=== PATIENT | female | born 1945 | race Caucasian/White ===

== ENCOUNTER 2017-02-20 17:56 | Emergency (ER) | payer OTHER, MEDICARE ==
[2017-02-20 18:27] VITALS: BMI 19.9
[2017-02-20] MEDS ORDERED: NS IRRIGATION 1000 ML 1,000 ML ONE (18:30)
--- NOTE | 2017-02-20 19:18 | DR.GIBLEED ---
HPI - Time Seen Time seen: 17:35 - Primary Care Physician Primary Care Physician: JEFFREY\ - HPI Comment HPI Comment: Brownish vomitus - Complaints Chief Complaint Doctors Comments: She had vomitted after having a chocolate Ensure. Chief Complaint:: [facility] STAFF STATES PT STARTED VOMITTING DARK VOMITUS X1. PT'S NURSE STATES PT HAD NOT ATE ANYTHING PRIOR TO VOMITTING OTHER THAN A CHOCOLATE ENSURE. - Reviewed Nurses Notes Reviewed: Yes - Source History Provided: Patient, Detention - Mode of Arrival Mode of Arrival: EMS - Timing Onset of Chief Complaint: 02/20/17 - Quality Vomitus: Brown Stools: None History Of: None Prehospital Care:: None - Severity Number of: 1 - Context Onset: Spontaneous Recent Use Of: None - Associated Signs and Symptoms Associated Signs and Symptoms: denies: Chest Pain, Abdominal Pain, Diarrhea, Epistaxis, Menorrhagia (female), Faintness, Other PMH - PMH Past Medical History: Yes Past Medical History: Anemia, Coronary Artery Disease, Dementia, Depression, Dyslipidemia, GERD, Hypertension, Hypothyroidism Past Surgical History: No (UNKNOWN) Surgical History: Unknown - Family History History of Family Medical Conditions: No - Social History Does any household member use tobacco: No Alcohol Use: None Do you use any recreational Drugs:: No Lives With: Family Lives Where: Home - infectious screening In the last 2 months have you had wt loss of >10#?: NO Have you had fever, night sweats or hemotysis?: No Have you traveled outside the country in the last 6 months?: No Isolation: Standard ROS - Review of Systems Eyes: No Symptoms Reported ENTM: No Symptoms Reported Respiratoy: No Symptoms Reported Cardiovascular: No Symptoms Reported Gastrointestinal/Abdominal: Vomiting Genitourinary: No Symptoms Reported Neurological: No Symptoms Reported Musculoskeletal: No Symptoms Reported Integumentary: No Symptoms Reported Hematologic/Lymphatic: No Symptoms Reported Endocrine: No Symptoms Reported Psychiatric: No Symptoms Reported All Other Systems: Reviewed and Negative PE - Vital Signs Vitals: Temperature 97.9 F Pulse Rate [Apical] 103 Pulse Rate 97 Respiratory Rate 16 Blood Pressure [Left Arm] 144/75 Blood Pressure 136/63 O2 Sat by Pulse Oximetry 100 - General Limitations: No Limitations General Appearance: Alert, In No Apparent Distress - Head Head Exam: Normal Inspection - Eyes Eye exam: Normal Appearance - ENT ENT Exam: Normal Exam - Neck Neck Exam: Normal Inspection - Chest Chest Inspection: Normal Inspection, Symmetric Chest Wall Rise - Respiratory Respiratory Exam: Normal Lung Sounds Bilat Respiratory Exam: Bilateral Clear to Auscultation - Cardiovascular Cardiovascular Exam: Regular Rate, Normal Rhythm - Abdominal Exam Abdominal Exam: Normal Inspection, Normal Bowel Sounds, Soft - Rectal Rectal Exam: Normal Inspection, Normal Rectal Tone - Extremities Extremities Exam: Normal Inspection - Back Back Exam: Normal Inspection - Neurologic Neurological Exam: Alert - Psychiatric Psychiatric Exam: Normal Affect - Skin Skin Exam: Warm Course - Reevaluation 1st: Resolved - Education/Counseling Education/Counseling: Patient Educated On: Treatment ROR - Labs Reviewed Result Diagrams: 02/20/17 19:37 Laboratory: WBC 10.5 X10^3/uL (3.6-10.0) H 02/20/17 19:37 RBC 3.69 X10^6/uL (3.5-5.4) 02/20/17 19:37 Hgb 10.6 g/dL (12.0-16.0) L 02/20/17 19:37 Hct 31.2 % (36.0-47.0) L 02/20/17 19:37 MCV 84.4 fL (80.0-100.0) 02/20/17 19:37 MCH 28.8 pg (27.0-34.0) 02/20/17 19:37 MCHC 34.1 g/dL (33.0-35.0) 02/20/17 19:37 RDW 13.6 % (11.6-16.5) 02/20/17 19:37 Plt Count 350 X10^3/uL (150.0-450.0) 02/20/17 19:37 MPV 8.0 fL (7.4-11.0) 02/20/17 19:37 Neut % 80.2 % (42.0-75.0) H 02/20/17 19:37 Lymph % 13.2 % (21.0-51.0) L 02/20/17 19:37 Talbot % 5.5 % (0.0-13.0) 02/20/17 19:37 Eos % 0.3 % (0.9-2.9) L 02/20/17 19:37 Baso % 0.8 % (0.2-1.0) 02/20/17 19:37 Neut # 8.4 x10^3/uL (2.2-4.8) H 02/20/17 19:37 Lymph # 1.4 X10^3/uL (1.3-2.9) 02/20/17 19:37 Talbot # 0.6 x10^3/uL (0.3-0.8) 02/20/17 19:37 Eos # 0.0 x10^3/uL (0.0-0.2) 02/20/17 19:37 Baso # 0.1 X10^3/uL (0.0-0.1) 02/20/17 19:37 Absolute Nucleated RBC 0.0 /100WBC 02/20/17 19:37 Stool Description Ifob collection tube 02/20/17 19:15 Stl Occult Blood (IFOB) Negative (NEGATIVE) 02/20/17 19:15 - Diagnosis Discharge Problem: Nausea & vomiting Discharge Problem: (Ruled Out): Nausea - Discharge Plan Disposition: 03 [facility] Condition: Stable - Follow ups/Referrals Follow ups/Referrals: Ronni Carver [Primary Care Provider] - 3 days - Instructions Instructions: Nausea, Adult, [id number]
[2017-02-20 19:48] LABS: BASOPHILS # (AUTO) 0.1 X10^3/uL (0.0-0.1); BASOPHILS % (AUTO) 0.8 % (0.2-1.0); EOSINOPHILS % (AUTO) 0.3 % (0.9-2.9); HEMATOCRIT 31.2 % (36.0-47.0); HEMOGLOBIN 10.6 g/dL (12.0-16.0); LYMPHOCYTES # (AUTO) 1.4 X10^3/uL (1.3-2.9); LYMPHOCYTES % (AUTO) 13.2 % (21.0-51.0); MEAN CORPUSCULAR HEMOGLOBIN 28.8 pg (27.0-34.0); MEAN CORPUSCULAR HGB CONC 34.1 g/dL (33.0-35.0); MEAN CORPUSCULAR VOLUME 84.4 fL (80.0-100.0); MONOCYTES # (AUTO) 0.6 x10^3/uL (0.3-0.8); MONOCYTES % (AUTO) 5.5 % (0.0-13.0); NEUTROPHILS # (AUTO) 8.4 x10^3/uL (2.2-4.8); NEUTROPHILS % (AUTO) 80.2 % (42.0-75.0); PLATELET COUNT 350 X10^3/uL (150.0-450.0); RED BLOOD COUNT 3.69 X10^6/uL (3.5-5.4); RED CELL DISTRIBUTION WIDTH 13.6 % (11.6-16.5); WHITE BLOOD COUNT 10.5 X10^3/uL (3.6-10.0)
[2017-02-20 20:10] VITALS: BP 144/75
== END 2017-02-20 20:21 | disposition home or self-care (01) ==
LOC: ER 18:21
DX: R11.10 Vomiting, unspecified (principal)
CPT/HCPCS: 36415; 82270; 85025; 99283

== ENCOUNTER 2017-04-26 12:23 | Emergency (ER) | payer OTHER, MEDICARE ==
[2017-04-26 12:47] VITALS: BP 145/74
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
== END 2017-04-26 14:31 ==
LOC: ER 12:31
DX: T74.21XA Adult sexual abuse, confirmed, initial encounter (principal); Y07.59 Other non-family member, perpetrator of maltreatment and neglect
CPT/HCPCS: 99283; 99285

== ENCOUNTER 2018-08-03 07:39 | Inpatient (IN) ==
--- NOTE | 2018-08-03 08:55 | DR.NAUSEAF ---
HPI Time Seen Time Seen by Provider: 08/03/18 08:43 Primary Care Physician Primary Care Physician: JEFFREY HPI Comment HPI Comment: PATIENT IS 73YR OLD WHITE FEMALE WITH VOMITING STOOL LIKE VOMITUS AND STOOL LIKE G-TUBE ASPIRATION. PATIENT IS HAVING ABDOMIAL PAIN AND G-TUBE WAS PLACE RECENTLY. AGREE WITH CHIEF COMPLAINT. HISTORY ANEMIA. TAKES ASPRIN 81MG DAILY. NO FEVER. Complaints Chief Complaint Doctors Comments: G TUBE WITH STOOL COMING FROM IT AND VOMITED SIMILAR TO WHAT IS COMING OUT OF G-TUBE. THIS WAS NOTED THOS AM AT THE [facility]. Chief Complaint:: [facility] STAFF CALLS AND STATES PT. HAS HAD SEVERAL VOMITING EPISODES THIS MORNING WHICH ARE DARK IN COLOR AND SMELL OF STOOL. THEY ALSO STATE PT'S SKIN IS JAUNDICE AND THAT PT. RECENTLY HAD A G-TUBE PLACED. UPON ARRIVAL TO ER, G-TUBE NOTED TO BE LEAKING DARK, FOUL SMELLING LIQUID. PT. IS VERY TENDER TO G-TUBE SITE. Reviewed Nurses Notes Reviewed: Yes Source History Provided: Patient and Custodial Mode of Arrival Mode of Arrival: Stretcher Timing Onset of Chief Complaint: 08/03/18 Context Onset: Spontaneous Recent: None History of: Abdominal Operation (G-TUBE PLACEMENT.) Quality Quality: Bloody Associated Signs and Symptoms Abdominal Pain Quality: Other (HURTING.) Abdominal Pain Location: Diffuse Symptoms: Abdominal Pain and Hematemesis Other History Other History: ANEMIA. PMH PMH Past Medical History: Yes Past Medical History: Anemia, Arthritis, Coronary Artery Disease, Dementia, Dyslipidemia, Hypertension and Hypothyroidism Past Surgical History: Yes Surgical History: Hysterectomy, Ortho Surgery and Other Past Surgical History Comment: G-TUBE PLACEMENT Family History History of Family Medical Conditions: Yes Family Medical History: Coronary Artery Disease and Hypertension Social History Does patient currently use any type of tobacco product: No Have you used tobacco products in the last 12 months: No Type of Tobacco Use: None Does any household member use tobacco: No Alcohol Use: None Do you use any recreational Drugs:: No Lives With: Other Lives Where: Custodial infectious screening In the last 2 months have you had wt loss of >10#?: NO Have you had fever, night sweats or hemotysis?: No Have you traveled outside the country in the last 6 months?: No Isolation: Standard ROS Review of Systems Constitutional: Weakness; negative Fever Eyes: No Symptoms Reported; negative Eye Pain and Discharge ENTM: No Symptoms Reported Respiratoy: No Symptoms Reported Cardiovascular: No Symptoms Reported Gastrointestinal/Abdominal: Abdominal Pain, Nausea and Vomiting Neurological: Numbness Musculoskeletal: No Symptoms Reported Integumentary: No Symptoms Reported Hematologic/Lymphatic: Anemia Endocrine: No Symptoms Reported Psychiatric: No Symptoms Reported All Other Systems: Reviewed and Negative Unable to Obtain Due To: Dementia PE Vital Signs Vitals: Temperature 98.6 F Pulse Rate [Apical] 108 Pulse Rate 89 Respiratory Rate 17 Blood Pressure [Right Arm] 158/70 Blood Pressure [Left Arm] 128/61 Blood Pressure 139/68 O2 Sat by Pulse Oximetry 97 General Limitations: Other (DEMENTIA.) General Appearance: Alert and In No Apparent Distress Head Head Exam: Normal Inspection Eyes Eye exam: PERRL; negative Scleral Icterus and Conjunctival Injection ENT ENT Exam: Normal External Ear Exam Neck Neck Exam: Normal Inspection and Trachea Midline; negative Tenderness, Meningismus and Lymphadenopathy Chest Chest Inspection: Symmetric Chest Wall Rise Respiratory Respiratory Exam: Normal Lung Sounds Bilat Respiratory Exam: Bilateral: Rales and Lower: Rales Cardiovascular Cardiovascular Exam: Regular Rate and Normal Rhythm Abdominal Exam Abdominal Exam: Normal Bowel Sounds, Soft and Tenderness Abdominal Tenderness: Diffuse and Moderate Rectal Rectal Exam: Deferred External Exam: Female: Deferred : Speculum Exam (Female): Deferred : Bimanual Exam (female): Deferred Extremities Extremities Exam: Normal Inspection Back Back Exam: Normal Inspection Neurologic Neurological Exam: Alert Psychiatric Psychiatric Exam: Normal Affect Skin Skin Exam: Dry MDM Differential Diagnosis Differential Diagnosis: Considerations may Include:: Bowel Obstruction, Gastroenteritis, Inflammatory BD, Pancreatitis, Urinary Tract Infection and Urolithiasis COURSE Treatment Treatment: SEE ORDERS. IV NS AND PROTONIX DRIP IN ED. Consultation Consultation Comments: DR. MURPHY WILL ADMIT PATIENT. Education/Counseling Education/Counseling: Patient Educated On: Diagnosis ROR Labs Reviewed Laboratory Results Reviewed?: Yes Result Diagrams: 08/05/18 04:21 08/05/18 04:21 Laboratory: 08/03/18 10:18 Urine,Catheterized Urine Culture - Preliminary WBC 14.7 X10^3/uL (3.6-10.0) H 08/05/18 04:21 RBC 4.22 X10^6/uL (3.5-5.4) 08/05/18 04:21 Hgb 10.7 g/dL (12.0-16.0) L 08/05/18 04:21 Hct 32.2 % (36.0-47.0) L 08/05/18 04:21 MCV 76.3 fL (80.0-100.0) L 08/05/18 04:21 MCH 25.3 pg (27.0-34.0) L 08/05/18 04:21 MCHC 33.1 g/dL (33.0-35.0) 08/05/18 04:21 RDW 19.2 % (11.6-16.5) H 08/05/18 04:21 Plt Count 542 X10^3/uL (150.0-450.0) H 08/05/18 04:21 Plt Count Comment Increased (ADEQUATE) A 08/05/18 04: MPV 7.5 fL (7.4-11.0) 08/05/18 04:21 Neut % (Auto) 77.0 % (42.0-75.0) H 08/05/18 04:21 Lymph % (Auto) 13.2 % (21.0-51.0) L 08/05/18 04:21 Stephenson % (Auto) 6.3 % (0.0-13.0) 08/05/18 04:21 Eos % (Auto) 2.9 % (0.9-2.9) 08/05/18 04:21 Baso % (Auto) 0.6 % (0.2-1.0) 08/05/18 04:21 Neut # (Auto) 11.3 x10^3/uL (2.2-4.8) H 08/05/18 04:21 Lymph # (Auto) 2.0 X10^3/uL (1.3-2.9) 08/05/18 04:21 Stephenson # (Auto) 0.9 x10^3/uL (0.3-0.8) H 08/05/18 04:21 Eos # (Auto) 0.4 x10^3/uL (0.0-0.2) H 08/05/18 04:21 Baso # (Auto) 0.1 X10^3/uL (0.0-0.1) 08/05/18 04:21 Absolute Nucleated RBC 0.1 /100WBC 08/05/18 04:21 Total Counted 100 08/03/18 08:58 Neutrophils % (Manual) 90 % (39-76) H 08/03/18 08:58 Band Neutrophils % 4 % (0-10) 08/03/18 08:58 Lymphocytes % (Manual) 4 % (13-43) L 08/03/18 08:58 Monocytes % (Manual) 2 % (4-9) L 08/03/18 08:58 Plt Morphology Comment Normal (NORMAL) 08/05/18 04:21 RBC Morphology Abnormal (NORMAL) A 08/05/18 04:21 Hypochromasia Slight A 08/05/18 04:21 Anisocytosis Slight A 08/05/18 04:21 Microcytosis Slight A 08/04/18 04:21 INR Target Range - 08/04/18 04:21 INR 1.14 (0.8-1.3) 08/04/18 04:21 APTT 29.1 SECONDS (22.9-36.5) 08/04/18 04:21 PTT Comment - 08/04/18 04:21 Sodium 142 mmol/L (136-145) 08/05/18 04:21 Corrected Sodium TNP 08/05/18 04:21 Potassium 3.7 mmol/L (3.5-5.1) 08/05/18 04:21 Chloride 107 mmol/L (98-107) 08/05/18 04:21 Carbon Dioxide 22.1 mmol/L (21-32) 08/05/18 04:21 BUN 15 mg/dL (7-18) 08/05/18 04:21 Creatinine 0.61 mg/dL (0.55-1.02) 08/05/18 04:21 Est GFR (MDRD) Af Amer > 60 (>60) 08/05/18 04:21 Est GFR (MDRD) Non-Af > 60 (>60) 08/05/18 04:21 Glucose 67 mg/dL (65-99) 08/05/18 04:21 Lactic Acid 2.3 mmol/L (0.4-2.0) H 08/03/18 09:35 Calcium 7.6 mg/dL (8.5-10.1) L 08/05/18 04:21 Corrected Calcium 9.1 mg/dL (8.5-10.1) 08/05/18 04:21 Magnesium 2.1 mg/dL (1.7-2.9) 08/05/18 04:21 Total Bilirubin 0.60 mg/dL (0.2-1.0) 08/05/18 04:21 AST 14 Units/L (15-37) L 08/05/18 04:21 ALT 11 Units/L (12-78) L 08/05/18 04:21 Alkaline Phosphatase 59 Units/L (46-116) 08/05/18 04:21 Creatine Kinase 22 Units/L (26-192) L 08/03/18 22:50 CK-MB (CK-2) < 1.0 ng/mL (0-4.0) 08/03/18 22:50 CK/CKMB % Calc 4.6 % (<4) 08/03/18 22:50 Troponin I < 0.02 ng/mL (0-1.5) 08/03/18 22:50 Total Protein 5.9 g/dL (6.4-8.2) L 08/05/18 04:21 Albumin 2.1 g/dL (3.4-5.0) L 08/05/18 04:21 Globulin 3.8 g/dL (2.5-4.5) 08/05/18 04:21 Albumin/Globulin Ratio 0.6 Ratio (1.1-2.1) L 08/05/18 04:21 Amylase 33 Units/L (25-115) 08/03/18 08:58 Lipase 115 Units/L (73-393) 08/03/18 08:58 Specimen Type Catherized urine 08/04/18 10:10 Urine Color Dark yellow (YELLOW) 08/04/18 10:10 Urine Appearance Cloudy (CLEAR) 08/04/18 10:10 Urine pH 6.0 (5.0 - 8.0) 08/04/18 10:10 Ur Specific Steger 1.010 (1.000-1.030) 08/04/18 10:10 Urine Protein 2+ (NEGATIVE) 08/04/18 10:10 Urine Glucose (UA) Negative (NEGATIVE) 08/04/18 10:10 Urine Ketones 2+ (NEGATIVE) 08/04/18 10:10 Urine Occult Blood 1+ (NEGATIVE) 08/04/18 10:10 Urine Nitrite Positive (NEGATIVE) 08/04/18 10:10 Urine Bilirubin Negative (NEGATIVE) 08/04/18 10:10 Urine Urobilinogen 1+ (NORMAL) 08/04/18 10:10 Ur Leukocyte Esterase 1+ (NEGATIVE) 08/04/18 10:10 Urine RBC 3-5 /HPF (NONE SEEN) 08/04/18 10:10 Urine WBC 10-20 /HPF (NONE SEEN) 08/04/18 10:10 Ur Squamous Epith Cells Rare /HPF (NEGATIVE) 08/04/18 10:10 Urine Bacteria 2+ /HPF (NEGATIVE) 08/04/18 10:10 RBC Casts Few /LPF (NEGATIVE) 08/03/18 10:18 Ur Culture Indicated? Yes/culture set up 08/04/18 10:10 Gastric Fluid pH 3 08/03/18 08:58 Gastric Occult Blood Positive (NEGATIVE) A 08/03/18 08:58 Blood Type B POSITIVE 08/04/18 06:32 Antibody Screen Negative 08/04/18 06:32 Crossmatch See Detail 08/04/18 06:32 XRAY XRAY Interpreted by: Radiologist XRAY Findings: REPORT NOTED EKG Rate: 120 Rhythm: ST and Paced Block: None Hypertrophy: None ST: Old, Ant and Infarct Diagnosis Discharge Problem: GI bleed Qualifiers: GI bleed type/associated pathology: unspecified gastrointestinal hemorrhage type Qualified Code(s): K92.2 - Gastrointestinal hemorrhage, unspecified Anemia Qualifiers: Anemia type: unspecified type Qualified Code(s): D64.9 - Anemia, unspecified Bowel obstruction Qualifiers: Intestinal obstruction type: fecal impaction Qualified Code(s): K56.41 - Fecal impaction
[2018-08-03 09:06] LABS: BASOPHILS # (AUTO) 0.1 X10^3/uL (0.0-0.1); BASOPHILS % (AUTO) 0.2 % (0.2-1.0); HEMATOCRIT 27.5 % (36.0-47.0); HEMOGLOBIN 8.5 g/dL (12.0-16.0); LYMPHOCYTES % (AUTO) 3.6 % (21.0-51.0); MEAN CORPUSCULAR HEMOGLOBIN 21.9 pg (27.0-34.0); MEAN CORPUSCULAR VOLUME 70.7 fL (80.0-100.0); MEAN PLATELET VOLUME 7.1 fL (7.4-11.0); MONOCYTES # (AUTO) 1.1 x10^3/uL (0.3-0.8); MONOCYTES % (AUTO) 3.8 % (0.0-13.0); NEUTROPHILS # (AUTO) 26.2 x10^3/uL (2.2-4.8); NEUTROPHILS % (AUTO) 92.4 % (42.0-75.0); PLATELET COUNT 899 X10^3/uL (150.0-450.0); RED BLOOD COUNT 3.89 X10^6/uL (3.5-5.4); RED CELL DISTRIBUTION WIDTH 18.2 % (11.6-16.5)
[2018-08-03 09:17] LABS: ALANINE AMINOTRANSFERASE 14 Units/L (12-78); ALBUMIN 2.6 g/dL (3.4-5.0); ALKALINE PHOSPHATASE 76 Units/L (46-116); AMYLASE 33 Units/L (25-115); ASPARTATE AMINO TRANSFERASE 10 Units/L (15-37); BLOOD UREA NITROGEN 29 mg/dL (7-18); CALCIUM 8.7 mg/dL (8.5-10.1); CARBON DIOXIDE 30.6 mmol/L (21-32); CHLORIDE 99 mmol/L (98-107); COR CA(FOR HYPOALB) 9.8 mg/dL (8.5-10.1); COR NA(FOR HYPERGLY) 140 mmol/L (136-145); CREATININE 0.69 mg/dL (0.55-1.02); LIPASE 115 Units/L (73-393); SODIUM 139 mmol/L (136-145); TOTAL PROTEIN 7.5 g/dL (6.4-8.2); eGFR NON BLACK RACES > 60 (>60)
[2018-08-03 09:22] LABS: GASTRIC OCCULT BLOOD POSITIVE (NEGATIVE)
[2018-08-03 09:23] LABS: PH,GASTRIC FLUID 3; WHITE BLOOD COUNT 28.3 X10^3/uL (3.6-10.0)
[2018-08-03 09:29] LABS: BAND NEUTROPHILS % 4 % (0-10); HYPOCHROMASIA 2+; PLATELET MORPHOLOGY COMMENT NORMAL (NORMAL)
--- NOTE | 2018-08-03 09:32 | RAD ---
HISTORY: Peg tube placed 07/29/2018. Since that time, dark residual stuck in PEG tube. Patient complains of abdominal tenderness and no bowel movement for several days. Study: KUB Comparison: 08/01/2018. Findings: A PEG tube is present with the balloon inflated adjacent to the transverse process of L3 on the left. This is unchanged in position compared to the prior study. There is a massive amount of stool present throughout the colon. No bowel obstruction is seen. No opaque stone is seen. There is heavy calcification present within the kahn of the abdominal aorta without apparent aneurysm. A left hip nail is again seen. IMPRESSION: Massive amount of stool present throughout the entire colon compatible with a total colon fecal impaction. Peg tube as described above. Comment: If there is concern about the intraluminal position of the PEG tube, small amount of Gastrografin could be injected, followed by an immediate KUB. Reported By:
[2018-08-03] MEDS: NS 1000 ML 1,000 ML IV SCH (09:49)
[2018-08-03] MEDS ORDERED: PROTONIX INJ 40 MG VIAL ONE (09:50)
[2018-08-03] MEDS ORDERED: NS 100 ML IV 100 ML ONE ×2 (09:50→18:18)
[2018-08-03] MEDS ORDERED: CATAPRES TAB 0.2 MG PO ONE (10:07)
[2018-08-03] MEDS: PROTONIX INJ 40 MG VIAL 80 MG in NS 100 ML IV 80 ML IV SCH ×3 (10:07→20:00)
[2018-08-03 10:26] LABS: BILIRUBIN,URINE NEGATIVE (NEGATIVE); BLOOD/HEMOGLOBIN,URINE 1+ (NEGATIVE); GLUCOSE, URINE NEGATIVE (NEGATIVE); KETONES,URINE 2+ (NEGATIVE); LEUKOCYTE ESTERASE ,URINE 1+ (NEGATIVE); NITRITES,URINE NEGATIVE (NEGATIVE); PROTEIN,URINE 2+ (NEGATIVE); UROBILINOGEN,URINE 3+ (NORMAL)
[2018-08-03 10:47] LABS: APPEARANCE,URINE CLOUDY (CLEAR); COLOR,URINE YELLOW (YELLOW)
[2018-08-03 10:51] LABS: BACTERIA,URINE 2+ /HPF (NEGATIVE); RED BLOOD CELL CASTS,URINE FEW /LPF (NEGATIVE); SQUAMOUS EPITHELIAL CELL,UR RARE /HPF (NEGATIVE)
[2018-08-03 12:01] LABS: CKMB % 4.2 % (<4); CREATINE KINASE 24 Units/L (26-192); CREATINE KINASE MB < 1.0 ng/mL (0-4.0); TROPONIN I < 0.02 ng/mL (0-1.5)
[2018-08-03 12:27] VITALS: BMI 17.9
[2018-08-03] MEDS ORDERED: NS 500 ML IV 500 ML ONE (12:39)
[2018-08-03] MEDS ORDERED: NS 500 ML IV 500 ML IV PRN (12:40)
[2018-08-03] MEDS: FLAGYL IV PREMIX 500 MG BAG 500 MG/100 ML BAG IV SCH ×2 (14:14→20:48)
[2018-08-03] MEDS: ZOSYN VIAL 3.375 GRAMS 3.375 G in NS 100 ML IV + SPIKE MINIBAG* 100 ML IV SCH ×2 (15:17→21:50)
[2018-08-03 18:24] LABS: CREATINE KINASE 25 Units/L (26-192); CREATINE KINASE MB < 1.0 ng/mL (0-4.0); TROPONIN I < 0.02 ng/mL (0-1.5)
[2018-08-03] MEDS ORDERED: FLEET ENEMA ADULT PR ONE (19:22)
[2018-08-03] MEDS ORDERED: DULCOLAX SUPPOSITORY 10 MG RECTAL ONE (19:22)
--- NOTE | 2018-08-03 19:31 | DR.CONSULT ---
Consult - Consultation for Day of: Date: 08/03/18 - Chief Complaint Chief Complaint: Patient referred for drainage around gastrostomy tube. Patient with AMS unable to obtain accurate review of systems. - History of Present Illness History of Present Illness: Shai is a 73yo female who was referred for leaking around gastrostomy tube. Patient with AMS no family present unable to obtain accurate review of systems. Patient was brougt to the ER from [facility] staff states that patient was vomitng dark emesis that smelled like stool and has been having dark drainage around gastrostomy tube site that smells foul. Patient has EGD on 07/29/18 which showed upper esophageal stricture, distal esophageal stricutre, large deep penetrating duodenal bulb ulcer, erosive gastritis and gastrostomy tube was placed. Patient was referred to our office for anemia, decreased appetite and weight loss. Patient was scheduled for colonoscopy to be performed on 08/05/18. WBC 28.3, Hgb 8.5, Hct 27.5, BUN 26, Creatinine 0.6. Patient with hemoccult positive. KUB shows massive amount of stool throughout the colon. Patient noted to have diffuse abdominal tenderness on palpitation of abdomen. - Past Medical History Past Medical History: Coronary Artery Disease, Hypertension, Dyslipidemia, Dementia, Hypothyroidism, Anemia, Arthritis - Past Surgical History Surgical History: Hysterectomy, Ortho Surgery - Family History Family Medical History: Coronary Artery Disease, Hypertension - Social History Does patient currently use any type of tobacco product: No Have you used tobacco products in the last 12 months: No Type of Tobacco Use: None Does any household member use tobacco: No Alcohol Use: None Drug Use: None - Medications Home Medications: No Known Drug Allergies Allergy (Verified 02/20/17 20:10) - Review of Systems Gastrointestinal: See HPI - Physical Exam Vital Signs: Temperature 99.3 F Pulse Rate [Apical] 108 Pulse Rate 123 Respiratory Rate 20 Blood Pressure [Right Arm] 158/70 Blood Pressure [Left Arm] 128/61 Blood Pressure 113/74 O2 Sat by Pulse Oximetry 99 Oriented: Person Eyes: Normal Ear: Normal Nose: Normal Throat: Normal Respiratory: Clear Throughout Cardiovascular: Normal Auscultation: Bowel Sounds: Normal Palpation: Normal. negative: Spleen Enlarged, Liver Enlarged, Mass Pulsatile Tenderness: Diffuse Skin: Normal Musculoskeletal: Normal Psychiatric: Normal Mood Description: Calm Affect: Normal Speech Pattern: Clear - Plan Plan: Assessment. 1. Anemia, GI Bleed r/o lower GI Bleed. 2. Constipation. 3. Vomiting, Diffuse abdominal pain. 4. GERD, Duodenal ulcer. Plan. 1. Colon when WBC has came down and more stable from infection standpoint. 2. Dulcolax Supp, Fleets Anemia. 3. Abdomen and pelvis CT with contrast. 4. Protonix. Plan reviewed with - Allergies Allergies/Adverse Reactions: Allergies Allergy/AdvReac Type Severity Reaction Status Date / Time No Known Drug Allergies Allergy Verified 02/20/17 20:10
[2018-08-03 23:19] LABS: CKMB % 4.6 % (<4); CREATINE KINASE 22 Units/L (26-192); CREATINE KINASE MB < 1.0 ng/mL (0-4.0); TROPONIN I < 0.02 ng/mL (0-1.5)
[2018-08-04] MEDS: NS 1000 ML 1,000 ML IV SCH ×2 (00:12→15:57)
[2018-08-04] MEDS ORDERED: DULCOLAX SUPPOSITORY 10 MG ONE (00:29)
[2018-08-04] MEDS: PROTONIX INJ 40 MG VIAL 80 MG in NS 100 ML IV 80 ML IV SCH ×4 (02:56→17:09)
[2018-08-04] MEDS: FLAGYL IV PREMIX 500 MG BAG 500 MG/100 ML BAG IV SCH ×4 (02:57→22:57)
[2018-08-04 05:28] LABS: BASOPHILS # (AUTO) 0.1 X10^3/uL (0.0-0.1); BASOPHILS % (AUTO) 0.3 % (0.2-1.0); EOSINOPHILS % (AUTO) 0.2 % (0.9-2.9); LYMPHOCYTES # (AUTO) 1.9 X10^3/uL (1.3-2.9); LYMPHOCYTES % (AUTO) 10.5 % (21.0-51.0); MEAN CORPUSCULAR HEMOGLOBIN 22.6 pg (27.0-34.0); MEAN CORPUSCULAR HGB CONC 31.9 g/dL (33.0-35.0); MEAN CORPUSCULAR VOLUME 70.8 fL (80.0-100.0); MEAN PLATELET VOLUME 7.4 fL (7.4-11.0); MONOCYTES # (AUTO) 1.2 x10^3/uL (0.3-0.8); MONOCYTES % (AUTO) 6.5 % (0.0-13.0); NEUTROPHILS # (AUTO) 14.8 x10^3/uL (2.2-4.8); NEUTROPHILS % (AUTO) 82.5 % (42.0-75.0); PLATELET COUNT 624 X10^3/uL (150.0-450.0); RED BLOOD COUNT 2.66 X10^6/uL (3.5-5.4)
[2018-08-04 05:34] LABS: ALANINE AMINOTRANSFERASE 11 Units/L (12-78); ALBUMIN 2.1 g/dL (3.4-5.0); ALKALINE PHOSPHATASE 61 Units/L (46-116); ASPARTATE AMINO TRANSFERASE 12 Units/L (15-37); BLOOD UREA NITROGEN 19 mg/dL (7-18); CALCIUM 7.6 mg/dL (8.5-10.1); CARBON DIOXIDE 25.1 mmol/L (21-32); CHLORIDE 107 mmol/L (98-107); COR CA(FOR HYPOALB) 9.1 mg/dL (8.5-10.1); SODIUM 144 mmol/L (136-145); eGFR NON BLACK RACES > 60 (>60)
[2018-08-04 05:48] LABS: HEMATOCRIT 18.8 % (36.0-47.0)
[2018-08-04] MEDS: ZOSYN VIAL 3.375 GRAMS 3.375 G in NS 100 ML IV + SPIKE MINIBAG* 100 ML IV SCH ×3 (06:09→22:00)
[2018-08-04] MEDS ORDERED: K-RIDER 10 MEQ/NS 100 ML 10 MEQ/100 ML BAG IV PRN (06:12)
[2018-08-04] MEDS ORDERED: KLOR-CON PO PRN ×2 (06:12→06:13)
[2018-08-04] MEDS ORDERED: K-DUR TAB 20 MEQ PO PRN ×2 (06:12→06:13)
[2018-08-04] MEDS ORDERED: POTASSIUM CHLORIDE LIQ 20 MEQ UDC PO PRN ×2 (06:12→06:13)
[2018-08-04] MEDS ORDERED: POTASSIUM CHL 40 MEQ/NS 0.45% 500 ML IV PRN ×2 (06:12→06:13)
[2018-08-04] MEDS ORDERED: POTASSIUM CHL 60 MEQ/NS 0.45% 500 ML IV PRN ×2 (06:12→06:13)
[2018-08-04] MEDS ORDERED: MICRO K EXTEN CAP 10 MEQ PO PRN ×2 (06:12→06:13)
[2018-08-04] MEDS ORDERED: MAGNESIUM SULFATE 1 GRAM/100 mL PREMIX 1 GM/100 ML BAG IV PRN (06:12)
[2018-08-04 06:20] LABS: ANISOCYTOSIS SLIGHT; HYPOCHROMASIA 3+; MICROCYTOSIS SLIGHT; PLATELET MORPHOLOGY COMMENT NORMAL (NORMAL)
[2018-08-04] MEDS ORDERED: K-RIDER 10 MEQ/NS 100 ML 10 MEQ/100 ML BAG IV ONE (06:25)
[2018-08-04] MEDS: K-RIDER 10 MEQ/NS 100 ML 10 MEQ/100 ML BAG IV PRN ×3 (06:30→18:55)
[2018-08-04] MEDS ORDERED: TYLENOL 325 MG TAB PO PRN (08:16)
[2018-08-04] MEDS: MAGNESIUM SULFATE 1 GRAM/100 mL PREMIX 1 GM/100 ML BAG IV PRN ×2 (08:16→09:28)
[2018-08-04] MEDS ORDERED: BENADRYL INJ 50 MG VIAL IVP ONE (08:16)
--- NOTE | 2018-08-04 09:04 | CT ---
HISTORY: Abdominal pain and tenderness. Peg tube placed on July 29, 2018. Study: CT abdomen and pelvis with contrast Comparison: KUB dated same day. Technique: Multiple axial images of the abdomen and pelvis were obtained from the lung bases to the pubic symphysis after the administration of IV contrast. Dose reduction techniques including Automated Exposure Control (AEC) and adjustment of mA and kV were utilized. Findings: Bibasilar scarring versus atelectasis. There is a PEG tube whose lumen is within the stomach. Anterior to the stomach there is a rim enhancing fluid collection with multiple internal foci of free air measuring 8.1 x 2.2 x 6.5 cm in greatest dimension. This most likely represents abscess formation. Associated soft tissue stranding. Sub cm hypodensity within the posterior right liver lobe that is too small to characterize. Remaining liver is unremarkable. Atretic left kidney. The spleen, pancreas, right kidney, and adrenal glands are unremarkable in their CT appearance. The gallbladder is unremarkable in its CT appearance. No pathologic lymphadenopathy, free air, free fluid, or other areas of focal fluid collection. Large amounts of stool is seen within the colon. The large and small bowel are otherwise unremarkable. The appendix is not well seen, but no secondary signs to suggest acute appendicitis. The uterus is surgically absent. There is a 3.3 cm left ovarian simple appearing cyst. The right ovary is unremarkable. The urinary bladder is grossly unremarkable. Degenerative changes of the spine. No aggressive osseous lesions. Partially visualized left femur hardware appears intact. Vascular calcifications without evidence of aneurysmal dilatation. IMPRESSION: 1. 8.1 cm rim enhancing fluid collection anterior to the stomach most likely represents abscess formation. 2. 3.3 cm left ovarian simple appearing cyst. Recommend pelvic ultrasound for further characterization. 3. Other chronic findings as above. Reported By:
[2018-08-04] MEDS ORDERED: LASIX IVP ONE (09:21)
--- NOTE | 2018-08-04 09:50 | DR.H&P ---
H&P - History & Physical for Day of: H&P Date: 08/03/18 - Chief Complaint Chief Complaint: DARK COLORED EMESIS, ABDOMINAL PAIN, DRAINAGE AROUND PEG TUBE - History of Present Illness History of Present Illness: IS A 73 YEAR OLD PATIENT OF OURS WHO PRESENTED TO THE ER FROM [facility]. SHE PRESENTED WITH COMPLAINTS OF DARK COLORED EMESIS. STAFF REPORTS THAT HER EMESIS SMELLED LIKE STOOL. PATIENT ALSO REPORTS ABDOMINAL PAIN. SHE RECENTLY HAD A PEG TUBE PLACED. ON ARRIVAL TO THE ER, DARK, FOUL SMELLING DRAINAGE WAS NOTED TO BE LEAKING AROUND THE SITE OF THE PEG TUBE. ON ARRIVAL, VITALS WERE 98.6-123-16-97%-113/74. LABS WERE OBTAINED. ABNORMAL LAB VALUES INCLUDE THE FOLLOWING: WBC 28.3, HGB 8.5, HCT 27.5, PLT COUNT 899, BUN 29, GLUCOSE 159, AST 10, ALBUMIN 2.6, GLOBULIN 4.9. GASTRIC FLUID POSISTIVE FOR OCCULT BLOOD. A URINALYSIS WAS OBTAINED AND REVEALED WBC 5-10, RBC 3-5, BACTERIA 2+, LEUKOCYTES 1+. A KUB WAS OBTAINED AND REVEALED: Massive amount of stool present throughout the entire colon compatible with a to kristin colon fecal impaction. Peg tube as described above. EKG REVEALED: SINUS TACHYCARDIA WITH HR 120. SHE WAS GIVEN A FLEETS ENEMA AND A DULCOLOX SUPPOSITORY. SHE WAS THEN ADMITTED FOR FURTHER EVALUATION AND TREATMENT OF GI BLEED, BOWEL OBSTRUCTION, AND ANEMIA. WE PLAN TO CONSULT GI. SHE WILL BE STARTED ON IV FLUIDS, IV ZOSYN, AND A PROTONIX DRIP. OTHERWISE, WE WILL FOLLOW-UP WITH AM LABS AND CONTINUE TO MONITOR. - Past Medical History Past Medical History: Coronary Artery Disease, Hypertension, Dyslipidemia, Dementia, Hypothyroidism, Anemia, Arthritis - Past Surgical History Surgical History: Hysterectomy, Ortho Surgery - Family History Family Medical History: Coronary Artery Disease, Hypertension - Social History Does patient currently use any type of tobacco product: No Have you used tobacco products in the last 12 months: No Type of Tobacco Use: None Does any household member use tobacco: No Alcohol Use: None Drug Use: None - Medications Home Medications: No Known Drug Allergies Allergy (Verified 02/20/17 20:10) - Review of Systems Constitutional: See HPI, Weakness Eyes: No Symptoms Reported ENT: No Symptoms Reported Respiratory: No Symptoms Reported Cardiovascular: No Symptoms Reported Gastrointestinal: See HPI, Nausea, Vomiting, Abdominal Pain Genitourinary: No Symptoms Reported Musculoskeletal: No Symptoms Reported Skin: No Symptoms Reported Neurological: Weakness - Physical Exam Vital Signs: Temperature 99.0 F Pulse Rate [Apical] 108 Pulse Rate 90 Respiratory Rate 19 Blood Pressure [Right Arm] 158/70 Blood Pressure [Left Arm] 128/61 Blood Pressure 134/64 O2 Sat by Pulse Oximetry 97 Oriented: Person Eyes: Normal Ear: Normal Nose: Normal Throat: Normal Respiratory: Diminished Throughout Cardiovascular: Tachycardia. negative: S3, S4, Murmur : Normal Auscultation: Bowel Sounds: Increased Palpation: Normal Tenderness: Diffuse, Moderate. negative: Rebound, Guarding, Rigidity Skin: Red (ABDOMEN) Musculoskeletal: Normal Psychiatric: Normal Mood Description: Calm Affect: Normal Speech Pattern: Clear - Assessment/Plan (1) Anemia Qualifiers: Anemia type: unspecified type Qualified Code(s): D64.9 - Anemia, unspecified Status: Acute Plan: MONITOR H&H, TRANSFUSE PRBC IF NECESSARY (2) GI bleed Qualifiers: GI bleed type/associated pathology: unspecified gastrointestinal hemorrhage type Qualified Code(s): K92.2 - Gastrointestinal hemorrhage, unspecified Status: Acute Plan: PROTONIX DRIP, IV HYDRATION, CONSULT GI, CONTINUE TO MONITOR (3) Infection of percutaneous endoscopic gastrostomy (PEG) site Status: Acute Plan: IV ZOSYN, CONTINUE TO MONITOR (4) Bowel obstruction Qualifiers: Intestinal obstruction type: fecal impaction Qualified Code(s): K56.41 - Fecal impaction Status: Acute Plan: CONTINUE TO MONITOR - Allergies Allergies/Adverse Reactions: Allergies Allergy/AdvReac Type Severity Reaction Status Date / Time No Known Drug Allergies Allergy Verified 02/20/17 20:10
[2018-08-04] MEDS ORDERED: BENADRYL INJ 50 MG VIAL ONE (10:20)
[2018-08-04] MEDS ORDERED: NS 250 ML IV 250 ML ONE ×2 (10:27→13:42)
[2018-08-04 10:54] LABS: BILIRUBIN,URINE NEGATIVE (NEGATIVE); BLOOD/HEMOGLOBIN,URINE 1+ (NEGATIVE); GLUCOSE, URINE NEGATIVE (NEGATIVE); KETONES,URINE 2+ (NEGATIVE); LEUKOCYTE ESTERASE ,URINE 1+ (NEGATIVE); NITRITES,URINE POSITIVE (NEGATIVE); PROTEIN,URINE 2+ (NEGATIVE); UROBILINOGEN,URINE 1+ (NORMAL)
[2018-08-04 11:12] LABS: APPEARANCE,URINE CLOUDY (CLEAR); BACTERIA,URINE 2+ /HPF (NEGATIVE); COLOR,URINE DARK YELLOW (YELLOW); SQUAMOUS EPITHELIAL CELL,UR RARE /HPF (NEGATIVE)
[2018-08-04] MEDS ORDERED: LASIX IVP NR (14:00)
[2018-08-04] MEDS ORDERED: HALDOL INJ IM PRN (14:12)
[2018-08-04] MEDS: ATIVAN INJ 2 MG VIAL IVP PRN (17:10)
--- NOTE | 2018-08-04 17:18 | DR.PROGNOT ---
Hospital Progress Notes - Progress Note for Day of: Progress Note Date: 08/04/18 - Chief Complaint Chief Complaint: having excissive drainage around PEG tube with localized tenderness . CT showed fluid collection on the anterior stomach wall possible abscess . WBC still high 18.000 ..K 2.7 - Past Medical Family Social History Past Med/Fam/Surg Hx: No changes since H&P Allergies: Allergies No Known Drug Allergies Allergy (Verified 02/20/17 20:10) - Review Of Systems ROS: No change since H&P - Vital Signs Vital Signs: Temperature 99.0 F Pulse Rate [Apical] 108 Pulse Rate 100 Respiratory Rate 30 Blood Pressure [Right Arm] 158/70 Blood Pressure [Left Arm] 128/61 Blood Pressure 139/71 O2 Sat by Pulse Oximetry 99 - Physical Exam Oriented: Person Eyes: Normal Ear: Normal Nose: Normal Throat: Normal Respiratory: Normal Cardiovascular: Tachycardia. negative: S3, S4, Murmur : Normal GI:Auscultation: Decreased GI:Palpation: Other (localized tenderness around the PEG tube insertion with drainage .) GI: Tenderness: Diffuse, Moderate. negative: Rebound, Guarding, Rigidity Skin: Red (ABDOMEN) Musculoskeletal: Normal Psychiatric: Normal Mood Description: Calm Affect: Normal Speech Pattern: Clear - Laboratory and Diagnostics Result Diagrams: 08/04/18 04:21 08/04/18 04:21 Labs: 08/03/18 10:18 Urine,Catheterized Urine Culture - Preliminary Laboratory WBC 18.0 X10^3/uL (3.6-10.0) H D 08/04/18 04:21 RBC 2.66 X10^6/uL (3.5-5.4) L 08/04/18 04:21 Hgb 6.0 g/dL (12.0-16.0) L* D 08/04/18 04:21 Hct 18.8 % (36.0-47.0) L* 08/04/18 04:21 MCV 70.8 fL (80.0-100.0) L 08/04/18 04:21 MCH 22.6 pg (27.0-34.0) L 08/04/18 04:21 MCHC 31.9 g/dL (33.0-35.0) L 08/04/18 04:21 RDW 18.0 % (11.6-16.5) H 08/04/18 04:21 Plt Count 624 X10^3/uL (150.0-450.0) H 08/04/18 04:21 Plt Count Comment Increased (ADEQUATE) A 08/04/18 04:21 MPV 7.4 fL (7.4-11.0) 08/04/18 04:21 Neut % (Auto) 82.5 % (42.0-75.0) H 08/04/18 04:21 Lymph % (Auto) 10.5 % (21.0-51.0) L 08/04/18 04:21 [place] % (Auto) 6.5 % (0.0-13.0) 08/04/18 04:21 Eos % (Auto) 0.2 % (0.9-2.9) L 08/04/18 04:21 Baso % (Auto) 0.3 % (0.2-1.0) 08/04/18 04:21 Neut # (Auto) 14.8 x10^3/uL (2.2-4.8) H 08/04/18 04:21 Lymph # (Auto) 1.9 X10^3/uL (1.3-2.9) 08/04/18 04:21 [place] # (Auto) 1.2 x10^3/uL (0.3-0.8) H 08/04/18 04:21 Eos # (Auto) 0.0 x10^3/uL (0.0-0.2) 08/04/18 04:21 Baso # (Auto) 0.1 X10^3/uL (0.0-0.1) 08/04/18 04:21 Absolute Nucleated RBC 0.0 /100WBC 08/04/18 04:21 Total Counted 100 08/03/18 08:58 Neutrophils % (Manual) 90 % (39-76) H 08/03/18 08:58 Band Neutrophils % 4 % (0-10) 08/03/18 08:58 Lymphocytes % (Manual) 4 % (13-43) L 08/03/18 08:58 Monocytes % (Manual) 2 % (4-9) L 08/03/18 08:58 Plt Morphology Comment Normal (NORMAL) 08/04/18 04:21 RBC Morphology Abnormal (NORMAL) A 08/04/18 04:21 Hypochromasia 3+ A 08/04/18 04:21 Anisocytosis Slight A 08/04/18 04:21 Microcytosis Slight A 08/04/18 04:21 INR Target Range - 08/04/18 04:21 INR 1.14 (0.8-1.3) 08/04/18 04:21 APTT 29.1 SECONDS (22.9-36.5) 08/04/18 04:21 PTT Comment - 08/04/18 04:21 Sodium 144 mmol/L (136-145) 08/04/18 04:21 Corrected Sodium TNP 08/04/18 04:21 Potassium 2.4 mmol/L (3.5-5.1) L* 08/04/18 04:21 Chloride 107 mmol/L (98-107) 08/04/18 04:21 Carbon Dioxide 25.1 mmol/L (21-32) 08/04/18 04:21 BUN 19 mg/dL (7-18) H 08/04/18 04:21 Creatinine 0.60 mg/dL (0.55-1.02) 08/04/18 04:21 Est GFR (MDRD) Af Amer > 60 (>60) 08/04/18 04:21 Est GFR (MDRD) Non-Af > 60 (>60) 08/04/18 04:21 Glucose 93 mg/dL (65-99) 08/04/18 04:21 Lactic Acid 2.3 mmol/L (0.4-2.0) H 08/03/18 09:35 Calcium 7.6 mg/dL (8.5-10.1) L 08/04/18 04:21 Corrected Calcium 9.1 mg/dL (8.5-10.1) 08/04/18 04:21 Magnesium 1.8 mg/dL (1.7-2.9) 08/04/18 04:21 Total Bilirubin 0.20 mg/dL (0.2-1.0) 08/04/18 04:21 AST 12 Units/L (15-37) L 08/04/18 04:21 ALT 11 Units/L (12-78) L 08/04/18 04:21 Alkaline Phosphatase 61 Units/L (46-116) 08/04/18 04:21 Creatine Kinase 22 Units/L (26-192) L 08/03/18 22:50 CK-MB (CK-2) < 1.0 ng/mL (0-4.0) 08/03/18 22:50 CK/CKMB % Calc 4.6 % (<4) 08/03/18 22:50 Troponin I < 0.02 ng/mL (0-1.5) 08/03/18 22:50 Total Protein 6.0 g/dL (6.4-8.2) L 08/04/18 04:21 Albumin 2.1 g/dL (3.4-5.0) L 08/04/18 04:21 Globulin 3.9 g/dL (2.5-4.5) 08/04/18 04:21 Albumin/Globulin Ratio 0.5 Ratio (1.1-2.1) L 08/04/18 04:21 Amylase 33 Units/L (25-115) 08/03/18 08:58 Lipase 115 Units/L (73-393) 08/03/18 08:58 Specimen Type Catherized urine 08/04/18 10:10 Urine Color Dark yellow (YELLOW) 08/04/18 10:10 Urine Appearance Cloudy (CLEAR) 08/04/18 10:10 Urine pH 6.0 (5.0 - 8.0) 08/04/18 10:10 Ur Specific [place] 1.010 (1.000-1.030) 08/04/18 10:10 Urine Protein 2+ (NEGATIVE) 08/04/18 10:10 Urine Glucose (UA) Negative (NEGATIVE) 08/04/18 10:10 Urine Ketones 2+ (NEGATIVE) 08/04/18 10:10 Urine Occult Blood 1+ (NEGATIVE) 08/04/18 10:10 Urine Nitrite Positive (NEGATIVE) 08/04/18 10:10 Urine Bilirubin Negative (NEGATIVE) 08/04/18 10:10 Urine Urobilinogen 1+ (NORMAL) 08/04/18 10:10 Ur Leukocyte Esterase 1+ (NEGATIVE) 08/04/18 10:10 Urine RBC 3-5 /HPF (NONE SEEN) 08/04/18 10:10 Urine WBC 10-20 /HPF (NONE SEEN) 08/04/18 10:10 Ur Squamous Epith Cells Rare /HPF (NEGATIVE) 08/04/18 10:10 Urine Bacteria 2+ /HPF (NEGATIVE) 08/04/18 10:10 RBC Casts Few /LPF (NEGATIVE) 08/03/18 10:18 Ur Culture Indicated? Yes/culture set up 08/04/18 10:10 Gastric Fluid pH 3 08/03/18 08:58 Gastric Occult Blood Positive (NEGATIVE) A 08/03/18 08:58 Blood Type B POSITIVE 08/04/18 06:32 Antibody Screen Negative 08/04/18 06:32 Crossmatch See Detail 08/04/18 06:32 - Assessment and Plan 1: abdominal abscess anterior to the stomach . anemia 2ed to duodenal ulcer . hypokalemia . will keep NPO for now and review CT to see if we can drain the abscess under CT gauidance - Problem Patient Problems: Patient Problems GI bleed (Acute) K92.2 Anemia (Acute) D64.9 Bowel obstruction (Acute) K56.609 Infection of percutaneous endoscopic gastrostomy (PEG) site (Acute) K94.22
[2018-08-04 18:38] LABS: HEMATOCRIT 35.4 % (36.0-47.0); HEMOGLOBIN 11.5 g/dL (12.0-16.0)
[2018-08-04] MEDS ORDERED: NS 1/2 + KCL 20 MEQ/L 1,000 ML IV ONE (20:20)
[2018-08-04] MEDS: NS 1/2 + KCL 20 MEQ/L 1,000 ML IV SCH (20:27)
[2018-08-05] MEDS: PROTONIX INJ 40 MG VIAL 80 MG in NS 100 ML IV 80 ML IV SCH (02:00)
[2018-08-05] MEDS: FLAGYL IV PREMIX 500 MG BAG 500 MG/100 ML BAG IV SCH ×4 (03:42→21:17)
[2018-08-05 05:24] LABS: BASOPHILS # (AUTO) 0.1 X10^3/uL (0.0-0.1); BASOPHILS % (AUTO) 0.6 % (0.2-1.0); EOSINOPHILS # (AUTO) 0.4 x10^3/uL (0.0-0.2); EOSINOPHILS % (AUTO) 2.9 % (0.9-2.9); HEMATOCRIT 32.2 % (36.0-47.0); HEMOGLOBIN 10.7 g/dL (12.0-16.0); LYMPHOCYTES % (AUTO) 13.2 % (21.0-51.0); MEAN CORPUSCULAR HEMOGLOBIN 25.3 pg (27.0-34.0); MEAN CORPUSCULAR HGB CONC 33.1 g/dL (33.0-35.0); MEAN CORPUSCULAR VOLUME 76.3 fL (80.0-100.0); MEAN PLATELET VOLUME 7.5 fL (7.4-11.0); MONOCYTES # (AUTO) 0.9 x10^3/uL (0.3-0.8); MONOCYTES % (AUTO) 6.3 % (0.0-13.0); NEUTROPHILS # (AUTO) 11.3 x10^3/uL (2.2-4.8); PLATELET COUNT 542 X10^3/uL (150.0-450.0); RED BLOOD COUNT 4.22 X10^6/uL (3.5-5.4); RED CELL DISTRIBUTION WIDTH 19.2 % (11.6-16.5); WHITE BLOOD COUNT 14.7 X10^3/uL (3.6-10.0)
[2018-08-05 05:45] LABS: ALANINE AMINOTRANSFERASE 11 Units/L (12-78); ALBUMIN 2.1 g/dL (3.4-5.0); ALKALINE PHOSPHATASE 59 Units/L (46-116); ASPARTATE AMINO TRANSFERASE 14 Units/L (15-37); BLOOD UREA NITROGEN 15 mg/dL (7-18); CALCIUM 7.6 mg/dL (8.5-10.1); CARBON DIOXIDE 22.1 mmol/L (21-32); CHLORIDE 107 mmol/L (98-107); COR CA(FOR HYPOALB) 9.1 mg/dL (8.5-10.1); CREATININE 0.61 mg/dL (0.55-1.02); MAGNESIUM 2.1 mg/dL (1.7-2.9); SODIUM 142 mmol/L (136-145); TOTAL PROTEIN 5.9 g/dL (6.4-8.2); eGFR NON BLACK RACES > 60 (>60)
[2018-08-05] MEDS: ZOSYN VIAL 3.375 GRAMS 3.375 G in NS 100 ML IV + SPIKE MINIBAG* 100 ML IV SCH ×3 (05:59→21:17)
[2018-08-05 06:34] LABS: PLATELET MORPHOLOGY COMMENT NORMAL (NORMAL)
[2018-08-05 06:35] LABS: ANISOCYTOSIS SLIGHT; HYPOCHROMASIA SLIGHT
[2018-08-05] MEDS ORDERED: PROTONIX TAB 40 MG PO SCH (09:00)
[2018-08-05] MEDS: NS 1/2 + KCL 20 MEQ/L 1,000 ML IV SCH (09:11)
[2018-08-05] MEDS ORDERED: DULCOLAX SUPPOSITORY 10 MG RECTAL ONE (10:05)
--- NOTE | 2018-08-05 10:34 | PCM.PROG ---
Progress Note - Progress Note for Day of Date of Exam: 08/04/18 - Subjective Subjective: WAS ADMITTED FOR GI BLEED, ANEMIA, INFECTION OF PEG TUBE, AND A BOWEL OBSTRUCTION. TODAY, SHE IS ALERT IN BED ON MORNING ROUNDS. SHE IS CONFUSED AND DISORIENTED UPON ROUNDS. ON EXAMINATION, HEART IS REGULAR IN RATE AND RHYTHM. BILATERAL LUNGS ARE NOTED WITH DIMINISHED LUNG SOUNDS THROUGHOUT. ABDOMEN IS ROUND, SOFT, AND NOTED WITH DIFFUSE TENDERNESS TO PALPATION. THERE IS PURULENT DRAINAGE NOTED TO THE SITE OF THE PEG TUBE. HER VITALS THIS MORNING ARE 99.1-91-20-98%-134/64. LABS WERE OBTAINED. ABNORMAL LAB VALUES INCLUDE THE FOLLOWING: WBC 18.0, RBC 2.66, HGB 6.0, HCT 18.8, PLT COUNT 624, POTASSIUM 2.4, BUN 19, CALCIUM 7.6, AST 12, ALT 11, TOTAL PROTEIN 6.0, ALBUMIN 2.1. A UR INALYSIS WAS REPEATED THIS MORNING AND REVEALED WBC 10-20, RBC 3-5, LEUKOCYTES 1+, BACTERIA 2+. AN ABDOMEN/PELVIS CT WITH CONTRAST REVEALED: .1 cm rim enhancing fluid collection anterior to the stomach most likely represents abscess formation. 3.3 cm left ovarian simple appearing cyst. Recommend pelvic ultrasound for further characterization. TODAY, WE PLAN TO TRANSFUSE TWO UNITS OF PACKED RED BLOOD CELLS. WE WILL CONSULT DUE TO ABSCESS. OTHERWISE, WE PLAN TO FOLLOW UP WITH AM LABS AND CONTINUE TO MONITOR. - Past Medical Family Social History Past Med/Fam/Surg Hx: No changes since H&P Allergies: Allergies No Known Drug Allergies Allergy (Verified 02/20/17 20:10) - Review of Systems ROS: No change since H&P - Vital Signs and I&O's Vital Signs: Temperature 98.4 F Pulse Rate [Apical] 108 Pulse Rate 77 Respiratory Rate 12 Blood Pressure [Right Arm] 158/70 Blood Pressure [Left Arm] 128/61 Blood Pressure 133/65 O2 Sat by Pulse Oximetry 97 Intake and Output: Intake & Output 08/02/18 08/03/18 08/04/18 08/05/18 11:59 11:59 11:59 11:59 Intake Total 2034 3242 / 3242 Output Total 320 / 320 0 / 0 2200 / 2200 Balance -320 / -320 2034 1042 / 1042 - Physical Exam Oriented: Person Eyes: Normal Ear: Normal Nose: Normal Throat: Normal Respiratory: Generalized, Diminished Cardiovascular: Tachycardia. negative: S3, S4, Murmur : Normal Auscultation: Bowel Sounds: Decreased Palpation: Normal Tenderness: Diffuse, Moderate. negative: Rebound, Guarding, Rigidity Skin: Red (ABDOMEN) Musculoskeletal: Normal Psychiatric: Normal Mood Description: Calm Affect: Normal Speech Pattern: Clear - Laboratory and Diagnostics Result Diagrams: 08/05/18 04:21 08/05/18 04:21 Labs: 08/03/18 10:18 Urine,Catheterized Urine Culture - Final Escherichia Coli 08/03/18 09:40 Blood Blood Culture - Preliminary 08/03/18 09:35 Blood Blood Culture - Preliminary Laboratory WBC 14.7 X10^3/uL (3.6-10.0) H 08/05/18 04:21 RBC 4.22 X10^6/uL (3.5-5.4) 08/05/18 04:21 Hgb 10.7 g/dL (12.0-16.0) L 08/05/18 04:21 Hct 32.2 % (36.0-47.0) L 08/05/18 04:21 MCV 76.3 fL (80.0-100.0) L 08/05/18 04:21 MCH 25.3 pg (27.0-34.0) L 08/05/18 04:21 MCHC 33.1 g/dL (33.0-35.0) 08/05/18 04:21 RDW 19.2 % (11.6-16.5) H 08/05/18 04:21 Plt Count 542 X10^3/uL (150.0-450.0) H 08/05/18 04:21 Plt Count Comment Increased (ADEQUATE) A 08/05/18 04:21 MPV 7.5 fL (7.4-11.0) 08/05/18 04:21 Neut % (Auto) 77.0 % (42.0-75.0) H 08/05/18 04:21 Lymph % (Auto) 13.2 % (21.0-51.0) L 08/05/18 04:21 [place] % (Auto) 6.3 % (0.0-13.0) 08/05/18 04:21 Eos % (Auto) 2.9 % (0.9-2.9) 08/05/18 04:21 Baso % (Auto) 0.6 % (0.2-1.0) 08/05/18 04:21 Neut # (Auto) 11.3 x10^3/uL (2.2-4.8) H 08/05/18 04:21 Lymph # (Auto) 2.0 X10^3/uL (1.3-2.9) 08/05/18 04:21 [place] # (Auto) 0.9 x10^3/uL (0.3-0.8) H 08/05/18 04:21 Eos # (Auto) 0.4 x10^3/uL (0.0-0.2) H 08/05/18 04:21 Baso # (Auto) 0.1 X10^3/uL (0.0-0.1) 08/05/18 04:21 Absolute Nucleated RBC 0.1 /100WBC 08/05/18 04:21 Total Counted 100 08/03/18 08:58 Neutrophils % (Manual) 90 % (39-76) H 08/03/18 08:58 Band Neutrophils % 4 % (0-10) 08/03/18 08:58 Lymphocytes % (Manual) 4 % (13-43) L 08/03/18 08:58 Monocytes % (Manual) 2 % (4-9) L 08/03/18 08:58 Plt Morphology Comment Normal (NORMAL) 08/05/18 04:21 RBC Morphology Abnormal (NORMAL) A 08/05/18 04:21 Hypochromasia Slight A 08/05/18 04:21 Anisocytosis Slight A 08/05/18 04:21 Microcytosis Slight A 08/04/18 04:21 INR Target Range - 08/04/18 04:21 INR 1.14 (0.8-1.3) 08/04/18 04:21 APTT 29.1 SECONDS (22.9-36.5) 08/04/18 04:21 PTT Comment - 08/04/18 04:21 Sodium 142 mmol/L (136-145) 08/05/18 04:21 Corrected Sodium TNP 08/05/18 04:21 Potassium 3.7 mmol/L (3.5-5.1) 08/05/18 04:21 Chloride 107 mmol/L (98-107) 08/05/18 04:21 Carbon Dioxide 22.1 mmol/L (21-32) 08/05/18 04:21 BUN 15 mg/dL (7-18) 08/05/18 04:21 Creatinine 0.61 mg/dL (0.55-1.02) 08/05/18 04:21 Est GFR (MDRD) Af Amer > 60 (>60) 08/05/18 04:21 Est GFR (MDRD) Non-Af > 60 (>60) 08/05/18 04:21 Glucose 67 mg/dL (65-99) 08/05/18 04:21 Lactic Acid 2.3 mmol/L (0.4-2.0) H 08/03/18 09:35 Calcium 7.6 mg/dL (8.5-10.1) L 08/05/18 04:21 Corrected Calcium 9.1 mg/dL (8.5-10.1) 08/05/18 04:21 Magnesium 2.1 mg/dL (1.7-2.9) 08/05/18 04:21 Total Bilirubin 0.60 mg/dL (0.2-1.0) 08/05/18 04:21 AST 14 Units/L (15-37) L 08/05/18 04:21 ALT 11 Units/L (12-78) L 08/05/18 04:21 Alkaline Phosphatase 59 Units/L (46-116) 08/05/18 04:21 Creatine Kinase 22 Units/L (26-192) L 08/03/18 22:50 CK-MB (CK-2) < 1.0 ng/mL (0-4.0) 08/03/18 22:50 CK/CKMB % Calc 4.6 % (<4) 08/03/18 22:50 Troponin I < 0.02 ng/mL (0-1.5) 08/03/18 22:50 Total Protein 5.9 g/dL (6.4-8.2) L 08/05/18 04:21 Albumin 2.1 g/dL (3.4-5.0) L 08/05/18 04:21 Globulin 3.8 g/dL (2.5-4.5) 08/05/18 04:21 Albumin/Globulin Ratio 0.6 Ratio (1.1-2.1) L 08/05/18 04:21 Amylase 33 Units/L (25-115) 08/03/18 08:58 Lipase 115 Units/L (73-393) 08/03/18 08:58 Specimen Type Catherized urine 08/04/18 10:10 Urine Color Dark yellow (YELLOW) 08/04/18 10:10 Urine Appearance Cloudy (CLEAR) 08/04/18 10:10 Urine pH 6.0 (5.0 - 8.0) 08/04/18 10:10 Ur Specific [place] 1.010 (1.000-1.030) 08/04/18 10:10 Urine Protein 2+ (NEGATIVE) 08/04/18 10:10 Urine Glucose (UA) Negative (NEGATIVE) 08/04/18 10:10 Urine Ketones 2+ (NEGATIVE) 08/04/18 10:10 Urine Occult Blood 1+ (NEGATIVE) 08/04/18 10:10 Urine Nitrite Positive (NEGATIVE) 08/04/18 10:10 Urine Bilirubin Negative (NEGATIVE) 08/04/18 10:10 Urine Urobilinogen 1+ (NORMAL) 08/04/18 10:10 Ur Leukocyte Esterase 1+ (NEGATIVE) 08/04/18 10:10 Urine RBC 3-5 /HPF (NONE SEEN) 08/04/18 10:10 Urine WBC 10-20 /HPF (NONE SEEN) 08/04/18 10:10 Ur Squamous Epith Cells Rare /HPF (NEGATIVE) 08/04/18 10:10 Urine Bacteria 2+ /HPF (NEGATIVE) 08/04/18 10:10 RBC Casts Few /LPF (NEGATIVE) 08/03/18 10:18 Ur Culture Indicated? Yes/culture set up 08/04/18 10:10 Gastric Fluid pH 3 08/03/18 08:58 Gastric Occult Blood Positive (NEGATIVE) A 08/03/18 08:58 Blood Type B POSITIVE 08/04/18 06:32 Antibody Screen Negative 08/04/18 06:32 Crossmatch See Detail 08/04/18 06:32 - Plan (1) Anemia Status: Acute Qualifiers: Anemia type: unspecified type Qualified Code(s): D64.9 - Anemia, unspecified Plan: TRANSFUSE 2 UNITS PRBC (2) GI bleed Status: Acute Qualifiers: GI bleed type/associated pathology: unspecified gastrointestinal hemorrhage type Qualified Code(s): K92.2 - Gastrointestinal hemorrhage, unspecified Plan: PROTONIX DRIP, IV HYDRATION, CONSULT GI, CONTINUE TO MONITOR (3) Infection of percutaneous endoscopic gastrostomy (PEG) site Status: Acute Plan: IV ZOSYN, CONTINUE TO MONITOR (4) Bowel obstruction Status: Acute Qualifiers: Intestinal obstruction type: fecal impaction Qualified Code(s): K56.41 - Fecal impaction Plan: CONTINUE TO MONITOR (5) Abdominal abscess Status: Acute Plan: CONSULT GENERAL SURGERY, CONTINUE TO MONITOR
[2018-08-05] MEDS ORDERED: D5 1/2 NS 1000 ML 1,000 ML ONE (11:59)
[2018-08-05] MEDS ORDERED: LEVAQUIN PREMIX IV 500 MG 500 MG/100 ML BAG ONE (12:25)
[2018-08-05] MEDS ORDERED: XYLOCAINE 1 % (PLAIN) ONE (12:37)
--- NOTE | 2018-08-05 13:04 | OR.GENERIC ---
Post-Op Note Generic - Post-Op Note Operative Report: needle aspirate and drainage of abdominal abscess above the stomach was done .about 300 cc of purulent material was drained .C&S was obtained . pt did well . will start feeding .
--- NOTE | 2018-08-05 13:26 | CT ---
HISTORY: Abscess Study: CT abdomen without contrast Comparison: 08/03/2018 Technique: Multiple axial images of the abdomen and pelvis were obtained from the lung bases to the pubic symphysis without the administration of IV contrast. Findings: Dependent linear atelectatic lung changes are observed. There is right diaphragm elevation. Anterior transposition of the colon relative to the liver is observed. There is fluid collection lying along the anterior surface of the stomach just below the PEG tube, previously described with thickened enhancing wall concerning for an abscess. There is still residual gas within the fluid collection which measures up to 8 cm in maximum transverse diameter by 1.8 cm in maximum thickness on image 38 series 3. The left kidney is markedly atrophic. The right kidney is average size, with no findings of hydronephrosis. No radiopaque gallstones are observed. Atheromatous calcifications of the abdominal aorta are moderate in severity. There is also heavy plaque within the descending thoracic aorta. Pancreas is average size with no inflammatory changes observed. Adrenal glands are symmetric. The bowel gas pattern is nonobstructive. Moderate stool burden of the colon is observed incidentally. No lymphadenopathy identified. Review of bone windows demonstrates no aggressive bony lesions or acute osseous abnormalities. There is degenerative disc space narrowing at L5-S1 multilevel hypertrophic facet arthropathy is evident. Impression: Residual 8 cm fluid collection lying along the anterior margin of the stomach just below the PEG tube is suspicious for an abscess. The remainder the exam is stable and unchanged from the most recent exam of comparison. Please see body report for details of other chronic and incidental findings. Reported By:
[2018-08-05] MEDS ORDERED: DULCOLAX SUPPOSITORY 10 MG ONE (13:57)
[2018-08-05] MEDS ORDERED: VERSED ONE (14:02)
[2018-08-05] MEDS ORDERED: DIPRIVAN VIAL ONE (14:02)
--- NOTE | 2018-08-05 20:41 | PCM.PROG ---
Progress Note - Progress Note for Day of Date of Exam: 08/05/18 - Subjective Subjective: WAS ADMITTED FOR GI BLEED, ANEMIA, INFECTION OF PEG TUBE, AND A BOWEL OBSTRUCTION. SHE RECEIVED TWO UNITS OF PRBC YESTERDAY. TODAY, SHE IS ALERT IN BED ON MORNING ROUNDS. SHE IS CONFUSED AND DISORIENTED UPON ROUNDS. ON EXAMINATION, HEART IS REGULAR IN RATE AND RHYTHM. BILATERAL LUNGS ARE NOTED WITH DIMINISHED LUNG SOUNDS THROUGHOUT. ABDOMEN IS ROUND, SOFT, AND NOTED WITH DIFFUSE TENDERNESS TO PALPATION. THERE IS PURULENT DRAINAGE NOTED TO THE SITE OF THE PEG TUBE. HER VITALS THIS MORNING ARE 98.4-96-24-97%-144/69. LABS WERE OBTAINED. ABNORMAL LAB VALUES INCLUDE THE FOLLOWING: WBC 14.7, HGB 10.7, HCT 32.2, PLT COUNT 542, CALCIUM 7.6, AST 14, ALT 11, TOTAL PROTEIN 5.9, ALBUMIN 2.1. HAS CONSULTED WITH PATIENT AND PLANS FOR A CT GUIDED ASPIRATION OF THE ABDOMINAL ABSCESS TODAY. WE ARE IN AGREEMENT WITH PLAN. TODAY, WE WILL CONTINUE WITH IV ANTIBIOTICS AND CURRENT PLAN OF CARE. OTHERWISE, WE PLAN TO FOLLOW UP WITH AM LABS AND CONTINUE TO MONITOR. - Past Medical Family Social History Past Med/Fam/Surg Hx: No changes since H&P Allergies: Allergies No Known Drug Allergies Allergy (Verified 02/20/17 20:10) - Review of Systems ROS: No change since H&P - Vital Signs and I&O's Vital Signs: Temperature 98.3 F Pulse Rate [Apical] 108 Pulse Rate 96 Respiratory Rate 21 Blood Pressure [Right Arm] 158/70 Blood Pressure [Left Arm] 128/61 Blood Pressure 155/82 O2 Sat by Pulse Oximetry 99 Intake and Output: Intake & Output 08/03/18 08/04/18 08/05/18 08/06/18 11:59 11:59 11:59 11:59 Intake Total 2034 3242 / 3242 430 / 430 Output Total 320 / 320 0 / 0 2200 / 2200 300 / 300 Balance -320 / -320 2034 1042 / 1042 130 / 130 - Physical Exam Oriented: Person Eyes: Normal Ear: Normal Nose: Normal Throat: Normal Respiratory: Generalized, Diminished Cardiovascular: Tachycardia. negative: S3, S4, Murmur : Normal Auscultation: Bowel Sounds: Decreased Palpation: Normal Tenderness: Diffuse, Moderate. negative: Rebound, Guarding, Rigidity Skin: Red (ABDOMEN) Musculoskeletal: Normal Psychiatric: Normal Mood Description: Calm Affect: Normal Speech Pattern: Clear, Appropriate - Laboratory and Diagnostics Result Diagrams: 08/05/18 04:21 08/05/18 04:21 Labs: 08/05/18 12:55 Aspirate Gram Stain - Final 08/04/18 10:10 Urine,Catheterized Urine Culture - Preliminary 08/03/18 10:18 Urine,Catheterized Urine Culture - Final Escherichia Coli 08/03/18 09:40 Blood Blood Culture - Preliminary 08/03/18 09:35 Blood Blood Culture - Preliminary Laboratory WBC 14.7 X10^3/uL (3.6-10.0) H 08/05/18 04:21 RBC 4.22 X10^6/uL (3.5-5.4) 08/05/18 04:21 Hgb 10.7 g/dL (12.0-16.0) L 08/05/18 04:21 Hct 32.2 % (36.0-47.0) L 08/05/18 04:21 MCV 76.3 fL (80.0-100.0) L 08/05/18 04:21 MCH 25.3 pg (27.0-34.0) L 08/05/18 04:21 MCHC 33.1 g/dL (33.0-35.0) 08/05/18 04:21 RDW 19.2 % (11.6-16.5) H 08/05/18 04:21 Plt Count 542 X10^3/uL (150.0-450.0) H 08/05/18 04:21 Plt Count Comment Increased (ADEQUATE) A 08/05/18 04:21 MPV 7.5 fL (7.4-11.0) 08/05/18 04:21 Neut % (Auto) 77.0 % (42.0-75.0) H 08/05/18 04:21 Lymph % (Auto) 13.2 % (21.0-51.0) L 08/05/18 04:21 [place] % (Auto) 6.3 % (0.0-13.0) 08/05/18 04:21 Eos % (Auto) 2.9 % (0.9-2.9) 08/05/18 04:21 Baso % (Auto) 0.6 % (0.2-1.0) 08/05/18 04:21 Neut # (Auto) 11.3 x10^3/uL (2.2-4.8) H 08/05/18 04:21 Lymph # (Auto) 2.0 X10^3/uL (1.3-2.9) 08/05/18 04:21 [place] # (Auto) 0.9 x10^3/uL (0.3-0.8) H 08/05/18 04:21 Eos # (Auto) 0.4 x10^3/uL (0.0-0.2) H 08/05/18 04:21 Baso # (Auto) 0.1 X10^3/uL (0.0-0.1) 08/05/18 04:21 Absolute Nucleated RBC 0.1 /100WBC 08/05/18 04:21 Total Counted 100 08/03/18 08:58 Neutrophils % (Manual) 90 % (39-76) H 08/03/18 08:58 Band Neutrophils % 4 % (0-10) 08/03/18 08:58 Lymphocytes % (Manual) 4 % (13-43) L 08/03/18 08:58 Monocytes % (Manual) 2 % (4-9) L 08/03/18 08:58 Plt Morphology Comment Normal (NORMAL) 08/05/18 04:21 RBC Morphology Abnormal (NORMAL) A 08/05/18 04:21 Hypochromasia Slight A 08/05/18 04:21 Anisocytosis Slight A 08/05/18 04:21 Microcytosis Slight A 08/04/18 04:21 INR Target Range - 08/04/18 04:21 INR 1.14 (0.8-1.3) 08/04/18 04:21 APTT 29.1 SECONDS (22.9-36.5) 08/04/18 04:21 PTT Comment - 08/04/18 04:21 Sodium 142 mmol/L (136-145) 08/05/18 04:21 Corrected Sodium TNP 08/05/18 04:21 Potassium 3.7 mmol/L (3.5-5.1) 08/05/18 04:21 Chloride 107 mmol/L (98-107) 08/05/18 04:21 Carbon Dioxide 22.1 mmol/L (21-32) 08/05/18 04:21 BUN 15 mg/dL (7-18) 08/05/18 04:21 Creatinine 0.61 mg/dL (0.55-1.02) 08/05/18 04:21 Est GFR (MDRD) Af Amer > 60 (>60) 08/05/18 04:21 Est GFR (MDRD) Non-Af > 60 (>60) 08/05/18 04:21 Glucose 67 mg/dL (65-99) 08/05/18 04:21 Lactic Acid 2.3 mmol/L (0.4-2.0) H 08/03/18 09:35 Calcium 7.6 mg/dL (8.5-10.1) L 08/05/18 04:21 Corrected Calcium 9.1 mg/dL (8.5-10.1) 08/05/18 04:21 Magnesium 2.1 mg/dL (1.7-2.9) 08/05/18 04:21 Total Bilirubin 0.60 mg/dL (0.2-1.0) 08/05/18 04:21 AST 14 Units/L (15-37) L 08/05/18 04:21 ALT 11 Units/L (12-78) L 08/05/18 04:21 Alkaline Phosphatase 59 Units/L (46-116) 08/05/18 04:21 Creatine Kinase 22 Units/L (26-192) L 08/03/18 22:50 CK-MB (CK-2) < 1.0 ng/mL (0-4.0) 08/03/18 22:50 CK/CKMB % Calc 4.6 % (<4) 08/03/18 22:50 Troponin I < 0.02 ng/mL (0-1.5) 08/03/18 22:50 Total Protein 5.9 g/dL (6.4-8.2) L 08/05/18 04:21 Albumin 2.1 g/dL (3.4-5.0) L 08/05/18 04:21 Globulin 3.8 g/dL (2.5-4.5) 08/05/18 04:21 Albumin/Globulin Ratio 0.6 Ratio (1.1-2.1) L 08/05/18 04:21 Amylase 33 Units/L (25-115) 08/03/18 08:58 Lipase 115 Units/L (73-393) 08/03/18 08:58 Specimen Type Catherized urine 08/04/18 10:10 Urine Color Dark yellow (YELLOW) 08/04/18 10:10 Urine Appearance Cloudy (CLEAR) 08/04/18 10:10 Urine pH 6.0 (5.0 - 8.0) 08/04/18 10:10 Ur Specific [place] 1.010 (1.000-1.030) 08/04/18 10:10 Urine Protein 2+ (NEGATIVE) 08/04/18 10:10 Urine Glucose (UA) Negative (NEGATIVE) 08/04/18 10:10 Urine Ketones 2+ (NEGATIVE) 08/04/18 10:10 Urine Occult Blood 1+ (NEGATIVE) 08/04/18 10:10 Urine Nitrite Positive (NEGATIVE) 08/04/18 10:10 Urine Bilirubin Negative (NEGATIVE) 08/04/18 10:10 Urine Urobilinogen 1+ (NORMAL) 08/04/18 10:10 Ur Leukocyte Esterase 1+ (NEGATIVE) 08/04/18 10:10 Urine RBC 3-5 /HPF (NONE SEEN) 08/04/18 10:10 Urine WBC 10-20 /HPF (NONE SEEN) 08/04/18 10:10 Ur Squamous Epith Cells Rare /HPF (NEGATIVE) 08/04/18 10:10 Urine Bacteria 2+ /HPF (NEGATIVE) 08/04/18 10:10 RBC Casts Few /LPF (NEGATIVE) 08/03/18 10:18 Ur Culture Indicated? Yes/culture set up 08/04/18 10:10 Gastric Fluid pH 3 08/03/18 08:58 Gastric Occult Blood Positive (NEGATIVE) A 08/03/18 08:58 Blood Type B POSITIVE 08/04/18 06:32 Antibody Screen Negative 08/04/18 06:32 Crossmatch See Detail 08/04/18 06:32 - Plan (1) Anemia Status: Acute Qualifiers: Anemia type: unspecified type Qualified Code(s): D64.9 - Anemia, unspecified Plan: TRANSFUSE 2 UNITS PRBC (2) GI bleed Status: Acute Qualifiers: GI bleed type/associated pathology: unspecified gastrointestinal hemorrhage type Qualified Code(s): K92.2 - Gastrointestinal hemorrhage, unspecified Plan: PROTONIX DRIP, IV HYDRATION, CONSULT GI, CONTINUE TO MONITOR (3) Infection of percutaneous endoscopic gastrostomy (PEG) site Status: Acute Plan: IV ZOSYN, CONTINUE TO MONITOR (4) Bowel obstruction Status: Acute Qualifiers: Intestinal obstruction type: fecal impaction Qualified Code(s): K56.41 - Fecal impaction Plan: CONTINUE TO MONITOR (5) Abdominal abscess Status: Acute Plan: CT GUIDED ASPIRATION, IV ANTIBIOTICS, CONTINUE TO MONITOR
[2018-08-06] MEDS: FLAGYL IV PREMIX 500 MG BAG 500 MG/100 ML BAG IV SCH ×4 (03:03→21:31)
[2018-08-06] MEDS: NS 1/2 + KCL 20 MEQ/L 1,000 ML IV SCH ×2 (03:04→16:07)
[2018-08-06 05:37] LABS: BASOPHILS # (AUTO) 0.1 X10^3/uL (0.0-0.1); BASOPHILS % (AUTO) 0.6 % (0.2-1.0); EOSINOPHILS # (AUTO) 0.4 x10^3/uL (0.0-0.2); EOSINOPHILS % (AUTO) 2.9 % (0.9-2.9); HEMATOCRIT 32.3 % (36.0-47.0); HEMOGLOBIN 10.6 g/dL (12.0-16.0); LYMPHOCYTES # (AUTO) 1.9 X10^3/uL (1.3-2.9); LYMPHOCYTES % (AUTO) 15.2 % (21.0-51.0); MEAN CORPUSCULAR HGB CONC 32.8 g/dL (33.0-35.0); MEAN CORPUSCULAR VOLUME 76.4 fL (80.0-100.0); MEAN PLATELET VOLUME 7.2 fL (7.4-11.0); MONOCYTES # (AUTO) 0.8 x10^3/uL (0.3-0.8); MONOCYTES % (AUTO) 5.9 % (0.0-13.0); NEUTROPHILS # (AUTO) 9.7 x10^3/uL (2.2-4.8); NEUTROPHILS % (AUTO) 75.4 % (42.0-75.0); PLATELET COUNT 615 X10^3/uL (150.0-450.0); RED BLOOD COUNT 4.22 X10^6/uL (3.5-5.4); RED CELL DISTRIBUTION WIDTH 20.1 % (11.6-16.5); WHITE BLOOD COUNT 12.8 X10^3/uL (3.6-10.0)
[2018-08-06] MEDS: ZOSYN VIAL 3.375 GRAMS 3.375 G in NS 100 ML IV + SPIKE MINIBAG* 100 ML IV SCH ×3 (05:45→22:30)
[2018-08-06 05:47] LABS: ALANINE AMINOTRANSFERASE 9 Units/L (12-78); ALKALINE PHOSPHATASE 55 Units/L (46-116); ASPARTATE AMINO TRANSFERASE 13 Units/L (15-37); BLOOD UREA NITROGEN 8 mg/dL (7-18); CALCIUM 7.4 mg/dL (8.5-10.1); CARBON DIOXIDE 21.6 mmol/L (21-32); CHLORIDE 101 mmol/L (98-107); CREATININE 0.51 mg/dL (0.55-1.02); SODIUM 136 mmol/L (136-145); TOTAL PROTEIN 5.6 g/dL (6.4-8.2); eGFR NON BLACK RACES > 60 (>60)
[2018-08-06 06:21] LABS: PLATELET MORPHOLOGY COMMENT NORMAL (NORMAL)
[2018-08-06 06:22] LABS: ANISOCYTOSIS 1+; HYPOCHROMASIA SLIGHT
[2018-08-06] MEDS: PROTONIX INJ 40 MG VIAL IVP SCH (13:01)
--- NOTE | 2018-08-06 13:14 | DR.PROGNOT ---
Hospital Progress Notes - Progress Note for Day of: Progress Note Date: 08/06/18 - Chief Complaint Chief Complaint: PO drainage of abdominal abscess . no c/o abdominal pain . no drainage around the PEG tube . tolerating diet . mild leukocytosis . - Past Medical Family Social History Past Med/Fam/Surg Hx: No changes since H&P Allergies: Allergies No Known Drug Allergies Allergy (Verified 02/20/17 20:10) - Review Of Systems ROS: No change since H&P - Vital Signs Vital Signs: Temperature 99.2 F Pulse Rate [Apical] 108 Pulse Rate 83 Respiratory Rate 16 Blood Pressure [Right Arm] 158/70 Blood Pressure [Left Arm] 128/61 Blood Pressure 162/78 O2 Sat by Pulse Oximetry 99 - Physical Exam Oriented: Person Eyes: Normal Ear: Normal Nose: Normal Throat: Normal Respiratory: Generalized, Diminished Cardiovascular: Tachycardia. negative: S3, S4, Murmur : Normal GI:Auscultation: Normal GI:Palpation: Normal GI: Tenderness: Normal, Moderate. negative: Rebound, Guarding, Rigidity Skin: Red (ABDOMEN) Musculoskeletal: Normal Psychiatric: Normal Mood Description: Calm Affect: Normal Speech Pattern: Clear, Appropriate - Laboratory and Diagnostics Result Diagrams: 08/06/18 04:20 08/06/18 04:20 Labs: 08/05/18 12:55 Aspirate Gram Stain - Final 08/05/18 12:55 Aspirate Wound Culture - Preliminary 08/04/18 10:10 Urine,Catheterized Urine Culture - Final Escherichia Coli 08/03/18 10:18 Urine,Catheterized Urine Culture - Final Escherichia Coli 08/03/18 09:40 Blood Blood Culture - Preliminary 08/03/18 09:35 Blood Blood Culture - Preliminary Laboratory WBC 12.8 X10^3/uL (3.6-10.0) H 08/06/18 04:20 RBC 4.22 X10^6/uL (3.5-5.4) 08/06/18 04:20 Hgb 10.6 g/dL (12.0-16.0) L 08/06/18 04:20 Hct 32.3 % (36.0-47.0) L 08/06/18 04:20 MCV 76.4 fL (80.0-100.0) L 08/06/18 04:20 MCH 25.0 pg (27.0-34.0) L 08/06/18 04:20 MCHC 32.8 g/dL (33.0-35.0) L 08/06/18 04:20 RDW 20.1 % (11.6-16.5) H 08/06/18 04:20 Plt Count 615 X10^3/uL (150.0-450.0) H 08/06/18 04:20 Plt Count Comment Increased (ADEQUATE) A 08/06/18 04:20 MPV 7.2 fL (7.4-11.0) L 08/06/18 04:20 Neut % (Auto) 75.4 % (42.0-75.0) H 08/06/18 04:20 Lymph % (Auto) 15.2 % (21.0-51.0) L 08/06/18 04:20 [place] % (Auto) 5.9 % (0.0-13.0) 08/06/18 04:20 Eos % (Auto) 2.9 % (0.9-2.9) 08/06/18 04:20 Baso % (Auto) 0.6 % (0.2-1.0) 08/06/18 04:20 Neut # (Auto) 9.7 x10^3/uL (2.2-4.8) H 08/06/18 04:20 Lymph # (Auto) 1.9 X10^3/uL (1.3-2.9) 08/06/18 04:20 [place] # (Auto) 0.8 x10^3/uL (0.3-0.8) 08/06/18 04:20 Eos # (Auto) 0.4 x10^3/uL (0.0-0.2) H 08/06/18 04:20 Baso # (Auto) 0.1 X10^3/uL (0.0-0.1) 08/06/18 04:20 Absolute Nucleated RBC 0.0 /100WBC 08/06/18 04:20 Total Counted 100 08/06/18 04:20 Neutrophils % (Manual) 76 % (39-76) 08/06/18 04:20 Band Neutrophils % 4 % (0-10) 08/03/18 08:58 Lymphocytes % (Manual) 17 % (13-43) 08/06/18 04:20 Monocytes % (Manual) 5 % (4-9) 08/06/18 04:20 Eosinophils % (Manual) 2 % (0-6) 08/06/18 04:20 Plt Morphology Comment Normal (NORMAL) 08/06/18 04:20 RBC Morphology Abnormal (NORMAL) A 08/06/18 04:20 Hypochromasia Slight A 08/06/18 04:20 Anisocytosis 1+ A 08/06/18 04:20 Microcytosis Slight A 08/04/18 04:21 INR Target Range - 08/04/18 04:21 INR 1.14 (0.8-1.3) 08/04/18 04:21 APTT 29.1 SECONDS (22.9-36.5) 08/04/18 04:21 PTT Comment - 08/04/18 04:21 Sodium 136 mmol/L (136-145) 08/06/18 04:20 Corrected Sodium TNP 08/06/18 04:20 Potassium 3.1 mmol/L (3.5-5.1) L 08/06/18 04:20 Chloride 101 mmol/L (98-107) 08/06/18 04:20 Carbon Dioxide 21.6 mmol/L (21-32) 08/06/18 04:20 BUN 8 mg/dL (7-18) 08/06/18 04:20 Creatinine 0.51 mg/dL (0.55-1.02) L 08/06/18 04:20 Est GFR (MDRD) Af Amer > 60 (>60) 08/06/18 04:20 Est GFR (MDRD) Non-Af > 60 (>60) 08/06/18 04:20 Glucose 76 mg/dL (65-99) 08/06/18 04:20 Lactic Acid 2.3 mmol/L (0.4-2.0) H 08/03/18 09:35 Calcium 7.4 mg/dL (8.5-10.1) L 08/06/18 04:20 Corrected Calcium 9.0 mg/dL (8.5-10.1) 08/06/18 04:20 Magnesium 2.1 mg/dL (1.7-2.9) 08/05/18 04:21 Total Bilirubin 0.40 mg/dL (0.2-1.0) 08/06/18 04:20 AST 13 Units/L (15-37) L 08/06/18 04:20 ALT 9 Units/L (12-78) L 08/06/18 04:20 Alkaline Phosphatase 55 Units/L (46-116) 08/06/18 04:20 Creatine Kinase 22 Units/L (26-192) L 08/03/18 22:50 CK-MB (CK-2) < 1.0 ng/mL (0-4.0) 08/03/18 22:50 CK/CKMB % Calc 4.6 % (<4) 08/03/18 22:50 Troponin I < 0.02 ng/mL (0-1.5) 08/03/18 22:50 Total Protein 5.6 g/dL (6.4-8.2) L 08/06/18 04:20 Albumin 2.0 g/dL (3.4-5.0) L 08/06/18 04:20 Globulin 3.6 g/dL (2.5-4.5) 08/06/18 04:20 Albumin/Globulin Ratio 0.6 Ratio (1.1-2.1) L 08/06/18 04:20 Amylase 33 Units/L (25-115) 08/03/18 08:58 Lipase 115 Units/L (73-393) 08/03/18 08:58 Specimen Type Catherized urine 08/04/18 10:10 Urine Color Dark yellow (YELLOW) 08/04/18 10:10 Urine Appearance Cloudy (CLEAR) 08/04/18 10:10 Urine pH 6.0 (5.0 - 8.0) 08/04/18 10:10 Ur Specific [place] 1.010 (1.000-1.030) 08/04/18 10:10 Urine Protein 2+ (NEGATIVE) 08/04/18 10:10 Urine Glucose (UA) Negative (NEGATIVE) 08/04/18 10:10 Urine Ketones 2+ (NEGATIVE) 08/04/18 10:10 Urine Occult Blood 1+ (NEGATIVE) 08/04/18 10:10 Urine Nitrite Positive (NEGATIVE) 08/04/18 10:10 Urine Bilirubin Negative (NEGATIVE) 08/04/18 10:10 Urine Urobilinogen 1+ (NORMAL) 08/04/18 10:10 Ur Leukocyte Esterase 1+ (NEGATIVE) 08/04/18 10:10 Urine RBC 3-5 /HPF (NONE SEEN) 08/04/18 10:10 Urine WBC 10-20 /HPF (NONE SEEN) 08/04/18 10:10 Ur Squamous Epith Cells Rare /HPF (NEGATIVE) 08/04/18 10:10 Urine Bacteria 2+ /HPF (NEGATIVE) 08/04/18 10:10 RBC Casts Few /LPF (NEGATIVE) 08/03/18 10:18 Ur Culture Indicated? Yes/culture set up 08/04/18 10:10 Gastric Fluid pH 3 08/03/18 08:58 Gastric Occult Blood Positive (NEGATIVE) A 08/03/18 08:58 Blood Type B POSITIVE 08/04/18 06:32 Antibody Screen Negative 08/04/18 06:32 Crossmatch See Detail 08/04/18 06:32 - Assessment and Plan 1: abdominal abscess anterior to the stomach .S/P needle aspirate and drainage . anemia 2ed to doudenal ulcer . will start tube feeding . - Problem Patient Problems: Patient Problems GI bleed (Acute) K92.2 Anemia (Acute) D64.9 Bowel obstruction (Acute) K56.609 Infection of percutaneous endoscopic gastrostomy (PEG) site (Acute) K94.22 Abdominal abscess (Acute)
--- NOTE | 2018-08-06 19:00 | PCM.PROG ---
Progress Note - Progress Note for Day of Date of Exam: 08/06/18 - Subjective Subjective: WAS ADMITTED FOR GI BLEED, ANEMIA, INFECTION OF PEG TUBE, AND A BOWEL OBSTRUCTION. SHE RECEIVED TWO UNITS OF PRBC ON ADMISSION. TODAY, SHE IS ALERT IN BED ON MORNING ROUNDS. SHE CONTINUES TO BE DISORIENTED. PERFORMED A CT GUIDED ASPIRATION OF ABDOMINAL ABSCESS YESTERDAY. ON EXAMINATION, HEART IS REGULAR IN RATE AND RHYTHM. BILATERAL LUNGS ARE NOTED WITH DIMINISHED LUNG SOUNDS THROUGHOUT. ABDOMEN IS ROUND, SOFT, AND NOTED WITH MILD, DIFFUSE TENDERNESS TO PALPATION. THERE IS NO DRAINAGE TO AREA SURROUNDING PEG TUBE TODAY. HER VITALS THIS MORNING ARE 99.2-96-21-98%-164/78. LABS WERE OBTAINED. ABNORMAL LAB VALUES INCLUDE THE FOLLOWING: WBC 12.8, HGB 10.6, HCT 32.3, PLT COUNT 615, POTASSIUM 6.1, CREATININE 0.51, CALCIUM 7.4, AST 13, ALT 9, TOTAL PROTEIN 5.6, ALBUMIN 2.0. URINE CULTURE REVEALED GROWTH OF E.COLI. SHE IS CURRENTLY RECEIVING IV ANTIBIOITCS AND IV FLUIDS. WE WILL CONTINUE WITH CURRENT PLAN OF CARE TODAY. OTHERWISE, WE PLAN TO FOLLOW UP WITH AM LABS AND CONTINUE TO MONITOR. - Past Medical Family Social History Past Med/Fam/Surg Hx: No changes since H&P Allergies: Allergies No Known Drug Allergies Allergy (Verified 02/20/17 20:10) - Review of Systems ROS: No change since H&P - Vital Signs and I&O's Vital Signs: Temperature 99.7 F Pulse Rate [Apical] 108 Pulse Rate 103 Respiratory Rate 20 Blood Pressure [Right Arm] 158/70 Blood Pressure [Left Arm] 128/61 Blood Pressure 177/81 O2 Sat by Pulse Oximetry 100 Intake and Output: Intake & Output 08/04/18 08/05/18 08/06/18 08/07/18 11:59 11:59 11:59 11:59 Intake Total 2034 3242 / 3242 1957 929 / 929 Output Total 0 / 0 2200 / 2200 1450 / 1450 700 / 700 Balance 2034 1042 / 1042 508 / 508 229 / 229 - Physical Exam Oriented: Person Eyes: Normal Ear: Normal Nose: Normal Throat: Normal Respiratory: Generalized, Diminished Cardiovascular: Tachycardia. negative: S3, S4, Murmur : Normal Auscultation: Bowel Sounds: Normal Palpation: Normal Tenderness: Normal, Mild. negative: Rebound, Guarding, Rigidity Skin: Red (ABDOMEN) Musculoskeletal: Normal Psychiatric: Normal Mood Description: Calm Affect: Normal Speech Pattern: Clear, Appropriate - Laboratory and Diagnostics Result Diagrams: 08/06/18 04:20 08/06/18 04:20 Labs: 08/05/18 12:55 Aspirate Gram Stain - Final 08/05/18 12:55 Aspirate Wound Culture - Preliminary 08/04/18 10:10 Urine,Catheterized Urine Culture - Final Escherichia Coli 08/03/18 10:18 Urine,Catheterized Urine Culture - Final Escherichia Coli 08/03/18 09:40 Blood Blood Culture - Preliminary 08/03/18 09:35 Blood Blood Culture - Preliminary Laboratory WBC 12.8 X10^3/uL (3.6-10.0) H 08/06/18 04:20 RBC 4.22 X10^6/uL (3.5-5.4) 08/06/18 04:20 Hgb 10.6 g/dL (12.0-16.0) L 08/06/18 04:20 Hct 32.3 % (36.0-47.0) L 08/06/18 04:20 MCV 76.4 fL (80.0-100.0) L 08/06/18 04:20 MCH 25.0 pg (27.0-34.0) L 08/06/18 04:20 MCHC 32.8 g/dL (33.0-35.0) L 08/06/18 04:20 RDW 20.1 % (11.6-16.5) H 08/06/18 04:20 Plt Count 615 X10^3/uL (150.0-450.0) H 08/06/18 04:20 Plt Count Comment Increased (ADEQUATE) A 08/06/18 04:20 MPV 7.2 fL (7.4-11.0) L 08/06/18 04:20 Neut % (Auto) 75.4 % (42.0-75.0) H 08/06/18 04:20 Lymph % (Auto) 15.2 % (21.0-51.0) L 08/06/18 04:20 [place] % (Auto) 5.9 % (0.0-13.0) 08/06/18 04:20 Eos % (Auto) 2.9 % (0.9-2.9) 08/06/18 04:20 Baso % (Auto) 0.6 % (0.2-1.0) 08/06/18 04:20 Neut # (Auto) 9.7 x10^3/uL (2.2-4.8) H 08/06/18 04:20 Lymph # (Auto) 1.9 X10^3/uL (1.3-2.9) 08/06/18 04:20 [place] # (Auto) 0.8 x10^3/uL (0.3-0.8) 08/06/18 04:20 Eos # (Auto) 0.4 x10^3/uL (0.0-0.2) H 08/06/18 04:20 Baso # (Auto) 0.1 X10^3/uL (0.0-0.1) 08/06/18 04:20 Absolute Nucleated RBC 0.0 /100WBC 08/06/18 04:20 Total Counted 100 08/06/18 04:20 Neutrophils % (Manual) 76 % (39-76) 08/06/18 04:20 Band Neutrophils % 4 % (0-10) 08/03/18 08:58 Lymphocytes % (Manual) 17 % (13-43) 08/06/18 04:20 Monocytes % (Manual) 5 % (4-9) 08/06/18 04:20 Eosinophils % (Manual) 2 % (0-6) 08/06/18 04:20 Plt Morphology Comment Normal (NORMAL) 08/06/18 04:20 RBC Morphology Abnormal (NORMAL) A 08/06/18 04:20 Hypochromasia Slight A 08/06/18 04:20 Anisocytosis 1+ A 08/06/18 04:20 Microcytosis Slight A 08/04/18 04:21 INR Target Range - 08/04/18 04:21 INR 1.14 (0.8-1.3) 08/04/18 04:21 APTT 29.1 SECONDS (22.9-36.5) 08/04/18 04:21 PTT Comment - 08/04/18 04:21 Sodium 136 mmol/L (136-145) 08/06/18 04:20 Corrected Sodium TNP 08/06/18 04:20 Potassium 3.1 mmol/L (3.5-5.1) L 08/06/18 04:20 Chloride 101 mmol/L (98-107) 08/06/18 04:20 Carbon Dioxide 21.6 mmol/L (21-32) 08/06/18 04:20 BUN 8 mg/dL (7-18) 08/06/18 04:20 Creatinine 0.51 mg/dL (0.55-1.02) L 08/06/18 04:20 Est GFR (MDRD) Af Amer > 60 (>60) 08/06/18 04:20 Est GFR (MDRD) Non-Af > 60 (>60) 08/06/18 04:20 Glucose 76 mg/dL (65-99) 08/06/18 04:20 Lactic Acid 2.3 mmol/L (0.4-2.0) H 08/03/18 09:35 Calcium 7.4 mg/dL (8.5-10.1) L 08/06/18 04:20 Corrected Calcium 9.0 mg/dL (8.5-10.1) 08/06/18 04:20 Magnesium 2.1 mg/dL (1.7-2.9) 08/05/18 04:21 Total Bilirubin 0.40 mg/dL (0.2-1.0) 08/06/18 04:20 AST 13 Units/L (15-37) L 08/06/18 04:20 ALT 9 Units/L (12-78) L 08/06/18 04:20 Alkaline Phosphatase 55 Units/L (46-116) 08/06/18 04:20 Creatine Kinase 22 Units/L (26-192) L 08/03/18 22:50 CK-MB (CK-2) < 1.0 ng/mL (0-4.0) 08/03/18 22:50 CK/CKMB % Calc 4.6 % (<4) 08/03/18 22:50 Troponin I < 0.02 ng/mL (0-1.5) 08/03/18 22:50 Total Protein 5.6 g/dL (6.4-8.2) L 08/06/18 04:20 Albumin 2.0 g/dL (3.4-5.0) L 08/06/18 04:20 Globulin 3.6 g/dL (2.5-4.5) 08/06/18 04:20 Albumin/Globulin Ratio 0.6 Ratio (1.1-2.1) L 08/06/18 04:20 Amylase 33 Units/L (25-115) 08/03/18 08:58 Lipase 115 Units/L (73-393) 08/03/18 08:58 Specimen Type Catherized urine 08/04/18 10:10 Urine Color Dark yellow (YELLOW) 08/04/18 10:10 Urine Appearance Cloudy (CLEAR) 08/04/18 10:10 Urine pH 6.0 (5.0 - 8.0) 08/04/18 10:10 Ur Specific [place] 1.010 (1.000-1.030) 08/04/18 10:10 Urine Protein 2+ (NEGATIVE) 08/04/18 10:10 Urine Glucose (UA) Negative (NEGATIVE) 08/04/18 10:10 Urine Ketones 2+ (NEGATIVE) 08/04/18 10:10 Urine Occult Blood 1+ (NEGATIVE) 08/04/18 10:10 Urine Nitrite Positive (NEGATIVE) 08/04/18 10:10 Urine Bilirubin Negative (NEGATIVE) 08/04/18 10:10 Urine Urobilinogen 1+ (NORMAL) 08/04/18 10:10 Ur Leukocyte Esterase 1+ (NEGATIVE) 08/04/18 10:10 Urine RBC 3-5 /HPF (NONE SEEN) 08/04/18 10:10 Urine WBC 10-20 /HPF (NONE SEEN) 08/04/18 10:10 Ur Squamous Epith Cells Rare /HPF (NEGATIVE) 08/04/18 10:10 Urine Bacteria 2+ /HPF (NEGATIVE) 08/04/18 10:10 RBC Casts Few /LPF (NEGATIVE) 08/03/18 10:18 Ur Culture Indicated? Yes/culture set up 08/04/18 10:10 Gastric Fluid pH 3 08/03/18 08:58 Gastric Occult Blood Positive (NEGATIVE) A 08/03/18 08:58 Blood Type B POSITIVE 08/04/18 06:32 Antibody Screen Negative 08/04/18 06:32 Crossmatch See Detail 08/04/18 06:32 - Plan (1) Anemia Status: Acute Qualifiers: Anemia type: unspecified type Qualified Code(s): D64.9 - Anemia, unspecified Plan: CONTINUE TO MONITOR (2) GI bleed Status: Acute Qualifiers: GI bleed type/associated pathology: unspecified gastrointestinal hemorrhage type Qualified Code(s): K92.2 - Gastrointestinal hemorrhage, unspecified Plan: PROTONIX DRIP, IV HYDRATION, CONSULT GI, CONTINUE TO MONITOR (3) 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
[2018-08-07] MEDS: NS 1/2 + KCL 20 MEQ/L 1,000 ML IV SCH ×3 (00:43→17:24)
[2018-08-07] MEDS: ATIVAN INJ 2 MG VIAL IVP PRN (00:46)
[2018-08-07] MEDS: FLAGYL IV PREMIX 500 MG BAG 500 MG/100 ML BAG IV SCH ×4 (03:14→21:00)
[2018-08-07] MEDS: ZOSYN VIAL 3.375 GRAMS 3.375 G in NS 100 ML IV + SPIKE MINIBAG* 100 ML IV SCH ×3 (05:40→22:10)
[2018-08-07 06:50] LABS: BASOPHILS # (AUTO) 0.2 X10^3/uL (0.0-0.1); BASOPHILS % (AUTO) 1.4 % (0.2-1.0); EOSINOPHILS # (AUTO) 0.3 x10^3/uL (0.0-0.2); EOSINOPHILS % (AUTO) 1.7 % (0.9-2.9); HEMATOCRIT 36.7 % (36.0-47.0); HEMOGLOBIN 11.9 g/dL (12.0-16.0); LYMPHOCYTES # (AUTO) 1.9 X10^3/uL (1.3-2.9); LYMPHOCYTES % (AUTO) 11.8 % (21.0-51.0); MEAN CORPUSCULAR HEMOGLOBIN 24.9 pg (27.0-34.0); MEAN CORPUSCULAR HGB CONC 32.5 g/dL (33.0-35.0); MEAN CORPUSCULAR VOLUME 76.8 fL (80.0-100.0); MEAN PLATELET VOLUME 7.9 fL (7.4-11.0); MONOCYTES # (AUTO) 1.2 x10^3/uL (0.3-0.8); MONOCYTES % (AUTO) 7.6 % (0.0-13.0); NEUTROPHILS # (AUTO) 12.2 x10^3/uL (2.2-4.8); NEUTROPHILS % (AUTO) 77.5 % (42.0-75.0); PLATELET COUNT 620 X10^3/uL (150.0-450.0); RED BLOOD COUNT 4.78 X10^6/uL (3.5-5.4); RED CELL DISTRIBUTION WIDTH 20.9 % (11.6-16.5); WHITE BLOOD COUNT 15.8 X10^3/uL (3.6-10.0)
[2018-08-07 07:23] LABS: ALANINE AMINOTRANSFERASE 10 Units/L (12-78); ALKALINE PHOSPHATASE 55 Units/L (46-116); ASPARTATE AMINO TRANSFERASE 17 Units/L (15-37); BLOOD UREA NITROGEN 6 mg/dL (7-18); CALCIUM 7.6 mg/dL (8.5-10.1); CARBON DIOXIDE 22.7 mmol/L (21-32); CHLORIDE 103 mmol/L (98-107); COR CA(FOR HYPOALB) 9.2 mg/dL (8.5-10.1); MAGNESIUM 1.6 mg/dL (1.7-2.9); SODIUM 136 mmol/L (136-145); TOTAL PROTEIN 5.7 g/dL (6.4-8.2); eGFR NON BLACK RACES > 60 (>60)
[2018-08-07 07:26] LABS: PLATELET MORPHOLOGY COMMENT NORMAL (NORMAL)
[2018-08-07 07:27] LABS: ANISOCYTOSIS 1+; HYPOCHROMASIA SLIGHT
[2018-08-07] MEDS: PROTONIX INJ 40 MG VIAL IVP SCH (08:58)
[2018-08-07] MEDS ORDERED: NS 100 ML IV + SPIKE MINIBAG* 100 ML ONE (15:50)
[2018-08-08] MEDS: FLAGYL IV PREMIX 500 MG BAG 500 MG/100 ML BAG IV SCH ×4 (04:12→20:34)
[2018-08-08 06:11] LABS: BASOPHILS # (AUTO) 0.1 X10^3/uL (0.0-0.1); BASOPHILS % (AUTO) 0.6 % (0.2-1.0); EOSINOPHILS # (AUTO) 0.3 x10^3/uL (0.0-0.2); EOSINOPHILS % (AUTO) 2.4 % (0.9-2.9); HEMATOCRIT 34.8 % (36.0-47.0); HEMOGLOBIN 11.5 g/dL (12.0-16.0); LYMPHOCYTES # (AUTO) 1.9 X10^3/uL (1.3-2.9); LYMPHOCYTES % (AUTO) 14.9 % (21.0-51.0); MEAN CORPUSCULAR HEMOGLOBIN 25.1 pg (27.0-34.0); MEAN CORPUSCULAR VOLUME 76.1 fL (80.0-100.0); MEAN PLATELET VOLUME 7.1 fL (7.4-11.0); MONOCYTES # (AUTO) 0.8 x10^3/uL (0.3-0.8); MONOCYTES % (AUTO) 6.8 % (0.0-13.0); NEUTROPHILS # (AUTO) 9.4 x10^3/uL (2.2-4.8); NEUTROPHILS % (AUTO) 75.3 % (42.0-75.0); PLATELET COUNT 642 X10^3/uL (150.0-450.0); RED BLOOD COUNT 4.57 X10^6/uL (3.5-5.4); RED CELL DISTRIBUTION WIDTH 21.9 % (11.6-16.5); WHITE BLOOD COUNT 12.5 X10^3/uL (3.6-10.0)
[2018-08-08] MEDS: ZOSYN VIAL 3.375 GRAMS 3.375 G in NS 100 ML IV + SPIKE MINIBAG* 100 ML IV SCH ×2 (06:15→15:00)
[2018-08-08 06:25] LABS: PLATELET MORPHOLOGY COMMENT NORMAL (NORMAL)
[2018-08-08 06:26] LABS: ANISOCYTOSIS 1+; HYPOCHROMASIA SLIGHT
[2018-08-08 06:35] LABS: ALANINE AMINOTRANSFERASE 9 Units/L (12-78); ALBUMIN 1.9 g/dL (3.4-5.0); ALKALINE PHOSPHATASE 50 Units/L (46-116); ASPARTATE AMINO TRANSFERASE 14 Units/L (15-37); BLOOD UREA NITROGEN 6 mg/dL (7-18); CALCIUM 7.8 mg/dL (8.5-10.1); CARBON DIOXIDE 23.7 mmol/L (21-32); CHLORIDE 103 mmol/L (98-107); COR CA(FOR HYPOALB) 9.5 mg/dL (8.5-10.1); CREATININE 0.51 mg/dL (0.55-1.02); SODIUM 136 mmol/L (136-145); TOTAL PROTEIN 5.7 g/dL (6.4-8.2); eGFR NON BLACK RACES > 60 (>60)
[2018-08-08] MEDS: PROTONIX INJ 40 MG VIAL IVP SCH (08:59)
[2018-08-08] MEDS: NS 1/2 + KCL 20 MEQ/L 1,000 ML IV SCH ×2 (08:59→18:13)
[2018-08-08] MEDS ORDERED: NS 100 ML IV + SPIKE MINIBAG* 100 ML ONE (14:21)
[2018-08-09 06:12] LABS: BASOPHILS # (AUTO) 0.1 X10^3/uL (0.0-0.1); BASOPHILS % (AUTO) 0.5 % (0.2-1.0); EOSINOPHILS # (AUTO) 0.3 x10^3/uL (0.0-0.2); EOSINOPHILS % (AUTO) 2.6 % (0.9-2.9); HEMATOCRIT 35.5 % (36.0-47.0); HEMOGLOBIN 11.6 g/dL (12.0-16.0); LYMPHOCYTES # (AUTO) 1.7 X10^3/uL (1.3-2.9); LYMPHOCYTES % (AUTO) 13.3 % (21.0-51.0); MEAN CORPUSCULAR HEMOGLOBIN 24.9 pg (27.0-34.0); MEAN CORPUSCULAR HGB CONC 32.6 g/dL (33.0-35.0); MEAN CORPUSCULAR VOLUME 76.4 fL (80.0-100.0); MEAN PLATELET VOLUME 7.1 fL (7.4-11.0); MONOCYTES % (AUTO) 7.6 % (0.0-13.0); NEUTROPHILS # (AUTO) 9.9 x10^3/uL (2.2-4.8); PLATELET COUNT 700 X10^3/uL (150.0-450.0); RED BLOOD COUNT 4.65 X10^6/uL (3.5-5.4); RED CELL DISTRIBUTION WIDTH 22.2 % (11.6-16.5)
[2018-08-09 06:20] LABS: ALANINE AMINOTRANSFERASE 8 Units/L (12-78); ALKALINE PHOSPHATASE 50 Units/L (46-116); ASPARTATE AMINO TRANSFERASE 17 Units/L (15-37); BLOOD UREA NITROGEN 5 mg/dL (7-18); CALCIUM 8.1 mg/dL (8.5-10.1); CARBON DIOXIDE 22.9 mmol/L (21-32); CHLORIDE 103 mmol/L (98-107); COR CA(FOR HYPOALB) 9.7 mg/dL (8.5-10.1); CREATININE 0.44 mg/dL (0.55-1.02); SODIUM 136 mmol/L (136-145); TOTAL PROTEIN 5.9 g/dL (6.4-8.2); eGFR NON BLACK RACES > 60 (>60)
[2018-08-09 06:34] LABS: ANISOCYTOSIS 2+; PLATELET MORPHOLOGY COMMENT NORMAL (NORMAL)
--- NOTE | 2018-08-09 08:45 | PCM.PROG ---
Progress Note - Progress Note for Day of Date of Exam: 08/07/18 - Subjective Subjective: WAS ADMITTED FOR GI BLEED, ANEMIA, INFECTION OF PEG TUBE, AND A BOWEL OBSTRUCTION. SHE RECEIVED TWO UNITS OF PRBC ON ADMISSION. ABDOMINAL ABSCESS WAS ASPIRATED AND CULTURES WERE SENT. TODAY, SHE IS ALERT IN BED ON MORNING ROUNDS. SHE CONTINUES TO BE DISORIENTED. ON EXAMINATION, HEART IS REGULAR IN RATE AND RHYTHM. BILATERAL LUNGS ARE NOTED WITH DIMINISHED LUNG SOUNDS THROUGHOUT. ABDOMEN IS ROUND, SOFT, AND NOTED WITH MILD, DIFFUSE TENDERNESS TO PALPATION. THERE IS NO DRAINAGE TO AREA SURROUNDING PEG TUBE TODAY. HER VITALS THIS MORNING ARE 99.1-82-15-97%-176/81. LABS WERE OBTAINED. ABNORMAL LAB VALUES INCLUDE THE FOLLOWING: WBC 15.8, HGB 11.9, PLT COUNT 620, BUN 6, CREATININE 0.50, CALCIUM 7.6, MAGNESIUM 1.6, ALT 10, TOTAL BILI 5.7, ALBUMIN 2.0. URINE CULTURE REVEALED GROWTH OF E.COLI. SHE IS CURRENTLY RECEIVING IV ANTIBIOITCS, IV FLUIDS, AND WOUND CARE. WE WILL CONTINUE WITH CURRENT PLAN OF CARE TODAY. OTHERWISE, WE PLAN TO FOLLOW UP WITH AM LABS AND CONTINUE TO MONITOR. - Past Medical Family Social History Past Med/Fam/Surg Hx: No changes since H&P Allergies: Allergies No Known Drug Allergies Allergy (Verified 02/20/17 20:10) - Review of Systems ROS: No change since H&P - Vital Signs and I&O's Vital Signs: Temperature 98.5 F Pulse Rate [Apical] 108 Pulse Rate 89 Respiratory Rate 20 Blood Pressure [Right Arm] 158/70 Blood Pressure [Left Arm] 128/61 Blood Pressure 170/82 O2 Sat by Pulse Oximetry 100 Intake and Output: Intake & Output 08/06/18 08/07/18 08/08/18 08/09/18 11:59 11:59 11:59 11:59 Intake Total 1957 / 8 2966 / 2966 3016 / 3016 3130 / 3130 Output Total 1450 / 1450 2250 / 2250 2050 / 2050 2950 / 2950 Balance 508 / 508 716 / 716 966 / 966 180 / 180 - Physical Exam Oriented: Person Eyes: Normal Ear: Normal Nose: Normal Throat: Normal Respiratory: Generalized, Diminished Cardiovascular: Tachycardia. negative: S3, S4, Murmur : Normal Auscultation: Bowel Sounds: Normal Palpation: Normal Tenderness: Normal, Mild. negative: Rebound, Guarding, Rigidity Skin: Red (ABDOMEN) Musculoskeletal: Normal Psychiatric: Normal Mood Description: Calm Affect: Normal Speech Pattern: Clear, Appropriate - Laboratory and Diagnostics Result Diagrams: 08/09/18 05:30 08/09/18 05:30 Labs: 08/05/18 12:55 Aspirate Gram Stain - Final 08/05/18 12:55 Aspirate Wound Culture - Preliminary 08/04/18 10:10 Urine,Catheterized Urine Culture - Final Escherichia Coli 08/03/18 10:18 Urine,Catheterized Urine Culture - Final Escherichia Coli 08/03/18 09:40 Blood Blood Culture - Preliminary 08/03/18 09:35 Blood Blood Culture - Preliminary Laboratory WBC 13.0 X10^3/uL (3.6-10.0) H 08/09/18 05:30 RBC 4.65 X10^6/uL (3.5-5.4) 08/09/18 05:30 Hgb 11.6 g/dL (12.0-16.0) L 08/09/18 05:30 Hct 35.5 % (36.0-47.0) L 08/09/18 05:30 MCV 76.4 fL (80.0-100.0) L 08/09/18 05:30 MCH 24.9 pg (27.0-34.0) L 08/09/18 05:30 MCHC 32.6 g/dL (33.0-35.0) L 08/09/18 05:30 RDW 22.2 % (11.6-16.5) H 08/09/18 05:30 Plt Count 700 X10^3/uL (150.0-450.0) H 08/09/18 05:30 Plt Count Comment Increased (ADEQUATE) A 08/09/18 05:30 MPV 7.1 fL (7.4-11.0) L 08/09/18 05:30 Neut % (Auto) 76.0 % (42.0-75.0) H 08/09/18 05:30 Lymph % (Auto) 13.3 % (21.0-51.0) L 08/09/18 05:30 [place] % (Auto) 7.6 % (0.0-13.0) 08/09/18 05:30 Eos % (Auto) 2.6 % (0.9-2.9) 08/09/18 05:30 Baso % (Auto) 0.5 % (0.2-1.0) 08/09/18 05:30 Neut # (Auto) 9.9 x10^3/uL (2.2-4.8) H 08/09/18 05:30 Lymph # (Auto) 1.7 X10^3/uL (1.3-2.9) 08/09/18 05:30 [place] # (Auto) 1.0 x10^3/uL (0.3-0.8) H 08/09/18 05:30 Eos # (Auto) 0.3 x10^3/uL (0.0-0.2) H 08/09/18 05:30 Baso # (Auto) 0.1 X10^3/uL (0.0-0.1) 08/09/18 05:30 Absolute Nucleated RBC 0.0 /100WBC 08/09/18 05:30 Total Counted 100 08/08/18 05:40 Neutrophils % (Manual) 71 % (39-76) 08/08/18 05:40 Band Neutrophils % 4 % (0-10) 08/03/18 08:58 Lymphocytes % (Manual) 17 % (13-43) 08/08/18 05:40 Monocytes % (Manual) 8 % (4-9) 08/08/18 05:40 Eosinophils % (Manual) 4 % (0-6) 08/08/18 05:40 Plt Morphology Comment Normal (NORMAL) 08/09/18 05:30 RBC Morphology Abnormal (NORMAL) A 08/09/18 05:30 Hypochromasia Slight A 08/08/18 05:40 Anisocytosis 2+ A 08/09/18 05:30 Microcytosis Slight A 08/04/18 04:21 INR Target Range - 08/04/18 04:21 INR 1.14 (0.8-1.3) 08/04/18 04:21 APTT 29.1 SECONDS (22.9-36.5) 08/04/18 04:21 PTT Comment - 08/04/18 04:21 Sodium 136 mmol/L (136-145) 08/09/18 05:30 Corrected Sodium TNP 08/09/18 05:30 Potassium 3.7 mmol/L (3.5-5.1) 08/09/18 05:30 Chloride 103 mmol/L (98-107) 08/09/18 05:30 Carbon Dioxide 22.9 mmol/L (21-32) 08/09/18 05:30 BUN 5 mg/dL (7-18) L 08/09/18 05:30 Creatinine 0.44 mg/dL (0.55-1.02) L 08/09/18 05:30 Est GFR (MDRD) Af Amer > 60 (>60) 08/09/18 05:30 Est GFR (MDRD) Non-Af > 60 (>60) 08/09/18 05:30 Glucose 91 mg/dL (65-99) 08/09/18 05:30 Lactic Acid 2.3 mmol/L (0.4-2.0) H 08/03/18 09:35 Calcium 8.1 mg/dL (8.5-10.1) L 08/09/18 05:30 Corrected Calcium 9.7 mg/dL (8.5-10.1) 08/09/18 05:30 Magnesium 1.6 mg/dL (1.7-2.9) L 08/07/18 05:30 Total Bilirubin 0.10 mg/dL (0.2-1.0) L 08/09/18 05:30 AST 17 Units/L (15-37) 08/09/18 05:30 ALT 8 Units/L (12-78) L 08/09/18 05:30 Alkaline Phosphatase 50 Units/L (46-116) 08/09/18 05:30 Creatine Kinase 22 Units/L (26-192) L 08/03/18 22:50 CK-MB (CK-2) < 1.0 ng/mL (0-4.0) 08/03/18 22:50 CK/CKMB % Calc 4.6 % (<4) 08/03/18 22:50 Troponin I < 0.02 ng/mL (0-1.5) 08/03/18 22:50 Total Protein 5.9 g/dL (6.4-8.2) L 08/09/18 05:30 Albumin 2.0 g/dL (3.4-5.0) L 08/09/18 05:30 Globulin 3.9 g/dL (2.5-4.5) 08/09/18 05:30 Albumin/Globulin Ratio 0.5 Ratio (1.1-2.1) L 08/09/18 05:30 Amylase 33 Units/L (25-115) 08/03/18 08:58 Lipase 115 Units/L (73-393) 08/03/18 08:58 Specimen Type Catherized urine 08/04/18 10:10 Urine Color Dark yellow (YELLOW) 08/04/18 10:10 Urine Appearance Cloudy (CLEAR) 08/04/18 10:10 Urine pH 6.0 (5.0 - 8.0) 08/04/18 10:10 Ur Specific [place] 1.010 (1.000-1.030) 08/04/18 10:10 Urine Protein 2+ (NEGATIVE) 08/04/18 10:10 Urine Glucose (UA) Negative (NEGATIVE) 08/04/18 10:10 Urine Ketones 2+ (NEGATIVE) 08/04/18 10:10 Urine Occult Blood 1+ (NEGATIVE) 08/04/18 10:10 Urine Nitrite Positive (NEGATIVE) 08/04/18 10:10 Urine Bilirubin Negative (NEGATIVE) 08/04/18 10:10 Urine Urobilinogen 1+ (NORMAL) 08/04/18 10:10 Ur Leukocyte Esterase 1+ (NEGATIVE) 08/04/18 10:10 Urine RBC 3-5 /HPF (NONE SEEN) 08/04/18 10:10 Urine WBC 10-20 /HPF (NONE SEEN) 08/04/18 10:10 Ur Squamous Epith Cells Rare /HPF (NEGATIVE) 08/04/18 10:10 Urine Bacteria 2+ /HPF (NEGATIVE) 08/04/18 10:10 RBC Casts Few /LPF (NEGATIVE) 08/03/18 10:18 Ur Culture Indicated? Yes/culture set up 08/04/18 10:10 Gastric Fluid pH 3 08/03/18 08:58 Gastric Occult Blood Positive (NEGATIVE) A 08/03/18 08:58 Blood Type B POSITIVE 08/04/18 06:32 Antibody Screen Negative 08/04/18 06:32 Crossmatch See Detail 08/04/18 06:32 - Plan (1) Anemia Status: Acute Qualifiers: Anemia type: unspecified type Qualified Code(s): D64.9 - Anemia, unspecified Plan: CONTINUE TO MONITOR (2) GI bleed Status: Acute Qualifiers: GI bleed type/associated pathology: unspecified gastrointestinal hemorrhage type Qualified Code(s): K92.2 - Gastrointestinal hemorrhage, unspecified Plan: PROTONIX DRIP, IV HYDRATION, CONSULT GI, CONTINUE TO MONITOR (3) Infection of percutaneous endoscopic gastrostomy (PEG) site Status: Acute Plan: IV ZOSYN, CONTINUE TO MONITOR (4) Bowel obstruction Status: Acute Qualifiers: Intestinal obstruction type: fecal impaction Qualified Code(s): K56.41 - Fecal impaction Plan: CONTINUE TO MONITOR (5) Abdominal abscess Status: Acute Plan: CT GUIDED ASPIRATION, IV ANTIBIOTICS, CONTINUE TO MONITOR (6) Urinary tract infection Status: Acute Qualifiers: Urinary tract infection type: site unspecified Hematuria presence: without hematuria Qualified Code(s): N39.0 - Urinary tract infection, site not specified Plan: IV ZOSYN, CONTINUE TO MONITOR
[2018-08-09] MEDS: NS 1/2 + KCL 20 MEQ/L 1,000 ML IV SCH (10:03)
[2018-08-09] MEDS: ZOSYN VIAL 3.375 GRAMS 3.375 G in NS 100 ML IV + SPIKE MINIBAG* 100 ML IV SCH (10:03)
[2018-08-09] MEDS: FLAGYL IV PREMIX 500 MG BAG 500 MG/100 ML BAG IV SCH (10:03)
[2018-08-09] MEDS: PROTONIX INJ 40 MG VIAL IVP SCH (10:04)
[2018-08-09 13:05] VITALS: BP 130/68
== END 2018-08-09 13:15 | DRG 378 ==
LOC: ER 07:39 → ICU 10:53
PROVIDERS: ADMIT Internal Medicine; ATTEND Internal Medicine
DX: L02.211 Cutaneous abscess of abdominal wall; K94.22 Gastrostomy infection; I25.10 Atherosclerotic heart disease of native coronary artery without angina pectoris; R00.0 Tachycardia, unspecified; K92.2 Gastrointestinal hemorrhage, unspecified; B96.29 Other Escherichia coli [E. coli] as the cause of diseases classified elsewhere; K56.41 Fecal impaction; D64.89 Other specified anemias; N39.0 Urinary tract infection, site not specified; I10 Essential (primary) hypertension; R26.89 Other abnormalities of gait and mobility; R11.2 Nausea with vomiting, unspecified; E03.8 Other specified hypothyroidism
CPT/HCPCS: 36415; 36430; 51701; 74000; 74018; 74150; 74177; 80053; 81001; 82150; 82271; 82550; 82553; 83605; 83690; 83735; 84132; 84484; 85014; 85018; 85025; 85610; 85730; 86850; 86900; 86901; 86922; 87040; 87070; 87075; 87077; 87086; 87088; 87186; 87205; 93005; 96365; 96374; 97112; 97162; 97166; 97535; 99100; 99284; A4222; C9113; J7030; P9016; S0030; J1200; J1630; J1940; J1956; J2060; J2250; J2543; J2704; J3475; J3480; J7040; J7050; S5010

== ENCOUNTER 2018-09-02 14:15 | Inpatient (IN) ==
[2018-09-02] MEDS: NS 1000 ML 1,000 ML IV SCH (16:00)
[2018-09-02] MEDS: FLAGYL IV PREMIX 500 MG BAG 500 MG/100 ML BAG IV SCH ×2 (16:01→21:36)
[2018-09-02] MEDS: CIPRO IV 400 MG PREMIX* 400 MG/200 ML IV.SOLN. IV SCH ×2 (16:01→22:28)
[2018-09-02 16:22] LABS: BASOPHILS % (AUTO) 0.3 % (0.2-1.0); HEMATOCRIT 37.9 % (36.0-47.0); HEMOGLOBIN 12.4 g/dL (12.0-16.0); LYMPHOCYTES # (AUTO) 1.6 X10^3/uL (1.3-2.9); LYMPHOCYTES % (AUTO) 19.7 % (21.0-51.0); MEAN CORPUSCULAR HEMOGLOBIN 25.1 pg (27.0-34.0); MEAN CORPUSCULAR HGB CONC 32.9 g/dL (33.0-35.0); MEAN CORPUSCULAR VOLUME 76.3 fL (80.0-100.0); MEAN PLATELET VOLUME 7.7 fL (7.4-11.0); MONOCYTES # (AUTO) 0.8 x10^3/uL (0.3-0.8); MONOCYTES % (AUTO) 9.3 % (0.0-13.0); NEUTROPHILS # (AUTO) 5.9 x10^3/uL (2.2-4.8); NEUTROPHILS % (AUTO) 70.7 % (42.0-75.0); PLATELET COUNT 520 X10^3/uL (150.0-450.0); RED BLOOD COUNT 4.96 X10^6/uL (3.5-5.4); WHITE BLOOD COUNT 8.3 X10^3/uL (3.6-10.0)
[2018-09-02 16:27] LABS: ALANINE AMINOTRANSFERASE 22 Units/L (12-78); ALKALINE PHOSPHATASE 97 Units/L (46-116); ASPARTATE AMINO TRANSFERASE 17 Units/L (15-37); BLOOD UREA NITROGEN 16 mg/dL (7-18); CARBON DIOXIDE 28.9 mmol/L (21-32); CHLORIDE 96 mmol/L (98-107); COR CA(FOR HYPOALB) 9.8 mg/dL (8.5-10.1); CREATININE 0.45 mg/dL (0.55-1.02); SODIUM 133 mmol/L (136-145); TOTAL PROTEIN 7.5 g/dL (6.4-8.2); eGFR NON BLACK RACES > 60 (>60)
[2018-09-02 16:29] LABS: LACTIC ACID 0.7 mmol/L (0.4-2.0)
[2018-09-02 16:39] LABS: ANISOCYTOSIS 2+; HYPOCHROMASIA SLIGHT; PLATELET MORPHOLOGY COMMENT NORMAL (NORMAL)
[2018-09-02 16:49] LABS: BILIRUBIN,URINE NEGATIVE (NEGATIVE); BLOOD/HEMOGLOBIN,URINE 2+ (NEGATIVE); GLUCOSE, URINE NEGATIVE (NEGATIVE); KETONES,URINE NEGATIVE (NEGATIVE); LEUKOCYTE ESTERASE ,URINE 3+ (NEGATIVE); NITRITES,URINE POSITIVE (NEGATIVE); PROTEIN,URINE 2+ (NEGATIVE); UROBILINOGEN,URINE 1+ (NORMAL)
[2018-09-02 16:53] LABS: APPEARANCE,URINE CLOUDY (CLEAR); COLOR,URINE YELLOW (YELLOW)
[2018-09-02 16:54] LABS: BACTERIA,URINE 3+ /HPF (NEGATIVE); MUCUS,URINE FEW /HPF (NEGATIVE); RENAL EPITHELIAL CELLS,URINE MODERATE /HPF (NEGATIVE); SQUAMOUS EPITHELIAL CELL,UR MODERATE /HPF (NEGATIVE)
[2018-09-03] MEDS: NS 1000 ML 1,000 ML IV SCH ×3 (01:33→17:15)
[2018-09-03] MEDS: FLAGYL IV PREMIX 500 MG BAG 500 MG/100 ML BAG IV SCH ×4 (02:22→21:03)
[2018-09-03 05:18] LABS: BASOPHILS % (AUTO) 0.5 % (0.2-1.0); HEMATOCRIT 32.9 % (36.0-47.0); HEMOGLOBIN 10.8 g/dL (12.0-16.0); LYMPHOCYTES # (AUTO) 1.9 X10^3/uL (1.3-2.9); LYMPHOCYTES % (AUTO) 24.7 % (21.0-51.0); MEAN CORPUSCULAR HEMOGLOBIN 24.9 pg (27.0-34.0); MEAN CORPUSCULAR HGB CONC 32.8 g/dL (33.0-35.0); MEAN PLATELET VOLUME 7.6 fL (7.4-11.0); MONOCYTES # (AUTO) 0.8 x10^3/uL (0.3-0.8); MONOCYTES % (AUTO) 10.8 % (0.0-13.0); NEUTROPHILS # (AUTO) 4.9 x10^3/uL (2.2-4.8); PLATELET COUNT 426 X10^3/uL (150.0-450.0); RED BLOOD COUNT 4.33 X10^6/uL (3.5-5.4); RED CELL DISTRIBUTION WIDTH 22.4 % (11.6-16.5); WHITE BLOOD COUNT 7.6 X10^3/uL (3.6-10.0)
[2018-09-03 05:30] LABS: ALANINE AMINOTRANSFERASE 17 Units/L (12-78); ALBUMIN 2.4 g/dL (3.4-5.0); ALKALINE PHOSPHATASE 76 Units/L (46-116); ASPARTATE AMINO TRANSFERASE 17 Units/L (15-37); BLOOD UREA NITROGEN 13 mg/dL (7-18); CARBON DIOXIDE 26.5 mmol/L (21-32); CHLORIDE 98 mmol/L (98-107); COR CA(FOR HYPOALB) 9.3 mg/dL (8.5-10.1); CREATININE 0.47 mg/dL (0.55-1.02); SODIUM 133 mmol/L (136-145); TOTAL PROTEIN 6.1 g/dL (6.4-8.2); eGFR NON BLACK RACES > 60 (>60)
[2018-09-03 06:01] LABS: PLATELET MORPHOLOGY COMMENT NORMAL (NORMAL)
[2018-09-03 06:02] LABS: ANISOCYTOSIS 2+; HYPOCHROMASIA SLIGHT
--- NOTE | 2018-09-03 06:33 | RAD ---
HISTORY: Abdominal pain Study: KUB Comparison: 09/02/2018 Findings: The abdominal gas pattern is nonspecific and nonobstructive. There is decreased small bowel gas when compared with the prior examination. No abnormal masses or abnormal calcifications are identified. There is a gastrostomy tube overlying the left mid abdomen. IMPRESSION: Nonspecific bowel gas pattern Reported By:
--- NOTE | 2018-09-03 08:46 | DR.H&P ---
H&P - History & Physical for Day of: H&P Date: 09/02/18 - Chief Complaint Chief Complaint: ABDOMINAL PAIN, RESIDUAL FROM PEG TUBE - History of Present Illness History of Present Illness: IS A 73 YEAR OLD PATIENT OF OURS. SHE IS A RESIDENT OF [facility]. [facility] STAFF REPORTED THAT PATIENT HAS BEEN HAVING LARGE AMOUNTS OF RESIDUAL FROM HER PEG TUBE. OUTPATIENT KUB REVEALED A LEFT SIDED SMALL BOWEL ILEUS. SHE WAS ADMITTED TO THE HOSPITAL FOR FURTHER EVALUATION AND TREATMENT. ON ARRIVAL, VITALS WERE 97.8-96-24-97%-138/66. LABS WERE OBTAINED. ABNORMAL LAB VALUES INCLUDE THE FOLLOWING: PLT COUNT 520, SODIUM 133, CHLORIDE 96, CREATININE 0.45, TOTAL BILI 0.10, ALBUMIN 3.0. URINALYSIS WAS OBTAINED AND REVEALED: WBC TNTC, RBC 10-20, LEUKOCYTES 3+, BACTERIA 3+. ON ADMISSION, 320ML RESIDUAL WAS NOTED FROM PEG TUBE. THIS WAS AT 15:45. [facility] STAFF REPORTED THAT HER LAST FEEDING WAS AT 0915. SHE WWAS STARTED ON IV CIPRO, IV FLAGYL, AND NORMAL SALINE AT 100ML/HR. WE WILL CONSULT . OTHERWISE, WE PLAN TO FOLLOW UP WITH AM LABS AND CONTINUE TO MONITOR. - Past Medical History Past Medical History: Coronary Artery Disease, Hypertension, Dyslipidemia, Dementia, Hypothyroidism, Anemia, Arthritis - Past Surgical History Surgical History: Hysterectomy, Ortho Surgery - Family History Family Medical History: Coronary Artery Disease, Hypertension - Social History Does patient currently use any type of tobacco product: No Have you used tobacco products in the last 12 months: No Type of Tobacco Use: None Does any household member use tobacco: No Alcohol Use: None Drug Use: None - Medications Home Medications: No Known Drug Allergies Allergy (Verified 02/20/17 20:10) CONTINUE taking the following medications dicyclomine 20 mg PO QID 09/02/18 [History] - Review of Systems Constitutional: Weakness Eyes: No Symptoms Reported ENT: No Symptoms Reported Respiratory: No Symptoms Reported Cardiovascular: No Symptoms Reported Gastrointestinal: See HPI Genitourinary: No Symptoms Reported Musculoskeletal: No Symptoms Reported Skin: No Symptoms Reported Neurological: Weakness - Physical Exam Vital Signs: Temperature 98.0 F Pulse Rate [Apical] 87 Respiratory Rate 18 Blood Pressure [Right Arm] 184/85 Blood Pressure [Left Arm] 115/61 Blood Pressure 184/85 O2 Sat by Pulse Oximetry 94 Oriented: Person Eyes: Normal Ear: Normal Nose: Normal Throat: Normal Respiratory: Diminished Throughout Cardiovascular: Normal. negative: S3, S4, Murmur : Normal Auscultation: Bowel Sounds: Decreased Palpation: Normal Tenderness: Normal Skin: Normal Musculoskeletal: Normal Psychiatric: Normal Mood Description: Calm Affect: Normal Speech Pattern: Clear - Assessment/Plan (1) Gastric outlet obstruction Status: Acute Plan: CONSULT GI, START IV FLUIDS, IV ANTIBIOTICS, CONTINUE TO MONITOR (2) Urinary tract infection Qualifiers: Urinary tract infection type: site unspecified Hematuria presence: without hematuria Qualified Code(s): N39.0 - Urinary tract infection, site not specified Status: Acute Plan: IV FLUIDS, IV ANTIBIOTICS, CONTINUE TO MONITOR. - Allergies Allergies/Adverse Reactions: Allergies Allergy/AdvReac Type Severity Reaction Status Date / Time No Known Drug Allergies Allergy Verified 02/20/17 20:10
--- NOTE | 2018-09-03 09:03 | DR.PROGNOT ---
Hospital Progress Notes - Progress Note for Day of: Progress Note Date: 09/03/18 - Chief Complaint Chief Complaint: Pt is comfortable . awake and alert . no vomiting . abdomen is soft and flat ,. for UGI series to R/O gastric outlet obstruction . - Past Medical Family Social History Past Med/Fam/Surg Hx: No changes since H&P Allergies: Allergies No Known Drug Allergies Allergy (Verified 02/20/17 20:10) - Review Of Systems ROS: No change since H&P - Vital Signs Vital Signs: Temperature 98.0 F Pulse Rate [Apical] 87 Respiratory Rate 18 Blood Pressure [Right Arm] 184/85 Blood Pressure [Left Arm] 115/61 Blood Pressure 184/85 O2 Sat by Pulse Oximetry 94 - Physical Exam Oriented: Not Oriented Eyes: Normal Ear: Normal Nose: Normal Throat: Normal Respiratory: Normal Cardiovascular: Normal GI:Auscultation: Normal GI:Palpation: Normal GI: Tenderness: Normal (soft, flat abdomen , BS+ , non tender. no leakage around the PEG tube .) Speech Pattern: Clear, Appropriate - Laboratory and Diagnostics Result Diagrams: 09/03/18 04:48 09/03/18 04:48 Labs: 09/02/18 15:30 Peg Tube Gram Stain - Final Laboratory WBC 7.6 X10^3/uL (3.6-10.0) 09/03/18 04:48 RBC 4.33 X10^6/uL (3.5-5.4) 09/03/18 04:48 Hgb 10.8 g/dL (12.0-16.0) L 09/03/18 04:48 Hct 32.9 % (36.0-47.0) L 09/03/18 04:48 MCV 76.0 fL (80.0-100.0) L 09/03/18 04:48 MCH 24.9 pg (27.0-34.0) L 09/03/18 04:48 MCHC 32.8 g/dL (33.0-35.0) L 09/03/18 04:48 RDW 22.4 % (11.6-16.5) H 09/03/18 04:48 Plt Count 426 X10^3/uL (150.0-450.0) 09/03/18 04:48 Plt Count Comment Adequate (ADEQUATE) 09/03/18 04:48 MPV 7.6 fL (7.4-11.0) 09/03/18 04:48 Neut % (Auto) 64.0 % (42.0-75.0) 09/03/18 04:48 Lymph % (Auto) 24.7 % (21.0-51.0) 09/03/18 04:48 [place] % (Auto) 10.8 % (0.0-13.0) 09/03/18 04:48 Eos % (Auto) 0.0 % (0.9-2.9) L 09/03/18 04:48 Baso % (Auto) 0.5 % (0.2-1.0) 09/03/18 04:48 Neut # (Auto) 4.9 x10^3/uL (2.2-4.8) H 09/03/18 04:48 Lymph # (Auto) 1.9 X10^3/uL (1.3-2.9) 09/03/18 04:48 [place] # (Auto) 0.8 x10^3/uL (0.3-0.8) 09/03/18 04:48 Eos # (Auto) 0.0 x10^3/uL (0.0-0.2) 09/03/18 04:48 Baso # (Auto) 0.0 X10^3/uL (0.0-0.1) 09/03/18 04:48 Absolute Nucleated RBC 0.0 /100WBC 09/03/18 04:48 Plt Morphology Comment Normal (NORMAL) 09/03/18 04:48 RBC Morphology Abnormal (NORMAL) A 09/03/18 04:48 Hypochromasia Slight A 09/03/18 04:48 Anisocytosis 2+ A 09/03/18 04:48 INR Target Range - 09/02/18 15:50 INR 0.87 (0.8-1.3) 09/02/18 15:50 Sodium 133 mmol/L (136-145) L 09/03/18 04:48 Corrected Sodium TNP 09/03/18 04:48 Potassium 3.6 mmol/L (3.5-5.1) 09/03/18 04:48 Chloride 98 mmol/L (98-107) 09/03/18 04:48 Carbon Dioxide 26.5 mmol/L (21-32) 09/03/18 04:48 BUN 13 mg/dL (7-18) 09/03/18 04:48 Creatinine 0.47 mg/dL (0.55-1.02) L 09/03/18 04:48 Est GFR (MDRD) Af Amer > 60 (>60) 09/03/18 04:48 Est GFR (MDRD) Non-Af > 60 (>60) 09/03/18 04:48 Glucose 98 mg/dL (65-99) 09/03/18 04:48 Lactic Acid 0.7 mmol/L (0.4-2.0) 09/02/18 15:50 Calcium 8.0 mg/dL (8.5-10.1) L 09/03/18 04:48 Corrected Calcium 9.3 mg/dL (8.5-10.1) 09/03/18 04:48 Total Bilirubin 0.10 mg/dL (0.2-1.0) L 09/03/18 04:48 AST 17 Units/L (15-37) 09/03/18 04:48 ALT 17 Units/L (12-78) 09/03/18 04:48 Alkaline Phosphatase 76 Units/L (46-116) 09/03/18 04:48 Total Protein 6.1 g/dL (6.4-8.2) L 09/03/18 04:48 Albumin 2.4 g/dL (3.4-5.0) L 09/03/18 04:48 Globulin 3.7 g/dL (2.5-4.5) 09/03/18 04:48 Albumin/Globulin Ratio 0.6 Ratio (1.1-2.1) L 09/03/18 04:48 Specimen Type Catherized urine 09/02/18 16:40 Urine Color Yellow (YELLOW) 09/02/18 16:40 Urine Appearance Cloudy (CLEAR) 09/02/18 16:40 Urine pH 6.0 (5.0 - 8.0) 09/02/18 16:40 Ur Specific [place] 1.020 (1.000-1.030) 09/02/18 16:40 Urine Protein 2+ (NEGATIVE) 09/02/18 16:40 Urine Glucose (UA) Negative (NEGATIVE) 09/02/18 16:40 Urine Ketones Negative (NEGATIVE) 09/02/18 16:40 Urine Occult Blood 2+ (NEGATIVE) 09/02/18 16:40 Urine Nitrite Positive (NEGATIVE) 09/02/18 16:40 Urine Bilirubin Negative (NEGATIVE) 09/02/18 16:40 Urine Urobilinogen 1+ (NORMAL) 09/02/18 16:40 Ur Leukocyte Esterase 3+ (NEGATIVE) 09/02/18 16:40 Urine RBC 10-20 /HPF (NONE SEEN) 09/02/18 16:40 Urine WBC Tntc /HPF (NONE SEEN) 09/02/18 16:40 Ur Squamous Epith Cells Moderate /HPF (NEGATIVE) 09/02/18 16:40 Ur Renal Epithelial Cell Moderate /HPF (NEGATIVE) 09/02/18 16:40 Urine Bacteria 3+ /HPF (NEGATIVE) 09/02/18 16:40 Urine Mucus Few /HPF (NEGATIVE) 09/02/18 16:40 Ur Culture Indicated? Yes/culture set up 09/02/18 16:40 - Assessment and Plan 1: R/O gastric outlet obstruction ( large residual feeding in the stomach ). for limited UGI via PEG tube .
[2018-09-03] MEDS: CIPRO IV 400 MG PREMIX* 400 MG/200 ML IV.SOLN. IV SCH ×2 (09:04→21:03)
--- NOTE | 2018-09-03 10:53 | RAD ---
HISTORY: 73-year-old female with PEG tube and high gastric residual. Recent drainage perigastric intra-abdominal fluid collection noted on CT abdomen pelvis 08/05/2018. Concern for gastric outlet obstruction. Study: Single frontal view the abdomen was taken immediately following administration of 60 mL Gastrografin mixed with 40 mL water via PEG tube. 10 min delay with frontal view and RPO view submitted as well. Comparison: Abdominal radiographs 09/02/2018 and 09/03/2018. Findings: Percutaneous gastrostomy tube overlies left upper quadrant with balloon inflated in the region of the body of the stomach. Initial radiograph demonstrates contrast throughout the stomach with no visualized contrast opacified small bowel. 10 min delayed imaging demonstrates contrast passage through the pylorus and into the duodenum. No radiographic evidence of extraluminal contrast. Evaluation of the abdomen demonstrates a overall nonobstructive bowel gas pattern with significant stool burden throughout the colon and rectum. No radiographic evidence of free intraperitoneal air. No pathological soft tissue mass or calcification can be observed. The bony structures are grossly intact. IMPRESSION: 1. Percutaneous gastrostomy tube in apparent good position with contrast opacification of the stomach and duodenum. No extraluminal contrast noted. 2. Significant stool burden throughout the colon and rectum. Correlate clinically for constipation. Reported By:
[2018-09-03 12:29] LABS: BILIRUBIN,URINE NEGATIVE (NEGATIVE); BLOOD/HEMOGLOBIN,URINE 2+ (NEGATIVE); GLUCOSE, URINE NEGATIVE (NEGATIVE); KETONES,URINE 1+ (NEGATIVE); LEUKOCYTE ESTERASE ,URINE 3+ (NEGATIVE); NITRITES,URINE POSITIVE (NEGATIVE); PROTEIN,URINE 2+ (NEGATIVE); UROBILINOGEN,URINE NORMAL (NORMAL)
[2018-09-03 12:33] LABS: APPEARANCE,URINE CLOUDY (CLEAR)
[2018-09-03 12:34] LABS: COLOR,URINE DARK YELLOW (YELLOW)
[2018-09-03 12:38] LABS: BACTERIA,URINE 3+ /HPF (NEGATIVE); RBC,URINE TNTC /HPF (NONE SEEN); SQUAMOUS EPITHELIAL CELL,UR FEW /HPF (NEGATIVE)
[2018-09-03 12:39] LABS: CALCIUM OXALATE CRYSTALS,UR FEW /HPF (NEGATIVE)
[2018-09-03] MEDS ORDERED: KLOR-CON PO PRN (12:43)
[2018-09-03] MEDS ORDERED: POTASSIUM CHLORIDE LIQ 20 MEQ UDC PO PRN (12:43)
[2018-09-03] MEDS ORDERED: POTASSIUM CHL 40 MEQ/NS 0.45% 500 ML IV PRN (12:43)
[2018-09-03] MEDS ORDERED: MICRO K EXTEN CAP 10 MEQ PO PRN (12:43)
[2018-09-03] MEDS ORDERED: K-DUR TAB 20 MEQ PO PRN (12:43)
[2018-09-03] MEDS ORDERED: POTASSIUM CHL 60 MEQ/NS 0.45% 500 ML IV PRN (12:43)
[2018-09-03] MEDS: K-RIDER 10 MEQ/NS 100 ML 10 MEQ/100 ML BAG IV PRN (14:19)
[2018-09-04] MEDS: NS 1000 ML 1,000 ML IV SCH ×4 (00:23→20:34)
[2018-09-04] MEDS: FLAGYL IV PREMIX 500 MG BAG 500 MG/100 ML BAG IV SCH ×4 (04:22→20:35)
[2018-09-04 05:50] LABS: BASOPHILS % (AUTO) 0.4 % (0.2-1.0); HEMATOCRIT 32.6 % (36.0-47.0); HEMOGLOBIN 10.7 g/dL (12.0-16.0); LYMPHOCYTES # (AUTO) 1.9 X10^3/uL (1.3-2.9); LYMPHOCYTES % (AUTO) 24.2 % (21.0-51.0); MEAN CORPUSCULAR HEMOGLOBIN 25.2 pg (27.0-34.0); MEAN CORPUSCULAR HGB CONC 32.9 g/dL (33.0-35.0); MEAN CORPUSCULAR VOLUME 76.5 fL (80.0-100.0); MONOCYTES # (AUTO) 0.7 x10^3/uL (0.3-0.8); NEUTROPHILS # (AUTO) 5.1 x10^3/uL (2.2-4.8); NEUTROPHILS % (AUTO) 66.4 % (42.0-75.0); PLATELET COUNT 451 X10^3/uL (150.0-450.0); RED BLOOD COUNT 4.26 X10^6/uL (3.5-5.4); RED CELL DISTRIBUTION WIDTH 22.6 % (11.6-16.5); WHITE BLOOD COUNT 7.7 X10^3/uL (3.6-10.0)
[2018-09-04 06:08] LABS: ALANINE AMINOTRANSFERASE 16 Units/L (12-78); ALBUMIN 2.6 g/dL (3.4-5.0); ALKALINE PHOSPHATASE 77 Units/L (46-116); ASPARTATE AMINO TRANSFERASE 21 Units/L (15-37); BLOOD UREA NITROGEN 9 mg/dL (7-18); CALCIUM 8.5 mg/dL (8.5-10.1); CARBON DIOXIDE 25.1 mmol/L (21-32); CHLORIDE 102 mmol/L (98-107); COR CA(FOR HYPOALB) 9.6 mg/dL (8.5-10.1); CREATININE 0.44 mg/dL (0.55-1.02); SODIUM 136 mmol/L (136-145); TOTAL PROTEIN 6.3 g/dL (6.4-8.2); eGFR NON BLACK RACES > 60 (>60)
[2018-09-04 06:47] LABS: ANISOCYTOSIS 2+; HYPOCHROMASIA SLIGHT; PLATELET MORPHOLOGY COMMENT NORMAL (NORMAL)
--- NOTE | 2018-09-04 06:58 | RAD ---
Examination: KUB History: PEG tube, abdominal pain Comparison 09/03/2018 Findings: There is residual intestinal contrast material noted in the stomach and colon. There is an unusual accumulation of contrast now noted under the right diaphragm. Although this may be within segments of colon interposed between the liver and the diaphragm, localized contrast extravasation is not ruled out. Impression: Residual intestinal contrast material from recent diagnostic imaging. Localized extravasation of contrast in the subdiaphragmatic area is not excluded. See above. Additional imaging may be appropriate to confirm or exclude. Findings will be called to the referring facility by [facility] staff. Reported By:
[2018-09-04] MEDS: CIPRO IV 400 MG PREMIX* 400 MG/200 ML IV.SOLN. IV SCH ×2 (10:55→20:34)
[2018-09-05] MEDS: NS 1000 ML 1,000 ML IV SCH ×3 (00:50→16:52)
[2018-09-05] MEDS: FLAGYL IV PREMIX 500 MG BAG 500 MG/100 ML BAG IV SCH ×4 (03:30→21:41)
[2018-09-05 05:27] LABS: BASOPHILS % (AUTO) 0.4 % (0.2-1.0); HEMOGLOBIN 10.6 g/dL (12.0-16.0); LYMPHOCYTES # (AUTO) 1.9 X10^3/uL (1.3-2.9); LYMPHOCYTES % (AUTO) 25.5 % (21.0-51.0); MEAN CORPUSCULAR HEMOGLOBIN 25.3 pg (27.0-34.0); MEAN CORPUSCULAR HGB CONC 33.1 g/dL (33.0-35.0); MEAN CORPUSCULAR VOLUME 76.5 fL (80.0-100.0); MEAN PLATELET VOLUME 7.6 fL (7.4-11.0); MONOCYTES # (AUTO) 0.7 x10^3/uL (0.3-0.8); MONOCYTES % (AUTO) 9.4 % (0.0-13.0); NEUTROPHILS # (AUTO) 4.8 x10^3/uL (2.2-4.8); NEUTROPHILS % (AUTO) 64.7 % (42.0-75.0); PLATELET COUNT 414 X10^3/uL (150.0-450.0); RED BLOOD COUNT 4.18 X10^6/uL (3.5-5.4); RED CELL DISTRIBUTION WIDTH 22.2 % (11.6-16.5); WHITE BLOOD COUNT 7.4 X10^3/uL (3.6-10.0)
[2018-09-05 05:33] LABS: ALANINE AMINOTRANSFERASE 13 Units/L (12-78); ALBUMIN 2.4 g/dL (3.4-5.0); ALKALINE PHOSPHATASE 69 Units/L (46-116); ASPARTATE AMINO TRANSFERASE 18 Units/L (15-37); BLOOD UREA NITROGEN 6 mg/dL (7-18); CARBON DIOXIDE 23.3 mmol/L (21-32); CHLORIDE 101 mmol/L (98-107); COR CA(FOR HYPOALB) 9.3 mg/dL (8.5-10.1); CREATININE 0.43 mg/dL (0.55-1.02); SODIUM 136 mmol/L (136-145); TOTAL PROTEIN 5.8 g/dL (6.4-8.2); eGFR NON BLACK RACES > 60 (>60)
[2018-09-05 06:35] LABS: PLATELET MORPHOLOGY COMMENT NORMAL (NORMAL)
[2018-09-05 06:36] LABS: ANISOCYTOSIS 2+; HYPOCHROMASIA SLIGHT; MICROCYTOSIS SLIGHT
[2018-09-05] MEDS: K-RIDER 10 MEQ/NS 100 ML 10 MEQ/100 ML BAG IV PRN ×5 (07:16→20:30)
[2018-09-05] MEDS: CIPRO IV 400 MG PREMIX* 400 MG/200 ML IV.SOLN. IV SCH ×2 (09:58→20:36)
--- NOTE | 2018-09-05 12:22 | RAD ---
HISTORY: Abdominal pains Study: KUB, done portably Comparison: 09/04/2018. Findings: A PEG tube is again seen in the left para lumbar region. Contrast material is present within the stomach and within the colon. There is contrast material present within a loop of bowel interposed between the liver and right hemidiaphragm. No contrast extravasation is seen. There is no evidence of bowel obstruction. No opaque stone is seen. There is mild scoliosis in the mid lumbar region convex to the patient's left side. A left hip nail is present. Lung bases are clear. IMPRESSION: No evidence of contrast material extravasation. There is no evidence of bowel obstruction. Reported By:
[2018-09-06] MEDS: NS 1000 ML 1,000 ML IV SCH ×5 (00:40→22:33)
[2018-09-06] MEDS: FLAGYL IV PREMIX 500 MG BAG 500 MG/100 ML BAG IV SCH ×4 (02:37→20:52)
[2018-09-06 05:15] LABS: BASOPHILS % (AUTO) 0.2 % (0.2-1.0); HEMATOCRIT 36.6 % (36.0-47.0); HEMOGLOBIN 11.8 g/dL (12.0-16.0); LYMPHOCYTES # (AUTO) 1.7 X10^3/uL (1.3-2.9); LYMPHOCYTES % (AUTO) 21.2 % (21.0-51.0); MEAN CORPUSCULAR HEMOGLOBIN 25.1 pg (27.0-34.0); MEAN CORPUSCULAR HGB CONC 32.3 g/dL (33.0-35.0); MEAN CORPUSCULAR VOLUME 77.6 fL (80.0-100.0); MEAN PLATELET VOLUME 7.4 fL (7.4-11.0); MONOCYTES # (AUTO) 0.7 x10^3/uL (0.3-0.8); MONOCYTES % (AUTO) 8.4 % (0.0-13.0); NEUTROPHILS # (AUTO) 5.5 x10^3/uL (2.2-4.8); NEUTROPHILS % (AUTO) 70.2 % (42.0-75.0); PLATELET COUNT 484 X10^3/uL (150.0-450.0); RED BLOOD COUNT 4.72 X10^6/uL (3.5-5.4); RED CELL DISTRIBUTION WIDTH 22.5 % (11.6-16.5); WHITE BLOOD COUNT 7.8 X10^3/uL (3.6-10.0)
[2018-09-06 05:33] LABS: ALANINE AMINOTRANSFERASE 15 Units/L (12-78); ALBUMIN 2.5 g/dL (3.4-5.0); ALKALINE PHOSPHATASE 70 Units/L (46-116); ASPARTATE AMINO TRANSFERASE 18 Units/L (15-37); BLOOD UREA NITROGEN 5 mg/dL (7-18); CALCIUM 7.9 mg/dL (8.5-10.1); CARBON DIOXIDE 23.9 mmol/L (21-32); CHLORIDE 101 mmol/L (98-107); COR CA(FOR HYPOALB) 9.1 mg/dL (8.5-10.1); CREATININE 0.47 mg/dL (0.55-1.02); SODIUM 136 mmol/L (136-145); TOTAL PROTEIN 5.9 g/dL (6.4-8.2); eGFR NON BLACK RACES > 60 (>60)
[2018-09-06 05:54] LABS: HYPOCHROMASIA SLIGHT; PLATELET MORPHOLOGY COMMENT NORMAL (NORMAL)
[2018-09-06 05:55] LABS: ANISOCYTOSIS 2+; MICROCYTOSIS SLIGHT
[2018-09-06] MEDS ORDERED: PHARMACY CONSULT - DOSE _____ XX SCH (10:00)
[2018-09-06] MEDS: CIPRO IV 400 MG PREMIX* 400 MG/200 ML IV.SOLN. IV SCH (10:21)
[2018-09-06] MEDS: LOVENOX INJ 40 MG SYR SC SCH (11:47)
[2018-09-06] MEDS: VIBRAMYCIN 100 MG in D5W 250 ML IV 250 ML IV SCH (22:33)
[2018-09-06] MEDS: K-RIDER 10 MEQ/NS 100 ML 10 MEQ/100 ML BAG IV PRN (23:38)
[2018-09-07] MEDS: K-RIDER 10 MEQ/NS 100 ML 10 MEQ/100 ML BAG IV PRN (02:21)
[2018-09-07] MEDS: FLAGYL IV PREMIX 500 MG BAG 500 MG/100 ML BAG IV SCH ×4 (02:21→22:20)
[2018-09-07] MEDS ORDERED: BUTT CREAM (COMPOUND) ONE (04:42)
[2018-09-07] MEDS: BUTT CREAM (COMPOUND) TOP PRN (04:53)
[2018-09-07] MEDS: NS 1000 ML 1,000 ML IV SCH ×3 (04:54→22:59)
[2018-09-07 05:06] LABS: BASOPHILS % (AUTO) 0.2 % (0.2-1.0); HEMATOCRIT 37.2 % (36.0-47.0); HEMOGLOBIN 12.1 g/dL (12.0-16.0); LYMPHOCYTES # (AUTO) 2.2 X10^3/uL (1.3-2.9); LYMPHOCYTES % (AUTO) 19.9 % (21.0-51.0); MEAN CORPUSCULAR HEMOGLOBIN 25.3 pg (27.0-34.0); MEAN CORPUSCULAR HGB CONC 32.6 g/dL (33.0-35.0); MEAN CORPUSCULAR VOLUME 77.5 fL (80.0-100.0); MEAN PLATELET VOLUME 7.4 fL (7.4-11.0); MONOCYTES # (AUTO) 0.7 x10^3/uL (0.3-0.8); NEUTROPHILS % (AUTO) 73.9 % (42.0-75.0); PLATELET COUNT 549 X10^3/uL (150.0-450.0); RED BLOOD COUNT 4.81 X10^6/uL (3.5-5.4); RED CELL DISTRIBUTION WIDTH 22.2 % (11.6-16.5); WHITE BLOOD COUNT 10.9 X10^3/uL (3.6-10.0)
[2018-09-07 05:12] LABS: ALANINE AMINOTRANSFERASE 12 Units/L (12-78); ALBUMIN 2.5 g/dL (3.4-5.0); ALKALINE PHOSPHATASE 69 Units/L (46-116); ASPARTATE AMINO TRANSFERASE 18 Units/L (15-37); BLOOD UREA NITROGEN 5 mg/dL (7-18); CALCIUM 7.7 mg/dL (8.5-10.1); CARBON DIOXIDE 19.7 mmol/L (21-32); CHLORIDE 99 mmol/L (98-107); COR CA(FOR HYPOALB) 8.9 mg/dL (8.5-10.1); CREATININE 0.49 mg/dL (0.55-1.02); SODIUM 134 mmol/L (136-145); TOTAL PROTEIN 5.8 g/dL (6.4-8.2); eGFR NON BLACK RACES > 60 (>60)
[2018-09-07 05:22] LABS: ANISOCYTOSIS 2+; PLATELET MORPHOLOGY COMMENT NORMAL (NORMAL)
[2018-09-07 06:04] VITALS: BMI 14.1
--- NOTE | 2018-09-07 07:41 | RAD ---
History: Gastrostomy tube placement Study: KUB Comparison: Made 12th Findings: There is contrast in the distal colon. A PEG tube projects in the left upper quadrant. There is heavy atherosclerotic calcification without aneurysm. There are degenerative changes of the hips. Impression: Unremarkable contrast in the colon. PEG tube projects in the left quadrant but exact position within the stomach is not demonstrated on this examination. Reported By:
[2018-09-07] MEDS: LOVENOX INJ 40 MG SYR SC SCH (09:28)
[2018-09-07] MEDS: VIBRAMYCIN 100 MG in D5W 250 ML IV 250 ML IV SCH ×2 (10:32→21:00)
--- NOTE | 2018-09-07 19:50 | PCM.PROG ---
Progress Note - Progress Note for Day of Date of Exam: 09/06/18 - Subjective Subjective: WAS ADMITTED TO RULE OUT A GASTRIC OUTLET OBSTRUCTION AND A URINARY TRACT INFECTION. TODAY, SHE IS LYING IN BED WITH EYES CLOSED ON MORNING ROUNDS. SHE AWAKENS TO VERBAL STIMULI. ON EXAMINATION, HEART IS REGULAR IN RATE AND RHYTHM. BILATERAL LUNGS ARE NOTED WITH DIMINISHED LUNG SOUNDS THROUGHOUT. ABDOMEN IS NOTED WITHOUT TENDERNESS, REDNESS OR SWELLING. NORMAL BOWEL SOUNDS NOTED IN ALL QUADRANTS. DIFFUSE MUSCLE ATROPHY AND WEAKNESS NOTED TO UPPER AND LOWER EXTREMITIES. HER VITALS THIS MORNING ARE 98.3-107-85-100%-139/73. LABS WERE OBTAINED. ABNORMAL LAB VALUES INCLUDE THE FOLLOWING: ABNORMAL LAB VALUES INCLUDE THE FOLLOWING: HGB 11.8, PLT COUNT 484, BUN 5, CREATININE 0.47, CALCIUM 7.9, TOTAL PROTEIN 5.9, ALBUMIN 2.5. URINE CULTURE POSITIVE FOR STAPHYLOCOCCUSE EPIDERMIDIS. A KUB WAS REPEATED TODAY AND REVEALED: Unremarkable contrast in the colon. PEG tube projects in the left quadrant but exact position within the stomach is not demonstrated on this examination. TODAY, WE WILL START DOXYCYCLINE 100MG PO BID. OTHERWISE, WE WILL CONTINUE WITH CURRENT PLAN OF CARE. WE WILL FOLLOW UP WITH AM LABS AND CONTINUE TO MONITOR. - Past Medical Family Social History Past Med/Fam/Surg Hx: No changes since H&P Allergies: Allergies No Known Drug Allergies Allergy (Verified 02/20/17 20:10) - Review of Systems ROS: No change since H&P - Vital Signs and I&O's Vital Signs: Temperature 98.2 F Pulse Rate [Apical] 102 Respiratory Rate 20 Blood Pressure [Right Arm] 136/76 Blood Pressure [Left Arm] 151/82 Blood Pressure 184/85 O2 Sat by Pulse Oximetry 97 Intake and Output: Intake & Output 09/05/18 09/06/18 09/07/18 09/08/18 11:59 11:59 11:59 11:59 Intake Total 1500 / 1500 900 / 900 0 / 0 Balance 1500 / 1500 900 / 900 0 / 0 - Physical Exam Oriented: Person Eyes: Normal Ear: Normal Nose: Normal Throat: Normal Respiratory: Normal Cardiovascular: Normal. negative: S3, S4, Murmur : Normal Auscultation: Bowel Sounds: Decreased Palpation: Normal Tenderness: Normal Skin: Normal Musculoskeletal: Normal Psychiatric: Normal Mood Description: Calm Affect: Normal Speech Pattern: Clear - Laboratory and Diagnostics Result Diagrams: 09/07/18 04:39 09/07/18 04:39 Labs: 09/02/18 15:30 Peg Tube Gram Stain - Final 09/02/18 15:30 Peg Tube Wound Culture - Final 09/03/18 12:10 Urine,Catheterized Urine Culture - Final Staphylococcus Epidermidis 09/02/18 15:54 Blood Blood Culture - Preliminary 09/02/18 15:50 Blood Blood Culture - Preliminary 09/02/18 16:40 Urine,Clean Catch Urine Culture - Final Laboratory WBC 10.9 X10^3/uL (3.6-10.0) H 09/07/18 04:39 RBC 4.81 X10^6/uL (3.5-5.4) 09/07/18 04:39 Hgb 12.1 g/dL (12.0-16.0) 09/07/18 04:39 Hct 37.2 % (36.0-47.0) 09/07/18 04:39 MCV 77.5 fL (80.0-100.0) L 09/07/18 04:39 MCH 25.3 pg (27.0-34.0) L 09/07/18 04:39 MCHC 32.6 g/dL (33.0-35.0) L 09/07/18 04:39 RDW 22.2 % (11.6-16.5) H 09/07/18 04:39 Plt Count 549 X10^3/uL (150.0-450.0) H 09/07/18 04:39 Plt Count Comment Increased (ADEQUATE) A 09/07/18 04:39 MPV 7.4 fL (7.4-11.0) 09/07/18 04:39 Neut % (Auto) 73.9 % (42.0-75.0) 09/07/18 04:39 Lymph % (Auto) 19.9 % (21.0-51.0) L 09/07/18 04:39 [place] % (Auto) 6.0 % (0.0-13.0) 09/07/18 04:39 Eos % (Auto) 0.0 % (0.9-2.9) L 09/07/18 04:39 Baso % (Auto) 0.2 % (0.2-1.0) 09/07/18 04:39 Neut # (Auto) 8.0 x10^3/uL (2.2-4.8) H 09/07/18 04:39 Lymph # (Auto) 2.2 X10^3/uL (1.3-2.9) 09/07/18 04:39 [place] # (Auto) 0.7 x10^3/uL (0.3-0.8) 09/07/18 04:39 Eos # (Auto) 0.0 x10^3/uL (0.0-0.2) 09/07/18 04:39 Baso # (Auto) 0.0 X10^3/uL (0.0-0.1) 09/07/18 04:39 Absolute Nucleated RBC 0.0 /100WBC 09/07/18 04:39 Plt Morphology Comment Normal (NORMAL) 09/07/18 04:39 RBC Morphology Abnormal (NORMAL) A 09/07/18 04:39 Hypochromasia Slight A 09/06/18 04:37 Anisocytosis 2+ A 09/07/18 04:39 Microcytosis Slight A 09/06/18 04:37 INR Target Range - 09/02/18 15:50 INR 0.87 (0.8-1.3) 09/02/18 15:50 Sodium 134 mmol/L (136-145) L 09/07/18 04:39 Corrected Sodium TNP 09/07/18 04:39 Potassium 4.0 mmol/L (3.5-5.1) 09/07/18 04:39 Chloride 99 mmol/L (98-107) 09/07/18 04:39 Carbon Dioxide 19.7 mmol/L (21-32) L 09/07/18 04:39 BUN 5 mg/dL (7-18) L 09/07/18 04:39 Creatinine 0.49 mg/dL (0.55-1.02) L 09/07/18 04:39 Est GFR (MDRD) Af Amer > 60 (>60) 09/07/18 04:39 Est GFR (MDRD) Non-Af > 60 (>60) 09/07/18 04:39 Glucose 66 mg/dL (65-99) 09/07/18 04:39 Lactic Acid 0.7 mmol/L (0.4-2.0) 09/02/18 15:50 Calcium 7.7 mg/dL (8.5-10.1) L 09/07/18 04:39 Corrected Calcium 8.9 mg/dL (8.5-10.1) 09/07/18 04:39 Magnesium 1.8 mg/dL (1.7-2.9) 09/05/18 04:45 Total Bilirubin 0.30 mg/dL (0.2-1.0) 09/07/18 04:39 AST 18 Units/L (15-37) 09/07/18 04:39 ALT 12 Units/L (12-78) 09/07/18 04:39 Alkaline Phosphatase 69 Units/L (46-116) 09/07/18 04:39 Total Protein 5.8 g/dL (6.4-8.2) L 09/07/18 04:39 Albumin 2.5 g/dL (3.4-5.0) L 09/07/18 04:39 Globulin 3.3 g/dL (2.5-4.5) 09/07/18 04:39 Albumin/Globulin Ratio 0.8 Ratio (1.1-2.1) L 09/07/18 04:39 Specimen Type Catherized urine 09/03/18 12:10 Urine Color Dark yellow (YELLOW) 09/03/18 12:10 Urine Appearance Cloudy (CLEAR) 09/03/18 12:10 Urine pH 5.0 (5.0 - 8.0) 09/03/18 12:10 Ur Specific [place] 1.020 (1.000-1.030) 09/03/18 12:10 Urine Protein 2+ (NEGATIVE) 09/03/18 12:10 Urine Glucose (UA) Negative (NEGATIVE) 09/03/18 12:10 Urine Ketones 1+ (NEGATIVE) 09/03/18 12:10 Urine Occult Blood 2+ (NEGATIVE) 09/03/18 12:10 Urine Nitrite Positive (NEGATIVE) 09/03/18 12:10 Urine Bilirubin Negative (NEGATIVE) 09/03/18 12:10 Urine Urobilinogen Normal (NORMAL) 09/03/18 12:10 Ur Leukocyte Esterase 3+ (NEGATIVE) 09/03/18 12:10 Urine RBC Tntc /HPF (NONE SEEN) 09/03/18 12:10 Urine WBC Tntc /HPF (NONE SEEN) 09/03/18 12:10 Ur Squamous Epith Cells Few /HPF (NEGATIVE) 09/03/18 12:10 Ur Renal Epithelial Cell Moderate /HPF (NEGATIVE) 09/02/18 16:40 Calcium Oxalate Crystal Few /HPF (NEGATIVE) 09/03/18 12:10 Urine Bacteria 3+ /HPF (NEGATIVE) 09/03/18 12:10 Urine Mucus Few /HPF (NEGATIVE) 09/02/18 16:40 Ur Culture Indicated? Yes/culture set up 09/03/18 12:10 - Plan (1) Gastric outlet obstruction Status: Acute Plan: CONSULT GI, IV FLUIDS, IV ANTIBIOTICS, CONTINUE TO MONITOR (2) Urinary tract infection Status: Acute Qualifiers: Urinary tract infection type: site unspecified Hematuria presence: without hematuria Qualified Code(s): N39.0 - Urinary tract infection, site not specified Plan: IV FLUIDS, IV ANTIBIOTICS, CONTINUE TO MONITOR.
--- NOTE | 2018-09-07 19:59 | PCM.PROG ---
Progress Note - Progress Note for Day of Date of Exam: 09/07/18 - Subjective Subjective: WAS ADMITTED TO RULE OUT A GASTRIC OUTLET OBSTRUCTION AND A URINARY TRACT INFECTION. TODAY, SHE IS LYING IN BED WITH EYES CLOSED ON MORNING ROUNDS. SHE AWAKENS TO VERBAL STIMULI. ON EXAMINATION, HEART IS REGULAR IN RATE AND RHYTHM. BILATERAL LUNGS ARE NOTED WITH DIMINISHED LUNG SOUNDS THROUGHOUT. ABDOMEN IS NOTED WITHOUT TENDERNESS, REDNESS OR SWELLING. NORMAL BOWEL SOUNDS NOTED IN ALL QUADRANTS. DIFFUSE MUSCLE ATROPHY AND WEAKNESS NOTED TO UPPER AND LOWER EXTREMITIES. HER VITALS THIS MORNING ARE 97.9-108-20-98%A-155/82. LABS WERE OBTAINED. ABNORMAL LAB VALUES INCLUDE THE FOLLOWING: ABNORMAL LAB VALUES INCLUDE THE FOLLOWING: WBC 10.9, PLT COUNT 549, SODIUM 134, CARBON DIOXIDE 19.7, BUN 5, CREATININNE 0.49, CALCIUM 7.7, TOTAL PROTEIN 5.8, ALBUMIN 2.5. URINE CULTURE POSITIVE FOR STAPHYLOCOCCUSE EPIDERMIDIS. TODAY, WE WILL CONTINUE IV ANTIBIOTICS, IV FLUIDS, AND CURRENT PLAN OF CARE. OTHERWISE, WE WILL FOLLOW UP WITH AM LABS AND CONTINUE TO MONITOR. - Past Medical Family Social History Past Med/Fam/Surg Hx: No changes since H&P Allergies: Allergies No Known Drug Allergies Allergy (Verified 02/20/17 20:10) - Review of Systems ROS: No change since H&P - Vital Signs and I&O's Vital Signs: Temperature 98.2 F Pulse Rate [Apical] 102 Respiratory Rate 20 Blood Pressure [Right Arm] 136/76 Blood Pressure [Left Arm] 151/82 Blood Pressure 184/85 O2 Sat by Pulse Oximetry 97 Intake and Output: Intake & Output 09/05/18 09/06/18 09/07/18 09/08/18 11:59 11:59 11:59 11:59 Intake Total 1500 / 1500 900 / 900 0 / 0 Balance 1500 / 1500 900 / 900 0 / 0 - Physical Exam Oriented: Person Eyes: Normal Ear: Normal Nose: Normal Throat: Normal Respiratory: Normal Cardiovascular: Normal. negative: S3, S4, Murmur : Normal Auscultation: Bowel Sounds: Decreased Palpation: Normal Tenderness: Normal Skin: Normal Musculoskeletal: Normal Psychiatric: Normal Mood Description: Calm Affect: Normal Speech Pattern: Clear - Laboratory and Diagnostics Result Diagrams: 09/07/18 04:39 09/07/18 04:39 Labs: 09/02/18 15:30 Peg Tube Gram Stain - Final 09/02/18 15:30 Peg Tube Wound Culture - Final 09/03/18 12:10 Urine,Catheterized Urine Culture - Final Staphylococcus Epidermidis 09/02/18 15:54 Blood Blood Culture - Preliminary 09/02/18 15:50 Blood Blood Culture - Preliminary 09/02/18 16:40 Urine,Clean Catch Urine Culture - Final Laboratory WBC 10.9 X10^3/uL (3.6-10.0) H 09/07/18 04:39 RBC 4.81 X10^6/uL (3.5-5.4) 09/07/18 04:39 Hgb 12.1 g/dL (12.0-16.0) 09/07/18 04:39 Hct 37.2 % (36.0-47.0) 09/07/18 04:39 MCV 77.5 fL (80.0-100.0) L 09/07/18 04:39 MCH 25.3 pg (27.0-34.0) L 09/07/18 04:39 MCHC 32.6 g/dL (33.0-35.0) L 09/07/18 04:39 RDW 22.2 % (11.6-16.5) H 09/07/18 04:39 Plt Count 549 X10^3/uL (150.0-450.0) H 09/07/18 04:39 Plt Count Comment Increased (ADEQUATE) A 09/07/18 04:39 MPV 7.4 fL (7.4-11.0) 09/07/18 04:39 Neut % (Auto) 73.9 % (42.0-75.0) 09/07/18 04:39 Lymph % (Auto) 19.9 % (21.0-51.0) L 09/07/18 04:39 [place] % (Auto) 6.0 % (0.0-13.0) 09/07/18 04:39 Eos % (Auto) 0.0 % (0.9-2.9) L 09/07/18 04:39 Baso % (Auto) 0.2 % (0.2-1.0) 09/07/18 04:39 Neut # (Auto) 8.0 x10^3/uL (2.2-4.8) H 09/07/18 04:39 Lymph # (Auto) 2.2 X10^3/uL (1.3-2.9) 09/07/18 04:39 [place] # (Auto) 0.7 x10^3/uL (0.3-0.8) 09/07/18 04:39 Eos # (Auto) 0.0 x10^3/uL (0.0-0.2) 09/07/18 04:39 Baso # (Auto) 0.0 X10^3/uL (0.0-0.1) 09/07/18 04:39 Absolute Nucleated RBC 0.0 /100WBC 09/07/18 04:39 Plt Morphology Comment Normal (NORMAL) 09/07/18 04:39 RBC Morphology Abnormal (NORMAL) A 09/07/18 04:39 Hypochromasia Slight A 09/06/18 04:37 Anisocytosis 2+ A 09/07/18 04:39 Microcytosis Slight A 09/06/18 04:37 INR Target Range - 09/02/18 15:50 INR 0.87 (0.8-1.3) 09/02/18 15:50 Sodium 134 mmol/L (136-145) L 09/07/18 04:39 Corrected Sodium TNP 09/07/18 04:39 Potassium 4.0 mmol/L (3.5-5.1) 09/07/18 04:39 Chloride 99 mmol/L (98-107) 09/07/18 04:39 Carbon Dioxide 19.7 mmol/L (21-32) L 09/07/18 04:39 BUN 5 mg/dL (7-18) L 09/07/18 04:39 Creatinine 0.49 mg/dL (0.55-1.02) L 09/07/18 04:39 Est GFR (MDRD) Af Amer > 60 (>60) 09/07/18 04:39 Est GFR (MDRD) Non-Af > 60 (>60) 09/07/18 04:39 Glucose 66 mg/dL (65-99) 09/07/18 04:39 Lactic Acid 0.7 mmol/L (0.4-2.0) 09/02/18 15:50 Calcium 7.7 mg/dL (8.5-10.1) L 09/07/18 04:39 Corrected Calcium 8.9 mg/dL (8.5-10.1) 09/07/18 04:39 Magnesium 1.8 mg/dL (1.7-2.9) 09/05/18 04:45 Total Bilirubin 0.30 mg/dL (0.2-1.0) 09/07/18 04:39 AST 18 Units/L (15-37) 09/07/18 04:39 ALT 12 Units/L (12-78) 09/07/18 04:39 Alkaline Phosphatase 69 Units/L (46-116) 09/07/18 04:39 Total Protein 5.8 g/dL (6.4-8.2) L 09/07/18 04:39 Albumin 2.5 g/dL (3.4-5.0) L 09/07/18 04:39 Globulin 3.3 g/dL (2.5-4.5) 09/07/18 04:39 Albumin/Globulin Ratio 0.8 Ratio (1.1-2.1) L 09/07/18 04:39 Specimen Type Catherized urine 09/03/18 12:10 Urine Color Dark yellow (YELLOW) 09/03/18 12:10 Urine Appearance Cloudy (CLEAR) 09/03/18 12:10 Urine pH 5.0 (5.0 - 8.0) 09/03/18 12:10 Ur Specific [place] 1.020 (1.000-1.030) 09/03/18 12:10 Urine Protein 2+ (NEGATIVE) 09/03/18 12:10 Urine Glucose (UA) Negative (NEGATIVE) 09/03/18 12:10 Urine Ketones 1+ (NEGATIVE) 09/03/18 12:10 Urine Occult Blood 2+ (NEGATIVE) 09/03/18 12:10 Urine Nitrite Positive (NEGATIVE) 09/03/18 12:10 Urine Bilirubin Negative (NEGATIVE) 09/03/18 12:10 Urine Urobilinogen Normal (NORMAL) 09/03/18 12:10 Ur Leukocyte Esterase 3+ (NEGATIVE) 09/03/18 12:10 Urine RBC Tntc /HPF (NONE SEEN) 09/03/18 12:10 Urine WBC Tntc /HPF (NONE SEEN) 09/03/18 12:10 Ur Squamous Epith Cells Few /HPF (NEGATIVE) 09/03/18 12:10 Ur Renal Epithelial Cell Moderate /HPF (NEGATIVE) 09/02/18 16:40 Calcium Oxalate Crystal Few /HPF (NEGATIVE) 09/03/18 12:10 Urine Bacteria 3+ /HPF (NEGATIVE) 09/03/18 12:10 Urine Mucus Few /HPF (NEGATIVE) 09/02/18 16:40 Ur Culture Indicated? Yes/culture set up 09/03/18 12:10 - Plan (1) Gastric outlet obstruction Status: Acute Plan: CONSULT GI, IV FLUIDS, IV ANTIBIOTICS, CONTINUE TO MONITOR (2) Urinary tract infection Status: Acute Qualifiers: Urinary tract infection type: site unspecified Hematuria presence: without hematuria Qualified Code(s): N39.0 - Urinary tract infection, site not specified Plan: IV FLUIDS, IV ANTIBIOTICS, CONTINUE TO MONITOR.
[2018-09-08] MEDS: FLAGYL IV PREMIX 500 MG BAG 500 MG/100 ML BAG IV SCH ×2 (02:05→08:44)
[2018-09-08 05:08] LABS: BASOPHILS % (AUTO) 0.2 % (0.2-1.0); HEMATOCRIT 36.3 % (36.0-47.0); HEMOGLOBIN 11.9 g/dL (12.0-16.0); LYMPHOCYTES # (AUTO) 2.3 X10^3/uL (1.3-2.9); LYMPHOCYTES % (AUTO) 23.4 % (21.0-51.0); MEAN CORPUSCULAR HEMOGLOBIN 25.3 pg (27.0-34.0); MEAN CORPUSCULAR HGB CONC 32.8 g/dL (33.0-35.0); MEAN PLATELET VOLUME 7.1 fL (7.4-11.0); MONOCYTES # (AUTO) 0.6 x10^3/uL (0.3-0.8); MONOCYTES % (AUTO) 6.3 % (0.0-13.0); NEUTROPHILS # (AUTO) 6.9 x10^3/uL (2.2-4.8); NEUTROPHILS % (AUTO) 70.1 % (42.0-75.0); PLATELET COUNT 523 X10^3/uL (150.0-450.0); RED BLOOD COUNT 4.71 X10^6/uL (3.5-5.4); RED CELL DISTRIBUTION WIDTH 22.6 % (11.6-16.5); WHITE BLOOD COUNT 9.9 X10^3/uL (3.6-10.0)
[2018-09-08 05:22] LABS: ALANINE AMINOTRANSFERASE 11 Units/L (12-78); ALBUMIN 2.5 g/dL (3.4-5.0); ALKALINE PHOSPHATASE 66 Units/L (46-116); ASPARTATE AMINO TRANSFERASE 16 Units/L (15-37); BLOOD UREA NITROGEN 3 mg/dL (7-18); CALCIUM 7.8 mg/dL (8.5-10.1); CARBON DIOXIDE 22.2 mmol/L (21-32); CHLORIDE 102 mmol/L (98-107); CREATININE 0.48 mg/dL (0.55-1.02); SODIUM 137 mmol/L (136-145); TOTAL PROTEIN 5.8 g/dL (6.4-8.2); eGFR NON BLACK RACES > 60 (>60)
[2018-09-08 05:28] LABS: ANISOCYTOSIS 2+; MICROCYTOSIS SLIGHT; PLATELET MORPHOLOGY COMMENT NORMAL (NORMAL)
[2018-09-08] MEDS: K-RIDER 10 MEQ/NS 100 ML 10 MEQ/100 ML BAG IV PRN ×4 (05:38→12:18)
[2018-09-08] MEDS: BUTT CREAM (COMPOUND) TOP PRN (06:34)
[2018-09-08] MEDS: LOVENOX INJ 40 MG SYR SC SCH (08:44)
[2018-09-08] MEDS: VIBRAMYCIN 100 MG in D5W 250 ML IV 250 ML IV SCH (10:55)
[2018-09-08 14:19] VITALS: BP 171/79
== END 2018-09-08 14:15 | DRG 690 ==
LOC: MED/SURG
PROVIDERS: ADMIT Internal Medicine; ATTEND Internal Medicine
DX: K31.1 Adult hypertrophic pyloric stenosis; B95.7 Other staphylococcus as the cause of diseases classified elsewhere; R10.84 Generalized abdominal pain; R07.89 Other chest pain; E78.2 Mixed hyperlipidemia; E03.8 Other specified hypothyroidism; N39.0 Urinary tract infection, site not specified; K94.23 Gastrostomy malfunction; I25.10 Atherosclerotic heart disease of native coronary artery without angina pectoris; I10 Essential (primary) hypertension
CPT/HCPCS: 36415; 74000; 74018; 80053; 81001; 83605; 83735; 84132; 85025; 85610; 87040; 87070; 87075; 87086; 87088; 87186; 87205; 93005; 99221; 99231; A4222; S0030; G0378; J0744; J1650; J3480; J3490; J7030; J7060

== ENCOUNTER 2018-10-09 16:04 | Inpatient (IN) ==
[2018-10-09 17:42] LABS: BASOPHILS # (AUTO) 0.1 X10^3/uL (0.0-0.1); BASOPHILS % (AUTO) 0.5 % (0.2-1.0); EOSINOPHILS % (AUTO) 0.2 % (0.9-2.9); HEMATOCRIT 38.4 % (36.0-47.0); LYMPHOCYTES # (AUTO) 1.6 X10^3/uL (1.3-2.9); LYMPHOCYTES % (AUTO) 15.6 % (21.0-51.0); MEAN CORPUSCULAR HEMOGLOBIN 26.7 pg (27.0-34.0); MEAN CORPUSCULAR HGB CONC 33.9 g/dL (33.0-35.0); MEAN CORPUSCULAR VOLUME 78.8 fL (80.0-100.0); MONOCYTES # (AUTO) 0.9 x10^3/uL (0.3-0.8); MONOCYTES % (AUTO) 8.4 % (0.0-13.0); NEUTROPHILS # (AUTO) 7.8 x10^3/uL (2.2-4.8); NEUTROPHILS % (AUTO) 75.3 % (42.0-75.0); PLATELET COUNT 633 X10^3/uL (150.0-450.0); RED BLOOD COUNT 4.87 X10^6/uL (3.5-5.4); RED CELL DISTRIBUTION WIDTH 20.9 % (11.6-16.5); WHITE BLOOD COUNT 10.3 X10^3/uL (3.6-10.0)
[2018-10-09 17:57] LABS: ALANINE AMINOTRANSFERASE 37 Units/L (12-78); ALKALINE PHOSPHATASE 85 Units/L (46-116); ASPARTATE AMINO TRANSFERASE 19 Units/L (15-37); BLOOD UREA NITROGEN 11 mg/dL (7-18); CALCIUM 9.2 mg/dL (8.5-10.1); CARBON DIOXIDE 30.1 mmol/L (21-32); CHLORIDE 95 mmol/L (98-107); SODIUM 133 mmol/L (136-145); TOTAL PROTEIN 7.7 g/dL (6.4-8.2); eGFR NON BLACK RACES > 60 (>60)
[2018-10-09 18:01] LABS: LACTIC ACID 1.2 mmol/L (0.4-2.0)
[2018-10-09 18:11] LABS: BILIRUBIN,URINE NEGATIVE (NEGATIVE); BLOOD/HEMOGLOBIN,URINE 3+ (NEGATIVE); GLUCOSE, URINE NEGATIVE (NEGATIVE); KETONES,URINE NEGATIVE (NEGATIVE); LEUKOCYTE ESTERASE ,URINE 3+ (NEGATIVE); NITRITES,URINE NEGATIVE (NEGATIVE); PH,URINE 6.5 (5.0 - 8.0); PROTEIN,URINE 2+ (NEGATIVE); UROBILINOGEN,URINE NORMAL (NORMAL)
[2018-10-09 18:12] LABS: ANISOCYTOSIS 1+; PLATELET MORPHOLOGY COMMENT NORMAL (NORMAL)
[2018-10-09 18:20] LABS: APPEARANCE,URINE CLOUDY (CLEAR); COLOR,URINE YELLOW (YELLOW)
[2018-10-09 18:21] LABS: BACTERIA,URINE 3+ /HPF (NEGATIVE); MUCUS,URINE MODERATE /HPF (NEGATIVE); SQUAMOUS EPITHELIAL CELL,UR FEW /HPF (NEGATIVE); TRANSITIONAL EPI CELLS,URINE FEW /HPF (NEGATIVE)
--- NOTE | 2018-10-09 19:04 | RAD ---
Examination: KUB History: G-tube malfunction Comparison reference 09/29/2018 Findings: There is a large amount of gastric content. G-tube is projected over the stomach. Intragastric location of G-tube cannot be confirmed without contrast material. There is fecal distention of the colon. No mass formation is noted. Impression: Findings suggest constipation. No evidence for obstruction or ileus. G-tube position as noted. Reported By:
--- NOTE | 2018-10-09 19:12 | RAD ---
Examination: Portable AP chest History: G-tube malfunction Comparison reference: None Findings: Normal heart size with no acute pulmonary or pleural lesion noted. Air containing bowel segments are interposed between the right hemidiaphragm and the liver. Impression: No acute chest findings. Reported By:
[2018-10-09] MEDS: NS 1000 ML 1,000 ML IV SCH (19:24)
[2018-10-09] MEDS: LEVAQUIN PREMIX IV 500 MG 500 MG/100 ML BAG IV SCH (19:24)
[2018-10-10 04:16] LABS: BASOPHILS # (AUTO) 0.1 X10^3/uL (0.0-0.1); BASOPHILS % (AUTO) 1.1 % (0.2-1.0); EOSINOPHILS % (AUTO) 0.2 % (0.9-2.9); HEMATOCRIT 33.8 % (36.0-47.0); HEMOGLOBIN 11.1 g/dL (12.0-16.0); LYMPHOCYTES # (AUTO) 1.4 X10^3/uL (1.3-2.9); LYMPHOCYTES % (AUTO) 18.1 % (21.0-51.0); MEAN CORPUSCULAR HEMOGLOBIN 26.1 pg (27.0-34.0); MEAN CORPUSCULAR HGB CONC 32.8 g/dL (33.0-35.0); MEAN CORPUSCULAR VOLUME 79.6 fL (80.0-100.0); MEAN PLATELET VOLUME 7.3 fL (7.4-11.0); MONOCYTES # (AUTO) 0.7 x10^3/uL (0.3-0.8); MONOCYTES % (AUTO) 9.5 % (0.0-13.0); NEUTROPHILS # (AUTO) 5.5 x10^3/uL (2.2-4.8); NEUTROPHILS % (AUTO) 71.1 % (42.0-75.0); PLATELET COUNT 476 X10^3/uL (150.0-450.0); RED BLOOD COUNT 4.25 X10^6/uL (3.5-5.4); RED CELL DISTRIBUTION WIDTH 20.9 % (11.6-16.5); WHITE BLOOD COUNT 7.8 X10^3/uL (3.6-10.0)
[2018-10-10 04:26] LABS: ALANINE AMINOTRANSFERASE 29 Units/L (12-78); ALBUMIN 2.5 g/dL (3.4-5.0); ALKALINE PHOSPHATASE 68 Units/L (46-116); ASPARTATE AMINO TRANSFERASE 17 Units/L (15-37); BLOOD UREA NITROGEN 10 mg/dL (7-18); CALCIUM 8.2 mg/dL (8.5-10.1); CARBON DIOXIDE 27.4 mmol/L (21-32); CHLORIDE 100 mmol/L (98-107); COR CA(FOR HYPOALB) 9.4 mg/dL (8.5-10.1); CREATININE 0.45 mg/dL (0.55-1.02); SODIUM 133 mmol/L (136-145); TOTAL PROTEIN 6.4 g/dL (6.4-8.2); eGFR NON BLACK RACES > 60 (>60)
[2018-10-10 04:46] LABS: ANISOCYTOSIS 1+; HYPOCHROMASIA SLIGHT; PLATELET MORPHOLOGY COMMENT NORMAL (NORMAL)
[2018-10-10] MEDS: NS 1000 ML 1,000 ML IV SCH ×3 (05:55→23:29)
[2018-10-10] MEDS: LEVAQUIN PREMIX IV 500 MG 500 MG/100 ML BAG IV SCH (08:07)
[2018-10-10] MEDS: VIBRAMYCIN 100 MG in D5W 250 ML IV 250 ML IV SCH ×2 (09:46→20:10)
[2018-10-10 10:54] VITALS: BMI 16.9
[2018-10-11 05:41] LABS: ALANINE AMINOTRANSFERASE 28 Units/L (12-78); ALBUMIN 2.3 g/dL (3.4-5.0); ALKALINE PHOSPHATASE 60 Units/L (46-116); ASPARTATE AMINO TRANSFERASE 20 Units/L (15-37); BLOOD UREA NITROGEN 8 mg/dL (7-18); CALCIUM 8.3 mg/dL (8.5-10.1); CARBON DIOXIDE 22.8 mmol/L (21-32); CHLORIDE 103 mmol/L (98-107); COR CA(FOR HYPOALB) 9.7 mg/dL (8.5-10.1); CREATININE 0.41 mg/dL (0.55-1.02); SODIUM 137 mmol/L (136-145); TOTAL PROTEIN 5.9 g/dL (6.4-8.2); eGFR NON BLACK RACES > 60 (>60)
[2018-10-11] MEDS ORDERED: MICRO K EXTEN CAP 10 MEQ PO PRN (05:51)
[2018-10-11] MEDS ORDERED: POTASSIUM CHL 40 MEQ/NS 0.45% 500 ML IV PRN (05:51)
[2018-10-11] MEDS ORDERED: POTASSIUM CHL 60 MEQ/NS 0.45% 500 ML IV PRN (05:51)
[2018-10-11] MEDS ORDERED: K-DUR TAB 20 MEQ PO PRN (05:51)
[2018-10-11] MEDS ORDERED: POTASSIUM CHLORIDE LIQ 20 MEQ UDC PO PRN (05:51)
[2018-10-11 05:54] LABS: BASOPHILS # (AUTO) 0.1 X10^3/uL (0.0-0.1); BASOPHILS % (AUTO) 0.9 % (0.2-1.0); EOSINOPHILS % (AUTO) 0.3 % (0.9-2.9); HEMATOCRIT 31.9 % (36.0-47.0); HEMOGLOBIN 10.7 g/dL (12.0-16.0); LYMPHOCYTES # (AUTO) 1.3 X10^3/uL (1.3-2.9); LYMPHOCYTES % (AUTO) 16.6 % (21.0-51.0); MEAN CORPUSCULAR HEMOGLOBIN 26.5 pg (27.0-34.0); MEAN CORPUSCULAR HGB CONC 33.5 g/dL (33.0-35.0); MEAN CORPUSCULAR VOLUME 79.2 fL (80.0-100.0); MEAN PLATELET VOLUME 7.4 fL (7.4-11.0); MONOCYTES # (AUTO) 0.7 x10^3/uL (0.3-0.8); MONOCYTES % (AUTO) 9.7 % (0.0-13.0); NEUTROPHILS # (AUTO) 5.5 x10^3/uL (2.2-4.8); NEUTROPHILS % (AUTO) 72.5 % (42.0-75.0); PLATELET COUNT 444 X10^3/uL (150.0-450.0); RED BLOOD COUNT 4.02 X10^6/uL (3.5-5.4); RED CELL DISTRIBUTION WIDTH 20.5 % (11.6-16.5); WHITE BLOOD COUNT 7.6 X10^3/uL (3.6-10.0)
[2018-10-11] MEDS ORDERED: MAGNESIUM SULFATE 1 GRAM/100 mL PREMIX 1 G/100 ML BAG IV ONE (06:29)
[2018-10-11] MEDS: MAGNESIUM SULFATE 1 GRAM/100 mL PREMIX 2 G/200 ML BAG IV SCH ×2 (06:31→08:31)
[2018-10-11 06:39] LABS: ANISOCYTOSIS 1+; PLATELET MORPHOLOGY COMMENT NORMAL (NORMAL)
[2018-10-11] MEDS: VIBRAMYCIN 100 MG in D5W 250 ML IV 250 ML IV SCH ×2 (08:26→20:38)
[2018-10-11] MEDS: LEVAQUIN PREMIX IV 500 MG 500 MG/100 ML BAG IV SCH (08:29)
--- NOTE | 2018-10-11 09:06 | DR.H&P ---
H&P - History & Physical for Day of: H&P Date: 10/09/18 - Chief Complaint Chief Complaint: MODERATE RESIDUAL FROM PEG TUBE - History of Present Illness History of Present Illness: IS A 73 YEAR OLD PATIENT OF OURS. SHE IS A RESIDENT OF [facility] / [facility]. SHE PRESENTED TO THE HOSPITAL A DIRECT ADMISSION DUE TO COMPLAINTS OF A MODERATE AMOUNT OF RESIDUAL FROM HER PEG TUBE FOR THE PAST 3 DAYS. [facility] STAFF REPORTS THAT PATIENT DOES EAT SMALL AMOUNTS OF PUREED FOODS AT TIMES, BUT RECEIVES SUPPLEMENTS THROUGH THE PEG TUBE. A WOUND CULTURE FROM THE PEG TUBE WAS OBTAINED ON 10/05/18. IT WAS POSITVE FOR GROWTH OF KLEBSIELLA PNEUMONIAE. SHE HAS BEEN TAKING ORAL LEVAQUIN AND CIPRO. ON ARRIVAL, VITALS WERE 97.9-105-18-97%-129/64. LABS WERE OBTAINED. ABNORMAL LAB VALUES INCLUDE THE FOLLOWING: WBC 10.3, PLT COUNT 633, SODIUM 133, CHLORIDE 95, CREATININE 0.50, TOTAL BILI 0.10, ALBUMIN 3.0. A URINALYSIS WAS OBTAINED AND REVEALED: WBC TNTC, RBC 3-5, LEUKOCYTES 3+, BACTERIA 3+. URINE AND BLOOD CULTURES OBTAINED. A CHEST XRAY WAS OBTAINED AND REVEALED: NO ACUTE CHEST FINDINGS. KUB REVEALED: Findings suggest constipation. No evidence for obstruction or ileus. G-tube position projected over the stomach. AN EKG WAS OBTAINED AND REVEALED: SINUS TACHYCARDIA WITH HR 109. SHE WAS ADMITTED FOR FURTHER EVALUATION AND TREATMENT OF PEG TUBE MALFUNCTION AND A URINARY TRACT INFECTION. SHE WAS STARTED ON NORMAL SALINE AT 80ML/HR, LEVAQUIN 500MG IV DAILY, AND DOXYCYCLINE 100MG IV Q12H. WE PLAN TO FOLLOW UP WITH AM LABS AND CONTINUE TO MONITOR. - Past Medical History Past Medical History: Coronary Artery Disease, Hypertension, Dyslipidemia, Dementia, Hypothyroidism, Anemia, Arthritis - Past Surgical History Surgical History: Other - Family History Family Medical History: Coronary Artery Disease, Heart Failure - Social History Does patient currently use any type of tobacco product: No Have you used tobacco products in the last 12 months: No Type of Tobacco Use: None Does any household member use tobacco: No Alcohol Use: None Drug Use: Prescription Drugs Prescription drug monitoring program results: PDMP reviewed and no concerns identified - Medications Home Medications: No Known Drug Allergies Allergy (Verified 02/20/17 20:10) CONTINUE taking the following medications amino acids-protein hydrolys [Pro-Stat AWC] 30 ml PO BID 10/09/18 [History] aspirin 81 mg PO DAILY 10/09/18 [History] ciprofloxacin HCl [Cipro] 500 mg PO BID 10/09/18 [History] levofloxacin 500 mg PO DAILY 10/09/18 [History] magnesium hydroxide [Milk of Magnesia] 2 tbsp PO BID 10/09/18 [History] megestrol 20 mg PO BID 10/09/18 [History] metoclopramide HCl [Reglan] 10 mg FEEDING TUBE ACHS 10/09/18 [History] - Review of Systems Constitutional: No Symptoms Reported Eyes: No Symptoms Reported ENT: No Symptoms Reported Respiratory: No Symptoms Reported Cardiovascular: No Symptoms Reported Gastrointestinal: No Symptoms Reported Genitourinary: No Symptoms Reported Musculoskeletal: No Symptoms Reported Skin: No Symptoms Reported Neurological: Weakness - Physical Exam Vital Signs: Temperature 98.0 F Pulse Rate [Right Radial] 80 Respiratory Rate 18 Blood Pressure [Right Arm] 125/81 Blood Pressure [Left Arm] 171/79 Blood Pressure 111/61 O2 Sat by Pulse Oximetry 96 Oriented: Not Oriented Eyes: Normal Ear: Normal Nose: Normal Throat: Normal Respiratory: Diminished Throughout Cardiovascular: Tachycardia : Normal Auscultation: Bowel Sounds: Normal Palpation: Normal Tenderness: Diffuse, Mild. negative: Rebound, Guarding, Rigidity Skin: Normal Musculoskeletal: Normal Psychiatric: Normal Mood Description: Calm Affect: Normal Speech Pattern: Clear - Assessment/Plan (1) Urinary tract infection Qualifiers: Urinary tract infection type: site unspecified Hematuria presence: without hematuria Qualified Code(s): N39.0 - Urinary tract infection, site not specified Status: Acute Plan: doxycycline 100mg po bid, iv levaquin, iv fluids, continue to monitor. (2) PEG tube malfunction Status: Acute - Allergies Allergies/Adverse Reactions: Allergies Allergy/AdvReac Type Severity Reaction Status Date / Time No Known Drug Allergies Allergy Verified 02/20/17 20:10
[2018-10-11] MEDS ORDERED: MICRO K EXTEN CAP 10 MEQ PO SCH (10:00)
[2018-10-11] MEDS ORDERED: PriLOSEC PO SCH (10:00)
[2018-10-11] MEDS ORDERED: VASOTEC TAB 20 MG PO SCH (10:00)
[2018-10-11] MEDS ORDERED: SYNTHROID 100 mcg TAB PO SCH (10:00)
[2018-10-11] MEDS ORDERED: MIRALAX POWDER (255 GRAMS BTL) PO SCH (10:00)
[2018-10-11] MEDS ORDERED: PATIENT'S HOME MEDICATION (Amino Acids-Protein Hydrolys [Pro-Stat Awc] 30 ML) PO SCH (10:00)
[2018-10-11] MEDS ORDERED: TAB-A-VITE PO SCH (10:00)
[2018-10-11] MEDS ORDERED: REGLAN TAB 10 MG PO SCH (11:30)
[2018-10-11] MEDS: HEMOCYTE-PLUS PO SCH ×2 (11:33→11:41)
[2018-10-11] MEDS: MEGACE PO SCH ×2 (11:33→20:38)
[2018-10-11] MEDS: MILK OF MAGNESIA PO SCH ×3 (11:34→21:41)
[2018-10-11] MEDS: COLACE CAP 100 MG PO SCH (11:34)
[2018-10-11] MEDS: NS 1000 ML 1,000 ML IV SCH ×2 (11:35→23:33)
[2018-10-11] MEDS ORDERED: BENTYL CAP 10 MG PO SCH (13:00)
[2018-10-11] MEDS ORDERED: PHARMACY CONSULT - DOSE _____ XX SCH (16:00)
[2018-10-11] MEDS: K-RIDER 10 MEQ/NS 100 ML 10 MEQ/100 ML BAG IV PRN ×4 (17:47→22:33)
--- NOTE | 2018-10-11 20:15 | PCM.PROG ---
Progress Note - Progress Note for Day of Date of Exam: 10/10/18 - Subjective Subjective: WAS ADMITTED FOR MODERATE RESIDUAL FROM PEG TUBE AND A URINARY TRACT INFECTION. TODAY, SHE IS LYING IN BED ON MORNING ROUNDS. SHE CONTINUES WITH DRAINAGE FROM PEG TUBE, HOWEVER, DRAINAGE HAS GREATLY DECREASED. ON EXAMINATION, HEART IS REGULAR IN RATE AND RHYTHM. BILATERAL LUNGS ARE NOTED WITH DIMINISHED LUNG SOUNDS THROUGHOUT. ABDOMEN IS ROUND, SOFT, AND NOTED WITH SUPRAPUBIC TENDERNESS. HER VITALS THIS MORNING ARE 97.6-92-18-96%-126/68. LABS WERE OBTAINED. ABNORMAL LAB VALUES INCLUDED THE FOLLOWING: HGB 11.1, HCT 33.8, PLT CONT 476, SODIUM 133, CREATININE 0.45, CALCIUM 8.2, TOTAL BILI 0.10, ALBUMIN 2.5. SHE IS CURRENTLY RECEIVING IV FLUIDS AND IV ANTIBIOTICS. WE WILL CONTINUE WITH CURRENT PLAN OF CARE TODAY. OTHERWISE, WE PLAN TO FOLLOW UP WITH AM LABS AND CONTINUE TO MONITOR. - Past Medical Family Social History Past Med/Fam/Surg Hx: No changes since H&P Allergies: Allergies No Known Drug Allergies Allergy (Verified 02/20/17 20:10) - Review of Systems ROS: No change since H&P - Vital Signs and I&O's Vital Signs: Temperature 98.3 F Pulse Rate [Right Radial] 92 Respiratory Rate 20 Blood Pressure [Right Arm] 136/78 Blood Pressure [Left Arm] 171/79 Blood Pressure 111/61 O2 Sat by Pulse Oximetry 96 Intake and Output: Intake & Output 10/09/18 10/10/18 10/11/18 10/12/18 11:59 11:59 11:59 11:59 Intake Total 500 / 500 1880 / 1880 1450 / 1450 Output Total 850 / 850 1210 / 1210 700 / 700 Balance -350 / -350 670 / 670 750 / 750 - Physical Exam Oriented: Not Oriented Eyes: Normal Ear: Normal Nose: Normal Throat: Normal Respiratory: Generalized, Diminished Cardiovascular: Tachycardia : Normal Auscultation: Bowel Sounds: Normal Palpation: Normal Tenderness: Diffuse, Mild. negative: Rebound, Guarding, Rigidity Skin: Normal Musculoskeletal: Normal Psychiatric: Normal Mood Description: Calm Affect: Normal Speech Pattern: Clear, Appropriate - Laboratory and Diagnostics Result Diagrams: 10/11/18 04:46 10/11/18 04:46 Labs: 10/09/18 17:33 Blood Blood Culture - Preliminary 10/09/18 17:19 Blood Blood Culture - Preliminary 10/09/18 16:55 Urine,[place] Urine Culture - Preliminary Laboratory WBC 7.6 X10^3/uL (3.6-10.0) 10/11/18 04:46 RBC 4.02 X10^6/uL (3.5-5.4) 10/11/18 04:46 Hgb 10.7 g/dL (12.0-16.0) L 10/11/18 04:46 Hct 31.9 % (36.0-47.0) L 10/11/18 04:46 MCV 79.2 fL (80.0-100.0) L 10/11/18 04:46 MCH 26.5 pg (27.0-34.0) L 10/11/18 04:46 MCHC 33.5 g/dL (33.0-35.0) 10/11/18 04:46 RDW 20.5 % (11.6-16.5) H 10/11/18 04:46 Plt Count 444 X10^3/uL (150.0-450.0) 10/11/18 04:46 Plt Count Comment Increased (ADEQUATE) A 10/11/18 04:46 MPV 7.4 fL (7.4-11.0) 10/11/18 04:46 Neut % (Auto) 72.5 % (42.0-75.0) 10/11/18 04:46 Lymph % (Auto) 16.6 % (21.0-51.0) L 10/11/18 04:46 [place] % (Auto) 9.7 % (0.0-13.0) 10/11/18 04:46 Eos % (Auto) 0.3 % (0.9-2.9) L 10/11/18 04:46 Baso % (Auto) 0.9 % (0.2-1.0) 10/11/18 04:46 Neut # (Auto) 5.5 x10^3/uL (2.2-4.8) H 10/11/18 04:46 Lymph # (Auto) 1.3 X10^3/uL (1.3-2.9) 10/11/18 04:46 [place] # (Auto) 0.7 x10^3/uL (0.3-0.8) 10/11/18 04:46 Eos # (Auto) 0.0 x10^3/uL (0.0-0.2) 10/11/18 04:46 Baso # (Auto) 0.1 X10^3/uL (0.0-0.1) 10/11/18 04:46 Absolute Nucleated RBC 0.1 /100WBC 10/11/18 04:46 Plt Morphology Comment Normal (NORMAL) 10/11/18 04:46 RBC Morphology Abnormal (NORMAL) A 10/11/18 04:46 Hypochromasia Slight A 10/10/18 03:58 Anisocytosis 1+ A 10/11/18 04:46 Sodium 137 mmol/L (136-145) 10/11/18 04:46 Corrected Sodium TNP 10/11/18 04:46 Potassium 3.3 mmol/L (3.5-5.1) L 10/11/18 04:46 Chloride 103 mmol/L (98-107) 10/11/18 04:46 Carbon Dioxide 22.8 mmol/L (21-32) 10/11/18 04:46 BUN 8 mg/dL (7-18) 10/11/18 04:46 Creatinine 0.41 mg/dL (0.55-1.02) L 10/11/18 04:46 Est GFR (MDRD) Af Amer > 60 (>60) 10/11/18 04:46 Est GFR (MDRD) Non-Af > 60 (>60) 10/11/18 04:46 Glucose 77 mg/dL (65-99) 10/11/18 04:46 Lactic Acid 1.2 mmol/L (0.4-2.0) 10/09/18 17:19 Calcium 8.3 mg/dL (8.5-10.1) L 10/11/18 04:46 Corrected Calcium 9.7 mg/dL (8.5-10.1) 10/11/18 04:46 Magnesium 1.7 mg/dL (1.7-2.9) 10/11/18 04:46 Total Bilirubin 0.20 mg/dL (0.2-1.0) 10/11/18 04:46 AST 20 Units/L (15-37) 10/11/18 04:46 ALT 28 Units/L (12-78) 10/11/18 04:46 Alkaline Phosphatase 60 Units/L (46-116) 10/11/18 04:46 Total Protein 5.9 g/dL (6.4-8.2) L 10/11/18 04:46 Albumin 2.3 g/dL (3.4-5.0) L 10/11/18 04:46 Globulin 3.6 g/dL (2.5-4.5) 10/11/18 04:46 Albumin/Globulin Ratio 0.6 Ratio (1.1-2.1) L 10/11/18 04:46 Specimen Type Catherized urine 10/09/18 16:55 Urine Color Yellow (YELLOW) 10/09/18 16:55 Urine Appearance Cloudy (CLEAR) 10/09/18 16:55 Urine pH 6.5 (5.0 - 8.0) 10/09/18 16:55 Ur Specific [place] 1.015 (1.000-1.030) 10/09/18 16:55 Urine Protein 2+ (NEGATIVE) 10/09/18 16:55 Urine Glucose (UA) Negative (NEGATIVE) 10/09/18 16:55 Urine Ketones Negative (NEGATIVE) 10/09/18 16:55 Urine Occult Blood 3+ (NEGATIVE) 10/09/18 16:55 Urine Nitrite Negative (NEGATIVE) 10/09/18 16:55 Urine Bilirubin Negative (NEGATIVE) 10/09/18 16:55 Urine Urobilinogen Normal (NORMAL) 10/09/18 16:55 Ur Leukocyte Esterase 3+ (NEGATIVE) 10/09/18 16:55 Urine RBC 3-5 /HPF (NONE SEEN) 10/09/18 16:55 Urine WBC Tntc /HPF (NONE SEEN) 10/09/18 16:55 Ur Squamous Epith Cells Few /HPF (NEGATIVE) 10/09/18 16:55 Ur Transition Epith Cell Few /HPF (NEGATIVE) 10/09/18 16:55 Urine Bacteria 3+ /HPF (NEGATIVE) 10/09/18 16:55 Urine Mucus Moderate /HPF (NEGATIVE) 10/09/18 16:55 Ur Culture Indicated? No/not indicated 10/09/18 16:55 - Plan (1) Urinary tract infection Status: Acute Qualifiers: Urinary tract infection type: site unspecified Hematuria presence: without hematuria Qualified Code(s): N39.0 - Urinary tract infection, site not specified Plan: doxycycline 100mg po bid, iv levaquin, iv fluids, continue to monitor. (2) PEG tube malfunction Status: Acute
[2018-10-11] MEDS: PEPCID 20 MG IV PREMIX* 20 MG/50 ML BAG IV SCH (20:38)
[2018-10-11] MEDS: LOVENOX INJ 30 MG SYR SC SCH (20:39)
[2018-10-12] MEDS: MILK OF MAGNESIA PO SCH ×3 (05:02→21:58)
[2018-10-12 05:41] LABS: BASOPHILS # (AUTO) 0.1 X10^3/uL (0.0-0.1); BASOPHILS % (AUTO) 0.7 % (0.2-1.0); EOSINOPHILS % (AUTO) 0.2 % (0.9-2.9); HEMATOCRIT 34.1 % (36.0-47.0); HEMOGLOBIN 11.4 g/dL (12.0-16.0); LYMPHOCYTES # (AUTO) 1.3 X10^3/uL (1.3-2.9); LYMPHOCYTES % (AUTO) 13.9 % (21.0-51.0); MEAN CORPUSCULAR HEMOGLOBIN 26.5 pg (27.0-34.0); MEAN CORPUSCULAR HGB CONC 33.4 g/dL (33.0-35.0); MEAN CORPUSCULAR VOLUME 79.4 fL (80.0-100.0); MEAN PLATELET VOLUME 7.7 fL (7.4-11.0); MONOCYTES # (AUTO) 0.8 x10^3/uL (0.3-0.8); NEUTROPHILS # (AUTO) 7.1 x10^3/uL (2.2-4.8); NEUTROPHILS % (AUTO) 76.2 % (42.0-75.0); PLATELET COUNT 447 X10^3/uL (150.0-450.0); RED BLOOD COUNT 4.29 X10^6/uL (3.5-5.4); RED CELL DISTRIBUTION WIDTH 20.4 % (11.6-16.5); WHITE BLOOD COUNT 9.3 X10^3/uL (3.6-10.0)
[2018-10-12 06:01] LABS: ALANINE AMINOTRANSFERASE 27 Units/L (12-78); ALBUMIN 2.4 g/dL (3.4-5.0); ALKALINE PHOSPHATASE 68 Units/L (46-116); ASPARTATE AMINO TRANSFERASE 18 Units/L (15-37); BLOOD UREA NITROGEN 4 mg/dL (7-18); CALCIUM 8.2 mg/dL (8.5-10.1); CARBON DIOXIDE 23.4 mmol/L (21-32); CHLORIDE 102 mmol/L (98-107); COR CA(FOR HYPOALB) 9.5 mg/dL (8.5-10.1); MAGNESIUM 1.9 mg/dL (1.7-2.9); SODIUM 135 mmol/L (136-145); TOTAL PROTEIN 6.3 g/dL (6.4-8.2); eGFR NON BLACK RACES > 60 (>60)
[2018-10-12 06:45] LABS: ANISOCYTOSIS 1+; PLATELET MORPHOLOGY COMMENT NORMAL (NORMAL)
[2018-10-12] MEDS ORDERED: MIRALAX POWDER (1 DOSE 17 G) ONE (07:43)
[2018-10-12] MEDS: PEPCID 20 MG IV PREMIX* 20 MG/50 ML BAG IV SCH ×2 (08:28→21:59)
[2018-10-12] MEDS: MEGACE PO SCH ×2 (08:29→21:59)
[2018-10-12] MEDS: SYNTHROID INJ 100 mcg VIAL IVP SCH (08:29)
[2018-10-12] MEDS: MIRALAX POWDER (1 DOSE 17 G) PO SCH (08:29)
[2018-10-12] MEDS: LEVAQUIN PREMIX IV 500 MG 500 MG/100 ML BAG IV SCH (08:30)
[2018-10-12] MEDS: K-RIDER 10 MEQ/NS 100 ML 10 MEQ/100 ML BAG IV PRN ×2 (08:30→12:15)
[2018-10-12] MEDS: LOVENOX INJ 30 MG SYR SC SCH ×2 (08:31→21:59)
[2018-10-12] MEDS: VIBRAMYCIN 100 MG in D5W 250 ML IV 250 ML IV SCH ×2 (08:31→22:00)
[2018-10-12] MEDS: NS 1000 ML 1,000 ML IV SCH (11:23)
[2018-10-12] MEDS: ROCEPHIN VIAL 1 GRAM IVP SCH (11:23)
--- NOTE | 2018-10-12 13:43 | PCM.PROG ---
Progress Note - Progress Note for Day of Date of Exam: 10/11/18 - Subjective Subjective: WAS ADMITTED FOR MODERATE RESIDUAL FROM PEG TUBE AND A URINARY TRACT INFECTION. TODAY, SHE IS LYING IN BED ON MORNING ROUNDS. SHE IS DISORIENTED. PATIENT DOES HAVE A HISTORY OF DEMENTIA. SHE CONTINUES WITH DRAINAGE FROM PEG TUBE, HOWEVER, DRAINAGE CONTINUES TO DECREASE. ON EXAMINATION, HEART IS REGULAR IN RATE AND RHYTHM. BILATERAL LUNGS ARE NOTED WITH DIMINISHED LUNG SOUNDS THROUGHOUT. ABDOMEN IS ROUND, SOFT, AND NOTED WITH SUPRAPUBIC TENDERNESS. HER VITALS THIS MORNING ARE 98.0-80-18-96%-125/81. LABS WERE OBTAINED. ABNORMAL LAB VALUES INCLUDED THE FOLLOWING: HGB 10.7, HCT 31.9, POTASSIUM 3.3, CREATININE 0.41, CALCIUM 8.3, TOTAL PROTEIN 5.9, ALBUMIN 2.3. URINE AND BLOOD CULTURES ARE PENDING. SHE IS CURRENTLY RECEIVING IV FLUIDS AND IV ANTIBIOTICS. WE WILL CONTINUE WITH CURRENT PLAN OF CARE TODAY. OTHERWISE, WE PLAN TO FOLLOW UP WITH AM LABS AND CONTINUE TO MONITOR. - Past Medical Family Social History Past Med/Fam/Surg Hx: No changes since H&P Allergies: Allergies No Known Drug Allergies Allergy (Verified 02/20/17 20:10) - Review of Systems ROS: No change since H&P - Vital Signs and I&O's Vital Signs: Temperature 98.4 F Pulse Rate [Right Radial] 86 Respiratory Rate 18 Blood Pressure [Right Arm] 155/84 Blood Pressure [Left Arm] 171/79 Blood Pressure 111/61 O2 Sat by Pulse Oximetry 98 Intake and Output: Intake & Output 10/10/18 10/11/18 10/12/18 10/13/18 11:59 11:59 11:59 11:59 Intake Total 500 / 500 1880 / 1880 3290 / 3290 Output Total 850 / 850 1210 / 1210 1915 / 1915 Balance -350 / -350 670 / 670 1375 / 1375 - Physical Exam Oriented: Not Oriented Eyes: Normal Ear: Normal Nose: Normal Throat: Normal Respiratory: Generalized, Diminished Cardiovascular: Tachycardia : Normal Auscultation: Bowel Sounds: Normal Tenderness: Diffuse, Mild. negative: Rebound, Guarding, Rigidity Skin: Normal Musculoskeletal: Normal Psychiatric: Normal Mood Description: Calm Affect: Normal Speech Pattern: Clear, Appropriate - Laboratory and Diagnostics Result Diagrams: 10/12/18 04:45 10/12/18 04:45 Labs: 10/09/18 16:55 Urine,[place] Urine Culture - Final Escherichia Coli 10/09/18 17:33 Blood Blood Culture - Preliminary 10/09/18 17:19 Blood Blood Culture - Preliminary Laboratory WBC 9.3 X10^3/uL (3.6-10.0) 10/12/18 04:45 RBC 4.29 X10^6/uL (3.5-5.4) 10/12/18 04:45 Hgb 11.4 g/dL (12.0-16.0) L 10/12/18 04:45 Hct 34.1 % (36.0-47.0) L 10/12/18 04:45 MCV 79.4 fL (80.0-100.0) L 10/12/18 04:45 MCH 26.5 pg (27.0-34.0) L 10/12/18 04:45 MCHC 33.4 g/dL (33.0-35.0) 10/12/18 04:45 RDW 20.4 % (11.6-16.5) H 10/12/18 04:45 Plt Count 447 X10^3/uL (150.0-450.0) 10/12/18 04:45 Plt Count Comment Adequate (ADEQUATE) 10/12/18 04:45 MPV 7.7 fL (7.4-11.0) 10/12/18 04:45 Neut % (Auto) 76.2 % (42.0-75.0) H 10/12/18 04:45 Lymph % (Auto) 13.9 % (21.0-51.0) L 10/12/18 04:45 [place] % (Auto) 9.0 % (0.0-13.0) 10/12/18 04:45 Eos % (Auto) 0.2 % (0.9-2.9) L 10/12/18 04:45 Baso % (Auto) 0.7 % (0.2-1.0) 10/12/18 04:45 Neut # (Auto) 7.1 x10^3/uL (2.2-4.8) H 10/12/18 04:45 Lymph # (Auto) 1.3 X10^3/uL (1.3-2.9) 10/12/18 04:45 [place] # (Auto) 0.8 x10^3/uL (0.3-0.8) 10/12/18 04:45 Eos # (Auto) 0.0 x10^3/uL (0.0-0.2) 10/12/18 04:45 Baso # (Auto) 0.1 X10^3/uL (0.0-0.1) 10/12/18 04:45 Absolute Nucleated RBC 0.0 /100WBC 10/12/18 04:45 Plt Morphology Comment Normal (NORMAL) 10/12/18 04:45 RBC Morphology Abnormal (NORMAL) A 10/12/18 04:45 Hypochromasia Slight A 10/10/18 03:58 Anisocytosis 1+ A 10/12/18 04:45 Sodium 135 mmol/L (136-145) L 10/12/18 04:45 Corrected Sodium TNP 10/12/18 04:45 Potassium 3.7 mmol/L (3.5-5.1) 10/12/18 04:45 Chloride 102 mmol/L (98-107) 10/12/18 04:45 Carbon Dioxide 23.4 mmol/L (21-32) 10/12/18 04:45 BUN 4 mg/dL (7-18) L 10/12/18 04:45 Creatinine 0.40 mg/dL (0.55-1.02) L 10/12/18 04:45 Est GFR (MDRD) Af Amer > 60 (>60) 10/12/18 04:45 Est GFR (MDRD) Non-Af > 60 (>60) 10/12/18 04:45 Glucose 75 mg/dL (65-99) 10/12/18 04:45 Lactic Acid 1.2 mmol/L (0.4-2.0) 10/09/18 17:19 Calcium 8.2 mg/dL (8.5-10.1) L 10/12/18 04:45 Corrected Calcium 9.5 mg/dL (8.5-10.1) 10/12/18 04:45 Magnesium 1.9 mg/dL (1.7-2.9) 10/12/18 04:45 Total Bilirubin 0.30 mg/dL (0.2-1.0) 10/12/18 04:45 AST 18 Units/L (15-37) 10/12/18 04:45 ALT 27 Units/L (12-78) 10/12/18 04:45 Alkaline Phosphatase 68 Units/L (46-116) 10/12/18 04:45 Total Protein 6.3 g/dL (6.4-8.2) L 10/12/18 04:45 Albumin 2.4 g/dL (3.4-5.0) L 10/12/18 04:45 Globulin 3.9 g/dL (2.5-4.5) 10/12/18 04:45 Albumin/Globulin Ratio 0.6 Ratio (1.1-2.1) L 10/12/18 04:45 Specimen Type Catherized urine 10/09/18 16:55 Urine Color Yellow (YELLOW) 10/09/18 16:55 Urine Appearance Cloudy (CLEAR) 10/09/18 16:55 Urine pH 6.5 (5.0 - 8.0) 10/09/18 16:55 Ur Specific [place] 1.015 (1.000-1.030) 10/09/18 16:55 Urine Protein 2+ (NEGATIVE) 10/09/18 16:55 Urine Glucose (UA) Negative (NEGATIVE) 10/09/18 16:55 Urine Ketones Negative (NEGATIVE) 10/09/18 16:55 Urine Occult Blood 3+ (NEGATIVE) 10/09/18 16:55 Urine Nitrite Negative (NEGATIVE) 10/09/18 16:55 Urine Bilirubin Negative (NEGATIVE) 10/09/18 16:55 Urine Urobilinogen Normal (NORMAL) 10/09/18 16:55 Ur Leukocyte Esterase 3+ (NEGATIVE) 10/09/18 16:55 Urine RBC 3-5 /HPF (NONE SEEN) 10/09/18 16:55 Urine WBC Tntc /HPF (NONE SEEN) 10/09/18 16:55 Ur Squamous Epith Cells Few /HPF (NEGATIVE) 10/09/18 16:55 Ur Transition Epith Cell Few /HPF (NEGATIVE) 10/09/18 16:55 Urine Bacteria 3+ /HPF (NEGATIVE) 10/09/18 16:55 Urine Mucus Moderate /HPF (NEGATIVE) 10/09/18 16:55 Ur Culture Indicated? No/not indicated 10/09/18 16:55 - Plan (1) Urinary tract infection Status: Acute Qualifiers: Urinary tract infection type: site unspecified Hematuria presence: without hematuria Qualified Code(s): N39.0 - Urinary tract infection, site not s pecified Plan: doxycycline 100mg po bid, iv levaquin, iv fluids, continue to monitor. (2) PEG tube malfunction Status: Acute
--- NOTE | 2018-10-12 14:46 | PCM.PROG ---
Progress Note - Progress Note for Day of Date of Exam: 10/12/18 - Subjective Subjective: WAS ADMITTED FOR MODERATE RESIDUAL FROM PEG TUBE AND A URINARY TRACT INFECTION. TODAY, SHE IS LYING IN BED ON MORNING ROUNDS. SHE CONTINUES TO BE DISORIENTED. PATIENT DOES HAVE A HISTORY OF DEMENTIA. THERE IS MINIMAL DRAINAGE FROM PEG TUBE NOTED. ON EXAMINATION, HEART IS REGULAR IN RATE AND RHYTHM. BILATERAL LUNGS ARE NOTED WITH DIMINISHED LUNG SOUNDS THROUGHOUT. ABDOMEN IS ROUND, SOFT, AND NOTED WITH SUPRAPUBIC TENDERNESS. HER VITALS THIS MORNING ARE 98.7-91-18-96%-146/69. LABS WERE OBTAINED. ABNORMAL LAB VALUES INCLUDED THE FOLLOWING: HGB 11.4, HCT 34.1, SODIUM 135, BUN 4, CREATININE 0.40, CALCIUM 8.2, TOTAL PROTEIN 6.3, ALBUMIN 2.4. URINE CULTURE REPORTED GROWTH OF E.COLI. SHE IS CURRENTLY RECEIVING IV FLUIDS AND IV ANTIBIOTICS. WE WILL DISCONTINUE THE DOXYCYCLINE THAT SHE IS RECEIVING AND START ROCEPHIN 1G IV DAILY. OTHERWISE, WE WILL CONTINUE WITH CURRENT PLAN OF CARE TODAY. WE PLAN TO FOLLOW UP WITH AM LABS AND CONTINUE TO MONITOR. - Past Medical Family Social History Past Med/Fam/Surg Hx: No changes since H&P Allergies: Allergies No Known Drug Allergies Allergy (Verified 02/20/17 20:10) - Review of Systems ROS: No change since H&P - Vital Signs and I&O's Vital Signs: Temperature 98.4 F Pulse Rate [Right Radial] 86 Respiratory Rate 18 Blood Pressure [Right Arm] 155/84 Blood Pressure [Left Arm] 171/79 Blood Pressure 111/61 O2 Sat by Pulse Oximetry 98 Intake and Output: Intake & Output 10/10/18 10/11/18 10/12/18 10/13/18 11:59 11:59 11:59 11:59 Intake Total 500 / 500 1880 / 1880 3290 / 3290 Output Total 850 / 850 1210 / 1210 1915 / 1915 Balance -350 / -350 670 / 670 1375 / 1375 - Physical Exam Oriented: Not Oriented Eyes: Normal Ear: Normal Nose: Normal Throat: Normal Respiratory: Generalized, Diminished Cardiovascular: Tachycardia : Normal Auscultation: Bowel Sounds: Normal Palpation: Normal Tenderness: Diffuse, Mild. negative: Rebound, Guarding, Rigidity Skin: Normal Musculoskeletal: Normal Psychiatric: Normal Mood Description: Calm Affect: Normal Speech Pattern: Clear, Appropriate - Laboratory and Diagnostics Result Diagrams: 10/12/18 04:45 10/12/18 04:45 Labs: 10/09/18 16:55 Urine,[place] Urine Culture - Final Escherichia Coli 10/09/18 17:33 Blood Blood Culture - Preliminary 10/09/18 17:19 Blood Blood Culture - Preliminary Laboratory WBC 9.3 X10^3/uL (3.6-10.0) 10/12/18 04:45 RBC 4.29 X10^6/uL (3.5-5.4) 10/12/18 04:45 Hgb 11.4 g/dL (12.0-16.0) L 10/12/18 04:45 Hct 34.1 % (36.0-47.0) L 10/12/18 04:45 MCV 79.4 fL (80.0-100.0) L 10/12/18 04:45 MCH 26.5 pg (27.0-34.0) L 10/12/18 04:45 MCHC 33.4 g/dL (33.0-35.0) 10/12/18 04:45 RDW 20.4 % (11.6-16.5) H 10/12/18 04:45 Plt Count 447 X10^3/uL (150.0-450.0) 10/12/18 04:45 Plt Count Comment Adequate (ADEQUATE) 10/12/18 04:45 MPV 7.7 fL (7.4-11.0) 10/12/18 04:45 Neut % (Auto) 76.2 % (42.0-75.0) H 10/12/18 04:45 Lymph % (Auto) 13.9 % (21.0-51.0) L 10/12/18 04:45 [place] % (Auto) 9.0 % (0.0-13.0) 10/12/18 04:45 Eos % (Auto) 0.2 % (0.9-2.9) L 10/12/18 04:45 Baso % (Auto) 0.7 % (0.2-1.0) 10/12/18 04:45 Neut # (Auto) 7.1 x10^3/uL (2.2-4.8) H 10/12/18 04:45 Lymph # (Auto) 1.3 X10^3/uL (1.3-2.9) 10/12/18 04:45 [place] # (Auto) 0.8 x10^3/uL (0.3-0.8) 10/12/18 04:45 Eos # (Auto) 0.0 x10^3/uL (0.0-0.2) 10/12/18 04:45 Baso # (Auto) 0.1 X10^3/uL (0.0-0.1) 10/12/18 04:45 Absolute Nucleated RBC 0.0 /100WBC 10/12/18 04:45 Plt Morphology Comment Normal (NORMAL) 10/12/18 04:45 RBC Morphology Abnormal (NORMAL) A 10/12/18 04:45 Hypochromasia Slight A 10/10/18 03:58 Anisocytosis 1+ A 10/12/18 04:45 Sodium 135 mmol/L (136-145) L 10/12/18 04:45 Corrected Sodium TNP 10/12/18 04:45 Potassium 3.7 mmol/L (3.5-5.1) 10/12/18 04:45 Chloride 102 mmol/L (98-107) 10/12/18 04:45 Carbon Dioxide 23.4 mmol/L (21-32) 10/12/18 04:45 BUN 4 mg/dL (7-18) L 10/12/18 04:45 Creatinine 0.40 mg/dL (0.55-1.02) L 10/12/18 04:45 Est GFR (MDRD) Af Amer > 60 (>60) 10/12/18 04:45 Est GFR (MDRD) Non-Af > 60 (>60) 10/12/18 04:45 Glucose 75 mg/dL (65-99) 10/12/18 04:45 Lactic Acid 1.2 mmol/L (0.4-2.0) 10/09/18 17:19 Calcium 8.2 mg/dL (8.5-10.1) L 10/12/18 04:45 Corrected Calcium 9.5 mg/dL (8.5-10.1) 10/12/18 04:45 Magnesium 1.9 mg/dL (1.7-2.9) 10/12/18 04:45 Total Bilirubin 0.30 mg/dL (0.2-1.0) 10/12/18 04:45 AST 18 Units/L (15-37) 10/12/18 04:45 ALT 27 Units/L (12-78) 10/12/18 04:45 Alkaline Phosphatase 68 Units/L (46-116) 10/12/18 04:45 Total Protein 6.3 g/dL (6.4-8.2) L 10/12/18 04:45 Albumin 2.4 g/dL (3.4-5.0) L 10/12/18 04:45 Globulin 3.9 g/dL (2.5-4.5) 10/12/18 04:45 Albumin/Globulin Ratio 0.6 Ratio (1.1-2.1) L 10/12/18 04:45 Specimen Type Catherized urine 10/09/18 16:55 Urine Color Yellow (YELLOW) 10/09/18 16:55 Urine Appearance Cloudy (CLEAR) 10/09/18 16:55 Urine pH 6.5 (5.0 - 8.0) 10/09/18 16:55 Ur Specific [place] 1.015 (1.000-1.030) 10/09/18 16:55 Urine Protein 2+ (NEGATIVE) 10/09/18 16:55 Urine Glucose (UA) Negative (NEGATIVE) 10/09/18 16:55 Urine Ketones Negative (NEGATIVE) 10/09/18 16:55 Urine Occult Blood 3+ (NEGATIVE) 10/09/18 16:55 Urine Nitrite Negative (NEGATIVE) 10/09/18 16:55 Urine Bilirubin Negative (NEGATIVE) 10/09/18 16:55 Urine Urobilinogen Normal (NORMAL) 10/09/18 16:55 Ur Leukocyte Esterase 3+ (NEGATIVE) 10/09/18 16:55 Urine RBC 3-5 /HPF (NONE SEEN) 10/09/18 16:55 Urine WBC Tntc /HPF (NONE SEEN) 10/09/18 16:55 Ur Squamous Epith Cells Few /HPF (NEGATIVE) 10/09/18 16:55 Ur Transition Epith Cell Few /HPF (NEGATIVE) 10/09/18 16:55 Urine Bacteria 3+ /HPF (NEGATIVE) 10/09/18 16:55 Urine Mucus Moderate /HPF (NEGATIVE) 10/09/18 16:55 Ur Culture Indicated? No/not indicated 10/09/18 16:55 - Plan (1) Urinary tract infection Status: Acute Qualifiers: Urinary tract infection type: site unspecified Hematuria presence: without hematuria Qualified Code(s): N39.0 - Urinary tract infection, site not specified Plan: ROCEPHIN 1G IV DAILY, iv fluids, continue to monitor. (2) PEG tube malfunction Status: Acute
[2018-10-12] MEDS: MAGNESIUM SULFATE 1 GRAM/100 mL PREMIX 1 GM/100 ML BAG IV PRN ×2 (16:42→17:46)
[2018-10-13] MEDS: NS 1000 ML 1,000 ML IV SCH ×3 (05:10→21:39)
[2018-10-13] MEDS: MILK OF MAGNESIA PO SCH ×3 (05:10→21:39)
[2018-10-13 06:33] LABS: ALANINE AMINOTRANSFERASE 25 Units/L (12-78); ALBUMIN 2.4 g/dL (3.4-5.0); ALKALINE PHOSPHATASE 66 Units/L (46-116); ASPARTATE AMINO TRANSFERASE 17 Units/L (15-37); BLOOD UREA NITROGEN 4 mg/dL (7-18); CALCIUM 8.2 mg/dL (8.5-10.1); CARBON DIOXIDE 22.9 mmol/L (21-32); CHLORIDE 99 mmol/L (98-107); COR CA(FOR HYPOALB) 9.5 mg/dL (8.5-10.1); CREATININE 0.39 mg/dL (0.55-1.02); MAGNESIUM 2.1 mg/dL (1.7-2.9); SODIUM 134 mmol/L (136-145); TOTAL PROTEIN 6.2 g/dL (6.4-8.2); eGFR NON BLACK RACES > 60 (>60)
[2018-10-13 06:39] LABS: BASOPHILS # (AUTO) 0.1 X10^3/uL (0.0-0.1); EOSINOPHILS % (AUTO) 0.1 % (0.9-2.9); HEMATOCRIT 34.2 % (36.0-47.0); HEMOGLOBIN 11.3 g/dL (12.0-16.0); LYMPHOCYTES # (AUTO) 1.1 X10^3/uL (1.3-2.9); LYMPHOCYTES % (AUTO) 16.5 % (21.0-51.0); MEAN CORPUSCULAR HEMOGLOBIN 26.1 pg (27.0-34.0); MEAN PLATELET VOLUME 7.8 fL (7.4-11.0); MONOCYTES # (AUTO) 0.7 x10^3/uL (0.3-0.8); MONOCYTES % (AUTO) 10.8 % (0.0-13.0); NEUTROPHILS # (AUTO) 4.8 x10^3/uL (2.2-4.8); NEUTROPHILS % (AUTO) 71.6 % (42.0-75.0); PLATELET COUNT 359 X10^3/uL (150.0-450.0); RED BLOOD COUNT 4.33 X10^6/uL (3.5-5.4); RED CELL DISTRIBUTION WIDTH 20.5 % (11.6-16.5); WHITE BLOOD COUNT 6.7 X10^3/uL (3.6-10.0)
[2018-10-13 07:08] LABS: ANISOCYTOSIS SLIGHT; PLATELET MORPHOLOGY COMMENT NORMAL (NORMAL)
--- NOTE | 2018-10-13 08:31 | RAD ---
HISTORY: Constipation Study: KUB, done portably Comparison: 10/09/2018 Findings: A G-tube is again seen in the left para lumbar position. The intraluminal position of the tube is not possible without administration of contrast through the tube. While there is been reduction of stool present, there are still a very large amount of stool involving the descending and visualized sigmoid colon. The mid-lower rectal regions are not included on the image. No evidence of bowel obstruction is seen. Lung bases are clear. IMPRESSION: While there has been reduction in stool burden, there is still a very large amount of stool present involving the descending and visualized sigmoid colon regions. No bowel obstruction is seen. Please see the above comments concerning the patient's G-tube. Reported By:
[2018-10-13] MEDS: PEPCID 20 MG IV PREMIX* 20 MG/50 ML BAG IV SCH ×2 (08:53→21:39)
[2018-10-13] MEDS: ROCEPHIN VIAL 1 GRAM IVP SCH (08:54)
[2018-10-13] MEDS: LOVENOX INJ 30 MG SYR SC SCH ×2 (08:54→21:38)
[2018-10-13] MEDS: MIRALAX POWDER (1 DOSE 17 G) PO SCH (08:54)
[2018-10-13] MEDS: SYNTHROID INJ 100 mcg VIAL IVP SCH (08:54)
[2018-10-13] MEDS: K-RIDER 10 MEQ/NS 100 ML 10 MEQ/100 ML BAG IV PRN ×2 (08:54→16:03)
[2018-10-13] MEDS: MEGACE PO SCH ×2 (08:55→21:39)
[2018-10-13] MEDS: VIBRAMYCIN 100 MG in D5W 250 ML IV 250 ML IV SCH ×2 (08:58→21:39)
[2018-10-13] MEDS ORDERED: DULCOLAX SUPPOSITORY 10 MG RECTAL ONE (10:48)
[2018-10-13] MEDS ORDERED: DULCOLAX SUPPOSITORY 10 MG ONE (13:51)
--- NOTE | 2018-10-13 18:45 | PCM.PROG ---
Progress Note - Progress Note for Day of Date of Exam: 10/13/18 - Subjective Subjective: WAS ADMITTED FOR MODERATE RESIDUAL FROM PEG TUBE AND A URINARY TRACT INFECTION. TODAY, SHE IS LYING IN BED ON MORNING ROUNDS. SHE CONTINUES TO BE DISORIENTED. PATIENT DOES HAVE A HISTORY OF DEMENTIA. THERE IS MINIMAL DRAINAGE FROM PEG TUBE NOTED. ON EXAMINATION, HEART IS REGULAR IN RATE AND RHYTHM. BILATERAL LUNGS ARE NOTED WITH DIMINISHED LUNG SOUNDS THROUGHOUT. ABDOMEN IS ROUND, SOFT, AND NOTED WITH SUPRAPUBIC TENDERNESS. HER VITALS THIS MORNING ARE 98.0-93-18-96%-143/73. LABS WERE OBTAINED. ABNORMAL LAB VALUES INCLUDED THE FOLLOWING: HGB 11.3, HCT 34.2, SODIUM 134, POTASSIUM 3.4, BUN 4, CREATININE 0.39, CALCIUM 8.2, TOTAL PROTEIN 6.2, ALBUMIN 2.4. URINE CULTURE REPORTED GROWTH OF E.COLI. A KUB WAS OBTAINED THIS MORNING AND REVEALED: While there has been reduction in stool burden, there is still a very large amount of stool present involving the descending and visualized sigmoid colon regions. No bowel obstruction is seen. SHE IS CURRENTLY RECEIVING IV FLUIDS AND IV ANTIBIOTICS. WE WILL DISCONTINUE THE DOXYCYCLINE THAT SHE IS RECEIVING AND START ROCEPHIN 1G IV DAILY. TODAY, WE WILL START BOLUS FEEDINGS. WE WILL GIVE JEVITY 1.5, 1 BOTTLE QID FOLLOWED BY A 75ML FLUSH. WE WILL ALSO ORDER FOR DULCOLOX 10MG SUPPOSITORY X 1. TOMORROW MORNING, WE WILL OBTAIN A KUB WITH GASTROGRAFIN TO CONFIRM PALCEMENT. OTHERWISE, WE PLAN TO FOLLOW UP WITH AM LABS AND CONTINUE TO MONITOR. - Past Medical Family Social History Past Med/Fam/Surg Hx: No changes since H&P Allergies: Allergies No Known Drug Allergies Allergy (Verified 02/20/17 20:10) - Review of Systems ROS: No change since H&P - Vital Signs and I&O's Vital Signs: Temperature 98.5 F Pulse Rate [Right Radial] 95 Respiratory Rate 18 Blood Pressure [Right Arm] 140/76 Blood Pressure [Left Arm] 151/82 Blood Pressure 111/61 O2 Sat by Pulse Oximetry 97 Intake and Output: Intake & Output 10/11/18 10/12/18 10/13/18 10/14/18 11:59 11:59 11:59 11:59 Intake Total 1880 / 1880 3290 / 3290 2317 / 2317 805 / 805 Output Total 1210 / 1210 1914 405 / 405 Balance 670 / 670 1375 / 1375 1911 805 / 805 - Physical Exam Oriented: Not Oriented Eyes: Normal Ear: Normal Nose: Normal Throat: Normal Respiratory: Generalized, Diminished Cardiovascular: Tachycardia : Normal Auscultation: Bowel Sounds: Normal Palpation: Normal Tenderness: Diffuse, Mild. negative: Rebound, Guarding, Rigidity Skin: Normal Musculoskeletal: Normal Psychiatric: Normal Mood Description: Calm Affect: Normal Speech Pattern: Clear, Appropriate - Laboratory and Diagnostics Result Diagrams: 10/13/18 05:22 10/13/18 05:22 Labs: 10/09/18 16:55 Urine,[place] Urine Culture - Final Escherichia Coli 10/09/18 17:33 Blood Blood Culture - Preliminary 10/09/18 17:19 Blood Blood Culture - Preliminary Laboratory WBC 6.7 X10^3/uL (3.6-10.0) 10/13/18 05:22 RBC 4.33 X10^6/uL (3.5-5.4) 10/13/18 05:22 Hgb 11.3 g/dL (12.0-16.0) L 10/13/18 05:22 Hct 34.2 % (36.0-47.0) L 10/13/18 05:22 MCV 79.0 fL (80.0-100.0) L 10/13/18 05:22 MCH 26.1 pg (27.0-34.0) L 10/13/18 05:22 MCHC 33.0 g/dL (33.0-35.0) 10/13/18 05:22 RDW 20.5 % (11.6-16.5) H 10/13/18 05:22 Plt Count 359 X10^3/uL (150.0-450.0) 10/13/18 05:22 Plt Count Comment Adequate (ADEQUATE) 10/13/18 05:22 MPV 7.8 fL (7.4-11.0) 10/13/18 05:22 Neut % (Auto) 71.6 % (42.0-75.0) 10/13/18 05:22 Lymph % (Auto) 16.5 % (21.0-51.0) L 10/13/18 05:22 [place] % (Auto) 10.8 % (0.0-13.0) 10/13/18 05:22 Eos % (Auto) 0.1 % (0.9-2.9) L 10/13/18 05:22 Baso % (Auto) 1.0 % (0.2-1.0) 10/13/18 05:22 Neut # (Auto) 4.8 x10^3/uL (2.2-4.8) 10/13/18 05:22 Lymph # (Auto) 1.1 X10^3/uL (1.3-2.9) L 10/13/18 05:22 [place] # (Auto) 0.7 x10^3/uL (0.3-0.8) 10/13/18 05:22 Eos # (Auto) 0.0 x10^3/uL (0.0-0.2) 10/13/18 05:22 Baso # (Auto) 0.1 X10^3/uL (0.0-0.1) 10/13/18 05:22 Absolute Nucleated RBC 0.0 /100WBC 10/13/18 05:22 Plt Morphology Comment Normal (NORMAL) 10/13/18 05:22 RBC Morphology Abnormal (NORMAL) A 10/13/18 05:22 Hypochromasia Slight A 10/10/18 03:58 Anisocytosis Slight A 10/13/18 05:22 Sodium 134 mmol/L (136-145) L 10/13/18 05:22 Corrected Sodium TNP 10/13/18 05:22 Potassium 3.4 mmol/L (3.5-5.1) L 10/13/18 05:22 Chloride 99 mmol/L (98-107) 10/13/18 05:22 Carbon Dioxide 22.9 mmol/L (21-32) 10/13/18 05:22 BUN 4 mg/dL (7-18) L 10/13/18 05:22 Creatinine 0.39 mg/dL (0.55-1.02) L 10/13/18 05:22 Est GFR (MDRD) Af Amer > 60 (>60) 10/13/18 05:22 Est GFR (MDRD) Non-Af > 60 (>60) 10/13/18 05:22 Glucose 74 mg/dL (65-99) 10/13/18 05:22 Lactic Acid 1.2 mmol/L (0.4-2.0) 10/09/18 17:19 Calcium 8.2 mg/dL (8.5-10.1) L 10/13/18 05:22 Corrected Calcium 9.5 mg/dL (8.5-10.1) 10/13/18 05:22 Magnesium 2.1 mg/dL (1.7-2.9) 10/13/18 05:22 Total Bilirubin 0.20 mg/dL (0.2-1.0) 10/13/18 05:22 AST 17 Units/L (15-37) 10/13/18 05:22 ALT 25 Units/L (12-78) 10/13/18 05:22 Alkaline Phosphatase 66 Units/L (46-116) 10/13/18 05:22 Total Protein 6.2 g/dL (6.4-8.2) L 10/13/18 05:22 Albumin 2.4 g/dL (3.4-5.0) L 10/13/18 05:22 Globulin 3.8 g/dL (2.5-4.5) 10/13/18 05:22 Albumin/Globulin Ratio 0.6 Ratio (1.1-2.1) L 10/13/18 05:22 Specimen Type Catherized urine 10/09/18 16:55 Urine Color Yellow (YELLOW) 10/09/18 16:55 Urine Appearance Cloudy (CLEAR) 10/09/18 16:55 Urine pH 6.5 (5.0 - 8.0) 10/09/18 16:55 Ur Specific [place] 1.015 (1.000-1.030) 10/09/18 16:55 Urine Protein 2+ (NEGATIVE) 10/09/18 16:55 Urine Glucose (UA) Negative (NEGATIVE) 10/09/18 16:55 Urine Ketones Negative (NEGATIVE) 10/09/18 16:55 Urine Occult Blood 3+ (NEGATIVE) 10/09/18 16:55 Urine Nitrite Negative (NEGATIVE) 10/09/18 16:55 Urine Bilirubin Negative (NEGATIVE) 10/09/18 16:55 Urine Urobilinogen Normal (NORMAL) 10/09/18 16:55 Ur Leukocyte Esterase 3+ (NEGATIVE) 10/09/18 16:55 Urine RBC 3-5 /HPF (NONE SEEN) 10/09/18 16:55 Urine WBC Tntc /HPF (NONE SEEN) 10/09/18 16:55 Ur Squamous Epith Cells Few /HPF (NEGATIVE) 10/09/18 16:55 Ur Transition Epith Cell Few /HPF (NEGATIVE) 10/09/18 16:55 Urine Bacteria 3+ /HPF (NEGATIVE) 10/09/18 16:55 Urine Mucus Moderate /HPF (NEGATIVE) 10/09/18 16:55 Ur Culture Indicated? No/not indicated 10/09/18 16:55 - Plan (1) Urinary tract infection Status: Acute Qualifiers: Urinary tract infection type: site unspecified Hematuria presence: without hematuria Qualified Code(s): N39.0 - Urinary tract infection, site not specified Plan: ROCEPHIN 1G IV DAILY, iv fluids, continue to monitor. (2) PEG tube malfunction Status: Acute Plan: RESUME PEG TUBE FEEDINGS TODAY, CONTINUE TO MONITOR (3) Constipation Status: Acute Qualifiers: Constipation type: slow transit constipation Qualified Code(s): K59.01 - Slow transit constipation Plan: DULCOLOX SUPPOSITORY X 1, COLACE, MILK OF MAGNESIA
[2018-10-13] MEDS: COLACE CAP 100 MG PO SCH (21:38)
[2018-10-13] MEDS ORDERED: BUTT CREAM (COMPOUND) ONE (23:54)
[2018-10-13] MEDS ORDERED: BUTT CREAM (COMPOUND) TOP PRN (23:54)
[2018-10-14] MEDS: MILK OF MAGNESIA PO SCH ×3 (05:53→21:59)
[2018-10-14] MEDS: NS 1000 ML 1,000 ML IV SCH ×3 (05:53→17:16)
[2018-10-14 07:03] LABS: BASOPHILS # (AUTO) 0.1 X10^3/uL (0.0-0.1); BASOPHILS % (AUTO) 1.2 % (0.2-1.0); EOSINOPHILS % (AUTO) 0.3 % (0.9-2.9); HEMATOCRIT 35.6 % (36.0-47.0); HEMOGLOBIN 11.7 g/dL (12.0-16.0); LYMPHOCYTES # (AUTO) 1.5 X10^3/uL (1.3-2.9); LYMPHOCYTES % (AUTO) 22.4 % (21.0-51.0); MEAN CORPUSCULAR HEMOGLOBIN 26.2 pg (27.0-34.0); MEAN CORPUSCULAR HGB CONC 32.9 g/dL (33.0-35.0); MEAN CORPUSCULAR VOLUME 79.5 fL (80.0-100.0); MEAN PLATELET VOLUME 7.8 fL (7.4-11.0); MONOCYTES # (AUTO) 0.7 x10^3/uL (0.3-0.8); MONOCYTES % (AUTO) 10.2 % (0.0-13.0); NEUTROPHILS # (AUTO) 4.5 x10^3/uL (2.2-4.8); NEUTROPHILS % (AUTO) 65.9 % (42.0-75.0); PLATELET COUNT 388 X10^3/uL (150.0-450.0); RED BLOOD COUNT 4.48 X10^6/uL (3.5-5.4); RED CELL DISTRIBUTION WIDTH 20.1 % (11.6-16.5); WHITE BLOOD COUNT 6.8 X10^3/uL (3.6-10.0)
--- NOTE | 2018-10-14 07:08 | RAD ---
HISTORY: Peg tube check Study: KUB Comparison: 10/13/2018 Technique: Water-soluble contrast was injected into the patient's PEG tube and a KUB exposed. A radiologist was not present for the injection. Findings: There is filling of the stomach and no evidence for extravasation of contrast into the peritoneum. The PEG tube is intraluminal within the body of the stomach. The abdominal gas pattern is nonobstructive. Stool burden is unchanged. IMPRESSION: Peg tube intraluminal within the body of the stomach Reported By:
[2018-10-14 07:18] LABS: ALANINE AMINOTRANSFERASE 23 Units/L (12-78); ALBUMIN 2.4 g/dL (3.4-5.0); ALKALINE PHOSPHATASE 67 Units/L (46-116); ASPARTATE AMINO TRANSFERASE 15 Units/L (15-37); BLOOD UREA NITROGEN 5 mg/dL (7-18); CALCIUM 8.6 mg/dL (8.5-10.1); CARBON DIOXIDE 23.4 mmol/L (21-32); CHLORIDE 102 mmol/L (98-107); COR CA(FOR HYPOALB) 9.9 mg/dL (8.5-10.1); CREATININE 0.42 mg/dL (0.55-1.02); SODIUM 137 mmol/L (136-145); TOTAL PROTEIN 6.5 g/dL (6.4-8.2); eGFR NON BLACK RACES > 60 (>60)
[2018-10-14 07:19] LABS: PLATELET MORPHOLOGY COMMENT NORMAL (NORMAL)
[2018-10-14 07:20] LABS: ANISOCYTOSIS 1+
[2018-10-14] MEDS: LOVENOX INJ 30 MG SYR SC SCH ×2 (09:35→21:55)
[2018-10-14] MEDS: PEPCID 20 MG IV PREMIX* 20 MG/50 ML BAG IV SCH ×2 (09:35→21:59)
[2018-10-14] MEDS: SYNTHROID INJ 100 mcg VIAL IVP SCH (09:37)
[2018-10-14] MEDS: ROCEPHIN VIAL 1 GRAM IVP SCH (09:38)
[2018-10-14] MEDS: VIBRAMYCIN 100 MG in D5W 250 ML IV 250 ML IV SCH ×2 (09:38→21:59)
[2018-10-14] MEDS: COLACE CAP 100 MG PO SCH ×2 (13:01→21:54)
[2018-10-14] MEDS: MEGACE PO SCH ×2 (13:01→21:59)
[2018-10-14] MEDS: CHRONULAC PO SCH ×2 (13:02→21:54)
[2018-10-14] MEDS: MIRALAX POWDER (1 DOSE 17 G) PO SCH (13:02)
--- NOTE | 2018-10-14 15:50 | RAD ---
HISTORY: Follow-up from Gastrografin given at 7:00 a.m. through the patient's PEG tube Study: KUB Comparison: 10/14/2018 at 7:00 a.m.. Findings: PICC tube is again seen in the left mid para lumbar region. There is a left hip nail. Contrast material is still present within the stomach and also within the proximal small bowel, chiefly in the right upper quadrant. There is bowel interposition between the liver and the right hemidiaphragm. No obstruction is seen. Large amount of stool is seen within the descending and rectosigmoid colon regions. There is some very faint bowel opacification in this region also. IMPRESSION: Retained contrast material present within the stomach, small bowel loops but also present within the left colon as noted above. Large amount of stool is present within the descending and rectosigmoid colon regions. No evidence of bowel obstruction is seen. Reported By:
--- NOTE | 2018-10-14 22:01 | DR.PROGNOT ---
Hospital Progress Notes - Progress Note for Day of: Progress Note Date: 10/14/18 - Chief Complaint Chief Complaint: Pt was seen because of large residual feeding in the stomach with possible gastric outlet obstriction and leakage from PEG tube site . gastrografin study totube day and F/U KUB showed tube in good position and the contrast passed through the bowel to the colon ,but moderate amount still in the stomach indicating some degree of gastroperesis . - Past Medical Family Social History Past Med/Fam/Surg Hx: No changes since H&P Allergies: Allergies No Known Drug Allergies Allergy (Verified 02/20/17 20:10) - Review Of Systems ROS: No change since H&P - Vital Signs Vital Signs: Temperature 99.2 F Pulse Rate [Right Radial] 91 Respiratory Rate 18 Blood Pressure [Right Arm] 154/84 Blood Pressure [Left Arm] 151/82 Blood Pressure 111/61 O2 Sat by Pulse Oximetry 98 - Physical Exam Oriented: Not Oriented Eyes: Normal Ear: Normal Nose: Normal Throat: Normal Respiratory: Generalized, Diminished Cardiovascular: Tachycardia : Normal GI:Auscultation: Normal GI:Palpation: Normal GI: Tenderness: Diffuse (soft abdomen , with mild diffuse tenderness , BS + ..PEG tube in good position , no leakage .), Mild. negative: Rebound, Guarding, Rigidity Skin: Normal Musculoskeletal: Normal Psychiatric: Normal Mood Description: Calm Affect: Normal Speech Pattern: Clear, Appropriate - Laboratory and Diagnostics Result Diagrams: 10/14/18 06:14 10/14/18 06:14 Labs: 10/09/18 16:55 Urine,[place] Urine Culture - Final Escherichia Coli 10/09/18 17:33 Blood Blood Culture - Preliminary 10/09/18 17:19 Blood Blood Culture - Preliminary Laboratory WBC 6.8 X10^3/uL (3.6-10.0) 10/14/18 06:14 RBC 4.48 X10^6/uL (3.5-5.4) 10/14/18 06:14 Hgb 11.7 g/dL (12.0-16.0) L 10/14/18 06:14 Hct 35.6 % (36.0-47.0) L 10/14/18 06:14 MCV 79.5 fL (80.0-100.0) L 10/14/18 06:14 MCH 26.2 pg (27.0-34.0) L 10/14/18 06:14 MCHC 32.9 g/dL (33.0-35.0) L 10/14/18 06:14 RDW 20.1 % (11.6-16.5) H 10/14/18 06:14 Plt Count 388 X10^3/uL (150.0-450.0) 10/14/18 06:14 Plt Count Comment Adequate (ADEQUATE) 10/14/18 06:14 MPV 7.8 fL (7.4-11.0) 10/14/18 06:14 Neut % (Auto) 65.9 % (42.0-75.0) 10/14/18 06:14 Lymph % (Auto) 22.4 % (21.0-51.0) 10/14/18 06:14 [place] % (Auto) 10.2 % (0.0-13.0) 10/14/18 06:14 Eos % (Auto) 0.3 % (0.9-2.9) L 10/14/18 06:14 Baso % (Auto) 1.2 % (0.2-1.0) H 10/14/18 06:14 Neut # (Auto) 4.5 x10^3/uL (2.2-4.8) 10/14/18 06:14 Lymph # (Auto) 1.5 X10^3/uL (1.3-2.9) 10/14/18 06:14 [place] # (Auto) 0.7 x10^3/uL (0.3-0.8) 10/14/18 06:14 Eos # (Auto) 0.0 x10^3/uL (0.0-0.2) 10/14/18 06:14 Baso # (Auto) 0.1 X10^3/uL (0.0-0.1) 10/14/18 06:14 Absolute Nucleated RBC 0.0 /100WBC 10/14/18 06:14 Plt Morphology Comment Normal (NORMAL) 10/14/18 06:14 RBC Morphology Abnormal (NORMAL) A 10/14/18 06:14 Hypochromasia Slight A 10/10/18 03:58 Anisocytosis 1+ A 10/14/18 06:14 Sodium 137 mmol/L (136-145) 10/14/18 06:14 Corrected Sodium TNP 10/14/18 06:14 Potassium 3.7 mmol/L (3.5-5.1) 10/14/18 06:14 Chloride 102 mmol/L (98-107) 10/14/18 06:14 Carbon Dioxide 23.4 mmol/L (21-32) 10/14/18 06:14 BUN 5 mg/dL (7-18) L 10/14/18 06:14 Creatinine 0.42 mg/dL (0.55-1.02) L 10/14/18 06:14 Est GFR (MDRD) Af Amer > 60 (>60) 10/14/18 06:14 Est GFR (MDRD) Non-Af > 60 (>60) 10/14/18 06:14 Glucose 79 mg/dL (65-99) 10/14/18 06:14 Lactic Acid 1.2 mmol/L (0.4-2.0) 10/09/18 17:19 Calcium 8.6 mg/dL (8.5-10.1) 10/14/18 06:14 Corrected Calcium 9.9 mg/dL (8.5-10.1) 10/14/18 06:14 Magnesium 2.1 mg/dL (1.7-2.9) 10/13/18 05:22 Total Bilirubin 0.30 mg/dL (0.2-1.0) 10/14/18 06:14 AST 15 Units/L (15-37) 10/14/18 06:14 ALT 23 Units/L (12-78) 10/14/18 06:14 Alkaline Phosphatase 67 Units/L (46-116) 10/14/18 06:14 Total Protein 6.5 g/dL (6.4-8.2) 10/14/18 06:14 Albumin 2.4 g/dL (3.4-5.0) L 10/14/18 06:14 Globulin 4.1 g/dL (2.5-4.5) 10/14/18 06:14 Albumin/Globulin Ratio 0.6 Ratio (1.1-2.1) L 10/14/18 06:14 Specimen Type Catherized urine 10/09/18 16:55 Urine Color Yellow (YELLOW) 10/09/18 16:55 Urine Appearance Cloudy (CLEAR) 10/09/18 16:55 Urine pH 6.5 (5.0 - 8.0) 10/09/18 16:55 Ur Specific [place] 1.015 (1.000-1.030) 10/09/18 16:55 Urine Protein 2+ (NEGATIVE) 10/09/18 16:55 Urine Glucose (UA) Negative (NEGATIVE) 10/09/18 16:55 Urine Ketones Negative (NEGATIVE) 10/09/18 16:55 Urine Occult Blood 3+ (NEGATIVE) 10/09/18 16:55 Urine Nitrite Negative (NEGATIVE) 10/09/18 16:55 Urine Bilirubin Negative (NEGATIVE) 10/09/18 16:55 Urine Urobilinogen Normal (NORMAL) 10/09/18 16:55 Ur Leukocyte Esterase 3+ (NEGATIVE) 10/09/18 16:55 Urine RBC 3-5 /HPF (NONE SEEN) 10/09/18 16:55 Urine WBC Tntc /HPF (NONE SEEN) 10/09/18 16:55 Ur Squamous Epith Cells Few /HPF (NEGATIVE) 10/09/18 16:55 Ur Transition Epith Cell Few /HPF (NEGATIVE) 10/09/18 16:55 Urine Bacteria 3+ /HPF (NEGATIVE) 10/09/18 16:55 Urine Mucus Moderate /HPF (NEGATIVE) 10/09/18 16:55 Ur Culture Indicated? No/not indicated 10/09/18 16:55 - Assessment and Plan 1: moderate gastroperesis , no gastric outlet obstruction. will start feeding as tolerated , maybe increase Reglan if needed .
[2018-10-15] MEDS: NS 1000 ML 1,000 ML IV SCH ×2 (05:45→22:45)
[2018-10-15] MEDS: MILK OF MAGNESIA PO SCH ×3 (05:45→22:52)
--- NOTE | 2018-10-15 06:02 | RAD ---
Abdomen, two views Indication: Constipation Comparison: 10/14/2018 Findings: Previously seen stool burden within the distal colon and rectum appears improved since prior exam. Imaged bowel gas pattern is nonspecific but nonobstructive. Percutaneous gastrostomy tube projects over the mid left abdomen. No free air or pneumatosis is identified. No pathologic calcifications seen. Imaged lung bases are clear. Impression: Improved stool burden within the distal colon and rectum. Otherwise, nonspecific but nonobstructive bowel gas pattern. Reported By:
[2018-10-15 06:08] LABS: BASOPHILS # (AUTO) 0.1 X10^3/uL (0.0-0.1); EOSINOPHILS % (AUTO) 0.2 % (0.9-2.9); HEMATOCRIT 33.8 % (36.0-47.0); HEMOGLOBIN 11.5 g/dL (12.0-16.0); LYMPHOCYTES # (AUTO) 1.8 X10^3/uL (1.3-2.9); LYMPHOCYTES % (AUTO) 22.3 % (21.0-51.0); MEAN CORPUSCULAR HEMOGLOBIN 26.7 pg (27.0-34.0); MEAN CORPUSCULAR HGB CONC 33.9 g/dL (33.0-35.0); MEAN CORPUSCULAR VOLUME 78.9 fL (80.0-100.0); MEAN PLATELET VOLUME 7.6 fL (7.4-11.0); MONOCYTES # (AUTO) 0.8 x10^3/uL (0.3-0.8); MONOCYTES % (AUTO) 9.5 % (0.0-13.0); NEUTROPHILS # (AUTO) 5.4 x10^3/uL (2.2-4.8); PLATELET COUNT 416 X10^3/uL (150.0-450.0); RED BLOOD COUNT 4.29 X10^6/uL (3.5-5.4); RED CELL DISTRIBUTION WIDTH 20.2 % (11.6-16.5)
[2018-10-15 06:29] LABS: ALANINE AMINOTRANSFERASE 20 Units/L (12-78); ALBUMIN 2.4 g/dL (3.4-5.0); ALKALINE PHOSPHATASE 65 Units/L (46-116); ASPARTATE AMINO TRANSFERASE 15 Units/L (15-37); BLOOD UREA NITROGEN 4 mg/dL (7-18); CALCIUM 8.3 mg/dL (8.5-10.1); CHLORIDE 102 mmol/L (98-107); COR CA(FOR HYPOALB) 9.6 mg/dL (8.5-10.1); CREATININE 0.38 mg/dL (0.55-1.02); SODIUM 137 mmol/L (136-145); TOTAL PROTEIN 6.2 g/dL (6.4-8.2); eGFR NON BLACK RACES > 60 (>60)
[2018-10-15 06:34] LABS: ANISOCYTOSIS 1+; PLATELET MORPHOLOGY COMMENT NORMAL (NORMAL)
--- NOTE | 2018-10-15 08:42 | PCM.PROG ---
Progress Note - Progress Note for Day of Date of Exam: 10/14/18 - Subjective Subjective: WAS ADMITTED FOR MODERATE RESIDUAL FROM PEG TUBE AND A URINARY TRACT INFECTION. TODAY, SHE IS LYING IN BED ON MORNING ROUNDS. SHE CONTINUES TO BE DISORIENTED. PATIENT DOES HAVE A HISTORY OF DEMENTIA. TUBE FEEDINGS WERE RESUMED YESTERDAY, HOWEVER, SHE WAS NOTED WITH A MODERATE AMOUNT OF RESIDUAL AFTER FEEDINGS. ON EXAMINATION, HEART IS REGULAR IN RATE AND RHYTHM. BILATERAL LUNGS ARE NOTED WITH DIMINISHED LUNG SOUNDS THROUGHOUT. ABDOMEN IS ROUND, SOFT, AND NOTED WITH SUPRAPUBIC TENDERNESS. HER VITALS THIS MORNING ARE 97.7-77-18-98%-150/74. LABS WERE OBTAINED. ABNORMAL LAB VALUES INCLUDED THE FOLLOWING: HGB 11.7, HCT 35.6, BUN 5, CREATININE 0.42, ALBUMIN 2.4. URINE CULTURE REPORTED GROWTH OF E.COLI. A KUB WAS OBTAINED THIS MORNING AND REVEALED: Peg tube intraluminal within the body of the stomach. Stool burden is unchanged. SHE IS CURRENTLY RECEIVING IV FLUIDS AND IV ANTIBIOTICS. WE WILL CONSULT . TODAY, WE WILL START LACTULOSE 10ML BID. OTHERWISE, WE PLAN TO FO LLOW UP WITH AM LABS AND CONTINUE TO MONITOR. - Past Medical Family Social History Past Med/Fam/Surg Hx: No changes since H&P Allergies: Allergies No Known Drug Allergies Allergy (Verified 02/20/17 20:10) - Review of Systems ROS: No change since H&P - Vital Signs and I&O's Vital Signs: Temperature 98.6 F Pulse Rate [Right Radial] 75 Respiratory Rate 18 Blood Pressure [Right Arm] 156/77 Blood Pressure [Left Arm] 151/82 Blood Pressure 111/61 O2 Sat by Pulse Oximetry 98 Intake and Output: Intake & Output 10/12/18 10/13/18 10/14/18 10/15/18 11:59 11:59 11:59 11:59 Intake Total 3290 / 3290 2317 / 2317 1365 / 1365 214 / 2144 Output Total 1914 / 1914 405 / 405 Balance 1375 / 1375 1911 / 1911 1365 / 1365 2144 / 2144 - Physical Exam Oriented: Not Oriented Eyes: Normal Ear: Normal Nose: Normal Throat: Normal Respiratory: Generalized, Diminished Cardiovascular: Tachycardia : Normal Auscultation: Bowel Sounds: Normal Tenderness: Diffuse (soft abdomen , with mild diffuse tenderness , BS + ..PEG tube in good position , no leakage .), Mild. negative: Rebound, Guarding, Rigidity Skin: Normal Musculoskeletal: Normal Psychiatric: Normal Mood Description: Calm Affect: Normal Speech Pattern: Clear, Appropriate - Laboratory and Diagnostics Result Diagrams: 10/15/18 05:21 10/15/18 05:21 Labs: 10/09/18 16:55 Urine,[place] Urine Culture - Final Escherichia Coli 10/09/18 17:33 Blood Blood Culture - Preliminary 10/09/18 17:19 Blood Blood Culture - Preliminary Laboratory WBC 8.0 X10^3/uL (3.6-10.0) 10/15/18 05:21 RBC 4.29 X10^6/uL (3.5-5.4) 10/15/18 05:21 Hgb 11.5 g/dL (12.0-16.0) L 10/15/18 05:21 Hct 33.8 % (36.0-47.0) L 10/15/18 05:21 MCV 78.9 fL (80.0-100.0) L 10/15/18 05:21 MCH 26.7 pg (27.0-34.0) L 10/15/18 05:21 MCHC 33.9 g/dL (33.0-35.0) 10/15/18 05:21 RDW 20.2 % (11.6-16.5) H 10/15/18 05:21 Plt Count 416 X10^3/uL (150.0-450.0) 10/15/18 05:21 Plt Count Comment Adequate (ADEQUATE) 10/15/18 05:21 MPV 7.6 fL (7.4-11.0) 10/15/18 05:21 Neut % (Auto) 67.0 % (42.0-75.0) 10/15/18 05:21 Lymph % (Auto) 22.3 % (21.0-51.0) 10/15/18 05:21 [place] % (Auto) 9.5 % (0.0-13.0) 10/15/18 05:21 Eos % (Auto) 0.2 % (0.9-2.9) L 10/15/18 05:21 Baso % (Auto) 1.0 % (0.2-1.0) 10/15/18 05:21 Neut # (Auto) 5.4 x10^3/uL (2.2-4.8) H 10/15/18 05:21 Lymph # (Auto) 1.8 X10^3/uL (1.3-2.9) 10/15/18 05:21 [place] # (Auto) 0.8 x10^3/uL (0.3-0.8) 10/15/18 05:21 Eos # (Auto) 0.0 x10^3/uL (0.0-0.2) 10/15/18 05:21 Baso # (Auto) 0.1 X10^3/uL (0.0-0.1) 10/15/18 05:21 Absolute Nucleated RBC 0.0 /100WBC 10/15/18 05:21 Plt Morphology Comment Normal (NORMAL) 10/15/18 05:21 RBC Morphology Abnormal (NORMAL) A 10/15/18 05:21 Hypochromasia Slight A 10/10/18 03:58 Anisocytosis 1+ A 10/15/18 05:21 Sodium 137 mmol/L (136-145) 10/15/18 05:21 Corrected Sodium TNP 10/15/18 05:21 Potassium 3.0 mmol/L (3.5-5.1) L* 10/15/18 05:21 Chloride 102 mmol/L (98-107) 10/15/18 05:21 Carbon Dioxide 27.0 mmol/L (21-32) 10/15/18 05:21 BUN 4 mg/dL (7-18) L 10/15/18 05:21 Creatinine 0.38 mg/dL (0.55-1.02) L 10/15/18 05:21 Est GFR (MDRD) Af Amer > 60 (>60) 10/15/18 05:21 Est GFR (MDRD) Non-Af > 60 (>60) 10/15/18 05:21 Glucose 80 mg/dL (65-99) 10/15/18 05:21 Lactic Acid 1.2 mmol/L (0.4-2.0) 10/09/18 17:19 Calcium 8.3 mg/dL (8.5-10.1) L 10/15/18 05:21 Corrected Calcium 9.6 mg/dL (8.5-10.1) 10/15/18 05:21 Magnesium 2.1 mg/dL (1.7-2.9) 10/13/18 05:22 Total Bilirubin 0.30 mg/dL (0.2-1.0) 10/15/18 05:21 AST 15 Units/L (15-37) 10/15/18 05:21 ALT 20 Units/L (12-78) 10/15/18 05:21 Alkaline Phosphatase 65 Units/L (46-116) 10/15/18 05:21 Total Protein 6.2 g/dL (6.4-8.2) L 10/15/18 05:21 Albumin 2.4 g/dL (3.4-5.0) L 10/15/18 05:21 Globulin 3.8 g/dL (2.5-4.5) 10/15/18 05:21 Albumin/Globulin Ratio 0.6 Ratio (1.1-2.1) L 10/15/18 05:21 Specimen Type Catherized urine 10/09/18 16:55 Urine Color Yellow (YELLOW) 10/09/18 16:55 Urine Appearance Cloudy (CLEAR) 10/09/18 16:55 Urine pH 6.5 (5.0 - 8.0) 10/09/18 16:55 Ur Specific [place] 1.015 (1.000-1.030) 10/09/18 16:55 Urine Protein 2+ (NEGATIVE) 10/09/18 16:55 Urine Glucose (UA) Negative (NEGATIVE) 10/09/18 16:55 Urine Ketones Negative (NEGATIVE) 10/09/18 16:55 Urine Occult Blood 3+ (NEGATIVE) 10/09/18 16:55 Urine Nitrite Negative (NEGATIVE) 10/09/18 16:55 Urine Bilirubin Negative (NEGATIVE) 10/09/18 16:55 Urine Urobilinogen Normal (NORMAL) 10/09/18 16:55 Ur Leukocyte Esterase 3+ (NEGATIVE) 10/09/18 16:55 Urine RBC 3-5 /HPF (NONE SEEN) 10/09/18 16:55 Urine WBC Tntc /HPF (NONE SEEN) 10/09/18 16:55 Ur Squamous Epith Cells Few /HPF (NEGATIVE) 10/09/18 16:55 Ur Transition Epith Cell Few /HPF (NEGATIVE) 10/09/18 16:55 Urine Bacteria 3+ /HPF (NEGATIVE) 10/09/18 16:55 Urine Mucus Moderate /HPF (NEGATIVE) 10/09/18 16:55 Ur Culture Indicated? No/not indicated 10/09/18 16:55 - Plan (1) Urinary tract infection Status: Acute Qualifiers: Urinary tract infection type: site unspecified Hematuria presence: without hematuria Qualified Code(s): N39.0 - Urinary tract infection, site not specified Plan: ROCEPHIN 1G IV DAILY, iv fluids, continue to monitor. (2) PEG tube malfunction Status: Acute Plan: RESUME PEG TUBE FEEDINGS TODAY, CONTINUE TO MONITOR (3) Constipation Status: Acute Qualifiers: Constipation type: slow transit constipation Qualified Code(s): K59.01 - Slow transit constipation Plan: LACTULOSE 10ML PO BID, COLACE, MILK OF MAGNESIA, MIRALAX
[2018-10-15] MEDS: LOVENOX INJ 30 MG SYR SC SCH ×2 (09:48→22:46)
[2018-10-15] MEDS: ROCEPHIN VIAL 1 GRAM IVP SCH (09:49)
[2018-10-15] MEDS: PEPCID 20 MG IV PREMIX* 20 MG/50 ML BAG IV SCH ×2 (09:49→22:46)
[2018-10-15] MEDS: SYNTHROID INJ 100 mcg VIAL IVP SCH (09:50)
[2018-10-15] MEDS: VIBRAMYCIN 100 MG in D5W 250 ML IV 250 ML IV SCH ×2 (09:51→22:45)
[2018-10-15] MEDS: MEGACE PO SCH ×2 (09:52→22:46)
[2018-10-15] MEDS: CHRONULAC PO SCH ×2 (09:53→22:51)
[2018-10-15] MEDS: COLACE CAP 100 MG PO SCH ×2 (09:53→22:51)
[2018-10-15] MEDS: MIRALAX POWDER (1 DOSE 17 G) PO SCH (09:54)
--- NOTE | 2018-10-15 13:31 | DR.PROGNOT ---
Hospital Progress Notes - Progress Note for Day of: Progress Note Date: 10/15/18 - Chief Complaint Chief Complaint: tolerating tube feeding without significant residual feeding . no vomiting or leakage around the tube .. - Past Medical Family Social History Past Med/Fam/Surg Hx: No changes since H&P Allergies: Allergies No Known Drug Allergies Allergy (Verified 02/20/17 20:10) - Review Of Systems ROS: No change since H&P - Vital Signs Vital Signs: Temperature 98.9 F Pulse Rate [Right Radial] 80 Respiratory Rate 18 Blood Pressure [Right Arm] 181/92 Blood Pressure [Left Arm] 151/82 Blood Pressure 111/61 O2 Sat by Pulse Oximetry 98 - Physical Exam Oriented: Not Oriented Eyes: Normal Ear: Normal Nose: Normal Throat: Normal Respiratory: Generalized, Diminished Cardiovascular: Tachycardia : Normal GI:Auscultation: Normal GI:Palpation: Normal GI: Tenderness: Diffuse (soft abdomen , with mild diffuse tenderness , BS + ..PEG tube in good position , no leakage .), Mild. negative: Rebound, Guarding, Rigidity Skin: Normal Musculoskeletal: Normal Psychiatric: Normal Mood Description: Calm Affect: Normal Speech Pattern: Clear, Appropriate - Laboratory and Diagnostics Result Diagrams: 10/15/18 05:21 10/15/18 05:21 Labs: 10/09/18 17:33 Blood Blood Culture - Final 10/09/18 17:19 Blood Blood Culture - Final 10/09/18 16:55 Urine,[place] Urine Culture - Final Escherichia Coli Laboratory WBC 8.0 X10^3/uL (3.6-10.0) 10/15/18 05:21 RBC 4.29 X10^6/uL (3.5-5.4) 10/15/18 05:21 Hgb 11.5 g/dL (12.0-16.0) L 10/15/18 05:21 Hct 33.8 % (36.0-47.0) L 10/15/18 05:21 MCV 78.9 fL (80.0-100.0) L 10/15/18 05:21 MCH 26.7 pg (27.0-34.0) L 10/15/18 05:21 MCHC 33.9 g/dL (33.0-35.0) 10/15/18 05:21 RDW 20.2 % (11.6-16.5) H 10/15/18 05:21 Plt Count 416 X10^3/uL (150.0-450.0) 10/15/18 05:21 Plt Count Comment Adequate (ADEQUATE) 10/15/18 05:21 MPV 7.6 fL (7.4-11.0) 10/15/18 05:21 Neut % (Auto) 67.0 % (42.0-75.0) 10/15/18 05:21 Lymph % (Auto) 22.3 % (21.0-51.0) 10/15/18 05:21 [place] % (Auto) 9.5 % (0.0-13.0) 10/15/18 05:21 Eos % (Auto) 0.2 % (0.9-2.9) L 10/15/18 05:21 Baso % (Auto) 1.0 % (0.2-1.0) 10/15/18 05:21 Neut # (Auto) 5.4 x10^3/uL (2.2-4.8) H 10/15/18 05:21 Lymph # (Auto) 1.8 X10^3/uL (1.3-2.9) 10/15/18 05:21 [place] # (Auto) 0.8 x10^3/uL (0.3-0.8) 10/15/18 05:21 Eos # (Auto) 0.0 x10^3/uL (0.0-0.2) 10/15/18 05:21 Baso # (Auto) 0.1 X10^3/uL (0.0-0.1) 10/15/18 05:21 Absolute Nucleated RBC 0.0 /100WBC 10/15/18 05:21 Plt Morphology Comment Normal (NORMAL) 10/15/18 05:21 RBC Morphology Abnormal (NORMAL) A 10/15/18 05:21 Hypochromasia Slight A 10/10/18 03:58 Anisocytosis 1+ A 10/15/18 05:21 Sodium 137 mmol/L (136-145) 10/15/18 05:21 Corrected Sodium TNP 10/15/18 05:21 Potassium 3.0 mmol/L (3.5-5.1) L* 10/15/18 05:21 Chloride 102 mmol/L (98-107) 10/15/18 05:21 Carbon Dioxide 27.0 mmol/L (21-32) 10/15/18 05:21 BUN 4 mg/dL (7-18) L 10/15/18 05:21 Creatinine 0.38 mg/dL (0.55-1.02) L 10/15/18 05:21 Est GFR (MDRD) Af Amer > 60 (>60) 10/15/18 05:21 Est GFR (MDRD) Non-Af > 60 (>60) 10/15/18 05:21 Glucose 80 mg/dL (65-99) 10/15/18 05:21 Lactic Acid 1.2 mmol/L (0.4-2.0) 10/09/18 17:19 Calcium 8.3 mg/dL (8.5-10.1) L 10/15/18 05:21 Corrected Calcium 9.6 mg/dL (8.5-10.1) 10/15/18 05:21 Magnesium 2.1 mg/dL (1.7-2.9) 10/13/18 05:22 Total Bilirubin 0.30 mg/dL (0.2-1.0) 10/15/18 05:21 AST 15 Units/L (15-37) 10/15/18 05:21 ALT 20 Units/L (12-78) 10/15/18 05:21 Alkaline Phosphatase 65 Units/L (46-116) 10/15/18 05:21 Total Protein 6.2 g/dL (6.4-8.2) L 10/15/18 05:21 Albumin 2.4 g/dL (3.4-5.0) L 10/15/18 05:21 Globulin 3.8 g/dL (2.5-4.5) 10/15/18 05:21 Albumin/Globulin Ratio 0.6 Ratio (1.1-2.1) L 10/15/18 05:21 Specimen Type Catherized urine 10/09/18 16:55 Urine Color Yellow (YELLOW) 10/09/18 16:55 Urine Appearance Cloudy (CLEAR) 10/09/18 16:55 Urine pH 6.5 (5.0 - 8.0) 10/09/18 16:55 Ur Specific [place] 1.015 (1.000-1.030) 10/09/18 16:55 Urine Protein 2+ (NEGATIVE) 10/09/18 16:55 Urine Glucose (UA) Negative (NEGATIVE) 10/09/18 16:55 Urine Ketones Negative (NEGATIVE) 10/09/18 16:55 Urine Occult Blood 3+ (NEGATIVE) 10/09/18 16:55 Urine Nitrite Negative (NEGATIVE) 10/09/18 16:55 Urine Bilirubin Negative (NEGATIVE) 10/09/18 16:55 Urine Urobilinogen Normal (NORMAL) 10/09/18 16:55 Ur Leukocyte Esterase 3+ (NEGATIVE) 10/09/18 16:55 Urine RBC 3-5 /HPF (NONE SEEN) 10/09/18 16:55 Urine WBC Tntc /HPF (NONE SEEN) 10/09/18 16:55 Ur Squamous Epith Cells Few /HPF (NEGATIVE) 10/09/18 16:55 Ur Transition Epith Cell Few /HPF (NEGATIVE) 10/09/18 16:55 Urine Bacteria 3+ /HPF (NEGATIVE) 10/09/18 16:55 Urine Mucus Moderate /HPF (NEGATIVE) 10/09/18 16:55 Ur Culture Indicated? No/not indicated 10/09/18 16:55 - Assessment and Plan 1: moderate gastroperesis , no gastric outlet obstruction. will continue feeding as tolerated ,
[2018-10-16 05:32] LABS: BASOPHILS % (AUTO) 0.4 % (0.2-1.0); EOSINOPHILS % (AUTO) 0.2 % (0.9-2.9); HEMATOCRIT 34.2 % (36.0-47.0); HEMOGLOBIN 11.4 g/dL (12.0-16.0); LYMPHOCYTES # (AUTO) 1.7 X10^3/uL (1.3-2.9); LYMPHOCYTES % (AUTO) 21.3 % (21.0-51.0); MEAN CORPUSCULAR HEMOGLOBIN 26.6 pg (27.0-34.0); MEAN CORPUSCULAR HGB CONC 33.4 g/dL (33.0-35.0); MEAN CORPUSCULAR VOLUME 79.5 fL (80.0-100.0); MEAN PLATELET VOLUME 7.6 fL (7.4-11.0); MONOCYTES # (AUTO) 0.7 x10^3/uL (0.3-0.8); MONOCYTES % (AUTO) 8.8 % (0.0-13.0); NEUTROPHILS # (AUTO) 5.4 x10^3/uL (2.2-4.8); NEUTROPHILS % (AUTO) 69.3 % (42.0-75.0); PLATELET COUNT 369 X10^3/uL (150.0-450.0); RED CELL DISTRIBUTION WIDTH 19.4 % (11.6-16.5); WHITE BLOOD COUNT 7.8 X10^3/uL (3.6-10.0)
[2018-10-16] MEDS: MILK OF MAGNESIA PO SCH ×3 (05:39→23:20)
[2018-10-16 05:46] LABS: ALANINE AMINOTRANSFERASE 17 Units/L (12-78); ALBUMIN 2.5 g/dL (3.4-5.0); ALKALINE PHOSPHATASE 70 Units/L (46-116); ASPARTATE AMINO TRANSFERASE 14 Units/L (15-37); BLOOD UREA NITROGEN 0 mg/dL (7-18); CARBON DIOXIDE 24.1 mmol/L (21-32); CHLORIDE 99 mmol/L (98-107); COR CA(FOR HYPOALB) 10.2 mg/dL (8.5-10.1); CREATININE 0.46 mg/dL (0.55-1.02); SODIUM 133 mmol/L (136-145); TOTAL PROTEIN 6.4 g/dL (6.4-8.2); eGFR NON BLACK RACES > 60 (>60)
[2018-10-16 06:01] LABS: ANISOCYTOSIS SLIGHT; PLATELET MORPHOLOGY COMMENT NORMAL (NORMAL)
[2018-10-16] MEDS: CHRONULAC PO SCH ×2 (09:41→21:00)
[2018-10-16] MEDS: PEPCID 20 MG IV PREMIX* 20 MG/50 ML BAG IV SCH ×2 (09:42→21:40)
[2018-10-16] MEDS: MIRALAX POWDER (1 DOSE 17 G) PO SCH (09:42)
[2018-10-16] MEDS: COLACE CAP 100 MG PO SCH ×2 (09:42→21:37)
[2018-10-16] MEDS: LOVENOX INJ 30 MG SYR SC SCH ×2 (09:42→21:41)
[2018-10-16] MEDS: SYNTHROID INJ 100 mcg VIAL IVP SCH (09:43)
[2018-10-16] MEDS: ROCEPHIN VIAL 1 GRAM IVP SCH (09:51)
[2018-10-16] MEDS: MEGACE PO SCH ×2 (09:53→21:38)
[2018-10-16] MEDS: VIBRAMYCIN 100 MG in D5W 250 ML IV 250 ML IV SCH ×2 (10:27→23:21)
[2018-10-16] MEDS: NS 1000 ML 1,000 ML IV SCH (19:56)
[2018-10-17 05:27] LABS: BASOPHILS # (AUTO) 0.1 X10^3/uL (0.0-0.1); BASOPHILS % (AUTO) 1.1 % (0.2-1.0); EOSINOPHILS % (AUTO) 0.2 % (0.9-2.9); HEMATOCRIT 36.8 % (36.0-47.0); HEMOGLOBIN 12.2 g/dL (12.0-16.0); LYMPHOCYTES # (AUTO) 1.8 X10^3/uL (1.3-2.9); LYMPHOCYTES % (AUTO) 23.7 % (21.0-51.0); MEAN CORPUSCULAR HEMOGLOBIN 26.4 pg (27.0-34.0); MEAN CORPUSCULAR HGB CONC 33.2 g/dL (33.0-35.0); MEAN CORPUSCULAR VOLUME 79.5 fL (80.0-100.0); MEAN PLATELET VOLUME 7.9 fL (7.4-11.0); MONOCYTES # (AUTO) 0.7 x10^3/uL (0.3-0.8); MONOCYTES % (AUTO) 9.4 % (0.0-13.0); NEUTROPHILS # (AUTO) 4.9 x10^3/uL (2.2-4.8); NEUTROPHILS % (AUTO) 65.6 % (42.0-75.0); PLATELET COUNT 428 X10^3/uL (150.0-450.0); RED BLOOD COUNT 4.63 X10^6/uL (3.5-5.4); RED CELL DISTRIBUTION WIDTH 19.7 % (11.6-16.5); WHITE BLOOD COUNT 7.5 X10^3/uL (3.6-10.0)
[2018-10-17 05:30] LABS: ALANINE AMINOTRANSFERASE 14 Units/L (12-78); ALBUMIN 2.6 g/dL (3.4-5.0); ALKALINE PHOSPHATASE 74 Units/L (46-116); ASPARTATE AMINO TRANSFERASE 19 Units/L (15-37); CALCIUM 8.9 mg/dL (8.5-10.1); CARBON DIOXIDE 28.2 mmol/L (21-32); CREATININE 0.49 mg/dL (0.55-1.02); TOTAL PROTEIN 6.5 g/dL (6.4-8.2); eGFR NON BLACK RACES > 60 (>60)
[2018-10-17 05:38] LABS: BLOOD UREA NITROGEN 1 mg/dL (7-18); CHLORIDE 104 mmol/L (98-107); SODIUM 139 mmol/L (136-145)
[2018-10-17 06:06] LABS: ANISOCYTOSIS SLIGHT; PLATELET MORPHOLOGY COMMENT NORMAL (NORMAL)
[2018-10-17] MEDS: MILK OF MAGNESIA PO SCH ×3 (06:25→20:59)
[2018-10-17] MEDS: KLOR-CON PO PRN (06:25)
[2018-10-17] MEDS: CHRONULAC PO SCH ×2 (09:11→20:58)
[2018-10-17] MEDS: SYNTHROID INJ 100 mcg VIAL IVP SCH (09:11)
[2018-10-17] MEDS: ROCEPHIN VIAL 1 GRAM IVP SCH (09:12)
[2018-10-17] MEDS: PEPCID 20 MG IV PREMIX* 20 MG/50 ML BAG IV SCH ×2 (09:19→20:59)
[2018-10-17] MEDS: LOVENOX INJ 30 MG SYR SC SCH ×2 (09:20→20:59)
[2018-10-17] MEDS: MEGACE PO SCH ×2 (09:20→21:00)
[2018-10-17] MEDS: MIRALAX POWDER (1 DOSE 17 G) PO SCH (09:21)
[2018-10-17] MEDS: COLACE CAP 100 MG PO SCH ×2 (09:21→21:00)
[2018-10-17] MEDS: VIBRAMYCIN 100 MG in D5W 250 ML IV 250 ML IV SCH ×2 (10:49→20:58)
[2018-10-17] MEDS: NS 1000 ML 1,000 ML IV SCH ×2 (14:29→22:00)
--- NOTE | 2018-10-17 22:11 | PCM.PROG ---
Progress Note - Progress Note for Day of Date of Exam: 10/15/18 - Subjective Subjective: WAS ADMITTED FOR MODERATE RESIDUAL FROM PEG TUBE, A URINARY TRACT INFECTION, AND CONSTIPATION. TODAY, SHE IS LYING IN BED ON MORNING ROUNDS. SHE CONTINUES TO BE DISORIENTED. PATIENT DOES HAVE A HISTORY OF DEMENTIA. SHE HAS HAD LESS RESIDUAL WITH TUBE FEEDINGS SINCE YESTERDAY. STAFF REPORTS THAT SHE HAS HAD A BOWEL MOVEMENT. ON EXAMINATION, HEART IS REGULAR IN RATE AND RHYTHM. BILATERAL LUNGS ARE NOTED WITH DIMINISHED LUNG SOUNDS THROUGHOUT. ABDOMEN IS ROUND, SOFT, AND NOTED WITH SUPRAPUBIC TENDERNESS. HER VITALS THIS MORNING ARE 98.9-80-18-98%-181/92. LABS WERE OBTAINED. ABNORMAL LAB VALUES INCLUDED THE FOLLOWING: HGB 11.5, HCT 3.8, POTASSIUM 3.0, BUN 4, CREATININE 0.38, CALCIUN 8.3, TOTAL PROTEIN 6.2, ALBUMIN 2.4. URINE CULTURE REPORTED GROWTH OF E.COLI. A KUB WAS OBTAINED THIS MORNING AND REVEALED: Improved stool burden within the distal colon and rectum. Otherwise, nonspecific but nonobstructive bowel gas pattern. SHE IS CURRENTLY RECEIVING IV FLUIDS AND IV ANTIBIOTICS. CONSULTED WITH PATIENT AND ORDERED A SMALL BOWEL FOLLOW THROUGH. WE ARE IN AGREEMENT WITH PLAN. OTHERWISE, WE PLAN TO FOLLOW UP WITH AM LABS AND CONTINUE TO MONITOR. - Past Medical Family Social History Past Med/Fam/Surg Hx: No changes since H&P Allergies: Allergies No Known Drug Allergies Allergy (Verified 02/20/17 20:10) - Review of Systems ROS: No change since H&P - Vital Signs and I&O's Vital Signs: Temperature 99 F Pulse Rate [Right Radial] 104 Respiratory Rate 18 Blood Pressure [Right Arm] 150/82 Blood Pressure [Left Arm] 151/82 Blood Pressure 111/61 O2 Sat by Pulse Oximetry 98 Intake and Output: Intake & Output 10/15/18 10/16/18 10/17/18 10/18/18 11:59 11:59 11:59 11:59 Intake Total 2144 / 2145 1120 / 1120 1160 / 1160 0 / 0 Balance 2144 1120 / 1120 1160 / 1160 0 / 0 - Physical Exam Oriented: Not Oriented Eyes: Normal Ear: Normal Nose: Normal Throat: Normal Respiratory: Generalized, Diminished Cardiovascular: Tachycardia : Normal Auscultation: Bowel Sounds: Normal Tenderness: Diffuse (soft abdomen , with mild diffuse tenderness , BS + ..PEG tube in good position , no leakage .), Mild. negative: Rebound, Guarding, Rigidity Skin: Normal Musculoskeletal: Normal Psychiatric: Normal Mood Description: Calm Affect: Normal Speech Pattern: Clear, Appropriate - Laboratory and Diagnostics Result Diagrams: 10/17/18 05:02 10/17/18 05:02 Labs: 10/09/18 17:33 Blood Blood Culture - Final 10/09/18 17:19 Blood Blood Culture - Final 10/09/18 16:55 Urine,[place] Urine Culture - Final Escherichia Coli Laboratory WBC 7.5 X10^3/uL (3.6-10.0) 10/17/18 05:02 RBC 4.63 X10^6/uL (3.5-5.4) 10/17/18 05:02 Hgb 12.2 g/dL (12.0-16.0) 10/17/18 05:02 Hct 36.8 % (36.0-47.0) 10/17/18 05:02 MCV 79.5 fL (80.0-100.0) L 10/17/18 05:02 MCH 26.4 pg (27.0-34.0) L 10/17/18 05:02 MCHC 33.2 g/dL (33.0-35.0) 10/17/18 05:02 RDW 19.7 % (11.6-16.5) H 10/17/18 05:02 Plt Count 428 X10^3/uL (150.0-450.0) 10/17/18 05:02 Plt Count Comment Adequate (ADEQUATE) 10/17/18 05:02 MPV 7.9 fL (7.4-11.0) 10/17/18 05:02 Neut % (Auto) 65.6 % (42.0-75.0) 10/17/18 05:02 Lymph % (Auto) 23.7 % (21.0-51.0) 10/17/18 05:02 [place] % (Auto) 9.4 % (0.0-13.0) 10/17/18 05:02 Eos % (Auto) 0.2 % (0.9-2.9) L 10/17/18 05:02 Baso % (Auto) 1.1 % (0.2-1.0) H 10/17/18 05:02 Neut # (Auto) 4.9 x10^3/uL (2.2-4.8) H 10/17/18 05:02 Lymph # (Auto) 1.8 X10^3/uL (1.3-2.9) 10/17/18 05:02 [place] # (Auto) 0.7 x10^3/uL (0.3-0.8) 10/17/18 05:02 Eos # (Auto) 0.0 x10^3/uL (0.0-0.2) 10/17/18 05:02 Baso # (Auto) 0.1 X10^3/uL (0.0-0.1) 10/17/18 05:02 Absolute Nucleated RBC 0.0 /100WBC 10/17/18 05:02 Plt Morphology Comment Normal (NORMAL) 10/17/18 05:02 RBC Morphology Abnormal (NORMAL) A 10/17/18 05:02 Hypochromasia Slight A 10/10/18 03:58 Anisocytosis Slight A 10/17/18 05:02 Sodium 139 mmol/L (136-145) 10/17/18 05:02 Corrected Sodium TNP 10/17/18 05:02 Potassium 3.3 mmol/L (3.5-5.1) L 10/17/18 05:02 Chloride 104 mmol/L (98-107) 10/17/18 05:02 Carbon Dioxide 28.2 mmol/L (21-32) 10/17/18 05:02 BUN 1 mg/dL (7-18) L 10/17/18 05:02 Creatinine 0.49 mg/dL (0.55-1.02) L 10/17/18 05:02 Est GFR (MDRD) Af Amer > 60 (>60) 10/17/18 05:02 Est GFR (MDRD) Non-Af > 60 (>60) 10/17/18 05:02 Glucose 91 mg/dL (65-99) 10/17/18 05:02 Lactic Acid 1.2 mmol/L (0.4-2.0) 10/09/18 17:19 Calcium 8.9 mg/dL (8.5-10.1) 10/17/18 05:02 Corrected Calcium 10.0 mg/dL (8.5-10.1) 10/17/18 05:02 Magnesium 2.2 mg/dL (1.7-2.9) 10/17/18 05:00 Total Bilirubin 0.30 mg/dL (0.2-1.0) 10/17/18 05:02 AST 19 Units/L (15-37) 10/17/18 05:02 ALT 14 Units/L (12-78) 10/17/18 05:02 Alkaline Phosphatase 74 Units/L (46-116) 10/17/18 05:02 Total Protein 6.5 g/dL (6.4-8.2) 10/17/18 05:02 Albumin 2.6 g/dL (3.4-5.0) L 10/17/18 05:02 Globulin 3.9 g/dL (2.5-4.5) 10/17/18 05:02 Albumin/Globulin Ratio 0.7 Ratio (1.1-2.1) L 10/17/18 05:02 Specimen Type Catherized urine 10/09/18 16:55 Urine Color Yellow (YELLOW) 10/09/18 16:55 Urine Appearance Cloudy (CLEAR) 10/09/18 16:55 Urine pH 6.5 (5.0 - 8.0) 10/09/18 16:55 Ur Specific [place] 1.015 (1.000-1.030) 10/09/18 16:55 Urine Protein 2+ (NEGATIVE) 10/09/18 16:55 Urine Glucose (UA) Negative (NEGATIVE) 10/09/18 16:55 Urine Ketones Negative (NEGATIVE) 10/09/18 16:55 Urine Occult Blood 3+ (NEGATIVE) 10/09/18 16:55 Urine Nitrite Negative (NEGATIVE) 10/09/18 16:55 Urine Bilirubin Negative (NEGATIVE) 10/09/18 16:55 Urine Urobilinogen Normal (NORMAL) 10/09/18 16:55 Ur Leukocyte Esterase 3+ (NEGATIVE) 10/09/18 16:55 Urine RBC 3-5 /HPF (NONE SEEN) 10/09/18 16:55 Urine WBC Tntc /HPF (NONE SEEN) 10/09/18 16:55 Ur Squamous Epith Cells Few /HPF (NEGATIVE) 10/09/18 16:55 Ur Transition Epith Cell Few /HPF (NEGATIVE) 10/09/18 16:55 Urine Bacteria 3+ /HPF (NEGATIVE) 10/09/18 16:55 Urine Mucus Moderate /HPF (NEGATIVE) 10/09/18 16:55 Ur Culture Indicated? No/not indicated 10/09/18 16:55 - Plan (1) Urinary tract infection Status: Acute Qualifiers: Urinary tract infection type: site unspecified Hematuria presence: without hematuria Qualified Code(s): N39.0 - Urinary tract infection, site not specified Plan: ROCEPHIN 1G IV DAILY, iv fluids, continue to monitor. (2) PEG tube malfunction Status: Acute Plan: RESUME PEG TUBE FEEDINGS TODAY, CONTINUE TO MONITOR (3) Constipation Status: Acute Qualifiers: Constipation type: slow transit constipation Qualified Code(s): K59.01 - Slow transit constipation Plan: LACTULOSE 10ML PO BID, COLACE, MILK OF MAGNESIA, MIRALAX
[2018-10-18 05:30] LABS: BASOPHILS # (AUTO) 0.1 X10^3/uL (0.0-0.1); BASOPHILS % (AUTO) 0.8 % (0.2-1.0); EOSINOPHILS % (AUTO) 0.2 % (0.9-2.9); HEMATOCRIT 32.6 % (36.0-47.0); LYMPHOCYTES # (AUTO) 1.8 X10^3/uL (1.3-2.9); LYMPHOCYTES % (AUTO) 21.5 % (21.0-51.0); MEAN CORPUSCULAR HGB CONC 33.8 g/dL (33.0-35.0); MEAN CORPUSCULAR VOLUME 79.7 fL (80.0-100.0); MEAN PLATELET VOLUME 7.7 fL (7.4-11.0); MONOCYTES # (AUTO) 0.9 x10^3/uL (0.3-0.8); MONOCYTES % (AUTO) 10.3 % (0.0-13.0); NEUTROPHILS # (AUTO) 5.8 x10^3/uL (2.2-4.8); NEUTROPHILS % (AUTO) 67.2 % (42.0-75.0); PLATELET COUNT 380 X10^3/uL (150.0-450.0); RED BLOOD COUNT 4.09 X10^6/uL (3.5-5.4); RED CELL DISTRIBUTION WIDTH 19.9 % (11.6-16.5); WHITE BLOOD COUNT 8.6 X10^3/uL (3.6-10.0)
[2018-10-18 05:38] LABS: ALANINE AMINOTRANSFERASE 9 Units/L (12-78); ALBUMIN 2.3 g/dL (3.4-5.0); ALKALINE PHOSPHATASE 64 Units/L (46-116); ASPARTATE AMINO TRANSFERASE 13 Units/L (15-37); BLOOD UREA NITROGEN 0 mg/dL (7-18); CALCIUM 8.7 mg/dL (8.5-10.1); CARBON DIOXIDE 27.6 mmol/L (21-32); CHLORIDE 107 mmol/L (98-107); COR CA(FOR HYPOALB) 10.1 mg/dL (8.5-10.1); CREATININE 0.51 mg/dL (0.55-1.02); SODIUM 141 mmol/L (136-145); TOTAL PROTEIN 5.8 g/dL (6.4-8.2); eGFR NON BLACK RACES > 60 (>60)
[2018-10-18 05:44] LABS: ANISOCYTOSIS SLIGHT; PLATELET MORPHOLOGY COMMENT NORMAL (NORMAL)
[2018-10-18] MEDS: MILK OF MAGNESIA PO SCH (05:48)
[2018-10-18] MEDS: NS 1000 ML 1,000 ML IV SCH (05:53)
[2018-10-18] MEDS: KLOR-CON PO PRN (06:09)
--- NOTE | 2018-10-18 06:09 | RAD ---
HISTORY: Peg tube dysfunction Study: KUB Comparison: 10/15/2018 Findings: There is a PEG tube overlying the left mid abdomen. Its precise location cannot be determined without contrast. The abdominal gas pattern is nonspecific and nonobstructive. No abnormal masses or abnormal calcifications are identified. IMPRESSION: Nonspecific bowel gas pattern Reported By:
[2018-10-18] MEDS: ROCEPHIN VIAL 1 GRAM IVP SCH (09:30)
[2018-10-18] MEDS: SYNTHROID INJ 100 mcg VIAL IVP SCH (09:30)
[2018-10-18] MEDS: COLACE CAP 100 MG PO SCH (09:30)
[2018-10-18] MEDS: PEPCID 20 MG IV PREMIX* 20 MG/50 ML BAG IV SCH (09:30)
[2018-10-18] MEDS: MEGACE PO SCH (09:31)
[2018-10-18] MEDS: LOVENOX INJ 30 MG SYR SC SCH (09:31)
[2018-10-18] MEDS: MIRALAX POWDER (1 DOSE 17 G) PO SCH (09:32)
[2018-10-18] MEDS: CHRONULAC PO SCH (09:32)
[2018-10-18] MEDS: VIBRAMYCIN 100 MG in D5W 250 ML IV 250 ML IV SCH (10:25)
[2018-10-18] MEDS ORDERED: REGLAN SYRUP 10 MG UDC PO SCH (11:30)
[2018-10-18 14:46] VITALS: BP 153/69
== END 2018-10-18 14:30 | DRG 394 ==
LOC: MED/SURG
PROVIDERS: ADMIT Internal Medicine; ATTEND Internal Medicine
DX: E78.2 Mixed hyperlipidemia; K31.84 Gastroparesis; K94.23 Gastrostomy malfunction; R26.89 Other abnormalities of gait and mobility; R94.31 Abnormal electrocardiogram [ECG] [EKG]; I25.10 Atherosclerotic heart disease of native coronary artery without angina pectoris; N39.0 Urinary tract infection, site not specified; I10 Essential (primary) hypertension; E03.8 Other specified hypothyroidism; K59.01 Slow transit constipation; Z74.01 Bed confinement status; B96.29 Other Escherichia coli [E. coli] as the cause of diseases classified elsewhere
CPT/HCPCS: 36415; 71010; 71045; 74000; 74018; 80053; 81001; 83605; 83735; 84132; 85025; 87040; 87086; 87088; 87186; 93005; 97110; 97162; 97166; 97530; A4222; S0028; S0179; G0378; J0696; J1650; J1956; J3475; J3480; J3490; J7030; J7060

== ENCOUNTER 2019-03-15 22:03 | Inpatient (IN) ==
[2019-03-15] MEDS ORDERED: NS 1000 ML 1,000 ML IV ONE (22:11)
[2019-03-15] MEDS ORDERED: ROCEPHIN VIAL 1 GRAM 1 G in NS 100 ML IV + SPIKE MINIBAG* 100 ML IV SCH (22:12)
[2019-03-15 22:47] VITALS: BMI 16.9
[2019-03-15 22:56] LABS: BASOPHILS # (AUTO) 0.1 X10^3/uL (0.0-0.1); HEMOGLOBIN 12.4 g/dL (12.0-16.0); LYMPHOCYTES # (AUTO) 1.2 X10^3/uL (1.3-2.9); LYMPHOCYTES % (AUTO) 15.3 % (21.0-51.0); MEAN CORPUSCULAR HEMOGLOBIN 27.6 pg (27.0-34.0); MEAN CORPUSCULAR HGB CONC 33.6 g/dL (33.0-35.0); MEAN CORPUSCULAR VOLUME 82.1 fL (80.0-100.0); MEAN PLATELET VOLUME 7.5 fL (7.4-11.0); MONOCYTES # (AUTO) 0.9 x10^3/uL (0.3-0.8); MONOCYTES % (AUTO) 11.3 % (0.0-13.0); NEUTROPHILS # (AUTO) 5.7 x10^3/uL (2.2-4.8); NEUTROPHILS % (AUTO) 72.4 % (42.0-75.0); PLATELET COUNT 455 X10^3/uL (150.0-450.0); RED CELL DISTRIBUTION WIDTH 16.7 % (11.6-16.5); WHITE BLOOD COUNT 7.9 X10^3/uL (3.6-10.0)
[2019-03-15] MEDS ORDERED: PHARMACY CONSULT LTC MEDICATIONS XX SCH (23:00)
[2019-03-15] MEDS ORDERED: BUTT CREAM (COMPOUND) TOP PRN (23:01)
[2019-03-15 23:10] LABS: ALANINE AMINOTRANSFERASE 23 Units/L (12-78); ALBUMIN 2.7 g/dL (3.4-5.0); ALKALINE PHOSPHATASE 102 Units/L (46-116); ASPARTATE AMINO TRANSFERASE 15 Units/L (15-37); BLOOD UREA NITROGEN 19 mg/dL (7-18); CARBON DIOXIDE 32.9 mmol/L (21-32); CHLORIDE 88 mmol/L (98-107); CREATININE 0.37 mg/dL (0.55-1.02); MAGNESIUM 1.9 mg/dL (1.7-2.9); TOTAL PROTEIN 6.4 g/dL (6.4-8.2); eGFR NON BLACK RACES > 60 (>60)
[2019-03-15 23:18] LABS: SODIUM 124 mmol/L (136-145)
[2019-03-15] MEDS ORDERED: ROCEPHIN VIAL 1 GRAM ONE (23:26)
[2019-03-15] MEDS ORDERED: NS 100 ML IV + SPIKE MINIBAG* 100 ML IV ONE (23:26)
[2019-03-16 06:05] LABS: BILIRUBIN,URINE NEGATIVE (NEGATIVE); BLOOD/HEMOGLOBIN,URINE NEGATIVE (NEGATIVE); GLUCOSE, URINE NEGATIVE (NEGATIVE); KETONES,URINE NEGATIVE (NEGATIVE); LEUKOCYTE ESTERASE ,URINE 2+ (NEGATIVE); NITRITES,URINE NEGATIVE (NEGATIVE); PROTEIN,URINE 1+ (NEGATIVE); UROBILINOGEN,URINE NORMAL (NORMAL)
[2019-03-16 06:11] LABS: APPEARANCE,URINE CLEAR (CLEAR); COLOR,URINE YELLOW (YELLOW)
[2019-03-16 06:14] LABS: BACTERIA,URINE NEGATIVE /HPF (NEGATIVE); RBC,URINE NONE SEEN /HPF (0-3); RENAL EPITHELIAL CELLS,URINE MODERATE /HPF (NEGATIVE); SQUAMOUS EPITHELIAL CELL,UR NEGATIVE /HPF (NEGATIVE); YEAST,URINE FEW /HPF (NEGATIVE)
[2019-03-16 06:45] LABS: ALANINE AMINOTRANSFERASE 23 Units/L (12-78); ALBUMIN 2.6 g/dL (3.4-5.0); ALKALINE PHOSPHATASE 103 Units/L (46-116); ASPARTATE AMINO TRANSFERASE 16 Units/L (15-37); BLOOD UREA NITROGEN 14 mg/dL (7-18); CALCIUM 7.9 mg/dL (8.5-10.1); CARBON DIOXIDE 31.9 mmol/L (21-32); CHLORIDE 90 mmol/L (98-107); COR NA(FOR HYPERGLY) 127 mmol/L (136-145); CREATININE 0.33 mg/dL (0.55-1.02); SODIUM 127 mmol/L (136-145); TOTAL PROTEIN 6.3 g/dL (6.4-8.2); eGFR NON BLACK RACES > 60 (>60)
[2019-03-16] MEDS ORDERED: HEMOCYTE-PLUS PO SCH (11:00)
--- NOTE | 2019-03-16 11:32 | RAD ---
HISTORY: Abdominal distension Study: KUB Comparison: 03/09/2019. Findings: G-tube is seen projected over the region of the gastric antrum. Intraluminal position would need to be confirmed with oral contrast injection. There is moderately large amount of stool present involving the colon. There is a large gaseous loop of bowel seen underneath the right diaphragm. This is likely: Also. Although this is difficult to accurately measure, the loop appears to be about 10 cm in diameter. No evidence of bowel obstruction is seen. There is no evidence of opaque stone. There is a left hip nail present. Heavy calcification is seen within the kahn of the abdominal aorta without aneurysm formation. IMPRESSION: Loop of distended bowel, likely colon in the region of the subdiaphragmatic space on the right. The bowel loops measures up to about 10 cm in diameter. There is fecal material present within the colon, extending down to the level of the rectosigmoid. No evidence of bowel obstruction is seen. Reported By:
[2019-03-16] MEDS ORDERED: ZESTRIL TAB 20 MG ONE (11:42)
[2019-03-16] MEDS: NS 1000 ML 1,000 ML IV SCH (12:11)
[2019-03-16] MEDS: ASPIRIN 81 MG CHEWTAB PEG SCH (12:12)
[2019-03-16] MEDS: SYNTHROID 100 mcg TAB PEG SCH (12:13)
[2019-03-16] MEDS: VITAMIN C PEG SCH ×2 (12:13→21:48)
[2019-03-16] MEDS: ZESTRIL TAB 20 MG PEG SCH (12:13)
[2019-03-16] MEDS: PriLOSEC PO SCH ×2 (12:13→21:48)
[2019-03-16] MEDS: KLONOPIN TAB 0.5 MG PEG SCH ×2 (12:16→21:48)
[2019-03-16] MEDS ORDERED: PATIENT'S HOME MEDICATION (Amino Acids-Protein Hydrolys [Pro-Stat Awc] 30 ML) feeding tube SCH (13:00)
[2019-03-16] MEDS ORDERED: DULCOLAX SUPPOSITORY 10 MG RECTAL ONE (15:56)
[2019-03-16] MEDS ORDERED: DULCOLAX SUPPOSITORY 10 MG ONE (16:04)
--- NOTE | 2019-03-16 18:39 | DR.H&P ---
H&P - History & Physical for Day of: H&P Date: 03/15/19 - Chief Complaint Chief Complaint: HYPONATREMIA, PER KITZMILLER - History of Present Illness History of Present Illness: 73 WF RESIDENT OF [facility] [place] DIRECT ADMIT WITH HYPONATREMIA WITH NA 124. PT HAS HX OF DEMENTIA, FEEDING TUBE USED FOR NUTRITION. JAUN REPORTS PT HAS INCREASED LETHARGY, ABD DISTENTION. PT ADMITTED FOR GENTLE IV HYDRATION FOR TREATMENT OF ACUTE HYPONATREMIA. - Past Medical History Past Medical History: Coronary Artery Disease, Hypertension, Dyslipidemia, Dementia, Hypothyroidism, Anemia, Arthritis - Past Surgical History Surgical History: Other - Family History Family Medical History: Coronary Artery Disease, Hypertension - Social History Alcohol Use: None Drug Use: None - Medications Home Medications: No Known Drug Allergies Allergy (Verified 03/15/19 23:25) CONTINUE taking the following medications Lactobacillus acidophilus 500 mg FEEDING TUBE DAILY 03/15/19 [History] ascorbic acid (vitamin C) [Vitamin C] 250 mg FEEDING TUBE BID 03/15/19 [History] clonazepam [Klonopin] 0.5 mg FEEDING TUBE QHS 03/15/19 [History] ferrous fumarate [Ferrocite] 324 mg FEEDING TUBE DAILY 03/15/19 [History] lisinopril 20 mg FEEDING TUBE DAILY 03/15/19 [History] olanzapine [Zyprexa] 5 mg FEEDING TUBE BID 03/15/19 [History] ondansetron HCl [Zofran] 8 mg FEEDING TUBE Q6HR 03/15/19 [History] potassium chloride 10 meq FEEDING TUBE DAILY 03/15/19 [History] zinc sulfate [Zinc-220] 220 mg FEEDING TUBE DAILY 03/15/19 [History] - Review of Systems Constitutional: Weakness Eyes: No Symptoms Reported ENT: No Symptoms Reported Respiratory: No Symptoms Reported Cardiovascular: No Symptoms Reported Gastrointestinal: Constipation Genitourinary: Incontinence Musculoskeletal: No Symptoms Reported Skin: No Symptoms Reported Neurological: Weakness, Confusion - Physical Exam Vital Signs: Temperature 98.0 F Pulse Rate [Left Radial] 95 Respiratory Rate 18 Blood Pressure [Right Arm] 154/75 Blood Pressure [Left Arm] 119/67 O2 Sat by Pulse Oximetry 94 Oriented: negative: Time, Person, Place Eyes: Normal Ear: Right Nose: Normal Throat: Dry Respiratory: RLL Diminished, LLL Diminished Cardiovascular: Normal : Normal Auscultation: Bowel Sounds: Normal Palpation: Normal Tenderness: Normal Skin: Decreased Turgur Musculoskeletal: Right, Left, Arm, Leg, Deformity, Motor Deficit Psychiatric: Agitation Mood Description: Anxious Affect: Anxious Speech Pattern: Aphasic - Assessment/Plan (1) Hyponatremia Status: Acute Plan: ADMIT, BLOOD,URINE AND STOOL CULTURE. IV HYDRATION. STRICT I & OS. KUB, VERIFY HOME MEDICATIONS. PEG TUBE FEEDINGS, ADMISSION AND AM LABS (2) Dementia Status: Acute (3) Bedridden Status: Acute (4) Weakness Status: Acute - Allergies Allergies/Adverse Reactions: Allergies Allergy/AdvReac Type Severity Reaction Status Date / Time No Known Drug Allergies Allergy Verified 03/15/19 23:25
--- NOTE | 2019-03-16 18:46 | PCM.PROG ---
Progress Note - Progress Note for Day of Date of Exam: 03/16/19 - Subjective Subjective: 73 WF ADMITTED ON 03/15 WITH HYPONATREMIA. PT NA UP TO 127 WITH GENTLE IV HYDRATION. KUB REVEALED CONSTIPATION, DULCOLAX SUPPOSITORY ORDRED, RESUMED HOME MEDICATION, RESUMED PEG TUBE FEEDINGS. PT HAD URINE AND BLOOD CULTURES OBTAINED ON ADMISSION PENDING. - Past Medical Family Social History Allergies: Allergies No Known Drug Allergies Allergy (Verified 03/15/19 23:25) - Review of Systems ROS: No change since H&P - Vital Signs and I&O's Vital Signs: Temperature 98.0 F Pulse Rate [Left Radial] 95 Respiratory Rate 18 Blood Pressure [Right Arm] 154/75 Blood Pressure [Left Arm] 119/67 O2 Sat by Pulse Oximetry 94 Intake and Output: Intake & Output 03/14/19 03/15/19 03/16/19 03/17/19 11:59 11:59 11:59 11:59 Intake Total 675 / 675 450 / 450 Balance 675 / 675 450 / 450 - Physical Exam Oriented: negative: Time, Person, Place Eyes: Normal Ear: Right Nose: Normal Throat: Dry Cardiovascular: Normal : Normal Auscultation: Bowel Sounds: Normal Tenderness: Normal Skin: Decreased Turgur Musculoskeletal: Right, Left, Arm, Leg, Deformity, Motor Deficit Psychiatric: Agitation Mood Description: Anxious Affect: Anxious Speech Pattern: Aphasic - Laboratory and Diagnostics Result Diagrams: 03/15/19 22:32 03/16/19 05:30 Labs: Laboratory WBC 7.9 X10^3/uL (3.6-10.0) 03/15/19 22:32 RBC 4.50 X10^6/uL (3.5-5.4) 03/15/19 22:32 Hgb 12.4 g/dL (12.0-16.0) 03/15/19 22:32 Hct 37.0 % (36.0-47.0) 03/15/19 22:32 MCV 82.1 fL (80.0-100.0) 03/15/19 22:32 MCH 27.6 pg (27.0-34.0) 03/15/19 22:32 MCHC 33.6 g/dL (33.0-35.0) 03/15/19 22:32 RDW 16.7 % (11.6-16.5) H 03/15/19 22:32 Plt Count 455 X10^3/uL (150.0-450.0) H 03/15/19 22:32 MPV 7.5 fL (7.4-11.0) 03/15/19 22:32 Neut % (Auto) 72.4 % (42.0-75.0) 03/15/19 22:32 Lymph % (Auto) 15.3 % (21.0-51.0) L 03/15/19 22:32 [place] % (Auto) 11.3 % (0.0-13.0) 03/15/19 22:32 Eos % (Auto) 0.0 % (0.9-2.9) L 03/15/19 22:32 Baso % (Auto) 1.0 % (0.2-1.0) 03/15/19 22:32 Neut # (Auto) 5.7 x10^3/uL (2.2-4.8) H 03/15/19 22:32 Lymph # (Auto) 1.2 X10^3/uL (1.3-2.9) L 03/15/19 22:32 [place] # (Auto) 0.9 x10^3/uL (0.3-0.8) H 03/15/19 22:32 Eos # (Auto) 0.0 x10^3/uL (0.0-0.2) 03/15/19 22:32 Baso # (Auto) 0.1 X10^3/uL (0.0-0.1) 03/15/19 22:32 Absolute Nucleated RBC 0.0 /100WBC 03/15/19 22:32 Sodium 127 mmol/L (136-145) L 03/16/19 05:30 Corrected Sodium 127 mmol/L (136-145) L 03/16/19 05:30 Potassium 4.3 mmol/L (3.5-5.1) 03/16/19 05:30 Chloride 90 mmol/L (98-107) L 03/16/19 05:30 Carbon Dioxide 31.9 mmol/L (21-32) 03/16/19 05:30 BUN 14 mg/dL (7-18) 03/16/19 05:30 Creatinine 0.33 mg/dL (0.55-1.02) L 03/16/19 05:30 Est GFR (MDRD) Af Amer > 60 (>60) 03/16/19 05:30 Est GFR (MDRD) Non-Af > 60 (>60) 03/16/19 05:30 Glucose 111 mg/dL (65-99) H 03/16/19 05:30 Calcium 7.9 mg/dL (8.5-10.1) L 03/16/19 05:30 Corrected Calcium 9.0 mg/dL (8.5-10.1) 03/16/19 05:30 Magnesium 1.9 mg/dL (1.7-2.9) 03/15/19 22:32 Total Bilirubin 0.10 mg/dL (0.2-1.0) L 03/16/19 05:30 AST 16 Units/L (15-37) 03/16/19 05:30 ALT 23 Units/L (12-78) 03/16/19 05:30 Alkaline Phosphatase 103 Units/L (46-116) 03/16/19 05:30 Total Protein 6.3 g/dL (6.4-8.2) L 03/16/19 05:30 Albumin 2.6 g/dL (3.4-5.0) L 03/16/19 05:30 Globulin 3.7 g/dL (2.5-4.5) 03/16/19 05:30 Albumin/Globulin Ratio 0.7 Ratio (1.1-2.1) L 03/16/19 05:30 Specimen Type Catherized urine 03/16/19 05:54 Urine Color Yellow (YELLOW) 03/16/19 05:54 Urine Appearance Clear (CLEAR) 03/16/19 05:54 Urine pH 7.0 (5.0 - 8.0) 03/16/19 05:54 Ur Specific [place] 1.010 (1.000-1.030) 03/16/19 05:54 Urine Protein 1+ (NEGATIVE) 03/16/19 05:54 Urine Glucose (UA) Negative (NEGATIVE) 03/16/19 05:54 Urine Ketones Negative (NEGATIVE) 03/16/19 05:54 Urine Occult Blood Negative (NEGATIVE) 03/16/19 05:54 Urine Nitrite Negative (NEGATIVE) 03/16/19 05:54 Urine Bilirubin Negative (NEGATIVE) 03/16/19 05:54 Urine Urobilinogen Normal (NORMAL) 03/16/19 05:54 Ur Leukocyte Esterase 2+ (NEGATIVE) 03/16/19 05:54 Urine RBC None seen /HPF (0-3) 03/16/19 05:54 Urine WBC 20-30 /HPF (0-5) A 03/16/19 05:54 Ur Squamous Epith Cells Negative /HPF (NEGATIVE) 03/16/19 05:54 Ur Renal Epithelial Cell Moderate /HPF (NEGATIVE) 03/16/19 05:54 Urine Bacteria Negative /HPF (NEGATIVE) 03/16/19 05:54 Urine Yeast Few /HPF (NEGATIVE) 03/16/19 05:54 Ur Culture Indicated? Yes/culture set up 03/16/19 05:54 - Plan (1) Hyponatremia Status: Acute Plan: BLOOD,URINE AND STOOL CULTURE. IV HYDRATION. STRICT I & OS. KUB, VERIFY HOME MEDICATIONS. PEG TUBE FEEDINGS, AM LABS (2) Dementia Status: Acute (3) Bedridden Status: Acute (4) Weakness Status: Acute
[2019-03-16] MEDS ORDERED: ZyPREXA TAB 5 MG PEG SCH (21:00)
[2019-03-16] MEDS: ROCEPHIN VIAL 1 GRAM 1 G in NS 100 ML IV + SPIKE MINIBAG* 100 ML IV SCH (21:49)
[2019-03-17 05:15] LABS: BASOPHILS # (AUTO) 0.1 X10^3/uL (0.0-0.1); BASOPHILS % (AUTO) 0.7 % (0.2-1.0); HEMATOCRIT 34.9 % (36.0-47.0); HEMOGLOBIN 11.7 g/dL (12.0-16.0); LYMPHOCYTES % (AUTO) 10.6 % (21.0-51.0); MEAN CORPUSCULAR HEMOGLOBIN 27.3 pg (27.0-34.0); MEAN CORPUSCULAR HGB CONC 33.6 g/dL (33.0-35.0); MEAN CORPUSCULAR VOLUME 81.4 fL (80.0-100.0); MEAN PLATELET VOLUME 7.3 fL (7.4-11.0); MONOCYTES # (AUTO) 0.9 x10^3/uL (0.3-0.8); MONOCYTES % (AUTO) 9.2 % (0.0-13.0); NEUTROPHILS # (AUTO) 7.4 x10^3/uL (2.2-4.8); NEUTROPHILS % (AUTO) 79.5 % (42.0-75.0); PLATELET COUNT 422 X10^3/uL (150.0-450.0); RED BLOOD COUNT 4.29 X10^6/uL (3.5-5.4); RED CELL DISTRIBUTION WIDTH 16.2 % (11.6-16.5); WHITE BLOOD COUNT 9.4 X10^3/uL (3.6-10.0)
[2019-03-17 05:34] LABS: ALANINE AMINOTRANSFERASE 20 Units/L (12-78); ALBUMIN 2.5 g/dL (3.4-5.0); ALKALINE PHOSPHATASE 104 Units/L (46-116); ASPARTATE AMINO TRANSFERASE 15 Units/L (15-37); BLOOD UREA NITROGEN 9 mg/dL (7-18); CALCIUM 7.7 mg/dL (8.5-10.1); CARBON DIOXIDE 32.2 mmol/L (21-32); CHLORIDE 90 mmol/L (98-107); COR CA(FOR HYPOALB) 8.9 mg/dL (8.5-10.1); CREATININE 0.26 mg/dL (0.55-1.02); SODIUM 126 mmol/L (136-145); TOTAL PROTEIN 6.1 g/dL (6.4-8.2); eGFR NON BLACK RACES > 60 (>60)
[2019-03-17] MEDS: NS 1000 ML 1,000 ML IV SCH ×2 (06:24→17:44)
--- NOTE | 2019-03-17 07:13 | RAD ---
HISTORY: Constipation Study: KUB Comparison: 03/16/2019 Findings: There is a gastrostomy tube with its tip to the left of L3. There is decreasing stool burden when compared with the prior examination. There is some residual dilatation of the right colon. No significant small bowel dilatation is identified. No abnormal masses or abnormal calcifications are identified. The bones are osteopenic. IMPRESSION: Decreasing stool burden when compared with the prior examination Reported By:
[2019-03-17] MEDS ORDERED: ZESTRIL TAB 20 MG ONE (08:19)
[2019-03-17] MEDS: ZESTRIL TAB 20 MG PEG SCH (08:30)
[2019-03-17] MEDS: SYNTHROID 100 mcg TAB PEG SCH (08:30)
[2019-03-17] MEDS: HEMOCYTE-PLUS PEG SCH (08:30)
[2019-03-17] MEDS: POTASSIUM CHLORIDE LIQ 20 MEQ UDC PEG SCH (08:30)
[2019-03-17] MEDS: COLACE SYRUP 100 MG UDC GT SCH ×2 (08:30→21:00)
[2019-03-17] MEDS: ASPIRIN 81 MG CHEWTAB PEG SCH (08:30)
[2019-03-17] MEDS: VITAMIN C PEG SCH ×2 (08:31→21:00)
[2019-03-17] MEDS: ZANTAC PEG SCH ×2 (08:34→21:00)
[2019-03-17] MEDS: ZyPREXA TAB 5 MG PEG SCH ×2 (17:44→21:00)
[2019-03-17] MEDS: KLONOPIN TAB 0.5 MG PEG SCH (21:00)
[2019-03-17] MEDS: ROCEPHIN VIAL 1 GRAM 1 G in NS 100 ML IV + SPIKE MINIBAG* 100 ML IV SCH (21:00)
[2019-03-18] MEDS: NS 1000 ML 1,000 ML IV SCH ×2 (05:36→19:19)
[2019-03-18 05:44] LABS: BASOPHILS # (AUTO) 0.1 X10^3/uL (0.0-0.1); BASOPHILS % (AUTO) 0.7 % (0.2-1.0); EOSINOPHILS % (AUTO) 0.1 % (0.9-2.9); HEMATOCRIT 36.1 % (36.0-47.0); HEMOGLOBIN 12.1 g/dL (12.0-16.0); LYMPHOCYTES % (AUTO) 9.6 % (21.0-51.0); MEAN CORPUSCULAR HEMOGLOBIN 27.7 pg (27.0-34.0); MEAN CORPUSCULAR HGB CONC 33.5 g/dL (33.0-35.0); MEAN CORPUSCULAR VOLUME 82.8 fL (80.0-100.0); MEAN PLATELET VOLUME 7.7 fL (7.4-11.0); MONOCYTES % (AUTO) 8.9 % (0.0-13.0); NEUTROPHILS # (AUTO) 8.8 x10^3/uL (2.2-4.8); NEUTROPHILS % (AUTO) 80.7 % (42.0-75.0); PLATELET COUNT 466 X10^3/uL (150.0-450.0); RED BLOOD COUNT 4.36 X10^6/uL (3.5-5.4); RED CELL DISTRIBUTION WIDTH 16.4 % (11.6-16.5); WHITE BLOOD COUNT 10.9 X10^3/uL (3.6-10.0)
[2019-03-18 05:57] LABS: ALANINE AMINOTRANSFERASE 23 Units/L (12-78); ALBUMIN 2.6 g/dL (3.4-5.0); ALKALINE PHOSPHATASE 104 Units/L (46-116); ASPARTATE AMINO TRANSFERASE 13 Units/L (15-37); BLOOD UREA NITROGEN 11 mg/dL (7-18); CHLORIDE 92 mmol/L (98-107); COR CA(FOR HYPOALB) 9.1 mg/dL (8.5-10.1); CREATININE 0.29 mg/dL (0.55-1.02); SODIUM 128 mmol/L (136-145); TOTAL PROTEIN 6.3 g/dL (6.4-8.2); eGFR NON BLACK RACES > 60 (>60)
[2019-03-18] MEDS ORDERED: ZESTRIL TAB 20 MG ONE (09:18)
[2019-03-18] MEDS: ZESTRIL TAB 20 MG PEG SCH (09:33)
[2019-03-18] MEDS: ASPIRIN 81 MG CHEWTAB PEG SCH (09:33)
[2019-03-18] MEDS: ZyPREXA TAB 5 MG PEG SCH ×2 (09:33→20:55)
[2019-03-18] MEDS: HEMOCYTE-PLUS PEG SCH (09:33)
[2019-03-18] MEDS: POTASSIUM CHLORIDE LIQ 20 MEQ UDC PEG SCH (09:33)
[2019-03-18] MEDS: SYNTHROID 100 mcg TAB PEG SCH (09:33)
[2019-03-18] MEDS: VITAMIN C PEG SCH ×2 (09:33→20:54)
[2019-03-18] MEDS: COLACE SYRUP 100 MG UDC GT SCH ×2 (09:34→20:54)
[2019-03-18] MEDS: ZANTAC PEG SCH ×2 (09:37→20:54)
[2019-03-18] MEDS: KLONOPIN TAB 0.5 MG PEG SCH (20:54)
[2019-03-18] MEDS: ROCEPHIN VIAL 1 GRAM 1 G in NS 100 ML IV + SPIKE MINIBAG* 100 ML IV SCH (21:01)
[2019-03-19 05:17] LABS: BASOPHILS # (AUTO) 0.1 X10^3/uL (0.0-0.1); BASOPHILS % (AUTO) 0.7 % (0.2-1.0); EOSINOPHILS % (AUTO) 0.1 % (0.9-2.9); HEMATOCRIT 35.5 % (36.0-47.0); HEMOGLOBIN 11.8 g/dL (12.0-16.0); LYMPHOCYTES # (AUTO) 1.2 X10^3/uL (1.3-2.9); LYMPHOCYTES % (AUTO) 12.6 % (21.0-51.0); MEAN CORPUSCULAR HEMOGLOBIN 27.5 pg (27.0-34.0); MEAN CORPUSCULAR HGB CONC 33.3 g/dL (33.0-35.0); MEAN CORPUSCULAR VOLUME 82.6 fL (80.0-100.0); MEAN PLATELET VOLUME 8.2 fL (7.4-11.0); MONOCYTES # (AUTO) 0.9 x10^3/uL (0.3-0.8); MONOCYTES % (AUTO) 9.7 % (0.0-13.0); NEUTROPHILS # (AUTO) 7.1 x10^3/uL (2.2-4.8); NEUTROPHILS % (AUTO) 76.9 % (42.0-75.0); PLATELET COUNT 475 X10^3/uL (150.0-450.0); RED CELL DISTRIBUTION WIDTH 16.6 % (11.6-16.5); WHITE BLOOD COUNT 9.3 X10^3/uL (3.6-10.0)
[2019-03-19 05:25] LABS: ALANINE AMINOTRANSFERASE 21 Units/L (12-78); ALBUMIN 2.6 g/dL (3.4-5.0); ALKALINE PHOSPHATASE 109 Units/L (46-116); ASPARTATE AMINO TRANSFERASE 14 Units/L (15-37); BLOOD UREA NITROGEN 11 mg/dL (7-18); CALCIUM 8.1 mg/dL (8.5-10.1); CARBON DIOXIDE 31.8 mmol/L (21-32); CHLORIDE 91 mmol/L (98-107); COR CA(FOR HYPOALB) 9.2 mg/dL (8.5-10.1); CREATININE 0.33 mg/dL (0.55-1.02); SODIUM 128 mmol/L (136-145); TOTAL PROTEIN 6.4 g/dL (6.4-8.2); eGFR NON BLACK RACES > 60 (>60)
--- NOTE | 2019-03-19 06:02 | RAD ---
Examination: AP chest History: Weakness, AMS Comparison 03/15/2019 Findings: Continued upper normal heart size with essentially clear lungs and pleural spaces. There is a small pleural-pericardial scar at the cardiac apex. Distended segments of bowel are interposed between the right hemidiaphragm and the liver. Impression: No acute cardiac, pulmonary or pleural lesion identified. Distended bowel in upper abdomen. Reported By:
[2019-03-19] MEDS ORDERED: DULCOLAX SUPPOSITORY 10 MG RECTAL ONE (08:31)
[2019-03-19] MEDS ORDERED: ZESTRIL TAB 20 MG ONE (08:43)
[2019-03-19] MEDS ORDERED: ZITHROMAX INJ 500 MG VIAL 500 MG in NS 250 ML IV 250 ML IV SCH (09:00)
[2019-03-19] MEDS: POTASSIUM CHLORIDE LIQ 20 MEQ UDC PEG SCH (09:23)
[2019-03-19] MEDS: ASPIRIN 81 MG CHEWTAB PEG SCH (09:24)
[2019-03-19] MEDS: ZESTRIL TAB 20 MG PEG SCH (09:24)
[2019-03-19] MEDS: ZANTAC PEG SCH ×2 (09:24→20:07)
[2019-03-19] MEDS: COLACE SYRUP 100 MG UDC GT SCH ×2 (09:24→20:06)
[2019-03-19] MEDS: SYNTHROID 100 mcg TAB PEG SCH (09:24)
[2019-03-19] MEDS: ZyPREXA TAB 5 MG PEG SCH ×2 (09:24→20:07)
[2019-03-19] MEDS: HEMOCYTE-PLUS PEG SCH (09:25)
[2019-03-19] MEDS: VITAMIN C PEG SCH ×2 (09:25→20:07)
[2019-03-19] MEDS: NS 1000 ML 1,000 ML IV SCH (16:20)
[2019-03-19] MEDS: KLONOPIN TAB 0.5 MG PEG SCH (20:06)
[2019-03-19] MEDS: ROCEPHIN VIAL 1 GRAM 1 G in NS 100 ML IV + SPIKE MINIBAG* 100 ML IV SCH (20:07)
[2019-03-20] MEDS: NS 1000 ML 1,000 ML IV SCH ×3 (00:37→15:00)
[2019-03-20 05:10] LABS: BASOPHILS % (AUTO) 0.6 % (0.2-1.0); HEMOGLOBIN 11.4 g/dL (12.0-16.0); LYMPHOCYTES # (AUTO) 0.8 X10^3/uL (1.3-2.9); LYMPHOCYTES % (AUTO) 9.9 % (21.0-51.0); MEAN CORPUSCULAR HEMOGLOBIN 27.5 pg (27.0-34.0); MEAN CORPUSCULAR HGB CONC 33.5 g/dL (33.0-35.0); MEAN PLATELET VOLUME 7.3 fL (7.4-11.0); MONOCYTES # (AUTO) 0.7 x10^3/uL (0.3-0.8); MONOCYTES % (AUTO) 8.9 % (0.0-13.0); NEUTROPHILS # (AUTO) 6.3 x10^3/uL (2.2-4.8); NEUTROPHILS % (AUTO) 80.6 % (42.0-75.0); PLATELET COUNT 441 X10^3/uL (150.0-450.0); RED BLOOD COUNT 4.14 X10^6/uL (3.5-5.4); RED CELL DISTRIBUTION WIDTH 16.4 % (11.6-16.5); WHITE BLOOD COUNT 7.8 X10^3/uL (3.6-10.0)
[2019-03-20 05:18] LABS: ALANINE AMINOTRANSFERASE 19 Units/L (12-78); ALBUMIN 2.4 g/dL (3.4-5.0); ALKALINE PHOSPHATASE 107 Units/L (46-116); ASPARTATE AMINO TRANSFERASE 13 Units/L (15-37); BLOOD UREA NITROGEN 10 mg/dL (7-18); CALCIUM 7.8 mg/dL (8.5-10.1); CARBON DIOXIDE 32.6 mmol/L (21-32); CHLORIDE 96 mmol/L (98-107); COR CA(FOR HYPOALB) 9.1 mg/dL (8.5-10.1); CREATININE 0.24 mg/dL (0.55-1.02); SODIUM 131 mmol/L (136-145); eGFR NON BLACK RACES > 60 (>60)
--- NOTE | 2019-03-20 06:21 | RAD ---
HISTORY: 73-year-old female with constipation. Study: Single view the abdomen. Comparison: Abdominal radiograph 03/17/2019 Findings: Enteric tube remains unchanged in apparent good position. Left femoral ORIF unchanged. Evaluation of the abdomen demonstrates a nonobstructive bowel gas pattern with a significant stool burden throughout the colon and no radiographic evidence of free intraperitoneal air. No pathological soft tissue mass or calcification can be observed. The bony structures are grossly intact. IMPRESSION: 1. Significant stool burden consistent with history of constipation. Correlate clinically for need for disimpaction. 2. No evidence for acute abdominal pathology identified. Reported By:
[2019-03-20] MEDS ORDERED: ZESTRIL TAB 20 MG ONE (09:07)
[2019-03-20] MEDS: POTASSIUM CHLORIDE LIQ 20 MEQ UDC PEG SCH (09:54)
[2019-03-20] MEDS: COLACE SYRUP 100 MG UDC GT SCH ×2 (09:55→20:47)
[2019-03-20] MEDS: ZANTAC PEG SCH ×2 (09:55→20:47)
[2019-03-20] MEDS: ZyPREXA TAB 5 MG PEG SCH ×2 (09:56→20:47)
[2019-03-20] MEDS: HEMOCYTE-PLUS PEG SCH (09:57)
[2019-03-20] MEDS: ASPIRIN 81 MG CHEWTAB PEG SCH (09:57)
[2019-03-20] MEDS: ZESTRIL TAB 20 MG PEG SCH (09:58)
[2019-03-20] MEDS: VITAMIN C PEG SCH ×2 (09:58→20:46)
[2019-03-20] MEDS: SYNTHROID 100 mcg TAB PEG SCH (09:58)
--- NOTE | 2019-03-20 15:09 | PCM.PROG ---
Progress Note - Progress Note for Day of Date of Exam: 03/19/19 - Subjective Subjective: 73 WF ADMITTED ON 03/15 WITH HYPONATREMIA. PT NA UP TO 128 WITH GENTLE IV HYDRATION. KUB REVEALED CONSTIPATION, DULCOLAX SUPPOSITORY ORDRED, WITH BM REPORTED PER NURSING STAFF. REPEAT KUB ORDERED. PT HAD URINE AND BLOOD CULTURES OBTAINED ON ADMISSION, NEGATIVE AT THIS TIME. PT IS SITTING ELVATED IN BED ON EXAM, WITH LIMITED VERBAL RESPONSES BOTH APPROPRIATE AND INAPPROPRIATE. ZITHROMAX IV X1 DOSE TO INCREASE GI MOTILITY. IV FLUIDS INCREASED TO 100CC/HR. - Past Medical Family Social History Past Med/Fam/Surg Hx: No changes since H&P Allergies: Allergies No Known Drug Allergies Allergy (Verified 03/15/19 23:25) - Review of Systems ROS: No change since H&P - Vital Signs and I&O's Vital Signs: Temperature 97.9 F Pulse Rate [Left Radial] 98 Respiratory Rate 18 Blood Pressure [Right Arm] 177/84 Blood Pressure [Left Arm] 119/67 O2 Sat by Pulse Oximetry 96 Intake and Output: Intake & Output 03/18/19 03/19/19 03/20/19 03/21/19 11:59 11:59 11:59 11:59 Intake Total 1695 / 1695 340 / 340 3558 / 3558 Balance 1695 / 1695 340 / 340 3558 / 3558 - Physical Exam Oriented: negative: Time, Person, Place Eyes: Normal Ear: Right Nose: Normal Throat: Dry Cardiovascular: Normal : Normal Auscultation: Bowel Sounds: Normal Tenderness: Epigastric, Mild Skin: Decreased Turgur Musculoskeletal: Right, Left, Arm, Leg, Deformity, Motor Deficit Psychiatric: Agitation Mood Description: Anxious Affect: Anxious Speech Pattern: Clear, Inappropriate - Laboratory and Diagnostics Result Diagrams: 03/20/19 04:06 03/20/19 04:06 Labs: 03/16/19 05:54 Urine,Clean Catch Urine Culture - Final 03/16/19 18:20 Stool Stool Culture - Final 03/16/19 18:20 Stool - Final 03/15/19 22:46 Blood Blood Culture - Preliminary 03/15/19 22:32 Blood Blood Culture - Preliminary Laboratory WBC 7.8 X10^3/uL (3.6-10.0) 03/20/19 04:06 RBC 4.14 X10^6/uL (3.5-5.4) 03/20/19 04:06 Hgb 11.4 g/dL (12.0-16.0) L 03/20/19 04:06 Hct 34.0 % (36.0-47.0) L 03/20/19 04:06 MCV 82.0 fL (80.0-100.0) 03/20/19 04:06 MCH 27.5 pg (27.0-34.0) 03/20/19 04:06 MCHC 33.5 g/dL (33.0-35.0) 03/20/19 04:06 RDW 16.4 % (11.6-16.5) 03/20/19 04:06 Plt Count 441 X10^3/uL (150.0-450.0) 03/20/19 04:06 MPV 7.3 fL (7.4-11.0) L 03/20/19 04:06 Neut % (Auto) 80.6 % (42.0-75.0) H 03/20/19 04:06 Lymph % (Auto) 9.9 % (21.0-51.0) L 03/20/19 04:06 [place] % (Auto) 8.9 % (0.0-13.0) 03/20/19 04:06 Eos % (Auto) 0.0 % (0.9-2.9) L 03/20/19 04:06 Baso % (Auto) 0.6 % (0.2-1.0) 03/20/19 04:06 Neut # (Auto) 6.3 x10^3/uL (2.2-4.8) H 03/20/19 04:06 Lymph # (Auto) 0.8 X10^3/uL (1.3-2.9) L 03/20/19 04:06 [place] # (Auto) 0.7 x10^3/uL (0.3-0.8) 03/20/19 04:06 Eos # (Auto) 0.0 x10^3/uL (0.0-0.2) 03/20/19 04:06 Baso # (Auto) 0.0 X10^3/uL (0.0-0.1) 03/20/19 04:06 Absolute Nucleated RBC 0.0 /100WBC 03/20/19 04:06 Sodium 131 mmol/L (136-145) L 03/20/19 04:06 Corrected Sodium TNP 03/20/19 04:06 Potassium 4.1 mmol/L (3.5-5.1) 03/20/19 04:06 Chloride 96 mmol/L (98-107) L 03/20/19 04:06 Carbon Dioxide 32.6 mmol/L (21-32) H 03/20/19 04:06 BUN 10 mg/dL (7-18) 03/20/19 04:06 Creatinine 0.24 mg/dL (0.55-1.02) L 03/20/19 04:06 Est GFR (MDRD) Af Amer > 60 (>60) 03/20/19 04:06 Est GFR (MDRD) Non-Af > 60 (>60) 03/20/19 04:06 Glucose 91 mg/dL (65-99) 03/20/19 04:06 Calcium 7.8 mg/dL (8.5-10.1) L 03/20/19 04:06 Corrected Calcium 9.1 mg/dL (8.5-10.1) 03/20/19 04:06 Magnesium 1.9 mg/dL (1.7-2.9) 03/15/19 22:32 Total Bilirubin 0.20 mg/dL (0.2-1.0) 03/20/19 04:06 AST 13 Units/L (15-37) L 03/20/19 04:06 ALT 19 Units/L (12-78) 03/20/19 04:06 Alkaline Phosphatase 107 Units/L (46-116) 03/20/19 04:06 Total Protein 6.0 g/dL (6.4-8.2) L 03/20/19 04:06 Albumin 2.4 g/dL (3.4-5.0) L 03/20/19 04:06 Globulin 3.6 g/dL (2.5-4.5) 03/20/19 04:06 Albumin/Globulin Ratio 0.7 Ratio (1.1-2.1) L 03/20/19 04:06 Specimen Type Catherized urine 03/16/19 05:54 Urine Color Yellow (YELLOW) 03/16/19 05:54 Urine Appearance Clear (CLEAR) 03/16/19 05:54 Urine pH 7.0 (5.0 - 8.0) 03/16/19 05:54 Ur Specific [place] 1.010 (1.000-1.030) 03/16/19 05:54 Urine Protein 1+ (NEGATIVE) 03/16/19 05:54 Urine Glucose (UA) Negative (NEGATIVE) 03/16/19 05:54 Urine Ketones Negative (NEGATIVE) 03/16/19 05:54 Urine Occult Blood Negative (NEGATIVE) 03/16/19 05:54 Urine Nitrite Negative (NEGATIVE) 03/16/19 05:54 Urine Bilirubin Negative (NEGATIVE) 03/16/19 05:54 Urine Urobilinogen Normal (NORMAL) 03/16/19 05:54 Ur Leukocyte Esterase 2+ (NEGATIVE) 03/16/19 05:54 Urine RBC None seen /HPF (0-3) 03/16/19 05:54 Urine WBC 20-30 /HPF (0-5) A 03/16/19 05:54 Ur Squamous Epith Cells Negative /HPF (NEGATIVE) 03/16/19 05:54 Ur Renal Epithelial Cell Moderate /HPF (NEGATIVE) 03/16/19 05:54 Urine Bacteria Negative /HPF (NEGATIVE) 03/16/19 05:54 Urine Yeast Few /HPF (NEGATIVE) 03/16/19 05:54 Ur Culture Indicated? Yes/culture set up 03/16/19 05:54 Stool Description See comment 03/16/19 18:20 Stl Occult Blood (IFOB) Negative (NEGATIVE) 03/16/19 18:20 Stool for White Cells Positive (NEGATIVE) A 03/16/19 18:20 Stl C. diff Tox B Gene Negative (NEGATIVE) 03/16/19 18:20 Stl C. diff 027-NAP1-BI Negative (NEGATIVE) 03/16/19 18:20 - Plan (1) Hyponatremia Status: Acute Plan: BLOOD,URINE AND STOOL CULTURE ORDERED ON ADMISSION. IV HYDRATION. STRICT I & OS. KUB, VERIFY HOME MEDICATIONS. PEG TUBE FEEDINGS, AM LABS (2) Constipation Status: Resolved Qualifiers: Constipation type: slow transit constipation Qualified Code(s): K59.01 - Slow transit constipation Plan: BOWEL REGIMEN, REPEAT AM KUB (3) Dementia Status: Acute (4) Bedridden Status: Acute (5) Weakness Status: Acute
--- NOTE | 2019-03-20 15:11 | PCM.PROG ---
Progress Note - Progress Note for Day of Date of Exam: 03/20/19 - Subjective Subjective: 73 WF ADMITTED ON 03/15 WITH HYPONATREMIA. PT NA UP TO 131 WITH GENTLE IV HYDRATION. REPEAT KUB REVEALED CONSTIPATION. NURSING STAFF CHECKED FOR FECAL IMPACTION REPORTING BLOCKAGE NOT ABLE TO DIGITILY REMOVE. SSE ORDERED TODAY. PT IS SITTING ELVATED IN BED ON EXAM, WITH LIMITED VERBAL RESPONSES BOTH APPROPRIATE AND INAPPROPRIATE. NS AT 100CC/HR. - Past Medical Family Social History Past Med/Fam/Surg Hx: No changes since H&P Allergies: Allergies No Known Drug Allergies Allergy (Verified 03/15/19 23:25) - Review of Systems ROS: No change since H&P - Vital Signs and I&O's Vital Signs: Temperature 97.9 F Pulse Rate [Left Radial] 98 Respiratory Rate 18 Blood Pressure [Right Arm] 177/84 Blood Pressure [Left Arm] 119/67 O2 Sat by Pulse Oximetry 96 Intake and Output: Intake & Output 03/18/19 03/19/19 03/20/19 03/21/19 11:59 11:59 11:59 11:59 Intake Total 1695 / 1695 340 / 340 3558 / 3558 Balance 1695 / 1695 340 / 340 3558 / 3558 - Physical Exam Oriented: negative: Time, Person, Place Eyes: Normal Ear: Right Nose: Normal Throat: Dry Cardiovascular: Normal : Normal Auscultation: Bowel Sounds: Normal Tenderness: Epigastric, Mild Skin: Decreased Turgur Musculoskeletal: Right, Left, Arm, Leg, Deformity, Motor Deficit Psychiatric: Agitation Mood Description: Anxious Affect: Anxious Speech Pattern: Clear, Inappropriate - Laboratory and Diagnostics Result Diagrams: 03/20/19 04:06 03/20/19 04:06 Labs: 03/16/19 05:54 Urine,Clean Catch Urine Culture - Final 03/16/19 18:20 Stool Stool Culture - Final 03/16/19 18:20 Stool - Final 03/15/19 22:46 Blood Blood Culture - Preliminary 03/15/19 22:32 Blood Blood Culture - Preliminary Laboratory WBC 7.8 X10^3/uL (3.6-10.0) 03/20/19 04:06 RBC 4.14 X10^6/uL (3.5-5.4) 03/20/19 04:06 Hgb 11.4 g/dL (12.0-16.0) L 03/20/19 04:06 Hct 34.0 % (36.0-47.0) L 03/20/19 04:06 MCV 82.0 fL (80.0-100.0) 03/20/19 04:06 MCH 27.5 pg (27.0-34.0) 03/20/19 04:06 MCHC 33.5 g/dL (33.0-35.0) 03/20/19 04:06 RDW 16.4 % (11.6-16.5) 03/20/19 04:06 Plt Count 441 X10^3/uL (150.0-450.0) 03/20/19 04:06 MPV 7.3 fL (7.4-11.0) L 03/20/19 04:06 Neut % (Auto) 80.6 % (42.0-75.0) H 03/20/19 04:06 Lymph % (Auto) 9.9 % (21.0-51.0) L 03/20/19 04:06 [place] % (Auto) 8.9 % (0.0-13.0) 03/20/19 04:06 Eos % (Auto) 0.0 % (0.9-2.9) L 03/20/19 04:06 Baso % (Auto) 0.6 % (0.2-1.0) 03/20/19 04:06 Neut # (Auto) 6.3 x10^3/uL (2.2-4.8) H 03/20/19 04:06 Lymph # (Auto) 0.8 X10^3/uL (1.3-2.9) L 03/20/19 04:06 [place] # (Auto) 0.7 x10^3/uL (0.3-0.8) 03/20/19 04:06 Eos # (Auto) 0.0 x10^3/uL (0.0-0.2) 03/20/19 04:06 Baso # (Auto) 0.0 X10^3/uL (0.0-0.1) 03/20/19 04:06 Absolute Nucleated RBC 0.0 /100WBC 03/20/19 04:06 Sodium 131 mmol/L (136-145) L 03/20/19 04:06 Corrected Sodium TNP 03/20/19 04:06 Potassium 4.1 mmol/L (3.5-5.1) 03/20/19 04:06 Chloride 96 mmol/L (98-107) L 03/20/19 04:06 Carbon Dioxide 32.6 mmol/L (21-32) H 03/20/19 04:06 BUN 10 mg/dL (7-18) 03/20/19 04:06 Creatinine 0.24 mg/dL (0.55-1.02) L 03/20/19 04:06 Est GFR (MDRD) Af Amer > 60 (>60) 03/20/19 04:06 Est GFR (MDRD) Non-Af > 60 (>60) 03/20/19 04:06 Glucose 91 mg/dL (65-99) 03/20/19 04:06 Calcium 7.8 mg/dL (8.5-10.1) L 03/20/19 04:06 Corrected Calcium 9.1 mg/dL (8.5-10.1) 03/20/19 04:06 Magnesium 1.9 mg/dL (1.7-2.9) 03/15/19 22:32 Total Bilirubin 0.20 mg/dL (0.2-1.0) 03/20/19 04:06 AST 13 Units/L (15-37) L 03/20/19 04:06 ALT 19 Units/L (12-78) 03/20/19 04:06 Alkaline Phosphatase 107 Units/L (46-116) 03/20/19 04:06 Total Protein 6.0 g/dL (6.4-8.2) L 03/20/19 04:06 Albumin 2.4 g/dL (3.4-5.0) L 03/20/19 04:06 Globulin 3.6 g/dL (2.5-4.5) 03/20/19 04:06 Albumin/Globulin Ratio 0.7 Ratio (1.1-2.1) L 03/20/19 04:06 Specimen Type Catherized urine 03/16/19 05:54 Urine Color Yellow (YELLOW) 03/16/19 05:54 Urine Appearance Clear (CLEAR) 03/16/19 05:54 Urine pH 7.0 (5.0 - 8.0) 03/16/19 05:54 Ur Specific [place] 1.010 (1.000-1.030) 03/16/19 05:54 Urine Protein 1+ (NEGATIVE) 03/16/19 05:54 Urine Glucose (UA) Negative (NEGATIVE) 03/16/19 05:54 Urine Ketones Negative (NEGATIVE) 03/16/19 05:54 Urine Occult Blood Negative (NEGATIVE) 03/16/19 05:54 Urine Nitrite Negative (NEGATIVE) 03/16/19 05:54 Urine Bilirubin Negative (NEGATIVE) 03/16/19 05:54 Urine Urobilinogen Normal (NORMAL) 03/16/19 05:54 Ur Leukocyte Esterase 2+ (NEGATIVE) 03/16/19 05:54 Urine RBC None seen /HPF (0-3) 03/16/19 05:54 Urine WBC 20-30 /HPF (0-5) A 03/16/19 05:54 Ur Squamous Epith Cells Negative /HPF (NEGATIVE) 03/16/19 05:54 Ur Renal Epithelial Cell Moderate /HPF (NEGATIVE) 03/16/19 05:54 Urine Bacteria Negative /HPF (NEGATIVE) 03/16/19 05:54 Urine Yeast Few /HPF (NEGATIVE) 03/16/19 05:54 Ur Culture Indicated? Yes/culture set up 03/16/19 05:54 Stool Description See comment 03/16/19 18:20 Stl Occult Blood (IFOB) Negative (NEGATIVE) 03/16/19 18:20 Stool for White Cells Positive (NEGATIVE) A 03/16/19 18:20 Stl C. diff Tox B Gene Negative (NEGATIVE) 03/16/19 18:20 Stl C. diff [id number]-BI Negative (NEGATIVE) 03/16/19 18:20 - Plan (1) Hyponatremia Status: Acute Plan: BLOOD,URINE AND STOOL CULTURE ORDERED ON ADMISSION. IV HYDRATION. STRICT I & OS. KUB, VERIFY HOME MEDICATIONS. PEG TUBE FEEDINGS, AM LABS (2) Constipation Status: Resolved Qualifiers: Constipation type: slow transit constipation Qualified Code(s): K59.01 - Slow transit constipation Plan: BOWEL REGIMEN, REPEAT AM KUB (3) Dementia Status: Acute (4) Bedridden Status: Acute (5) Weakness Status: Acute
[2019-03-20] MEDS: KLONOPIN TAB 0.5 MG PEG SCH (20:45)
[2019-03-20] MEDS: ROCEPHIN VIAL 1 GRAM 1 G in NS 100 ML IV + SPIKE MINIBAG* 100 ML IV SCH (20:47)
[2019-03-21] MEDS: NS 1000 ML 1,000 ML IV SCH (03:07)
[2019-03-21 05:24] LABS: ALANINE AMINOTRANSFERASE 17 Units/L (12-78); ALBUMIN 2.6 g/dL (3.4-5.0); ALKALINE PHOSPHATASE 111 Units/L (46-116); ASPARTATE AMINO TRANSFERASE 13 Units/L (15-37); BASOPHILS # (AUTO) 0.1 X10^3/uL (0.0-0.1); BASOPHILS % (AUTO) 0.9 % (0.2-1.0); BLOOD UREA NITROGEN 8 mg/dL (7-18); CALCIUM 8.2 mg/dL (8.5-10.1); CARBON DIOXIDE 34.9 mmol/L (21-32); CHLORIDE 96 mmol/L (98-107); COR CA(FOR HYPOALB) 9.3 mg/dL (8.5-10.1); CREATININE 0.25 mg/dL (0.55-1.02); EOSINOPHILS % (AUTO) 0.1 % (0.9-2.9); HEMATOCRIT 36.2 % (36.0-47.0); HEMOGLOBIN 12.2 g/dL (12.0-16.0); MEAN CORPUSCULAR HEMOGLOBIN 27.6 pg (27.0-34.0); MEAN CORPUSCULAR HGB CONC 33.6 g/dL (33.0-35.0); MEAN CORPUSCULAR VOLUME 82.1 fL (80.0-100.0); MEAN PLATELET VOLUME 7.6 fL (7.4-11.0); MONOCYTES # (AUTO) 0.8 x10^3/uL (0.3-0.8); MONOCYTES % (AUTO) 8.9 % (0.0-13.0); NEUTROPHILS # (AUTO) 6.9 x10^3/uL (2.2-4.8); NEUTROPHILS % (AUTO) 79.1 % (42.0-75.0); PLATELET COUNT 432 X10^3/uL (150.0-450.0); RED CELL DISTRIBUTION WIDTH 16.3 % (11.6-16.5); SODIUM 134 mmol/L (136-145); TOTAL PROTEIN 6.4 g/dL (6.4-8.2); WHITE BLOOD COUNT 8.7 X10^3/uL (3.6-10.0); eGFR NON BLACK RACES > 60 (>60)
[2019-03-21] MEDS ORDERED: ZESTRIL TAB 20 MG ONE (09:03)
[2019-03-21] MEDS: POTASSIUM CHLORIDE LIQ 20 MEQ UDC PEG SCH (09:57)
[2019-03-21] MEDS: COLACE SYRUP 100 MG UDC GT SCH (09:57)
[2019-03-21] MEDS: ZANTAC PEG SCH (09:57)
[2019-03-21] MEDS: SYNTHROID 100 mcg TAB PEG SCH (10:00)
[2019-03-21] MEDS: VITAMIN C PEG SCH (10:00)
[2019-03-21] MEDS: ZESTRIL TAB 20 MG PEG SCH (10:00)
[2019-03-21] MEDS: ASPIRIN 81 MG CHEWTAB PEG SCH (10:00)
[2019-03-21] MEDS: HEMOCYTE-PLUS PEG SCH (10:03)
[2019-03-21] MEDS: ZyPREXA TAB 5 MG PEG SCH (10:03)
--- NOTE | 2019-03-21 10:05 | RAD ---
History: Abdominal distention and constipation Study: KUB Comparison: Yesterday Findings: A PEG tube is visualized. There is heavy atherosclerotic calcification in the aorta without aneurysm. Is a partially visualized left ORIF. There is persistent mild distention of the right colon and hepatic flexure. There is no significant amount of retained fecal material in the colon and no formed stool is demonstrated. Osteopenia is suggested. No urinary tract calcification is demonstrated. Impression: No acute disease Reported By:
[2019-03-21] MEDS: MILK OF MAGNESIA PO SCH ×2 (10:19→15:37)
[2019-03-21] MEDS ORDERED: FLEET ENEMA ADULT RECTAL NR (11:00)
[2019-03-21] MEDS ORDERED: ROCEPHIN 1 GRAM IV PREMIX 1 G/50 ML IV.SOLN. IV SCH (11:00)
[2019-03-21 12:41] VITALS: BP 168/72
[2019-03-21] MEDS ORDERED: MILK OF MAGNESIA ONE (15:38)
== END 2019-03-21 15:50 | DRG 641 ==
LOC: MED/SURG 22:03
PROVIDERS: ADMIT Internal Medicine; ATTEND Internal Medicine
DX: Z74.01 Bed confinement status; E03.8 Other specified hypothyroidism; R40.4 Transient alteration of awareness; Z93.1 Gastrostomy status; K59.09 Other constipation; E78.2 Mixed hyperlipidemia; I25.10 Atherosclerotic heart disease of native coronary artery without angina pectoris; E87.1 Hypo-osmolality and hyponatremia; I10 Essential (primary) hypertension; R53.1 Weakness; E86.0 Dehydration; Z66 Do not resuscitate
CPT/HCPCS: 36415; 71010; 71045; 74000; 74018; 80053; 81001; 82270; 83630; 83735; 85025; 87040; 87045; 87086; 87427; 87449; 87493; 87899; A4222; J0456; J0696; J7030; J7050

== ENCOUNTER 2019-05-17 08:24 | Inpatient (IN) ==
--- NOTE | 2019-05-17 08:47 | DR.NAUSEAF ---
HPI Time Seen Time Seen by Provider: 05/17/19 08:44 Primary Care Physician Primary Care Physician: JEFFREY HPI Comment HPI Comment: Pt. awake and responding to voice, eyes open Complaints Chief Complaint:: NURSE FROM [facility]. OVER STATING PRIOR TO ARRIVAL, PT. HAD AN EPISODE OF WHERE SHE VOMITIED BLACK EMESIS THAT SMELLED LIKE FECES. PT. WAS SEMI-UNRESPONSIVE AND THEY HAD TO DO A STERNAL RUB ON PT. TO GET HER TO BECOME MORE ALERT. UPON ARRIVAL TO THE ER, PT. IS LETHARGIC. WILL RESPOND VERBA LLY BUT KEEPS EYES CLOSED. DARK BROWN/BLACK CONTENTS NOTED IN G-TUBE. Reviewed Nurses Notes Reviewed: Yes Source History Provided: Patient and Long-Term Mode of Arrival Mode of Arrival: Stretcher Timing Onset of Chief Complaint: 05/17/19 Quality Quality: Other PMH PMH Past Medical History: Yes Past Medical History: Anemia, Arthritis, Coronary Artery Disease, Dementia, Dyslipidemia, Hypertension and Hypothyroidism Past Medical History Comment: BOWEL OBSTRUCTION Past Surgical History: Yes Surgical History: Other Past Surgical History Comment: G-TUBE Family History History of Family Medical Conditions: Yes Family Medical History: Coronary Artery Disease and Hypertension Social History Does patient currently use any type of tobacco product: No Have you used tobacco products in the last 12 months: No Type of Tobacco Use: None Does any household member use tobacco: No Alcohol Use: None Do you use any recreational Drugs:: No Lives Where: Long-Term infectious screening In the last 2 months have you had wt loss of >10#?: NO Have you had fever, night sweats or hemotysis?: No Have you traveled outside the country in the last 6 months?: No Isolation: Standard ROS Review of Systems Constitutional: No Symptoms Reported Respiratoy: No Symptoms Reported Cardiovascular: No Symptoms Reported Gastrointestinal/Abdominal: See HPI and Vomiting Genitourinary: No Symptoms Reported Neurological: No Symptoms Reported Musculoskeletal: No Symptoms Reported Integumentary: No Symptoms Reported Unable to Obtain Due To: Dementia PE Vital Signs Vitals: Temperature 98.2 F Pulse Rate 105 Respiratory Rate 15 Blood Pressure [Right Arm] 168/72 Blood Pressure 115/56 O2 Sat by Pulse Oximetry 100 General Limitations: Altered Mental Status General Appearance: Alert and In No Apparent Distress Head Head Exam: Normal Inspection Eyes Eye exam: Normal Appearance ENT ENT Exam: Normal Oropharynx and Mucous Membranes Moist Neck Neck Exam: Trachea Midline; negative Tenderness, Lymphadenopathy and Thyromegaly Chest Chest Inspection: Normal Inspection and Symmetric Chest Wall Rise Respiratory Respiratory Exam: Normal Lung Sounds Bilat; negative Accessory Muscle Use, Prolonged Expiratory Phase, Respiratory Distress and Stridor Respiratory Exam: Bilateral: Clear to Auscultation Cardiovascular Cardiovascular Exam: Tachycardia and Normal Heart Sounds; negative Systolic Murmur Abdominal Exam Abdominal Exam: Normal Inspection, Normal Bowel Sounds and Soft; negative Distention, Tenderness, Guarding, Rebound and Dimnished Bowel Sounds Abdominal Tenderness: negative RUQ, RLQ, LUQ, LLQ, Epigastrium, Suprapubic, Diffuse, Mild, Moderate, Severe and Other Extremities Extremities Exam: negative Tenderness, Edema, Joint Swelling and Calf Tenderness Back Back Exam: negative Tenderness and Muscle Spasm Neurologic Neurological Exam: Alert (Responded to voice and eyes open. Responded when asked name but that is the only answer I recieved to repeated questioning); negative Oriented X3 (Dementia) MDM Differential Diagnosis Differential Diagnosis: Considerations may Include:: Bowel Obstruction, Cholecystitis and Inflammatory BD Differential Diagnosis Comment: GI bleed ROR Labs Reviewed Result Diagrams: 05/17/19 09:34 05/17/19 09:34 Laboratory: WBC 29.3 X10^3/uL (3.6-10.0) H 05/17/19 09:34 RBC 4.83 X10^6/uL (3.5-5.4) 05/17/19 09:34 Hgb 13.0 g/dL (12.0-16.0) 05/17/19 09:34 Hct 39.7 % (36.0-47.0) 05/17/19 09:34 MCV 82.3 fL (80.0-100.0) 05/17/19 09:34 MCH 26.9 pg (27.0-34.0) L 05/17/19 09:34 MCHC 32.7 g/dL (33.0-35.0) L 05/17/19 09:34 RDW 14.6 % (11.6-16.5) 05/17/19 09:34 Plt Count 477 X10^3/uL (150.0-450.0) H 05/17/19 09:34 Plt Count Comment Increased (ADEQUATE) A 05/17/19 09:34 MPV 7.6 fL (7.4-11.0) 05/17/19 09:34 Neut % (Auto) 95.2 % (42.0-75.0) H 05/17/19 09:34 Lymph % (Auto) 1.3 % (21.0-51.0) L 05/17/19 09:34 [place] % (Auto) 3.3 % (0.0-13.0) 05/17/19 09:34 Eos % (Auto) 0.0 % (0.9-2.9) L 05/17/19 09:34 Baso % (Auto) 0.2 % (0.2-1.0) 05/17/19 09:34 Neut # (Auto) 27.9 x10^3/uL (2.2-4.8) H 05/17/19 09:34 Lymph # (Auto) 0.4 X10^3/uL (1.3-2.9) L 05/17/19 09:34 [place] # (Auto) 1.0 x10^3/uL (0.3-0.8) H 05/17/19 09:34 Eos # (Auto) 0.0 x10^3/uL (0.0-0.2) 05/17/19 09:34 Baso # (Auto) 0.1 X10^3/uL (0.0-0.1) 05/17/19 09:34 Absolute Nucleated RBC 0.0 /100WBC 05/17/19 09:34 Total Counted 100 05/17/19 09:34 Neutrophils % (Manual) 80 % (39-76) H 05/17/19 09:34 Band Neutrophils % 11 % (0-10) H 05/17/19 09:34 Lymphocytes % (Manual) 3 % (13-43) L 05/17/19 09:34 Monocytes % (Manual) 6 % (4-9) 05/17/19 09:34 Plt Morphology Comment Normal (NORMAL) 05/17/19 09:34 RBC Morphology Normal (NORMAL) 05/17/19 09:34 Sodium 131 mmol/L (136-145) L 05/17/19 09:34 Corrected Sodium 132 mmol/L (136-145) L 05/17/19 09:34 Potassium 3.9 mmol/L (3.5-5.1) 05/17/19 09:34 Chloride 92 mmol/L (98-107) L 05/17/19 09:34 Carbon Dioxide 30.1 mmol/L (21-32) 05/17/19 09:34 BUN 23 mg/dL (7-18) H 05/17/19 09:34 Creatinine 0.51 mg/dL (0.55-1.02) L 05/17/19 09:34 Est GFR (MDRD) Af Amer > 60 (>60) 05/17/19 09:34 Est GFR (MDRD) Non-Af > 60 (>60) 05/17/19 09:34 Glucose 158 mg/dL (65-99) H 05/17/19 09:34 Lactic Acid 1.3 mmol/L (0.4-2.0) 05/17/19 11:25 Calcium 8.6 mg/dL (8.5-10.1) 05/17/19 09:34 Corrected Calcium 9.5 mg/dL (8.5-10.1) 05/17/19 09:34 Total Bilirubin 0.20 mg/dL (0.2-1.0) 05/17/19 09:34 AST 15 Units/L (15-37) 05/17/19 09:34 ALT 23 Units/L (12-78) 05/17/19 09:34 Alkaline Phosphatase 98 Units/L (46-116) 05/17/19 09:34 Troponin I < 0.02 ng/mL (0-1.5) 05/17/19 09:34 Total Protein 7.3 g/dL (6.4-8.2) 05/17/19 09:34 Albumin 2.9 g/dL (3.4-5.0) L 05/17/19 09:34 Globulin 4.4 g/dL (2.5-4.5) 05/17/19 09:34 Albumin/Globulin Ratio 0.7 Ratio (1.1-2.1) L 05/17/19 09:34 Lipase 145 Units/L (73-393) 05/17/19 09:34 Specimen Type Catherized urine 05/17/19 10:28 Urine Color Yellow (YELLOW) 05/17/19 10: Urine Appearance Cloudy (CLEAR) 05/17/19 10:28 Urine pH 6.0 (5.0 - 8.0) 05/17/19 10:28 Ur Specific Bradley 1.020 (1.000-1.030) 05/17/19 10:28 Urine Protein 3+ (NEGATIVE) 05/17/19 10:28 Urine Glucose (UA) Negative (NEGATIVE) 05/17/19 10:28 Urine Ketones Negative (NEGATIVE) 05/17/19 10:28 Urine Occult Blood 4+ (NEGATIVE) 05/17/19 10:28 Urine Nitrite Negative (NEGATIVE) 05/17/19 10:28 Urine Bilirubin Negative (NEGATIVE) 05/17/19 10:28 Urine Urobilinogen Normal (NORMAL) 05/17/19 10:28 Ur Leukocyte Esterase 3+ (NEGATIVE) 05/17/19 10:28 Urine RBC 5-10 /HPF (0-3) A 05/17/19 10:28 Urine WBC Tntc /HPF (0-5) A 05/17/19 10:28 Ur Squamous Epith Cells Rare /HPF (NEGATIVE) 05/17/19 10:28 Amorphous Sediment 1+ /HPF (NEGATIVE) 05/17/19 10:28 Urine Bacteria Trace /HPF (NEGATIVE) 05/17/19 10:28 Urine Yeast Moderate /HPF (NEGATIVE) 05/17/19 10:28 Ur Culture Indicated? Yes/culture set up 05/17/19 10:28 Stool Description Fob tube 05/17/19 10:28 Stl Occult Blood (IFOB) Negative (NEGATIVE) 05/17/19 10:28 Blood Type B POSITIVE 05/17/19 09:34 Antibody Screen Negative 05/17/19 09:34 Opioid Opioid Risk Tool Age (Checo box if 16-45): No History of Preadolescent Sexual Abuse: No Total: 0 Total Score Risk Category: Low Risk Copyright: Anupam COWAN predicting aberrant behaviors Diagnosis Discharge Problem: PEG tube malfunction, Sepsis, Hyponatremia, Aspiration pneumonia due to gastric secretions Narrative Support Text: admit Hospitalist paged at 11:37 Instructions Forms: Excuse From Work Patient Portal ADDITIONAL NOTES Additional Notes Additional Notes: 62 minutes of critical care time
[2019-05-17] MEDS ORDERED: ZOFRAN INJ 4 MG VIAL IVP PRN (08:51)
[2019-05-17] MEDS ORDERED: NS 1000 ML 1,000 ML IV SCH (09:00)
[2019-05-17] MEDS ORDERED: ZOFRAN INJ 4 MG VIAL ONE (09:22)
[2019-05-17] MEDS ORDERED: NS 1000 ML 1,000 ML ONE ×2 (09:22→15:49)
[2019-05-17] MEDS ORDERED: NS 100 ML IV 100 ML IV ONE (09:23)
[2019-05-17] MEDS ORDERED: PROTONIX INJ 40 MG VIAL ONE (09:23)
[2019-05-17 09:52] LABS: BASOPHILS # (AUTO) 0.1 X10^3/uL (0.0-0.1); BASOPHILS % (AUTO) 0.2 % (0.2-1.0); HEMATOCRIT 39.7 % (36.0-47.0); LYMPHOCYTES # (AUTO) 0.4 X10^3/uL (1.3-2.9); LYMPHOCYTES % (AUTO) 1.3 % (21.0-51.0); MEAN CORPUSCULAR HEMOGLOBIN 26.9 pg (27.0-34.0); MEAN CORPUSCULAR HGB CONC 32.7 g/dL (33.0-35.0); MEAN CORPUSCULAR VOLUME 82.3 fL (80.0-100.0); MEAN PLATELET VOLUME 7.6 fL (7.4-11.0); MONOCYTES % (AUTO) 3.3 % (0.0-13.0); NEUTROPHILS # (AUTO) 27.9 x10^3/uL (2.2-4.8); NEUTROPHILS % (AUTO) 95.2 % (42.0-75.0); PLATELET COUNT 477 X10^3/uL (150.0-450.0); RED BLOOD COUNT 4.83 X10^6/uL (3.5-5.4); RED CELL DISTRIBUTION WIDTH 14.6 % (11.6-16.5); WHITE BLOOD COUNT 29.3 X10^3/uL (3.6-10.0)
[2019-05-17] MEDS: PROTONIX INJ 40 MG VIAL 80 MG in NS 100 ML IV 80 ML IV SCH ×2 (09:54→18:54)
[2019-05-17 10:04] LABS: ALANINE AMINOTRANSFERASE 23 Units/L (12-78); ALBUMIN 2.9 g/dL (3.4-5.0); ALKALINE PHOSPHATASE 98 Units/L (46-116); ASPARTATE AMINO TRANSFERASE 15 Units/L (15-37); BLOOD UREA NITROGEN 23 mg/dL (7-18); CALCIUM 8.6 mg/dL (8.5-10.1); CARBON DIOXIDE 30.1 mmol/L (21-32); CHLORIDE 92 mmol/L (98-107); COR CA(FOR HYPOALB) 9.5 mg/dL (8.5-10.1); COR NA(FOR HYPERGLY) 132 mmol/L (136-145); CREATININE 0.51 mg/dL (0.55-1.02); LIPASE 145 Units/L (73-393); SODIUM 131 mmol/L (136-145); TOTAL PROTEIN 7.3 g/dL (6.4-8.2); TROPONIN I < 0.02 ng/mL (0-1.5); eGFR NON BLACK RACES > 60 (>60)
[2019-05-17 10:06] LABS: BAND NEUTROPHILS % 11 % (0-10)
[2019-05-17 10:07] LABS: PLATELET MORPHOLOGY COMMENT NORMAL (NORMAL)
--- NOTE | 2019-05-17 10:17 | CT ---
HISTORYGI bleedSTUDYABDOMEN/PELVIS W/O CONTechnique: Axial noncontrast images with coronal and sagittal reformats. Dose reduction procedures were used with mA/kv for body size. THIS EXAMINATION IS LIMITED DUE TO THE LACK OF INTRAVENOUS AND ORAL CONTRAST. The examination was performed in this manner at the sole discretion of the ordering caregiver.COMPARISONNone availableFINDINGSPatchy infiltrates are present in the right lung base possibly indicative of bronchopneumonia possibly related to aspiration. The left lung base is clear. The the liver, spleen, adrenal glands, and pancreas are within normal limits to the limitations of an unenhanced examination. There is a question of cholelithiasis which could be confirmed or excluded sonographically. The left kidney is diminutive but unobstructed and without stones. The right kidney is unobstructed. Multiple punctate nonobstructing right renal calculi are identified. No definite ureteral calculi are identified. The stomach is markedly distended with fluid despite the presence of a gastrostomy tube with its tip intraluminal within the stomach. Proper function of the gastrostomy tube should be confirmed. A gastric outlet obstruction cannot be excluded. The patient may benefit from nasogastric suction. The abdominal aorta demonstrates calcific atherosclerotic change but no significant dilatation. No intraperitoneal or retroperitoneal lymphadenopathy of significance is identified. There is moderate dilatation of the colon most prominently seen in the hepatic flexure which is interposed between the liver and the right hemidiaphragm. There is unusual configuration of the air along the wall of the distended hepatic flexure and transverse colon. This could represent pneumatosis intestinalis or could be related to bowel contents. Pneumatosis intestinalis can be asymptomatic and benign and related to pulmonary disease, connective tissue disease, intestinal inflammation or can be caused by intestinal ischemia, obstruction, colitis. Clinical correlation is recommended in order to exclude bowel ischemia. Examination of the pelvis demonstrated no definite evidence for pelvic masses, pelvic fluid, pelvic lymphadenopathy. There are some calcifications dependent within the bladder which could represent small bladder calculi or could be within the wall of the bladder. No lytic or blastic skeletal lesions of significance are identified.IMPRESSIONMarked distension of the stomach with fluid despite the presence of a gastrostomy tube intraluminal within the stomach. Confirmation of normal function of the gastrostomy is recommended. Nasogastric suction may be of benefit to decrease the likelihood of aspiration.Possible cholelithiasisModerate dilatation of the colon rectum through ascending colon most prominent at the hepatic flexure which is interposed between the liver and the right hemidiaphragm. There is a pattern of air the bowel wall in the right and proximal transverse colon which could be simulating pneumatosis intestinalis or could be actual pneumatosis intestinalis. Benign causes of pneumatosis include idiopathic, obstructive pulmonary disease, connective tissue disease, and intestinal inflammation. Or significant causes include bowel ischemia obstruction, colitis. Bowel ischemia must be clinically excluded. Expedient surgical evaluation is recommended.Electronically signed by: JOHANNA SANTOS (May 17, 2019 10:15:48)
[2019-05-17] MEDS ORDERED: ZOSYN VIAL 3.375 GRAMS 3.375 G in NS 100 ML IV + SPIKE MINIBAG* 100 ML IV ONE (10:39)
[2019-05-17] MEDS ORDERED: ZOSYN VIAL 3.375 GRAMS IV ONE (10:48)
[2019-05-17] MEDS ORDERED: NS 100 ML IV + SPIKE MINIBAG* 100 ML IV ONE (10:48)
[2019-05-17 10:55] LABS: BILIRUBIN,URINE NEGATIVE (NEGATIVE); BLOOD/HEMOGLOBIN,URINE 4+ (NEGATIVE); GLUCOSE, URINE NEGATIVE (NEGATIVE); KETONES,URINE NEGATIVE (NEGATIVE); LEUKOCYTE ESTERASE ,URINE 3+ (NEGATIVE); NITRITES,URINE NEGATIVE (NEGATIVE); PROTEIN,URINE 3+ (NEGATIVE); UROBILINOGEN,URINE NORMAL (NORMAL)
[2019-05-17 10:57] LABS: COLOR,URINE YELLOW (YELLOW)
[2019-05-17 10:58] LABS: APPEARANCE,URINE CLOUDY (CLEAR)
[2019-05-17 11:05] LABS: AMORPHOUS SEDIMENT,UR 1+ /HPF (NEGATIVE); BACTERIA,URINE TRACE /HPF (NEGATIVE); SQUAMOUS EPITHELIAL CELL,UR RARE /HPF (NEGATIVE)
[2019-05-17 11:06] LABS: YEAST,URINE MODERATE /HPF (NEGATIVE)
--- NOTE | 2019-05-17 11:07 | RAD ---
HISTORYElevated white blood cell countSTUDYPortable AP chestCOMPARISONNovember 2018FINDINGSThe lungs are grossly clear and the heart size is prominent. The descending aorta is tortuous. There is no edema or effusion.IMPRESSIONNo acute cardiopulmonary diseaseElectronically signed by: SHANIA ALMAGUER (May 17, 2019 11:05:30)
[2019-05-17] MEDS ORDERED: STERILE WATER IRRIGATION IR ONE (14:06)
[2019-05-17 14:15] VITALS: BMI 14.6
[2019-05-17] MEDS ORDERED: PHARMACY CONSULT LTC MEDICATIONS XX SCH (15:00)
[2019-05-17 16:41] LABS: CKMB % 5.1 % (<4); CREATINE KINASE 47 Units/L (26-192); CREATINE KINASE MB 2.4 ng/mL (0-4.0); TROPONIN I < 0.02 ng/mL (0-1.5)
[2019-05-17] MEDS ORDERED: DUONEB 0.5 MG/3 MG (3 mL) NEB PRN (17:47)
[2019-05-17] MEDS: NS 1000 ML 1,000 ML IV SCH (19:00)
[2019-05-17 22:36] LABS: CKMB % 6.8 % (<4); CREATINE KINASE 34 Units/L (26-192); CREATINE KINASE MB 2.3 ng/mL (0-4.0); TROPONIN I < 0.02 ng/mL (0-1.5)
[2019-05-18] MEDS: NS 1000 ML 1,000 ML IV SCH ×3 (01:00→16:04)
[2019-05-18 04:20] LABS: BASOPHILS % (AUTO) 0.2 % (0.2-1.0); LYMPHOCYTES # (AUTO) 1.1 X10^3/uL (1.3-2.9); MEAN CORPUSCULAR HGB CONC 32.8 g/dL (33.0-35.0); MEAN CORPUSCULAR VOLUME 82.3 fL (80.0-100.0); MEAN PLATELET VOLUME 7.9 fL (7.4-11.0); MONOCYTES % (AUTO) 5.2 % (0.0-13.0); NEUTROPHILS # (AUTO) 16.8 x10^3/uL (2.2-4.8); NEUTROPHILS % (AUTO) 88.6 % (42.0-75.0); PLATELET COUNT 373 X10^3/uL (150.0-450.0); RED BLOOD COUNT 3.89 X10^6/uL (3.5-5.4); RED CELL DISTRIBUTION WIDTH 15.2 % (11.6-16.5)
[2019-05-18 04:45] LABS: HEMOGLOBIN 10.5 g/dL (12.0-16.0)
[2019-05-18 04:48] LABS: ALANINE AMINOTRANSFERASE 17 Units/L (12-78); ALBUMIN 2.3 g/dL (3.4-5.0); ALKALINE PHOSPHATASE 75 Units/L (46-116); ASPARTATE AMINO TRANSFERASE 11 Units/L (15-37); BLOOD UREA NITROGEN 12 mg/dL (7-18); CALCIUM 8.1 mg/dL (8.5-10.1); CARBON DIOXIDE 32.5 mmol/L (21-32); CHLORIDE 102 mmol/L (98-107); CKMB % 7.4 % (<4); COR CA(FOR HYPOALB) 9.5 mg/dL (8.5-10.1); CREATINE KINASE 31 Units/L (26-192); CREATINE KINASE MB 2.3 ng/mL (0-4.0); CREATININE 0.31 mg/dL (0.55-1.02); SODIUM 137 mmol/L (136-145); TROPONIN I < 0.02 ng/mL (0-1.5); eGFR NON BLACK RACES > 60 (>60)
[2019-05-18] MEDS: PROTONIX INJ 40 MG VIAL 80 MG in NS 100 ML IV 80 ML IV SCH ×2 (05:59→15:10)
[2019-05-18] MEDS ORDERED: HumuLIN R SUBCUT PRN (06:04)
[2019-05-18] MEDS ORDERED: D50W ABBOJECT SYR ONE ×4 (06:07→11:57)
--- NOTE | 2019-05-18 06:14 | RAD ---
HISTORYFollow-up pneumoniaSTUDYCHEST, 1 [id number]/2020FINDINGSThe heart is upper limits normal in size. No congestive heart failure is noted. No acute alveolar infiltrates or pleural effusions are identified. Bony thorax is unremarkable.IMPRESSIONNo significant abnormality identifiedElectronically signed by: JOHANNA SANTOS (May 18, 2019 06:13:28)
[2019-05-18] MEDS ORDERED: DIPRIVAN VIAL 10 ML ONE ×2 (09:00→09:23)
[2019-05-18] MEDS: VITAMIN C PO SCH (10:54)
[2019-05-18] MEDS: D5W 1000 ML IV 1,000 ML IV SCH ×2 (11:19→20:42)
[2019-05-18] MEDS ORDERED: XYLOCAINE 1 % (PLAIN) ONE (12:39)
--- NOTE | 2019-05-18 13:44 | DR.H&P ---
H&P - History & Physical for Day of: H&P Date: 05/18/19 - Chief Complaint Chief Complaint: adult failure to thrive - Past Medical History Past Medical History: Coronary Artery Disease, Hypertension, Dyslipidemia, Dementia, Hypothyroidism, Anemia, Arthritis - Past Surgical History Surgical History: Other - Family History Family Medical History: Coronary Artery Disease, Hypertension - Social History Does patient currently use any type of tobacco product: No Have you used tobacco products in the last 12 months: No Type of Tobacco Use: None Does any household member use tobacco: No Alcohol Use: None Drug Use: None - Medications Home Medications: No Known Drug Allergies Allergy (Verified 03/15/19 23:25) - Review of Systems Eyes: No Symptoms Reported ENT: No Symptoms Reported Respiratory: Shortness of Breath Gastrointestinal: Other Musculoskeletal: Other (feeding tube) - Physical Exam Vital Signs: Temperature 98.0 F Pulse Rate [Apical] 71 Pulse Rate 92 Respiratory Rate 14 Blood Pressure [Right Arm] 121/59 Blood Pressure 115/77 O2 Sat by Pulse Oximetry 98 Oriented: Not Oriented Eyes: Normal Ear: Normal Respiratory: Rhonchi Throughout Cardiovascular: Tachycardia Skin: Decreased Turgur Psychiatric: Agitation - Assessment/Plan (1) Hypoglycemia Status: Acute Plan: will place PICC as ordered by Dr Carver - Allergies Allergies/Adverse Reactions: Allergies Allergy/AdvReac Type Severity Reaction Status Date / Time No Known Drug Allergies Allergy Verified 03/15/19 23:25 Procedures (ALL) - Central Line Placement PCM.CLCO: verbal consent Time out performed: Yes Patient placed pm monitor/pulse ox: Yes MD prep: mask, gown, gloves, other Centrial line prep: chlorhexidine scrub Local anesthsia used: lidocane 1% Ultrasound used for placement: Yes (right basilic id'd) Central line lumen ininserted: double (5 FR powerpicc) Post procedure: good blood return, all ports aspirated, flushed,capped, sterile dressing applied Post procedure xray: tip oc catheter in good position, no pneumothorax seen Patient tolerated procedure: Yes Complications: none
[2019-05-18] MEDS: ZOSYN VIAL 3.375 GRAMS 3.375 G in NS 100 ML IV + SPIKE MINIBAG* 100 ML IV SCH ×3 (14:14→21:39)
--- NOTE | 2019-05-18 14:20 | RAD ---
HISTORYPICC line placementSTUDYPortable AP chestCOMPARISONToday at 5 a.m.FINDINGSThere is a new right-sided PICC line with the tip in the right atrium. There is a patchy infiltrate at the right lung base laterally. The left lung is clear. The heart size is normal. There is no effusion.IMPRESSION1. PICC line tip in the low right atrium.2. Patchy pneumonitis and of or subsegmental atelectasis at the right lung base laterallyElectronically signed by: SHANIA ALMAGUER (May 18, 2019 14:18:36)
[2019-05-18] MEDS: LOVENOX INJ 40 MG SYR SC SCH (14:38)
[2019-05-18] MEDS ORDERED: ZESTRIL TAB 20 MG ONE (18:13)
[2019-05-18] MEDS: POTASSIUM CHLORIDE LIQ 20 MEQ UDC GT SCH (18:20)
[2019-05-18] MEDS: TAB-A-VITE PO SCH (18:20)
[2019-05-18] MEDS: ZESTRIL TAB 20 MG GT SCH (18:21)
[2019-05-18] MEDS: ZINC SULFATE GT SCH (18:21)
--- NOTE | 2019-05-18 18:33 | DR.H&P ---
H&P - History & Physical for Day of: H&P Date: 05/17/19 - Chief Complaint Chief Complaint: COFFEE GROUND EMESIS, SHORTNESS OF BREATH, LETHARGIC - History of Present Illness History of Present Illness: IS A 74 YEAR OLD WHITE FEMALE PATIENT OF [facility]. SHE IS A RESIDENT OF [facility]. SHE PRESENTED TO THE ER WITH COMPLAINTS OF COFFEE GROUND EMESIS. THEY REPORT THAT PATIENT WAS LETHARGIC AND THAT THEY HAD TO PERFORM A STERNAL RUB. ON ARRIVAL TO THE ER, PATIENT RESPONDED VERBALLY, BUT WAS NOTED TO BE LETHARGIC. THERE WAS DARK COLORED CONTENTS NOTED IN NG TUBE. ON ARRIVAL, VITALS WERE 98.9-787-44-100%-123/73. LABS WERE OBTAINED. ABNORMAL LAB VALUES INCLUDE THE FOLLOWING: WBC 29.3, PLT COUNT 477, SODIUM 131, CHLORIDE 92, BUN 23, CREATININE 0.5, GLUCOSE 158, ALBUMIN 2.9. CARDIAC ENZYMES WITHIN NORMAL LIMITS. URINALYSIS REVEALED: WBC TNTC, RBC 5-10, LEUKOCYTES 3+, BACTERIA TRACE, YEAST MODERATE. BLOOD AND URINE CULTURES ARE PENDING. AN ABDOMEN/PELVIS CT WAS OBTAINED WITHOUT CONTRAST AND REVEALED: Patchy infiltrates are present in the right lung base possibly indicative of bronchopneumonia possibly related to aspiration. The left lung base is clear. Marked distension of the stomach with fluid despite the presence of a gastrostomy tube intraluminal within the stomach. Confirmation of normal function of the gastrostomy is recommended. Nasogastric suction may be of benefit to decrease the likelihood of aspiration. Possible cholelithiasis. Moderate dilatation of the colon rectum through ascending colon most prominent at the hepatic flexure which is interposed between the liver and the right hemidiaphragm. There is a pattern of air the bowel wall in the right and proximal transverse colon which could be simulating pneumatosis intestinalis or could be actual pneumatosis intestinalis. Benign causes of pneumatosis include idiopathic, obstructive pulmonary disease, connective tissue disease, and intestinal inflammation. Or significant causes include bowel ischemia obstruction, colitis. Bowel ischemia must be clinically excluded. Expedient surgical evaluation is recommended. SHE WAS ADMITTED FOR FURTHER EVALUATION AND TREATMENT OF UTI, RLL ASPIRATION PNEUMONIA, LEUKOCYTOSIS, AND A POSSIBLE ISCHEMIC OBSTRUCTION WAS CONSULTED. G-TUBE WAS IRRIGATED AND CONNECTED TO LOW INTERMITTENT SUCTION. HE PLANS FOR AN EGD AND TO CHANGE G-TUBE. FAMILY IN AGREEMENT WITH PLANS. TIME SPENT WITH PATIENT AND WAS GREATER THAN 16 MINUTES. SHE WAS STARTED ON IV FLUIDS, ZOSYN 3.375G IV TID, A PROTONIX DRIP, AND RESPIRATORY TREATMENTS. OTHERWISE, WE PLAN TO FOLLOW UP WITH AM LABS AND CONTINUE TO MONITOR. - Past Medical History Past Medical History: Coronary Artery Disease, Hypertension, Dyslipidemia, Dementia, Hypothyroidism, Anemia, Arthritis - Past Surgical History Surgical History: Other - Family History Family Medical History: Coronary Artery Disease, Hypertension - Social History Does patient currently use any type of tobacco product: No Have you used tobacco products in the last 12 months: No Type of Tobacco Use: None Does any household member use tobacco: No Alcohol Use: None Drug Use: None - Medications Home Medications: No Known Drug Allergies Allergy (Verified 03/15/19 23:25) - Review of Systems Constitutional: Fever, Weakness, Malaise Eyes: No Symptoms Reported ENT: No Symptoms Reported Respiratory: See HPI, Cough, Shortness of Breath, SOB with Excertion Cardiovascular: No Symptoms Reported Gastrointestinal: See HPI, Nausea, Vomiting, Abdominal Pain Genitourinary: No Symptoms Reported Musculoskeletal: No Symptoms Reported Skin: No Symptoms Reported Neurological: Weakness - Physical Exam Vital Signs: Temperature 98.8 F Pulse Rate [Apical] 92 Pulse Rate 92 Respiratory Rate 16 Blood Pressure [Right Arm] 145/67 Blood Pressure 115/77 O2 Sat by Pulse Oximetry 100 Oriented: Not Oriented Eyes: Normal Ear: Normal Nose: Normal Respiratory: Diminished Throughout Cardiovascular: Tachycardia. negative: S3, S4, Murmur : Normal Auscultation: Bowel Sounds: Decreased Palpation: Normal Tenderness: Diffuse Skin: Normal Musculoskeletal: Normal Psychiatric: Normal Mood Description: Calm Affect: Normal Speech Pattern: Clear - Assessment/Plan (1) Aspiration pneumonia due to gastric secretions Qualifiers: Laterality: right Lung location: lower lobe of lung Qualified Code(s): J69.0 - Pneumonitis due to inhalation of food and vomit Status: Acute Plan: ADMIT, IV ZOSYN, IV FLUIDS, RESPIRATORY TX CONTINUE TO MONITOR (2) Urinary tract infection Qualifiers: Urinary tract infection type: acute cystitis Hematuria presence: with hematuria Qualified Code(s): N30.01 - Acute cystitis with hematuria Status: Acute Plan: IV ZOSYN, IV FLUIDS, CONTINUE TO MONITOR (3) Hyponatremia Status: Acute Plan: IV FLUIDS, CONTINUE TO MONITOR (4) Weakness Status: Acute (5) PEG tube malfunction Status: Acute (6) Ischemia, bowel Status: Suspected Plan: NG TUBE, SURGICAL CONSULT, CONTINUE TO MONITOR - Allergies Allergies/Adverse Reactions: Allergies Allergy/AdvReac Type Severity Reaction Status Date / Time No Known Drug Allergies Allergy Verified 03/15/19 23:25
[2019-05-18] MEDS: KLONOPIN TAB 0.5 MG GT SCH (20:43)
[2019-05-18] MEDS: PATIENT'S HOME MEDICATION (Amino Acids-Protein Hydrolys [Pro-Stat Awc] 30 ML) GT SCH (20:43)
[2019-05-18] MEDS: COLACE SYRUP 100 MG UDC GT SCH (20:43)
[2019-05-18] MEDS: MEGACE PO SCH (20:43)
[2019-05-18] MEDS: VITAMIN C GT SCH (20:44)
[2019-05-18] MEDS ORDERED: ZyPREXA TAB 5 MG GT SCH (21:00)
[2019-05-19] MEDS: NS 1000 ML 1,000 ML IV SCH (00:48)
[2019-05-19] MEDS: PROTONIX INJ 40 MG VIAL 80 MG in NS 100 ML IV 80 ML IV SCH ×3 (00:49→21:50)
[2019-05-19 06:06] LABS: ALANINE AMINOTRANSFERASE 15 Units/L (12-78); ALKALINE PHOSPHATASE 66 Units/L (46-116); ASPARTATE AMINO TRANSFERASE 11 Units/L (15-37); BLOOD UREA NITROGEN 8 mg/dL (7-18); CALCIUM 7.5 mg/dL (8.5-10.1); CARBON DIOXIDE 33.8 mmol/L (21-32); CHLORIDE 99 mmol/L (98-107); COR CA(FOR HYPOALB) 9.1 mg/dL (8.5-10.1); CREATININE 0.26 mg/dL (0.55-1.02); SODIUM 134 mmol/L (136-145); TOTAL PROTEIN 5.4 g/dL (6.4-8.2); eGFR NON BLACK RACES > 60 (>60)
[2019-05-19 06:11] LABS: BASOPHILS % (AUTO) 0.2 % (0.2-1.0); EOSINOPHILS % (AUTO) 0.1 % (0.9-2.9); HEMATOCRIT 26.5 % (36.0-47.0); LYMPHOCYTES # (AUTO) 0.9 X10^3/uL (1.3-2.9); LYMPHOCYTES % (AUTO) 6.7 % (21.0-51.0); MEAN CORPUSCULAR HEMOGLOBIN 27.8 pg (27.0-34.0); MEAN CORPUSCULAR HGB CONC 33.8 g/dL (33.0-35.0); MEAN CORPUSCULAR VOLUME 82.1 fL (80.0-100.0); MEAN PLATELET VOLUME 7.7 fL (7.4-11.0); MONOCYTES # (AUTO) 0.8 x10^3/uL (0.3-0.8); MONOCYTES % (AUTO) 6.1 % (0.0-13.0); NEUTROPHILS # (AUTO) 11.2 x10^3/uL (2.2-4.8); NEUTROPHILS % (AUTO) 86.9 % (42.0-75.0); PLATELET COUNT 319 X10^3/uL (150.0-450.0); RED BLOOD COUNT 3.23 X10^6/uL (3.5-5.4); RED CELL DISTRIBUTION WIDTH 14.9 % (11.6-16.5); WHITE BLOOD COUNT 12.8 X10^3/uL (3.6-10.0)
[2019-05-19] MEDS: D5W 1000 ML IV 1,000 ML IV SCH ×4 (06:27→19:02)
[2019-05-19] MEDS: ZOSYN VIAL 3.375 GRAMS 3.375 G in NS 100 ML IV + SPIKE MINIBAG* 100 ML IV SCH ×3 (06:28→21:51)
[2019-05-19] MEDS ORDERED: ZESTRIL TAB 20 MG ONE (09:35)
[2019-05-19] MEDS: FERROUS GLUCONATE PO SCH (09:36)
[2019-05-19] MEDS: LOVENOX INJ 40 MG SYR SC SCH (09:37)
[2019-05-19] MEDS: POTASSIUM CHLORIDE LIQ 20 MEQ UDC GT SCH (09:38)
[2019-05-19] MEDS: TAB-A-VITE PO SCH (09:38)
[2019-05-19] MEDS: MEGACE PO SCH ×2 (09:38→21:49)
[2019-05-19] MEDS: ZINC SULFATE GT SCH (09:39)
[2019-05-19] MEDS: VITAMIN C GT SCH ×2 (09:39→21:50)
[2019-05-19] MEDS: VITAMIN C PO SCH (09:39)
[2019-05-19] MEDS: ZESTRIL TAB 20 MG GT SCH (09:40)
[2019-05-19] MEDS: COLACE SYRUP 100 MG UDC GT SCH ×2 (10:13→21:31)
[2019-05-19] MEDS: PATIENT'S HOME MEDICATION (Amino Acids-Protein Hydrolys [Pro-Stat Awc] 30 ML) GT SCH ×4 (10:13→21:49)
[2019-05-19] MEDS: DIFLUCAN 200 MG IV PREMIX* 200 MG/100 ML BAG IV SCH (12:07)
[2019-05-19] MEDS: PROCALAMINE 3 % 1,000 ML IV SCH (12:07)
--- NOTE | 2019-05-19 15:58 | PCM.PROG ---
Progress Note - Progress Note for Day of Date of Exam: 05/19/19 - Subjective Subjective: IS BEING TREATED FOR ASPIRATION PNEUMONIA, LEUKOCYTOSIS, AND A URINARY TRACT INFECTION. 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 TODAY, SHE IS ALERT, LYING IN BED ON MORNING ROUNDS. SHE IS DISORIENTED. ON EXAMINATION, HEART IS REGULAR IN RATE AND RHYTHM. BILATERAL LUNGS ARE NOTED WITH SCATTERED WHEEZING. ABDOMEN IS FLAT, SOFT, AND NOTED WITH DIFFUSE TENDERNESS TO PALPATION. HER VITALS THIS MORNING ARE: 98.8-483-54-100%NC-149/67. LABS WERE OBTAINED. ABNORMAL LAB VALUES INCLUDE THE FOLLOWING: WBC 12.8, RBC 3.23, HGB 9.0, HCT 26.5, SODIUM 134, POTASSIUM 3.1, CARBON DIOXIDE 33.8, CREATININE 0.26, CALCIUM 7.5, TOTAL BILI 0.10, AST 11, TOTAL PROTEIN 5.4, ALBUMIN 2.0. BLOOD AND URINE CULTURES ARE PENDING. URINE CULTURE REPORTS GROWTH OF YEAST. SHE IS CURRENTLY RECEIVING D5W AT 125ML/HR, IV ZOSYN, A PROTONIX DRIP, HUMULIN R SLDING SCALE, RESPIRATORY TX, AND HOME MEDICATIONS WERE RESUMED. WE WILL CONTINUE WITH CURRENT PLAN OF CARE TODAY AND ADD DIFLUCAN 200MG IV DAILY AND PROCAL AT 40 ML/HR. WE WILL DECREASE HER IV FLUIDS TO 50 ML/HR. OTHERWISE, WE WILL FOLLOW UP WITH AM LABS AND CONTINUE TO MONITOR. - Past Medical Family Social History Past Med/Fam/Surg Hx: No changes since H&P Allergies: Allergies No Known Drug Allergies Allergy (Verified 03/15/19 23:25) - Review of Systems ROS: No change since H&P - Vital Signs and I&O's Vital Signs: Temperature 98.4 F Pulse Rate [Apical] 81 Pulse Rate 100 Respiratory Rate 19 Blood Pressure [Right Arm] 138/63 Blood Pressure 146/70 O2 Sat by Pulse Oximetry 100 Intake and Output: Intake & Output 05/17/19 05/18/19 05/19/19 05/20/19 11:59 11:59 11:59 11:59 Intake Total 3280 / 3280 2963 / 2963 Output Total 1781 / 1781 1725 / 1725 Balance 1499 / 1499 1238 / 1238 - Physical Exam Oriented: Not Oriented Eyes: Normal Ear: Normal Nose: Normal Respiratory: Generalized, Wheezes Cardiovascular: Tachycardia. negative: S3, S4, Murmur : Normal Auscultation: Bowel Sounds: Decreased Palpation: Normal Tenderness: Diffuse Skin: Normal Musculoskeletal: Normal Psychiatric: Normal Mood Description: Calm Affect: Normal Speech Pattern: Clear, Appropriate - Laboratory and Diagnostics Result Diagrams: 05/19/19 04:25 05/19/19 04:25 Labs: 05/17/19 10:50 Blood Blood Culture - Preliminary 05/17/19 10:28 Urine,Catheterized Urine Culture - Final Laboratory WBC 12.8 X10^3/uL (3.6-10.0) H 05/19/19 04:25 RBC 3.23 X10^6/uL (3.5-5.4) L 05/19/19 04:25 Hgb 9.0 g/dL (12.0-16.0) L 05/19/19 04:25 Hct 26.5 % (36.0-47.0) L 05/19/19 04:25 MCV 82.1 fL (80.0-100.0) 05/19/19 04:25 MCH 27.8 pg (27.0-34.0) 05/19/19 04:25 MCHC 33.8 g/dL (33.0-35.0) 05/19/19 04:25 RDW 14.9 % (11.6-16.5) 05/19/19 04:25 Plt Count 319 X10^3/uL (150.0-450.0) 05/19/19 04:25 Plt Count Comment Increased (ADEQUATE) A 05/17/19 09:34 MPV 7.7 fL (7.4-11.0) 05/19/19 04:25 Neut % (Auto) 86.9 % (42.0-75.0) H 05/19/19 04:25 Lymph % (Auto) 6.7 % (21.0-51.0) L 05/19/19 04:25 [place] % (Auto) 6.1 % (0.0-13.0) 05/19/19 04:25 Eos % (Auto) 0.1 % (0.9-2.9) L 05/19/19 04:25 Baso % (Auto) 0.2 % (0.2-1.0) 05/19/19 04:25 Neut # (Auto) 11.2 x10^3/uL (2.2-4.8) H 05/19/19 04:25 Lymph # (Auto) 0.9 X10^3/uL (1.3-2.9) L 05/19/19 04:25 [place] # (Auto) 0.8 x10^3/uL (0.3-0.8) 05/19/19 04:25 Eos # (Auto) 0.0 x10^3/uL (0.0-0.2) 05/19/19 04:25 Baso # (Auto) 0.0 X10^3/uL (0.0-0.1) 05/19/19 04:25 Absolute Nucleated RBC 0.0 /100WBC 05/19/19 04:25 Total Counted 100 05/17/19 09:34 Neutrophils % (Manual) 80 % (39-76) H 05/17/19 09:34 Band Neutrophils % 11 % (0-10) H 05/17/19 09:34 Lymphocytes % (Manual) 3 % (13-43) L 05/17/19 09:34 Monocytes % (Manual) 6 % (4-9) 05/17/19 09:34 Plt Morphology Comment Normal (NORMAL) 05/17/19 09:34 RBC Morphology Normal (NORMAL) 05/17/19 09:34 Sodium 134 mmol/L (136-145) L 05/19/19 04:25 Corrected Sodium TNP 05/19/19 04:25 Potassium 3.1 mmol/L (3.5-5.1) L 05/19/19 04:25 Chloride 99 mmol/L (98-107) 05/19/19 04:25 Carbon Dioxide 33.8 mmol/L (21-32) H 05/19/19 04:25 BUN 8 mg/dL (7-18) 05/19/19 04:25 Creatinine 0.26 mg/dL (0.55-1.02) L 05/19/19 04:25 Est GFR (MDRD) Af Amer > 60 (>60) 05/19/19 04:25 Est GFR (MDRD) Non-Af > 60 (>60) 05/19/19 04:25 Glucose 95 mg/dL (65-99) 05/19/19 04:25 POC Glucose (mg/dL) 117 mg/dL (65-99) H 05/19/19 11:36 Lactic Acid 1.3 mmol/L (0.4-2.0) 05/17/19 11:25 Calcium 7.5 mg/dL (8.5-10.1) L 05/19/19 04:25 Corrected Calcium 9.1 mg/dL (8.5-10.1) 05/19/19 04:25 Total Bilirubin 0.10 mg/dL (0.2-1.0) L 05/19/19 04:25 AST 11 Units/L (15-37) L 05/19/19 04:25 ALT 15 Units/L (12-78) 05/19/19 04:25 Alkaline Phosphatase 66 Units/L (46-116) 05/19/19 04:25 Creatine Kinase 31 Units/L (26-192) 05/18/19 03:30 CK-MB (CK-2) 2.3 ng/mL (0-4.0) 05/18/19 03:30 CK/CKMB % Calc 7.4 % (<4) 05/18/19 03:30 Troponin I < 0.02 ng/mL (0-1.5) 05/18/19 03:30 Total Protein 5.4 g/dL (6.4-8.2) L 05/19/19 04:25 Albumin 2.0 g/dL (3.4-5.0) L 05/19/19 04:25 Globulin 3.4 g/dL (2.5-4.5) 05/19/19 04:25 Albumin/Globulin Ratio 0.6 Ratio (1.1-2.1) L 05/19/19 04:25 Lipase 145 Units/L (73-393) 05/17/19 09:34 Specimen Type Catherized urine 05/17/19 10:28 Urine Color Yellow (YELLOW) 05/17/19 10:28 Urine Appearance Cloudy (CLEAR) 05/17/19 10:28 Urine pH 6.0 (5.0 - 8.0) 05/17/19 10:28 Ur Specific [place] 1.020 (1.000-1.030) 05/17/19 10:28 Urine Protein 3+ (NEGATIVE) 05/17/19 10:28 Urine Glucose (UA) Negative (NEGATIVE) 05/17/19 10:28 Urine Ketones Negative (NEGATIVE) 05/17/19 10:28 Urine Occult Blood 4+ (NEGATIVE) 05/17/19 10:28 Urine Nitrite Negative (NEGATIVE) 05/17/19 10:28 Urine Bilirubin Negative (NEGATIVE) 05/17/19 10:28 Urine Urobilinogen Normal (NORMAL) 05/17/19 10:28 Ur Leukocyte Esterase 3+ (NEGATIVE) 05/17/19 10:28 Urine RBC 5-10 /HPF (0-3) A 05/17/19 10:28 Urine WBC Tntc /HPF (0-5) A 05/17/19 10:28 Ur Squamous Epith Cells Rare /HPF (NEGATIVE) 05/17/19 10:28 Amorphous Sediment 1+ /HPF (NEGATIVE) 05/17/19 10:28 Urine Bacteria Trace /HPF (NEGATIVE) 05/17/19 10:28 Urine Yeast Moderate /HPF (NEGATIVE) 05/17/19 10:28 Ur Culture Indicated? Yes/culture set up 05/17/19 10:28 Stool Description Fob tube 05/17/19 10:28 Stl Occult Blood (IFOB) Negative (NEGATIVE) 05/17/19 10:28 Blood Type B POSITIVE 05/17/19 09:34 Antibody Screen Negative 05/17/19 09:34 - Plan (1) Aspiration pneumonia due to gastric secretions Status: Acute Qualifiers: Laterality: right Lung location: lower lobe of lung Qualified Code(s): J69.0 - Pneumonitis due to inhalation of food and vomit Plan: IV ZOSYN, IV FLUIDS, RESPIRATORY TX CONTINUE TO MONITOR (2) Urinary tract infection Status: Acute Qualifiers: Urinary tract infection type: acute cystitis Hematuria presence: with hematuria Qualified Code(s): N30.01 - Acute cystitis with hematuria Plan: IV ZOSYN, IV FLUIDS, CONTINUE TO MONITOR (3) Hyponatremia Status: Acute Plan: IV FLUIDS, CONTINUE TO MONITOR (4) Weakness Status: Acute (5) PEG tube malfunction Status: Acute (6) Ischemia, bowel Status: Suspected Plan: NG TUBE, SURGICAL CONSULT, CONTINUE TO MONITOR (7) Yeast infection Status: Acute Plan: DIFLUCAN 200MG IV DAILY, CONTINUE TO MONITOR
[2019-05-19] MEDS: SYNTHROID 100 mcg TAB GT SCH (17:18)
[2019-05-19] MEDS: KLONOPIN TAB 0.5 MG GT SCH (21:49)
[2019-05-19] MEDS ORDERED: K-DUR TAB 20 MEQ PO PRN (23:04)
[2019-05-20] MEDS: D5W 1000 ML IV 1,000 ML IV SCH (03:26)
[2019-05-20] MEDS: MAGNESIUM SULFATE 1 GRAM/100 mL PREMIX 1 GM/100 ML BAG IV PRN ×2 (03:39→05:30)
[2019-05-20] MEDS: PROTONIX INJ 40 MG VIAL 80 MG in NS 100 ML IV 80 ML IV SCH ×4 (03:40→17:29)
[2019-05-20] MEDS: ZOSYN VIAL 3.375 GRAMS 3.375 G in NS 100 ML IV + SPIKE MINIBAG* 100 ML IV SCH ×3 (05:12→21:31)
[2019-05-20 05:40] LABS: BASOPHILS # (AUTO) 0.1 X10^3/uL (0.0-0.1); BASOPHILS % (AUTO) 0.5 % (0.2-1.0); EOSINOPHILS % (AUTO) 0.1 % (0.9-2.9); HEMOGLOBIN 11.2 g/dL (12.0-16.0); LYMPHOCYTES # (AUTO) 1.2 X10^3/uL (1.3-2.9); LYMPHOCYTES % (AUTO) 11.3 % (21.0-51.0); MEAN CORPUSCULAR VOLUME 81.8 fL (80.0-100.0); MEAN PLATELET VOLUME 7.5 fL (7.4-11.0); MONOCYTES # (AUTO) 0.7 x10^3/uL (0.3-0.8); MONOCYTES % (AUTO) 6.8 % (0.0-13.0); NEUTROPHILS # (AUTO) 8.7 x10^3/uL (2.2-4.8); NEUTROPHILS % (AUTO) 81.3 % (42.0-75.0); PLATELET COUNT 399 X10^3/uL (150.0-450.0); RED BLOOD COUNT 4.16 X10^6/uL (3.5-5.4); RED CELL DISTRIBUTION WIDTH 14.9 % (11.6-16.5); WHITE BLOOD COUNT 10.7 X10^3/uL (3.6-10.0)
[2019-05-20 06:02] LABS: ALANINE AMINOTRANSFERASE 17 Units/L (12-78); ALBUMIN 2.4 g/dL (3.4-5.0); ALKALINE PHOSPHATASE 78 Units/L (46-116); ASPARTATE AMINO TRANSFERASE 12 Units/L (15-37); BLOOD UREA NITROGEN 9 mg/dL (7-18); CALCIUM 8.1 mg/dL (8.5-10.1); CARBON DIOXIDE 34.1 mmol/L (21-32); CHLORIDE 94 mmol/L (98-107); COR CA(FOR HYPOALB) 9.4 mg/dL (8.5-10.1); CREATININE 0.34 mg/dL (0.55-1.02); MAGNESIUM 2.4 mg/dL (1.7-2.9); SODIUM 134 mmol/L (136-145); TOTAL PROTEIN 6.7 g/dL (6.4-8.2); eGFR NON BLACK RACES > 60 (>60)
--- NOTE | 2019-05-20 06:18 | RAD ---
HISTORYShortness of breathSTUDYCHEST, 1 [id number]/2020FINDINGSThere is a right-sided PICC line with its tip in the right atrium unchanged on the prior examination. The heart remains mildly enlarged. No congestive heart failure is noted. No acute alveolar infiltrates or pleural effusions are identified. Air density under the right hemidiaphragm is interposed colon. No pleural effusions are identified. The bony thorax is unremarkable.IMPRESSIONCardiomegaly without congestive heart failureNo acute infiltratesElectronically signed by: OJHANNA SANTOS (May 20, 2019 06:17:12)
[2019-05-20] MEDS ORDERED: POTASSIUM CHLORIDE LIQ 20 MEQ UDC PO ONE (06:20)
[2019-05-20] MEDS ORDERED: ZESTRIL TAB 20 MG ONE (09:21)
[2019-05-20] MEDS: COLACE SYRUP 100 MG UDC GT SCH ×2 (09:28→20:02)
[2019-05-20] MEDS: DIFLUCAN 200 MG IV PREMIX* 200 MG/100 ML BAG IV SCH (09:31)
[2019-05-20] MEDS: POTASSIUM CHLORIDE LIQ 20 MEQ UDC GT SCH (09:32)
[2019-05-20] MEDS: TAB-A-VITE PO SCH (09:32)
[2019-05-20] MEDS: FERROUS GLUCONATE PO SCH (09:32)
[2019-05-20] MEDS: MEGACE PO SCH ×2 (09:32→20:03)
[2019-05-20] MEDS: VITAMIN C PO SCH (09:32)
[2019-05-20] MEDS: LOVENOX INJ 40 MG SYR SC SCH (09:33)
[2019-05-20] MEDS: ZESTRIL TAB 20 MG GT SCH (09:33)
[2019-05-20] MEDS: ZINC SULFATE GT SCH (09:33)
[2019-05-20] MEDS: PATIENT'S HOME MEDICATION (Amino Acids-Protein Hydrolys [Pro-Stat Awc] 30 ML) GT SCH ×4 (09:35→20:02)
[2019-05-20] MEDS: VITAMIN C GT SCH ×2 (09:44→20:03)
[2019-05-20] MEDS: D5W + KCL 20 MEQ/L 1,000 ML IV SCH (10:58)
[2019-05-20] MEDS: PROCALAMINE 3 % 1,000 ML IV SCH (10:58)
[2019-05-20] MEDS: SYNTHROID 100 mcg TAB GT SCH (16:40)
[2019-05-20] MEDS: KLONOPIN TAB 0.5 MG GT SCH (20:03)
[2019-05-21] MEDS: PROTONIX INJ 40 MG VIAL 80 MG in NS 100 ML IV 80 ML IV SCH ×3 (05:00→17:38)
[2019-05-21 05:23] LABS: BASOPHILS % (AUTO) 0.5 % (0.2-1.0); EOSINOPHILS % (AUTO) 0.2 % (0.9-2.9); HEMOGLOBIN 11.3 g/dL (12.0-16.0); LYMPHOCYTES # (AUTO) 1.5 X10^3/uL (1.3-2.9); LYMPHOCYTES % (AUTO) 16.9 % (21.0-51.0); MEAN CORPUSCULAR HEMOGLOBIN 26.9 pg (27.0-34.0); MEAN CORPUSCULAR HGB CONC 33.1 g/dL (33.0-35.0); MEAN CORPUSCULAR VOLUME 81.4 fL (80.0-100.0); MEAN PLATELET VOLUME 7.9 fL (7.4-11.0); MONOCYTES # (AUTO) 0.8 x10^3/uL (0.3-0.8); MONOCYTES % (AUTO) 8.4 % (0.0-13.0); NEUTROPHILS # (AUTO) 6.7 x10^3/uL (2.2-4.8); PLATELET COUNT 423 X10^3/uL (150.0-450.0); RED BLOOD COUNT 4.18 X10^6/uL (3.5-5.4); RED CELL DISTRIBUTION WIDTH 14.7 % (11.6-16.5)
[2019-05-21 05:41] LABS: ALANINE AMINOTRANSFERASE 19 Units/L (12-78); ALBUMIN 2.4 g/dL (3.4-5.0); ALKALINE PHOSPHATASE 85 Units/L (46-116); ASPARTATE AMINO TRANSFERASE 13 Units/L (15-37); BLOOD UREA NITROGEN 17 mg/dL (7-18); CARBON DIOXIDE 31.8 mmol/L (21-32); CHLORIDE 95 mmol/L (98-107); COR CA(FOR HYPOALB) 9.3 mg/dL (8.5-10.1); CREATININE 0.31 mg/dL (0.55-1.02); SODIUM 131 mmol/L (136-145); TOTAL PROTEIN 6.6 g/dL (6.4-8.2); eGFR NON BLACK RACES > 60 (>60)
[2019-05-21] MEDS: D5W + KCL 20 MEQ/L 1,000 ML IV SCH (05:46)
[2019-05-21] MEDS ORDERED: D5W 1000 ML IV 1,000 ML IV ONE (05:49)
[2019-05-21] MEDS: ZOSYN VIAL 3.375 GRAMS 3.375 G in NS 100 ML IV + SPIKE MINIBAG* 100 ML IV SCH ×3 (05:54→22:17)
[2019-05-21] MEDS: D5W 1000 ML IV 1,000 ML IV SCH (05:56)
--- NOTE | 2019-05-21 06:59 | RAD ---
HISTORYSOBSTUDYPortable AP [id number]/24/2020FINDINGSStable cardiomegaly. The lungs are essentially clear except for mild subsegmental atelectasis at the level of the right diaphragm. There is no evidence for pneumonia or pulmonary edema. Stable position of right-sided PICC. Air lucency under the right diaphragm may represent interposed bowel.IMPRESSIONNo significant change or new abnormality demonstrated.Electronically signed by: LUNA HEALY (May 21, 2019 06:58:25)
[2019-05-21] MEDS ORDERED: ZESTRIL TAB 20 MG ONE (07:16)
[2019-05-21] MEDS: DIFLUCAN 200 MG IV PREMIX* 200 MG/100 ML BAG IV SCH (08:23)
[2019-05-21] MEDS: COLACE SYRUP 100 MG UDC GT SCH ×2 (08:24→20:45)
[2019-05-21] MEDS: ZESTRIL TAB 20 MG GT SCH (08:24)
[2019-05-21] MEDS: TAB-A-VITE PO SCH (08:25)
[2019-05-21] MEDS: VITAMIN C GT SCH ×2 (08:25→20:43)
[2019-05-21] MEDS: ZINC SULFATE GT SCH (08:25)
[2019-05-21] MEDS: VITAMIN C PO SCH (08:25)
[2019-05-21] MEDS: MEGACE PO SCH ×2 (08:26→20:44)
[2019-05-21] MEDS: POTASSIUM CHLORIDE LIQ 20 MEQ UDC GT SCH (08:26)
[2019-05-21] MEDS: FERROUS GLUCONATE PO SCH (08:26)
[2019-05-21] MEDS: LOVENOX INJ 40 MG SYR SC SCH (08:27)
[2019-05-21] MEDS: PATIENT'S HOME MEDICATION (Amino Acids-Protein Hydrolys [Pro-Stat Awc] 30 ML) GT SCH ×4 (08:28→20:44)
[2019-05-21] MEDS: PROCALAMINE 3 % 1,000 ML IV SCH (10:58)
[2019-05-21] MEDS: SYNTHROID 100 mcg TAB GT SCH (16:32)
--- NOTE | 2019-05-21 19:49 | PCM.PROG ---
Progress Note - Progress Note for Day of Date of Exam: 05/21/19 - Subjective Subjective: IS BEING TREATED FOR ASPIRATION PNEUMONIA, LEUKOCYTOSIS, AND A URINARY TRACT INFECTION. 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 TODAY, SHE IS ALERT, LYING IN BED ON MORNING ROUNDS. SHE CONTINUES TO BE DISORIENTED. ON EXAMINATION, HEART IS REGULAR IN RATE AND RHYTHM. BILATERAL LUNGS ARE NOTED WITH SCATTERED WHEEZING. ABDOMEN IS FLAT, SOFT, AND NOTED WITH DIFFUSE TENDERNESS TO PALPATION. HER VITALS THIS MORNING ARE: 99.4-375-27-100%-136/67. LABS WERE OBTAINED. ABNORMAL LAB VALUES INCLUDE THE FOLLOWING: HGB 11.3, HCT 34.0, SODIUM 131, CHLORIDE 95, CREATININE 0.31, CALCIUM 8.0, AST 13, ALBUMIN 2.4. BLOOD AND URINE CULTURES ARE PENDING. URINE CULTURE REPORTS GROWTH OF YEAST. A CHEST XRAY WAS OBTAINED AND REVEALED: No significant change or new abnormality demonstrated. SHE IS CURRENTLY RECEIVING PROCAL AT 40ML/HR, D5W AT 50ML/HR, IV ZOSYN, DIFLUCAN IV, A PROTONIX DRIP, HUMULIN R SLDING SCALE, RESPIRATORY TX, AND HOME MEDICATIONS WERE RESUMED. WE WILL CONTINUE WITH CURRENT PLAN OF CARE TODAY. OTHERWISE, WE WILL FOLLOW UP WITH AM LABS AND CONTINUE TO MONITOR. - Past Medical Family Social History Past Med/Fam/Surg Hx: No changes since H&P Allergies: Allergies No Known Drug Allergies Allergy (Verified 03/15/19 23:25) - Review of Systems ROS: No change since H&P - Vital Signs and I&O's Vital Signs: Temperature 98.8 F Pulse Rate [Apical] 81 Pulse Rate 102 Respiratory Rate 21 Blood Pressure [Right Arm] 138/63 Blood Pressure 158/78 O2 Sat by Pulse Oximetry 100 Intake and Output: Intake & Output 05/19/19 05/20/19 05/21/19 05/22/19 11:59 11:59 11:59 11:59 Intake Total 2963 / 2963 4891 / 4891 3671 / 3671 1403 / 1403 Output Total 1725 / 1725 1600 / 1600 3450 / 3450 700 / 700 Balance 1238 / 1238 3291 / 3291 221 / 221 703 / 703 - Physical Exam Oriented: Person Eyes: Normal Ear: Normal Nose: Normal Throat: Normal Respiratory: Generalized, Wheezes Cardiovascular: Tachycardia. negative: S3, S4, Murmur : Normal Auscultation: Bowel Sounds: Decreased Palpation: Normal Tenderness: Diffuse Skin: Normal Musculoskeletal: Normal Psychiatric: Normal Mood Description: Calm Affect: Normal Speech Pattern: Clear - Laboratory and Diagnostics Result Diagrams: 05/21/19 04:06 05/21/19 04:06 Labs: 05/17/19 10:50 Blood Blood Culture - Preliminary 05/17/19 10:28 Urine,Catheterized Urine Culture - Final Laboratory WBC 9.0 X10^3/uL (3.6-10.0) 05/21/19 04:06 RBC 4.18 X10^6/uL (3.5-5.4) 05/21/19 04:06 Hgb 11.3 g/dL (12.0-16.0) L 05/21/19 04:06 Hct 34.0 % (36.0-47.0) L 05/21/19 04:06 MCV 81.4 fL (80.0-100.0) 05/21/19 04:06 MCH 26.9 pg (27.0-34.0) L 05/21/19 04:06 MCHC 33.1 g/dL (33.0-35.0) 05/21/19 04:06 RDW 14.7 % (11.6-16.5) 05/21/19 04:06 Plt Count 423 X10^3/uL (150.0-450.0) 05/21/19 04:06 Plt Count Comment Increased (ADEQUATE) A 05/17/19 09:34 MPV 7.9 fL (7.4-11.0) 05/21/19 04:06 Neut % (Auto) 74.0 % (42.0-75.0) 05/21/19 04:06 Lymph % (Auto) 16.9 % (21.0-51.0) L 05/21/19 04:06 [place] % (Auto) 8.4 % (0.0-13.0) 05/21/19 04:06 Eos % (Auto) 0.2 % (0.9-2.9) L 05/21/19 04:06 Baso % (Auto) 0.5 % (0.2-1.0) 05/21/19 04:06 Neut # (Auto) 6.7 x10^3/uL (2.2-4.8) H 05/21/19 04:06 Lymph # (Auto) 1.5 X10^3/uL (1.3-2.9) 05/21/19 04:06 [place] # (Auto) 0.8 x10^3/uL (0.3-0.8) 05/21/19 04:06 Eos # (Auto) 0.0 x10^3/uL (0.0-0.2) 05/21/19 04:06 Baso # (Auto) 0.0 X10^3/uL (0.0-0.1) 05/21/19 04:06 Absolute Nucleated RBC 0.0 /100WBC 05/21/19 04:06 Total Counted 100 05/17/19 09:34 Neutrophils % (Manual) 80 % (39-76) H 05/17/19 09:34 Band Neutrophils % 11 % (0-10) H 05/17/19 09:34 Lymphocytes % (Manual) 3 % (13-43) L 05/17/19 09:34 Monocytes % (Manual) 6 % (4-9) 05/17/19 09:34 Plt Morphology Comment Normal (NORMAL) 05/17/19 09:34 RBC Morphology Normal (NORMAL) 05/17/19 09:34 Sodium 131 mmol/L (136-145) L 05/21/19 04:06 Corrected Sodium TNP 05/21/19 04:06 Potassium 4.4 mmol/L (3.5-5.1) 05/21/19 04:06 Chloride 95 mmol/L (98-107) L 05/21/19 04:06 Carbon Dioxide 31.8 mmol/L (21-32) 05/21/19 04:06 BUN 17 mg/dL (7-18) 05/21/19 04:06 Creatinine 0.31 mg/dL (0.55-1.02) L 05/21/19 04:06 Est GFR (MDRD) Af Amer > 60 (>60) 05/21/19 04:06 Est GFR (MDRD) Non-Af > 60 (>60) 05/21/19 04:06 Glucose 93 mg/dL (65-99) 05/21/19 04:06 POC Glucose (mg/dL) 93 mg/dL (65-99) 05/21/19 16:19 Lactic Acid 1.3 mmol/L (0.4-2.0) 05/17/19 11:25 Calcium 8.0 mg/dL (8.5-10.1) L 05/21/19 04:06 Corrected Calcium 9.3 mg/dL (8.5-10.1) 05/21/19 04:06 Magnesium 2.4 mg/dL (1.7-2.9) 05/20/19 05:03 Total Bilirubin 0.10 mg/dL (0.2-1.0) L 05/21/19 04:06 AST 13 Units/L (15-37) L 05/21/19 04:06 ALT 19 Units/L (12-78) 05/21/19 04:06 Alkaline Phosphatase 85 Units/L (46-116) 05/21/19 04:06 Creatine Kinase 31 Units/L (26-192) 05/18/19 03:30 CK-MB (CK-2) 2.3 ng/mL (0-4.0) 05/18/19 03:30 CK/CKMB % Calc 7.4 % (<4) 05/18/19 03:30 Troponin I < 0.02 ng/mL (0-1.5) 05/18/19 03:30 Total Protein 6.6 g/dL (6.4-8.2) 05/21/19 04:06 Albumin 2.4 g/dL (3.4-5.0) L 05/21/19 04:06 Globulin 4.2 g/dL (2.5-4.5) 05/21/19 04:06 Albumin/Globulin Ratio 0.6 Ratio (1.1-2.1) L 05/21/19 04:06 Lipase 145 Units/L (73-393) 05/17/19 09:34 Specimen Type Catherized urine 05/17/19 10:28 Urine Color Yellow (YELLOW) 05/17/19 10:28 Urine Appearance Cloudy (CLEAR) 05/17/19 10:28 Urine pH 6.0 (5.0 - 8.0) 05/17/19 10:28 Ur Specific [place] 1.020 (1.000-1.030) 05/17/19 10:28 Urine Protein 3+ (NEGATIVE) 05/17/19 10:28 Urine Glucose (UA) Negative (NEGATIVE) 05/17/19 10:28 Urine Ketones Negative (NEGATIVE) 05/17/19 10:28 Urine Occult Blood 4+ (NEGATIVE) 05/17/19 10:28 Urine Nitrite Negative (NEGATIVE) 05/17/19 10:28 Urine Bilirubin Negative (NEGATIVE) 05/17/19 10:28 Urine Urobilinogen Normal (NORMAL) 05/17/19 10:28 Ur Leukocyte Esterase 3+ (NEGATIVE) 05/17/19 10:28 Urine RBC 5-10 /HPF (0-3) A 05/17/19 10:28 Urine WBC Tntc /HPF (0-5) A 05/17/19 10:28 Ur Squamous Epith Cells Rare /HPF (NEGATIVE) 05/17/19 10:28 Amorphous Sediment 1+ /HPF (NEGATIVE) 05/17/19 10:28 Urine Bacteria Trace /HPF (NEGATIVE) 05/17/19 10:28 Urine Yeast Moderate /HPF (NEGATIVE) 05/17/19 10:28 Ur Culture Indicated? Yes/culture set up 05/17/19 10:28 Stool Description Fob tube 05/17/19 10:28 Stl Occult Blood (IFOB) Negative (NEGATIVE) 05/17/19 10:28 Blood Type B POSITIVE 05/17/19 09:34 Antibody Screen Negative 05/17/19 09:34 - Plan (1) Aspiration pneumonia due to gastric secretions Status: Acute Qualifiers: Laterality: right Lung location: lower lobe of lung Qualified Code(s): J69.0 - Pneumonitis due to inhalation of food and vomit Plan: IV ZOSYN, IV FLUIDS, RESPIRATORY TX CONTINUE TO MONITOR (2) Urinary tract infection Status: Acute Qualifiers: Urinary tract infection type: acute cystitis Hematuria presence: with hematuria Qualified Code(s): N30.01 - Acute cystitis with hematuria Plan: IV ZOSYN, IV FLUIDS, CONTINUE TO MONITOR (3) Hyponatremia Status: Acute Plan: IV FLUIDS, CONTINUE TO MONITOR (4) Weakness Status: Acute (5) PEG tube malfunction Status: Acute (6) Ischemia, bowel Status: Suspected Plan: NG TUBE, SURGICAL CONSULT, CONTINUE TO MONITOR (7) Yeast infection Status: Acute Plan: DIFLUCAN 200MG IV DAILY, CONTINUE TO MONITOR
[2019-05-21] MEDS: KLONOPIN TAB 0.5 MG GT SCH (20:44)
[2019-05-22] MEDS: D5W 1000 ML IV 1,000 ML IV SCH ×4 (02:15→23:23)
[2019-05-22 05:06] LABS: BASOPHILS # (AUTO) 0.1 X10^3/uL (0.0-0.1); BASOPHILS % (AUTO) 0.5 % (0.2-1.0); EOSINOPHILS % (AUTO) 0.1 % (0.9-2.9); HEMATOCRIT 33.9 % (36.0-47.0); HEMOGLOBIN 11.4 g/dL (12.0-16.0); LYMPHOCYTES # (AUTO) 1.2 X10^3/uL (1.3-2.9); LYMPHOCYTES % (AUTO) 10.9 % (21.0-51.0); MEAN CORPUSCULAR HEMOGLOBIN 27.3 pg (27.0-34.0); MEAN CORPUSCULAR HGB CONC 33.5 g/dL (33.0-35.0); MEAN CORPUSCULAR VOLUME 81.6 fL (80.0-100.0); MEAN PLATELET VOLUME 7.8 fL (7.4-11.0); MONOCYTES # (AUTO) 1.1 x10^3/uL (0.3-0.8); MONOCYTES % (AUTO) 10.6 % (0.0-13.0); NEUTROPHILS # (AUTO) 8.2 x10^3/uL (2.2-4.8); NEUTROPHILS % (AUTO) 77.9 % (42.0-75.0); PLATELET COUNT 417 X10^3/uL (150.0-450.0); RED BLOOD COUNT 4.16 X10^6/uL (3.5-5.4); RED CELL DISTRIBUTION WIDTH 14.7 % (11.6-16.5); WHITE BLOOD COUNT 10.6 X10^3/uL (3.6-10.0)
[2019-05-22 05:27] LABS: ALANINE AMINOTRANSFERASE 21 Units/L (12-78); ALBUMIN 2.4 g/dL (3.4-5.0); ALKALINE PHOSPHATASE 80 Units/L (46-116); ASPARTATE AMINO TRANSFERASE 13 Units/L (15-37); BLOOD UREA NITROGEN 21 mg/dL (7-18); CALCIUM 8.2 mg/dL (8.5-10.1); CARBON DIOXIDE 33.6 mmol/L (21-32); CHLORIDE 95 mmol/L (98-107); COR CA(FOR HYPOALB) 9.5 mg/dL (8.5-10.1); CREATININE 0.31 mg/dL (0.55-1.02); SODIUM 131 mmol/L (136-145); TOTAL PROTEIN 6.6 g/dL (6.4-8.2); eGFR NON BLACK RACES > 60 (>60)
--- NOTE | 2019-05-22 06:07 | RAD ---
HISTORYShortness of breathSTUDYCHEST, 1 [id number] is a right-sided PICC line with its tip in the right atrium. The heart is within normal limits in size. The juan are normal. The lung [place]cock are clear. The right hemidiaphragm is mildly elevated. Air density under the right hemidiaphragm is due to colon interposition.IMPRESSIONNo definite infiltratesElectronically signed by: JOHANNA SANTOS (May 22, 2019 06:05:48)
[2019-05-22] MEDS: ZOSYN VIAL 3.375 GRAMS 3.375 G in NS 100 ML IV + SPIKE MINIBAG* 100 ML IV SCH ×3 (06:46→23:00)
[2019-05-22] MEDS: PROTONIX INJ 40 MG VIAL 80 MG in NS 100 ML IV 80 ML IV SCH ×4 (06:49→19:48)
[2019-05-22] MEDS ORDERED: ZESTRIL TAB 20 MG ONE (08:42)
[2019-05-22] MEDS: VITAMIN C GT SCH ×2 (08:47→20:32)
[2019-05-22] MEDS: VITAMIN C PO SCH (08:47)
[2019-05-22] MEDS: ZESTRIL TAB 20 MG GT SCH (08:48)
[2019-05-22] MEDS: MEGACE PO SCH ×2 (08:48→20:33)
[2019-05-22] MEDS: ZINC SULFATE GT SCH (08:48)
[2019-05-22] MEDS: TAB-A-VITE PO SCH (08:48)
[2019-05-22] MEDS: LOVENOX INJ 40 MG SYR SC SCH (08:49)
[2019-05-22] MEDS: DIFLUCAN 200 MG IV PREMIX* 200 MG/100 ML BAG IV SCH (08:49)
[2019-05-22] MEDS: POTASSIUM CHLORIDE LIQ 20 MEQ UDC GT SCH (08:49)
[2019-05-22] MEDS: PATIENT'S HOME MEDICATION (Amino Acids-Protein Hydrolys [Pro-Stat Awc] 30 ML) GT SCH ×4 (08:50→20:32)
[2019-05-22] MEDS: FERROUS GLUCONATE PO SCH (08:50)
[2019-05-22] MEDS: PROCALAMINE 3 % 1,000 ML IV SCH (11:13)
[2019-05-22] MEDS: COLACE SYRUP 100 MG UDC GT SCH ×2 (11:19→20:33)
[2019-05-22] MEDS: SYNTHROID 100 mcg TAB GT SCH (15:51)
[2019-05-22] MEDS: KLONOPIN TAB 0.5 MG GT SCH (20:33)
--- NOTE | 2019-05-22 21:41 | PCM.PROG ---
Progress Note - Progress Note for Day of Date of Exam: 05/22/19 - Subjective Subjective: IS BEING TREATED FOR ASPIRATION PNEUMONIA, LEUKOCYTOSIS, AND A URINARY TRACT INFECTION. 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 SHE HAS HAD A MODERATE AMOUNT OF RESIDUAL IN PEG TUBE AND FEEDING HAVE BEEN HELD. TODAY, SHE IS ALERT, LYING IN BED ON MORNING ROUNDS. SHE CONTINUES TO BE DISORIENTED. ON EXAMINATION, SHE IS NOTED TO BE SLIGHTLY TACHYCARDIC. BILATERAL LUNGS ARE NOTED WITH SCATTERED WHEEZING. ABDOMEN IS FLAT, SOFT, AND NOTED WITH DIFFUSE TENDERNESS TO PALPATION. HER VITALS THIS MORNING ARE: 98.5-800-46-100%-136/75. LABS WERE OBTAINED. ABNORMAL LAB VALUES INCLUDE THE FOLLOWING: WBC 10.6, HGB 11.4, HCT 33.9, SODIUM 131, CHLORIDE 95, CARBON DIOXIDE 33.6, BUN 21, CREATININE 0.31, CALCIUM 8.2, TOTAL BILI 0.10, AST 13, ALBUMIN 2.4. BLOOD AND URINE CULTURES ARE PENDING. URINE CULTURE REPORTS GROWTH OF YEAST. A CHEST XRAY WAS OBTAINED AND REVEALED: NO DEFINITE INFILTRATES. SHE IS CURRENTLY RECEIVING PROCAL AT 40ML/HR, D5W AT 50ML/HR, IV ZOSYN, DIFLUCAN IV, A PROTONIX DRIP, HUMULIN R SLDING SCALE, RESPIRATORY TX, AND HOME MEDICATIONS WERE RESUMED. WE WILL CONTINUE WITH CURRENT PLAN OF CARE TODAY. OTHERWISE, WE WILL FOLLOW UP WITH AM LABS AND CONTINUE TO MONITOR. - Past Medical Family Social History Past Med/Fam/Surg Hx: No changes since H&P Allergies: Allergies No Known Drug Allergies Allergy (Verified 03/15/19 23:25) - Review of Systems ROS: No change since H&P - Vital Signs and I&O's Vital Signs: Temperature 99.7 F Pulse Rate [Apical] 81 Pulse Rate 107 Respiratory Rate 22 Blood Pressure [Right Arm] 138/63 Blood Pressure 131/62 O2 Sat by Pulse Oximetry 100 Intake and Output: Intake & Output 05/20/19 05/21/19 05/22/19 05/23/19 11:59 11:59 11:59 11:59 Intake Total 4891 / 4891 3671 / 3671 1583 / 1583 1795 / 1795 Output Total 1600 / 1600 3450 / 3450 1500 / 1500 1575 / 1575 Balance 3291 / 3291 221 / 221 83 / 83 220 / 220 - Physical Exam Oriented: Person Eyes: Normal Ear: Normal Nose: Normal Throat: Normal Respiratory: Generalized, Wheezes Cardiovascular: Tachycardia. negative: S3, S4, Murmur : Normal Auscultation: Bowel Sounds: Decreased Tenderness: Diffuse Skin: Normal Musculoskeletal: Normal Psychiatric: Normal Mood Description: Calm Affect: Normal Speech Pattern: Clear - Laboratory and Diagnostics Result Diagrams: 05/22/19 03:56 05/22/19 03:56 Labs: 05/17/19 10:50 Blood Blood Culture - Preliminary 05/17/19 10:28 Urine,Catheterized Urine Culture - Final Laboratory WBC 10.6 X10^3/uL (3.6-10.0) H 05/22/19 03:56 RBC 4.16 X10^6/uL (3.5-5.4) 05/22/19 03:56 Hgb 11.4 g/dL (12.0-16.0) L 05/22/19 03:56 Hct 33.9 % (36.0-47.0) L 05/22/19 03:56 MCV 81.6 fL (80.0-100.0) 05/22/19 03:56 MCH 27.3 pg (27.0-34.0) 05/22/19 03:56 MCHC 33.5 g/dL (33.0-35.0) 05/22/19 03:56 RDW 14.7 % (11.6-16.5) 05/22/19 03:56 Plt Count 417 X10^3/uL (150.0-450.0) 05/22/19 03:56 Plt Count Comment Increased (ADEQUATE) A 05/17/19 09:34 MPV 7.8 fL (7.4-11.0) 05/22/19 03:56 Neut % (Auto) 77.9 % (42.0-75.0) H 05/22/19 03:56 Lymph % (Auto) 10.9 % (21.0-51.0) L 05/22/19 03:56 [place] % (Auto) 10.6 % (0.0-13.0) 05/22/19 03:56 Eos % (Auto) 0.1 % (0.9-2.9) L 05/22/19 03:56 Baso % (Auto) 0.5 % (0.2-1.0) 05/22/19 03:56 Neut # (Auto) 8.2 x10^3/uL (2.2-4.8) H 05/22/19 03:56 Lymph # (Auto) 1.2 X10^3/uL (1.3-2.9) L 05/22/19 03:56 [place] # (Auto) 1.1 x10^3/uL (0.3-0.8) H 05/22/19 03:56 Eos # (Auto) 0.0 x10^3/uL (0.0-0.2) 05/22/19 03:56 Baso # (Auto) 0.1 X10^3/uL (0.0-0.1) 05/22/19 03:56 Absolute Nucleated RBC 0.0 /100WBC 05/22/19 03:56 Total Counted 100 05/17/19 09:34 Neutrophils % (Manual) 80 % (39-76) H 05/17/19 09:34 Band Neutrophils % 11 % (0-10) H 05/17/19 09:34 Lymphocytes % (Manual) 3 % (13-43) L 05/17/19 09:34 Monocytes % (Manual) 6 % (4-9) 05/17/19 09:34 Plt Morphology Comment Normal (NORMAL) 05/17/19 09:34 RBC Morphology Normal (NORMAL) 05/17/19 09:34 Sodium 131 mmol/L (136-145) L 05/22/19 03:56 Corrected Sodium TNP 05/22/19 03:56 Potassium 4.1 mmol/L (3.5-5.1) 05/22/19 03:56 Chloride 95 mmol/L (98-107) L 05/22/19 03:56 Carbon Dioxide 33.6 mmol/L (21-32) H 05/22/19 03:56 BUN 21 mg/dL (7-18) H 05/22/19 03:56 Creatinine 0.31 mg/dL (0.55-1.02) L 05/22/19 03:56 Est GFR (MDRD) Af Amer > 60 (>60) 05/22/19 03:56 Est GFR (MDRD) Non-Af > 60 (>60) 05/22/19 03:56 Glucose 88 mg/dL (65-99) 05/22/19 03:56 POC Glucose (mg/dL) 108 mg/dL (65-99) H 05/22/19 20:28 Lactic Acid 1.3 mmol/L (0.4-2.0) 05/17/19 11:25 Calcium 8.2 mg/dL (8.5-10.1) L 05/22/19 03:56 Corrected Calcium 9.5 mg/dL (8.5-10.1) 05/22/19 03:56 Magnesium 2.4 mg/dL (1.7-2.9) 05/20/19 05:03 Total Bilirubin 0.10 mg/dL (0.2-1.0) L 05/22/19 03:56 AST 13 Units/L (15-37) L 05/22/19 03:56 ALT 21 Units/L (12-78) 05/22/19 03:56 Alkaline Phosphatase 80 Units/L (46-116) 05/22/19 03:56 Creatine Kinase 31 Units/L (26-192) 05/18/19 03:30 CK-MB (CK-2) 2.3 ng/mL (0-4.0) 05/18/19 03:30 CK/CKMB % Calc 7.4 % (<4) 05/18/19 03:30 Troponin I < 0.02 ng/mL (0-1.5) 05/18/19 03:30 Total Protein 6.6 g/dL (6.4-8.2) 05/22/19 03:56 Albumin 2.4 g/dL (3.4-5.0) L 05/22/19 03:56 Globulin 4.2 g/dL (2.5-4.5) 05/22/19 03:56 Albumin/Globulin Ratio 0.6 Ratio (1.1-2.1) L 05/22/19 03:56 Lipase 145 Units/L (73-393) 05/17/19 09:34 Specimen Type Catherized urine 05/17/19 10:28 Urine Color Yellow (YELLOW) 05/17/19 10:28 Urine Appearance Cloudy (CLEAR) 05/17/19 10:28 Urine pH 6.0 (5.0 - 8.0) 05/17/19 10:28 Ur Specific [place] 1.020 (1.000-1.030) 05/17/19 10:28 Urine Protein 3+ (NEGATIVE) 05/17/19 10:28 Urine Glucose (UA) Negative (NEGATIVE) 05/17/19 10:28 Urine Ketones Negative (NEGATIVE) 05/17/19 10:28 Urine Occult Blood 4+ (NEGATIVE) 05/17/19 10:28 Urine Nitrite Negative (NEGATIVE) 05/17/19 10:28 Urine Bilirubin Negative (NEGATIVE) 05/17/19 10:28 Urine Urobilinogen Normal (NORMAL) 05/17/19 10:28 Ur Leukocyte Esterase 3+ (NEGATIVE) 05/17/19 10:28 Urine RBC 5-10 /HPF (0-3) A 05/17/19 10:28 Urine WBC Tntc /HPF (0-5) A 05/17/19 10:28 Ur Squamous Epith Cells Rare /HPF (NEGATIVE) 05/17/19 10:28 Amorphous Sediment 1+ /HPF (NEGATIVE) 05/17/19 10:28 Urine Bacteria Trace /HPF (NEGATIVE) 05/17/19 10:28 Urine Yeast Moderate /HPF (NEGATIVE) 05/17/19 10:28 Ur Culture Indicated? Yes/culture set up 05/17/19 10:28 Stool Description Fob tube 05/17/19 10:28 Stl Occult Blood (IFOB) Negative (NEGATIVE) 05/17/19 10:28 Blood Type B POSITIVE 05/17/19 09:34 Antibody Screen Negative 05/17/19 09:34 - Plan (1) Aspiration pneumonia due to gastric secretions Status: Acute Qualifiers: Laterality: right Lung location: lower lobe of lung Qualified Code(s): J6 9.0 - Pneumonitis due to inhalation of food and vomit Plan: IV ZOSYN, IV FLUIDS, RESPIRATORY TX CONTINUE TO MONITOR (2) Urinary tract infection Status: Acute Qualifiers: Urinary tract infection type: acute cystitis Hematuria presence: with hematuria Qualified Code(s): N30.01 - Acute cystitis with hematuria Plan: IV ZOSYN, IV FLUIDS, CONTINUE TO MONITOR (3) Hyponatremia Status: Acute Plan: IV FLUIDS, CONTINUE TO MONITOR (4) Weakness Status: Acute (5) PEG tube malfunction Status: Acute (6) Ischemia, bowel Status: Suspected Plan: NG TUBE, SURGICAL CONSULT, CONTINUE TO MONITOR (7) Yeast infection Status: Acute Plan: DIFLUCAN 200MG IV DAILY, CONTINUE TO MONITOR
[2019-05-23 04:28] LABS: BASOPHILS # (AUTO) 0.1 X10^3/uL (0.0-0.1); BASOPHILS % (AUTO) 0.8 % (0.2-1.0); EOSINOPHILS % (AUTO) 0.2 % (0.9-2.9); HEMATOCRIT 31.6 % (36.0-47.0); HEMOGLOBIN 10.4 g/dL (12.0-16.0); LYMPHOCYTES # (AUTO) 1.3 X10^3/uL (1.3-2.9); LYMPHOCYTES % (AUTO) 18.3 % (21.0-51.0); MEAN CORPUSCULAR VOLUME 81.8 fL (80.0-100.0); MEAN PLATELET VOLUME 7.1 fL (7.4-11.0); MONOCYTES # (AUTO) 0.9 x10^3/uL (0.3-0.8); MONOCYTES % (AUTO) 12.2 % (0.0-13.0); NEUTROPHILS % (AUTO) 68.5 % (42.0-75.0); PLATELET COUNT 421 X10^3/uL (150.0-450.0); RED BLOOD COUNT 3.86 X10^6/uL (3.5-5.4); RED CELL DISTRIBUTION WIDTH 14.7 % (11.6-16.5); WHITE BLOOD COUNT 7.2 X10^3/uL (3.6-10.0)
[2019-05-23 04:45] LABS: BAND NEUTROPHILS % 2 % (0-10); PLATELET MORPHOLOGY COMMENT NORMAL (NORMAL)
[2019-05-23 04:46] LABS: ALANINE AMINOTRANSFERASE 26 Units/L (12-78); ALBUMIN 2.3 g/dL (3.4-5.0); ALKALINE PHOSPHATASE 76 Units/L (46-116); ASPARTATE AMINO TRANSFERASE 16 Units/L (15-37); BLOOD UREA NITROGEN 17 mg/dL (7-18); CALCIUM 8.1 mg/dL (8.5-10.1); CARBON DIOXIDE 34.8 mmol/L (21-32); CHLORIDE 96 mmol/L (98-107); COR CA(FOR HYPOALB) 9.5 mg/dL (8.5-10.1); CREATININE 0.27 mg/dL (0.55-1.02); SODIUM 132 mmol/L (136-145); TOTAL PROTEIN 6.2 g/dL (6.4-8.2); eGFR NON BLACK RACES > 60 (>60)
[2019-05-23] MEDS: PROTONIX INJ 40 MG VIAL 80 MG in NS 100 ML IV 80 ML IV SCH (05:29)
[2019-05-23] MEDS: ZOSYN VIAL 3.375 GRAMS 3.375 G in NS 100 ML IV + SPIKE MINIBAG* 100 ML IV SCH (06:03)
--- NOTE | 2019-05-23 07:06 | RAD ---
HISTORYFollow-up pneumoniaSTUDYCHEST, 1 [id number] is a right-sided PICC line with its tip in the right atrium. The heart is within normal limits in size. The lung babcock are clear. No pleural effusions are identified. Air density under the right hemidiaphragm is likely due to colon interposition.IMPRESSIONNo definite infiltrateElectronically signed by: JOHANNA SANTOS (May 23, 2019 07:04:11)
[2019-05-23] MEDS ORDERED: ZESTRIL TAB 20 MG ONE (09:06)
[2019-05-23] MEDS: PATIENT'S HOME MEDICATION (Amino Acids-Protein Hydrolys [Pro-Stat Awc] 30 ML) GT SCH (10:06)
[2019-05-23] MEDS: FERROUS GLUCONATE PO SCH (10:07)
[2019-05-23] MEDS: LOVENOX INJ 40 MG SYR SC SCH (10:07)
[2019-05-23] MEDS: MEGACE PO SCH (10:08)
[2019-05-23] MEDS: TAB-A-VITE PO SCH (10:08)
[2019-05-23] MEDS: POTASSIUM CHLORIDE LIQ 20 MEQ UDC GT SCH (10:08)
[2019-05-23] MEDS: VITAMIN C GT SCH (10:08)
[2019-05-23] MEDS: VITAMIN C PO SCH (10:09)
[2019-05-23] MEDS: DIFLUCAN 200 MG IV PREMIX* 200 MG/100 ML BAG IV SCH (10:09)
[2019-05-23] MEDS: COLACE SYRUP 100 MG UDC GT SCH (10:09)
[2019-05-23] MEDS: ZESTRIL TAB 20 MG GT SCH (10:09)
[2019-05-23] MEDS: ZINC SULFATE GT SCH (10:10)
[2019-05-23 12:57] VITALS: BP 131/65
[2019-05-23] MEDS ORDERED: ZyPREXA TAB 5 MG GT SCH (15:00)
== END 2019-05-23 14:05 | DRG 178 ==
LOC: ER 08:24 → ICU 13:05
PROVIDERS: ADMIT Internal Medicine; ATTEND Internal Medicine
DX: N30.01 Acute cystitis with hematuria; B37.9 Candidiasis, unspecified; K94.23 Gastrostomy malfunction; I10 Essential (primary) hypertension; K92.2 Gastrointestinal hemorrhage, unspecified; E11.649 Type 2 diabetes mellitus with hypoglycemia without coma; R13.11 Dysphagia, oral phase; L89.151 Pressure ulcer of sacral region, stage 1; F03.90 Unspecified dementia, unspecified severity, without behavioral disturbance, psychotic disturbance, mood disturbance, and anxiety; E78.49 Other hyperlipidemia; K22.2 Esophageal obstruction; E03.8 Other specified hypothyroidism; I25.10 Atherosclerotic heart disease of native coronary artery without angina pectoris; R62.7 Adult failure to thrive; Z74.01 Bed confinement status; J69.0 Pneumonitis due to inhalation of food and vomit; R53.1 Weakness; I87.2 Venous insufficiency (chronic) (peripheral); K55.9 Vascular disorder of intestine, unspecified; E87.1 Hypo-osmolality and hyponatremia
CPT/HCPCS: 36415; 51702; 71010; 71045; 74000; 74018; 74176; 80053; 81001; 82270; 82550; 82553; 82947; 83605; 83690; 83735; 84484; 85025; 86850; 86900; 86901; 87040; 87086; 92526; 92610; 96365; 96367; 96374; 96375; 99100; 99285; A4216; A4217; A4222; B5200; C9113; J1450; J1650; J2405; J2543; J2704; J3475; J3490; J7030; J7050; J7060; S0179; S5012

== ENCOUNTER 2019-06-26 18:37 | Inpatient (IN) ==
[2019-06-26] MEDS ORDERED: NS 1000 ML 1,000 ML IV ONE (18:59)
--- NOTE | 2019-06-26 19:01 | DR.AMS ---
HPI Time Seen Time Seen by Provider: 06/26/19 18:58 PCP Primary Care Physician: negro Complaint Chief Complaint:: REPORT CALLED FROM KRISTEL AT [facility] THAT PT WAS UNRESPONSIVE AND SAT'S IN THE LOW 60'S. REC'D PT PLLACED IN RM 1 PT RESPONSIVE PT APPEARS PALE FINGERS ARE COLD TO THE TOUCH AND CYANOTIC IN COLOR. OXISENSOR PLACED ON EAR SAT IS 100% Source History Provided: [facility] Mode of Arrival Mode of Arrival: Stretcher Timing Onset of Chief Complaint: 06/26/19 PMH PMH Past Medical History: Yes Past Medical History: Anemia, Arthritis, Coronary Artery Disease, Dementia, Dyslipidemia, Hypertension and Hypothyroidism Past Surgical History: No Surgical History: Other Family History History of Family Medical Conditions: Yes Family Medical History: Coronary Artery Disease and Hypertension Social History Does patient currently use any type of tobacco product: No Have you used tobacco products in the last 12 months: No Type of Tobacco Use: None Does any household member use tobacco: No Alcohol Use: None Do you use any recreational Drugs:: No Lives Where: [facility] infectious screening In the last 2 months have you had wt loss of >10#?: NO Have you had fever, night sweats or hemotysis?: No Have you traveled outside the country in the last 6 months?: No Isolation: Standard PE Vitals Vital Signs: Temp Pulse Resp BP BP BP Pulse Ox 06/26/19 18:40 97.5 F L 104 H 30 H 84/51 100 05/23/19 12:00 131/65 05/19/19 06:00 138/63 02/27/19 04:00 119/67 ROR Labs Reviewed Result Diagrams: 06/26/19 19:14 06/26/19 19:14 Laboratory: WBC 22.5 X10^3/uL (3.6-10.0) H 06/26/19 19:14 RBC 2.10 X10^6/uL (3.5-5.4) L 06/26/19 19:14 Hgb 5.4 g/dL (12.0-16.0) L* 06/26/19 19:14 Hct 17.4 % (36.0-47.0) L* 06/26/19 19:14 MCV 83.2 fL (80.0-100.0) 06/26/19 19:14 MCH 25.8 pg (27.0-34.0) L 06/26/19 19:14 MCHC 31.0 g/dL (33.0-35.0) L 06/26/19 19:14 RDW 17.3 % (11.6-16.5) H 06/26/19 19:14 Plt Count 754 X10^3/uL (150.0-450.0) H 06/26/19 19:14 Plt Count Comment Increased (ADEQUATE) A 06/26/19 19:14 MPV 7.6 fL (7.4-11.0) 06/26/19 19:14 Neut % (Auto) 87.5 % (42.0-75.0) H 06/26/19 19:14 Lymph % (Auto) 5.4 % (21.0-51.0) L 06/26/19 19:14 [place] % (Auto) 6.6 % (0.0-13.0) 06/26/19 19:14 Eos % (Auto) 0.0 % (0.9-2.9) L 06/26/19 19:14 Baso % (Auto) 0.5 % (0.2-1.0) 06/26/19 19:14 Neut # (Auto) 19.7 x10^3/uL (2.2-4.8) H 06/26/19 19:14 Lymph # (Auto) 1.2 X10^3/uL (1.3-2.9) L 06/26/19 19:14 [place] # (Auto) 1.5 x10^3/uL (0.3-0.8) H 06/26/19 19:14 Eos # (Auto) 0.0 x10^3/uL (0.0-0.2) 06/26/19 19:14 Baso # (Auto) 0.1 X10^3/uL (0.0-0.1) 06/26/19 19:14 Absolute Nucleated RBC 0.4 /100WBC 06/26/19 19:14 Total Counted 100 06/26/19 19:14 Neutrophils % (Manual) 79 % (39-76) H 06/26/19 19:14 Band Neutrophils % 7 % (0-10) 06/26/19 19:14 Lymphocytes % (Manual) 10 % (13-43) L 06/26/19 19:14 Monocytes % (Manual) 4 % (4-9) 06/26/19 19:14 Plt Morphology Comment Normal (NORMAL) 06/26/19 19:14 RBC Morphology Abnormal (NORMAL) A 06/26/19 19:14 Hypochromasia 1+ A 06/26/19 19:14 Poikilocytosis 1+ A 06/26/19 19:14 Basophilic Stippling 2+ A 06/26/19 19:14 Sodium 133 mmol/L (136-145) L 06/26/19 19:14 Corrected Sodium 134 mmol/L (136-145) L 06/26/19 19:14 Potassium 4.6 mmol/L (3.5-5.1) 06/26/19 19:14 Chloride 96 mmol/L (98-107) L 06/26/19 19:14 Carbon Dioxide 26.1 mmol/L (21-32) 06/26/19 19:14 BUN 33 mg/dL (7-18) H 06/26/19 19:14 Creatinine 0.65 mg/dL (0.55-1.02) 06/26/19 19:14 Est GFR (MDRD) Af Amer > 60 (>60) 06/26/19 19:14 Est GFR (MDRD) Non-Af > 60 (>60) 06/26/19 19:14 Glucose 124 mg/dL (65-99) H 06/26/19 19:14 Calcium 8.3 mg/dL (8.5-10.1) L 06/26/19 19:14 Corrected Calcium 9.6 mg/dL (8.5-10.1) 06/26/19 19:14 Total Bilirubin 0.20 mg/dL (0.2-1.0) 06/26/19 19:14 AST 16 Units/L (15-37) 06/26/19 19:14 ALT 20 Units/L (12-78) 06/26/19 19:14 Alkaline Phosphatase 72 Units/L (46-116) 06/26/19 19:14 Total Protein 6.3 g/dL (6.4-8.2) L 06/26/19 19:14 Albumin 2.4 g/dL (3.4-5.0) L 06/26/19 19:14 Globulin 3.9 g/dL (2.5-4.5) 06/26/19 19:14 Albumin/Globulin Ratio 0.6 Ratio (1.1-2.1) L 06/26/19 19:14 Specimen Type Catherized urine 06/26/19 20:40 Urine Color Yellow (YELLOW) 06/26/19 20:40 Urine Appearance Turbid (CLEAR) 06/26/19 20:40 Urine pH 6.0 (5.0 - 8.0) 06/26/19 20:40 Ur Specific [place] 1.015 (1.000-1.030) 06/26/19 20:40 Urine Protein 4+ (NEGATIVE) 06/26/19 20:40 Urine Glucose (UA) Negative (NEGATIVE) 06/26/19 20:40 Urine Ketones Negative (NEGATIVE) 06/26/19 20:40 Urine Occult Blood 4+ (NEGATIVE) 06/26/19 20:40 Urine Nitrite Negative (NEGATIVE) 06/26/19 20:40 Urine Bilirubin Negative (NEGATIVE) 06/26/19 20:40 Urine Urobilinogen Normal (NORMAL) 06/26/19 20:40 Ur Leukocyte Esterase 3+ (NEGATIVE) 06/26/19 20:40 Opioid Opioid Risk Tool Age ([place] box if 16-45): No History of Preadolescent Sexual Abuse: No Total: 0 Total Score Risk Category: Low Risk Copyright: Anupam COWAN predicting aberrant behaviors
--- NOTE | 2019-06-26 19:29 | RAD ---
HISTORYSOBSTUDYCHEST, 1 VIEWCOMPARISONJanuary 2011, CT abdomen May 17, 2019FINDINGSThe trachea is midline. The cardiac silhouette is unremarkable . The lungs are clear without focal infiltrate or effusion. The bony thorax is intact. Gaseous distention of the right colon, similar to multiple prior exams.IMPRESSIONNo acute cardiopulmonary disease.Electronically signed by: MARIA VICTORIA MAHARAJ (Jun 26, 2019 19:30:23)
[2019-06-26] MEDS ORDERED: NS 1000 ML 1,000 ML ONE (19:33)
[2019-06-26 19:42] LABS: ALANINE AMINOTRANSFERASE 20 Units/L (12-78); ALBUMIN 2.4 g/dL (3.4-5.0); ALKALINE PHOSPHATASE 72 Units/L (46-116); ASPARTATE AMINO TRANSFERASE 16 Units/L (15-37); BLOOD UREA NITROGEN 33 mg/dL (7-18); CALCIUM 8.3 mg/dL (8.5-10.1); CARBON DIOXIDE 26.1 mmol/L (21-32); CHLORIDE 96 mmol/L (98-107); COR CA(FOR HYPOALB) 9.6 mg/dL (8.5-10.1); COR NA(FOR HYPERGLY) 134 mmol/L (136-145); CREATININE 0.65 mg/dL (0.55-1.02); SODIUM 133 mmol/L (136-145); TOTAL PROTEIN 6.3 g/dL (6.4-8.2); eGFR NON BLACK RACES > 60 (>60)
[2019-06-26 19:44] LABS: BASOPHILS # (AUTO) 0.1 X10^3/uL (0.0-0.1); BASOPHILS % (AUTO) 0.5 % (0.2-1.0); LYMPHOCYTES # (AUTO) 1.2 X10^3/uL (1.3-2.9); LYMPHOCYTES % (AUTO) 5.4 % (21.0-51.0); MEAN CORPUSCULAR HEMOGLOBIN 25.8 pg (27.0-34.0); MEAN CORPUSCULAR VOLUME 83.2 fL (80.0-100.0); MEAN PLATELET VOLUME 7.6 fL (7.4-11.0); MONOCYTES # (AUTO) 1.5 x10^3/uL (0.3-0.8); MONOCYTES % (AUTO) 6.6 % (0.0-13.0); NEUTROPHILS # (AUTO) 19.7 x10^3/uL (2.2-4.8); NEUTROPHILS % (AUTO) 87.5 % (42.0-75.0); PLATELET COUNT 754 X10^3/uL (150.0-450.0); RED CELL DISTRIBUTION WIDTH 17.3 % (11.6-16.5); WHITE BLOOD COUNT 22.5 X10^3/uL (3.6-10.0)
[2019-06-26 19:59] LABS: HEMATOCRIT 17.4 % (36.0-47.0); HEMOGLOBIN 5.4 g/dL (12.0-16.0)
[2019-06-26 20:00] LABS: BAND NEUTROPHILS % 7 % (0-10); HYPOCHROMASIA 1+; PLATELET MORPHOLOGY COMMENT NORMAL (NORMAL); POIKILOCYTOSIS 1+
[2019-06-26 21:02] LABS: BILIRUBIN,URINE NEGATIVE (NEGATIVE); BLOOD/HEMOGLOBIN,URINE 4+ (NEGATIVE); GLUCOSE, URINE NEGATIVE (NEGATIVE); KETONES,URINE NEGATIVE (NEGATIVE); LEUKOCYTE ESTERASE ,URINE 3+ (NEGATIVE); NITRITES,URINE NEGATIVE (NEGATIVE); PROTEIN,URINE 4+ (NEGATIVE); UROBILINOGEN,URINE NORMAL (NORMAL)
[2019-06-26 21:09] LABS: APPEARANCE,URINE TURBID (CLEAR); COLOR,URINE YELLOW (YELLOW)
[2019-06-26 21:10] LABS: AMORPHOUS SEDIMENT,UR 2+ /HPF (NEGATIVE); BACTERIA,URINE 2+ /HPF (NEGATIVE); RBC,URINE TNTC /HPF (0-3); SQUAMOUS EPITHELIAL CELL,UR RARE /HPF (NEGATIVE); YEAST,URINE MANY /HPF (NEGATIVE)
[2019-06-26] MEDS ORDERED: ROCEPHIN VIAL 1 GRAM 1 G in NS 100 ML IV + SPIKE MINIBAG* 100 ML IV ONE (21:13)
[2019-06-26] MEDS ORDERED: NS 100 ML IV + SPIKE MINIBAG* 100 ML IV ONE (21:20)
[2019-06-26] MEDS ORDERED: ROCEPHIN VIAL 1 GRAM ONE (21:20)
[2019-06-26] MEDS: NS 1000 ML 1,000 ML IV SCH (21:56)
[2019-06-26] MEDS: PROTONIX INJ 40 MG VIAL 80 MG in NS 100 ML IV 80 ML IV SCH (22:51)
[2019-06-26 22:53] LABS: IRON 12 ug/dL (50-175)
[2019-06-26] MEDS ORDERED: ZOFRAN TAB 4 MG SL PRN (23:37)
[2019-06-26] MEDS ORDERED: MIRALAX POWDER (1 DOSE 17 G) PEG SCH (23:37)
[2019-06-26] MEDS ORDERED: SYNTHROID 100 mcg TAB PEG SCH (23:37)
[2019-06-27 00:50] VITALS: BMI 16.7
[2019-06-27] MEDS ORDERED: PHARMACY CONSULT LTC MEDICATIONS XX SCH (01:00)
[2019-06-27] MEDS ORDERED: ZESTRIL TAB 20 MG ONE (07:51)
[2019-06-27] MEDS: POTASSIUM CHLORIDE LIQ 20 MEQ UDC PEG SCH ×2 (08:16→10:00)
[2019-06-27] MEDS: ZINC SULFATE PEG SCH ×2 (08:16→09:59)
[2019-06-27] MEDS: MEGACE PO SCH ×3 (08:16→21:50)
[2019-06-27] MEDS: ZESTRIL TAB 20 MG PEG SCH ×2 (08:17→10:00)
[2019-06-27] MEDS: MIRALAX POWDER (1 DOSE 17 G) PEG SCH ×2 (08:17→10:00)
[2019-06-27] MEDS: SYNTHROID 100 mcg TAB PEG SCH ×2 (08:17→10:00)
[2019-06-27 08:35] LABS: ALANINE AMINOTRANSFERASE 26 Units/L (12-78); ALBUMIN 2.3 g/dL (3.4-5.0); ALKALINE PHOSPHATASE 70 Units/L (46-116); ASPARTATE AMINO TRANSFERASE 22 Units/L (15-37); BLOOD UREA NITROGEN 36 mg/dL (7-18); CHLORIDE 102 mmol/L (98-107); COR CA(FOR HYPOALB) 9.4 mg/dL (8.5-10.1); COR NA(FOR HYPERGLY) 138 mmol/L (136-145); CREATININE 0.52 mg/dL (0.55-1.02); SODIUM 137 mmol/L (136-145); TOTAL PROTEIN 6.2 g/dL (6.4-8.2); eGFR NON BLACK RACES > 60 (>60)
[2019-06-27 08:39] LABS: BASOPHILS # (AUTO) 0.1 X10^3/uL (0.0-0.1); BASOPHILS % (AUTO) 0.4 % (0.2-1.0); HEMATOCRIT 32.2 % (36.0-47.0); HEMOGLOBIN 10.4 g/dL (12.0-16.0); LYMPHOCYTES # (AUTO) 0.5 X10^3/uL (1.3-2.9); LYMPHOCYTES % (AUTO) 1.7 % (21.0-51.0); MEAN CORPUSCULAR HEMOGLOBIN 27.4 pg (27.0-34.0); MEAN CORPUSCULAR HGB CONC 32.3 g/dL (33.0-35.0); MEAN CORPUSCULAR VOLUME 84.9 fL (80.0-100.0); MEAN PLATELET VOLUME 7.1 fL (7.4-11.0); MONOCYTES # (AUTO) 0.9 x10^3/uL (0.3-0.8); MONOCYTES % (AUTO) 3.6 % (0.0-13.0); NEUTROPHILS # (AUTO) 24.7 x10^3/uL (2.2-4.8); NEUTROPHILS % (AUTO) 94.3 % (42.0-75.0); PLATELET COUNT 601 X10^3/uL (150.0-450.0); WHITE BLOOD COUNT 26.2 X10^3/uL (3.6-10.0)
[2019-06-27] MEDS ORDERED: PATIENT'S HOME MEDICATION (Zinc 50 MG) feeding tube SCH (09:00)
[2019-06-27 09:03] LABS: BAND NEUTROPHILS % 16 % (0-10)
[2019-06-27 09:04] LABS: ANISOCYTOSIS SLIGHT; PLATELET MORPHOLOGY COMMENT NORMAL (NORMAL)
[2019-06-27] MEDS: NS 1000 ML 1,000 ML IV SCH ×2 (09:59→12:50)
[2019-06-27] MEDS: PROTONIX INJ 40 MG VIAL 80 MG in NS 100 ML IV 80 ML IV SCH ×3 (09:59→18:42)
[2019-06-27] MEDS ORDERED: NS 250 ML IV 250 ML IV ONE (10:53)
[2019-06-27] MEDS: ALBUMIN HUMAN 25%- 100 ML 100 ML IV SCH (10:56)
[2019-06-27] MEDS: DIFLUCAN 200 MG IV PREMIX* 200 MG/100 ML BAG IV SCH (10:58)
[2019-06-27] MEDS ORDERED: PHARMACY CONSULT - TPN XX SCH (11:00)
--- NOTE | 2019-06-27 11:01 | DR.H&P ---
H&P - History & Physical for Day of: H&P Date: 06/26/19 - Chief Complaint Chief Complaint: UNRESPONSIVE, COFFEE GROUND EMESIS - History of Present Illness History of Present Illness: IS A 74 YEAR OLD PATIENT OF OURS WHO PRESENTED TO THE ER FROM [facility] WITH REPORTS OF BEING UNRESPONSIVE AND OXYGEN SATURATIONS IN THE 60s. SHE WAS NOTED TO BE PALE WITH CYANOSIS TO LIPS UPON ARRIVAL TO THE ER. SHE DID RESPOND VERBALLY TO VERBAL STIMULI. VITALS UPON ARRIVAL TO THE ER WERE: 97.8-814-12-100%-84/51. LABS WERE OBTAINED. ABNORMAL LAB VALUES INCLUDE THE FOLLOWING: WBC 22.5, RBC 2.10, HGB 5.4, HCT 17.4, PLT COUNT 754, SODIUM 133, CHLORIDE 96, BUN 33, GLUCOSE 124, CALCIUM 8.3, IRON 12, TOTAL PROTEIN 6.3, ALBUMIN 2.4. STOOL NEGATIVE FOR OCCULT BLOOD. A URINALYSIS WAS OBTAINED AND REVEALED: WBC TNTC, RBC TNTC, BACTERIA 2+, YEAST MANY, OCCULT BLOOD 4+. A URINE CULTURE WAS SET UP. A CHEST XRAY WAS OBTAINED AND REVEALED: NO ACUTE CARDIOPULMONARY DISEASE. EKG REVEALED: SINUS TACHYCARDIA WITH HR 109. WHILE IN THE ER, PATIENT WAS NOTED TO HAVE AN EPISODE OF VOMITING WITH COFFEE GROUND EMESIS. SHE WAS GIVEN A NORMAL SALINE BOLUS AND ROCEPHIN 1G IV X 1 DOSE. SHE WAS ADMITTED FOR FURTHER EVALUATION AND TREATMENT OF ANEMIA, GI BLEED, AND A URINARY TRACT INFECTION. SHE WAS STARTED ON NS AT 60 ML/HR, A PROTONIX DRIP, IV FORTAZ, IV LEVAQUIN, IV DIFLUCAN, IV PEPCID, TPN, AND ALBUMIN 25% IV DAILY. WE TRANSFUSED TWO UNITS OF PRBC. WE WLL CONSULT AND MONITOR H&H Q6H. OTHERWISE, WE WILL FOLLOW UP WITH AM LABS AND CONTINUE TO MONITOR. - Past Medical History Past Medical History: Coronary Artery Disease, Hypertension, Dyslipidemia, Dementia, Hypothyroidism, Anemia, Arthritis - Past Surgical History Surgical History: Other - Family History Family Medical History: Coronary Artery Disease, Hypertension - Social History Does patient currently use any type of tobacco product: No Have you used tobacco products in the last 12 months: No Type of Tobacco Use: None Does any household member use tobacco: No Alcohol Use: None Drug Use: None - Medications Home Medications: No Known Drug Allergies Allergy (Verified 03/15/19 23:25) CONTINUE taking the following medications ascorbic acid (vitamin C) 500 mg FEEDING TUBE BID 06/26/19 [History] aspirin [Aspir-81] 81 mg FEEDING TUBE DAILY 06/26/19 [History] clonazepam 0.5 mg FEEDING TUBE QHS 06/26/19 [History] docusate sodium 100 mg FEEDING TUBE BID 06/26/19 [History] ferrous fumarate [Ferrocite] 324 mg FEEDING TUBE DAILY 06/26/19 [History] lactobacillus combination no.4 [Probiotic] 3,000,000 cell FEEDING TUBE DAILY 06/26/19 [History] levothyroxine [Synthroid] 100 mcg FEEDING TUBE DAILY 06/26/19 [History] lisinopril 20 mg FEEDING TUBE DAILY 06/26/19 [History] megestrol 40 mg FEEDING TUBE BID 06/26/19 [History] multivitamin [Multiple Vitamins] 1 tab FEEDING TUBE DAILY 06/26/19 [History] ondansetron HCl [Zofran] 8 mg FEEDING TUBE Q6H PRN 06/26/19 [History] polyethylene glycol 3350 [Miralax] 17 g FEEDING TUBE DAILY 06/26/19 [History] potassium chloride 10 meq FEEDING TUBE DAILY 06/26/19 [History] zinc 50 mg FEEDING TUBE DAILY 06/26/19 [History] - Review of Systems Constitutional: See HPI, Weakness Eyes: No Symptoms Reported ENT: No Symptoms Reported Respiratory: No Symptoms Reported Cardiovascular: No Symptoms Reported Gastrointestinal: See HPI, Vomiting Genitourinary: No Symptoms Reported Musculoskeletal: No Symptoms Reported Skin: No Symptoms Reported Neurological: Weakness - Physical Exam Vital Signs: Temperature 99.5 F Pulse Rate [Apical] 97 Pulse Rate 103 Respiratory Rate 20 Blood Pressure [Right Arm] 138/63 Blood Pressure [Left Arm] 125/57 Blood Pressure 111/56 O2 Sat by Pulse Oximetry 100 Oriented: Not Oriented Eyes: Normal Ear: Normal Nose: Normal Throat: Normal Respiratory: Diminished Throughout Cardiovascular: Normal : Normal Auscultation: Bowel Sounds: Increased Palpation: Normal Tenderness: Normal, Other (PEG TUBE ) Skin: Normal Musculoskeletal: Normal Psychiatric: Normal Mood Description: Calm Affect: Normal Speech Pattern: Inappropriate - Assessment/Plan (1) Anemia Qualifiers: Anemia type: iron deficiency Iron deficiency anemia type: chronic blood loss Qualified Code(s): D50.0 - Iron deficiency anemia secondary to blood loss (chronic) Status: Acute Plan: BLOOD ON ADMISSION, CONSULT GI, MONITOR H&H, PEPCID IV, PROTONIX IV, CONTINUE TO MONITOR (2) GI bleed Qualifiers: GI bleed type/associated pathology: unspecified gastrointestinal hemorrhage type Qualified Code(s): K92.2 - Gastrointestinal hemorrhage, unspecified Status: Acute Plan: CONSULT GI, PEPCID IV, PROTONIX IV (3) Urinary tract infection Qualifiers: Urinary tract infection type: acute cystitis Hematuria presence: with hematuria Qualified Code(s): N30.01 - Acute cystitis with hematuria Status: Acute Plan: IV LEVAQUIN, IV FORTAZ - Allergies Allergies/Adverse Reactions: Allergies Allergy/AdvReac Type Severity Reaction Status Date / Time No Known Drug Allergies Allergy Verified 03/15/19 23:25
[2019-06-27] MEDS ORDERED: DIPRIVAN VIAL 20 ML ONE (11:50)
[2019-06-27] MEDS ORDERED: XYLOCAINE-MPF 1% ONE (11:50)
--- NOTE | 2019-06-27 12:32 | OR.IMMED ---
Immediate Post-Op Note - Immediate Post-Op Note Pre-Op Diagnosis: anemia . large residual feeding . Post-Op Diagnosis: moderate size hiatal hrnia with esopagitis grade 2 with cobblestone appearance . esophageal dysmotility . gastroparesis . spastic pyloris wih scarring . no bleeding . the exam was limited because of the large residual feeding . Procedure: EGD with Bx Surgeon/Insurance Coordinator: Shayy. Drains: NONE Condition: Stable (to monitor the residual feeding . awaiting Bx report..)
[2019-06-27] MEDS: PEPCID 20 MG IV PREMIX* 20 MG/50 ML BAG IV SCH ×2 (12:50→21:00)
[2019-06-27] MEDS: LEVAQUIN PREMIX IV 500 MG 500 MG/100 ML BAG IV SCH (12:54)
[2019-06-27] MEDS: CLINIMIX 4.25 %/10 % 1,000 ML with MVI INJ (ADULT) 10 ML, TPN ELECTROLYTES 20 ML IV SCH ×3 (13:12)
[2019-06-27] MEDS: FORTAZ or TAZICEF VIAL INJ 1 G in NS 100 ML IV + SPIKE MINIBAG* 100 ML IV SCH ×3 (13:20→22:14)
[2019-06-27] MEDS ORDERED: STERILE WATER IRRIGATION IR ONE (15:36)
[2019-06-27] MEDS ORDERED: HumuLIN R SUBCUT PRN (16:36)
[2019-06-28] MEDS: PROTONIX INJ 40 MG VIAL 80 MG in NS 100 ML IV 80 ML IV SCH ×3 (01:45→14:58)
[2019-06-28] MEDS: NS 1000 ML 1,000 ML IV SCH ×3 (03:36→21:45)
[2019-06-28] MEDS: FORTAZ or TAZICEF VIAL INJ 1 G in NS 100 ML IV + SPIKE MINIBAG* 100 ML IV SCH ×3 (05:08→22:30)
[2019-06-28 05:25] LABS: BASOPHILS % (AUTO) 0.1 % (0.2-1.0); HEMATOCRIT 20.8 % (36.0-47.0); LYMPHOCYTES # (AUTO) 0.8 X10^3/uL (1.3-2.9); LYMPHOCYTES % (AUTO) 4.9 % (21.0-51.0); MEAN CORPUSCULAR HEMOGLOBIN 28.5 pg (27.0-34.0); MEAN CORPUSCULAR HGB CONC 33.5 g/dL (33.0-35.0); MEAN CORPUSCULAR VOLUME 85.1 fL (80.0-100.0); MEAN PLATELET VOLUME 7.1 fL (7.4-11.0); MONOCYTES # (AUTO) 0.8 x10^3/uL (0.3-0.8); MONOCYTES % (AUTO) 5.1 % (0.0-13.0); NEUTROPHILS # (AUTO) 13.8 x10^3/uL (2.2-4.8); NEUTROPHILS % (AUTO) 89.9 % (42.0-75.0); PLATELET COUNT 531 X10^3/uL (150.0-450.0); RED BLOOD COUNT 2.45 X10^6/uL (3.5-5.4); RED CELL DISTRIBUTION WIDTH 17.6 % (11.6-16.5)
[2019-06-28 05:36] LABS: ALANINE AMINOTRANSFERASE 18 Units/L (12-78); ALBUMIN 2.1 g/dL (3.4-5.0); ALKALINE PHOSPHATASE 41 Units/L (46-116); ASPARTATE AMINO TRANSFERASE 13 Units/L (15-37); BLOOD UREA NITROGEN 22 mg/dL (7-18); CALCIUM 7.3 mg/dL (8.5-10.1); CARBON DIOXIDE 27.3 mmol/L (21-32); CHLORIDE 106 mmol/L (98-107); COR CA(FOR HYPOALB) 8.8 mg/dL (8.5-10.1); CREATININE 0.31 mg/dL (0.55-1.02); SODIUM 139 mmol/L (136-145); eGFR NON BLACK RACES > 60 (>60)
[2019-06-28 05:54] LABS: HYPOCHROMASIA 1+; PLATELET MORPHOLOGY COMMENT NORMAL (NORMAL); WHITE BLOOD COUNT 15.3 X10^3/uL (3.6-10.0)
[2019-06-28 08:31] LABS: GASTRIC OCCULT BLOOD POSITIVE (NEGATIVE); PH,GASTRIC FLUID 4
[2019-06-28] MEDS: ALBUMIN HUMAN 25%- 100 ML 100 ML IV SCH (08:50)
[2019-06-28] MEDS: DIFLUCAN 200 MG IV PREMIX* 200 MG/100 ML BAG IV SCH (08:54)
[2019-06-28] MEDS: PEPCID 20 MG IV PREMIX* 20 MG/50 ML BAG IV SCH ×2 (08:54→21:00)
[2019-06-28] MEDS ORDERED: MAGNESIUM SULFATE 1 GRAM/100 mL PREMIX 1 G/100 ML BAG IV ONE (09:30)
[2019-06-28] MEDS ORDERED: ZESTRIL TAB 20 MG ONE (09:34)
[2019-06-28] MEDS: ZESTRIL TAB 20 MG PEG SCH (09:40)
[2019-06-28] MEDS: POTASSIUM CHLORIDE LIQ 20 MEQ UDC PEG SCH (09:41)
[2019-06-28] MEDS: ZINC SULFATE PEG SCH (09:41)
[2019-06-28] MEDS: MEGACE PO SCH ×2 (09:41→21:46)
[2019-06-28] MEDS: SYNTHROID 100 mcg TAB PEG SCH (09:42)
[2019-06-28] MEDS: MIRALAX POWDER (1 DOSE 17 G) PEG SCH (09:42)
[2019-06-28] MEDS: LEVAQUIN PREMIX IV 500 MG 500 MG/100 ML BAG IV SCH (09:42)
[2019-06-28] MEDS: CLINIMIX 4.25 %/10 % 1,000 ML with MVI INJ (ADULT) 10 ML, TPN ELECTROLYTES 20 ML IV SCH ×3 (10:28)
[2019-06-28] MEDS ORDERED: K-RIDER 10 MEQ/NS 100 ML 10 MEQ/100 ML BAG IV ONE ×2 (10:30→11:19)
[2019-06-28] MEDS: TPN ELECTROLYTES IV SCH ×5 (11:21)
[2019-06-28] MEDS: MVI IV SCH ×5 (11:21)
[2019-06-28] MEDS: [UNRECOGNIZED DRUG - OTHER] IV SCH ×5 (11:21)
[2019-06-28] MEDS: CLINIMIX IV SCH ×5 (11:21)
[2019-06-28] MEDS ORDERED: NS 250 ML IV 250 ML IV ONE ×2 (12:53→23:14)
[2019-06-28] MEDS ORDERED: DIPRIVAN VIAL ONE (14:34)
[2019-06-28] MEDS ORDERED: XYLOCAINE 1 % (PLAIN) ONE (14:34)
[2019-06-28] MEDS ORDERED: LASIX IVP ONE (16:42)
[2019-06-28 17:05] LABS: PHOSPHORUS 1.7 mg/dL (2.6-4.7)
[2019-06-29] MEDS: PROTONIX INJ 40 MG VIAL 80 MG in NS 100 ML IV 80 ML IV SCH ×5 (00:53→23:30)
[2019-06-29 03:26] LABS: BASOPHILS # (AUTO) 0.1 X10^3/uL (0.0-0.1); BASOPHILS % (AUTO) 0.4 % (0.2-1.0); EOSINOPHILS % (AUTO) 0.3 % (0.9-2.9); HEMATOCRIT 36.3 % (36.0-47.0); LYMPHOCYTES # (AUTO) 1.1 X10^3/uL (1.3-2.9); LYMPHOCYTES % (AUTO) 7.1 % (21.0-51.0); MEAN CORPUSCULAR VOLUME 84.8 fL (80.0-100.0); MEAN PLATELET VOLUME 6.5 fL (7.4-11.0); MONOCYTES # (AUTO) 0.7 x10^3/uL (0.3-0.8); MONOCYTES % (AUTO) 4.6 % (0.0-13.0); NEUTROPHILS % (AUTO) 87.6 % (42.0-75.0); PLATELET COUNT 531 X10^3/uL (150.0-450.0); RED BLOOD COUNT 4.28 X10^6/uL (3.5-5.4); RED CELL DISTRIBUTION WIDTH 16.6 % (11.6-16.5); WHITE BLOOD COUNT 14.8 X10^3/uL (3.6-10.0)
[2019-06-29 03:32] LABS: MAGNESIUM 1.6 mg/dL (1.7-2.9); PHOSPHORUS 1.6 mg/dL (2.6-4.7)
[2019-06-29 03:33] LABS: ALANINE AMINOTRANSFERASE 22 Units/L (12-78); ALBUMIN 2.8 g/dL (3.4-5.0); ALKALINE PHOSPHATASE 53 Units/L (46-116); ASPARTATE AMINO TRANSFERASE 16 Units/L (15-37); BLOOD UREA NITROGEN 11 mg/dL (7-18); CALCIUM 7.6 mg/dL (8.5-10.1); CARBON DIOXIDE 34.1 mmol/L (21-32); CHLORIDE 96 mmol/L (98-107); COR CA(FOR HYPOALB) 8.6 mg/dL (8.5-10.1); CREATININE 0.37 mg/dL (0.55-1.02); SODIUM 137 mmol/L (136-145); TOTAL PROTEIN 6.2 g/dL (6.4-8.2); eGFR NON BLACK RACES > 60 (>60)
[2019-06-29 03:46] LABS: ANISOCYTOSIS SLIGHT; BAND NEUTROPHILS % 4 % (0-10); HYPOCHROMASIA SLIGHT; PLATELET MORPHOLOGY COMMENT NORMAL (NORMAL)
[2019-06-29] MEDS ORDERED: K-RIDER 10 MEQ/NS 100 ML 10 MEQ/100 ML BAG IV ONE ×2 (04:22→05:22)
[2019-06-29] MEDS ORDERED: MAGNESIUM SULFATE 1 GRAM/100 mL PREMIX 1 G/100 ML BAG IV ONE ×2 (04:23→04:26)
[2019-06-29] MEDS ORDERED: K-RIDER 10 MEQ/NS 100 ML 20 MEQ/200 ML BAG IV ONE (04:26)
[2019-06-29] MEDS: FORTAZ or TAZICEF VIAL INJ 1 G in NS 100 ML IV + SPIKE MINIBAG* 100 ML IV SCH ×3 (05:00→21:03)
[2019-06-29] MEDS: MIRALAX POWDER (1 DOSE 17 G) PEG SCH (09:18)
[2019-06-29] MEDS ORDERED: ZESTRIL TAB 20 MG ONE (09:23)
[2019-06-29] MEDS: POTASSIUM CHLORIDE LIQ 20 MEQ UDC PEG SCH (09:25)
[2019-06-29] MEDS: ZESTRIL TAB 20 MG PEG SCH (09:26)
[2019-06-29] MEDS: MEGACE PO SCH ×2 (09:26→21:02)
[2019-06-29] MEDS: DIFLUCAN 200 MG IV PREMIX* 200 MG/100 ML BAG IV SCH (09:26)
[2019-06-29] MEDS: LEVAQUIN PREMIX IV 500 MG 500 MG/100 ML BAG IV SCH (09:26)
[2019-06-29] MEDS: SYNTHROID 100 mcg TAB PEG SCH (09:26)
[2019-06-29] MEDS: ZINC SULFATE PEG SCH (09:26)
[2019-06-29] MEDS: MVI IV SCH ×5 (09:53)
[2019-06-29] MEDS: TPN ELECTROLYTES IV SCH ×5 (09:53)
[2019-06-29] MEDS: [UNRECOGNIZED DRUG - OTHER] IV SCH ×5 (09:53)
[2019-06-29] MEDS: CLINIMIX IV SCH ×5 (09:53)
[2019-06-29] MEDS: ALBUMIN HUMAN 25%- 100 ML 100 ML IV SCH (09:58)
[2019-06-29] MEDS: PEPCID 20 MG IV PREMIX* 20 MG/50 ML BAG IV SCH ×2 (09:59→21:03)
[2019-06-29 10:33] LABS: HEMATOCRIT 37.3 % (36.0-47.0); HEMOGLOBIN 12.6 g/dL (12.0-16.0)
--- NOTE | 2019-06-29 12:00 | PCM.PROG ---
Progress Note - Progress Note for Day of Date of Exam: 06/28/19 - Subjective Subjective: WAS ADMITTED FOR GI BLEED, ANEMIA, AND A URINARY TRACT INFECTION. STAFF REPORTS THAT PATIENT CONTINUES WITH A MODERATE AMOUNT OF RESIDUAL IN PEG TUBE TODAY. TODAY, SHE IS LYING IN BED WITH EYES CLOSED ON MORNING ROUNDS. SHE AWAKENS AND RESPONDS TO VERBAL STIMULI. ON EXAMINATION, HEA RT IS REGULAR IN RATE AND RHYTHM. BILATERAL LUNGS ARE NOTED WITH DIMINISHED LUNG SOUNDS THROUGHOUT. ABDOMEN IS DISTENDED. HYPERACTIVE BOWEL SOUNDS NOTED. HER VITALS THIS MORNING ARE: 100.8-618-51-20-165/72. LABS WERE OBTAINED. ABNORMAL LAB VALUES INCLUDE THE FOLLOWING: WBC 15.3, RBC 2.45, HGB HAS DROPPED TO 7.0 FROM 10.4, HCT 20.8, PLT COUNT 531, POTASSIUM 3.2, BUN 22, CREATININE 0.31, GLUCOSE 105, CALCIUM 7.3, PHOSPHORUS 1.7, AST 13, ALK PHOS 41, TOTAL PROTEIN 5.0, ALBUMIN 2.1, PREALBUMIN 11.0. AN EGD WAS PERFORMED BY YESTERDAY. FINDING INCLUDE: moderate size hiatal hrnia with esopagitis grade 2 with cobblestone appearance , esophageal dysmotility, gastroparesis , spastic py jeimy wih scarring, no bleeding . the exam was limited because of the large residual feeding . HE RECOMMENDS TO REDUCE FEEDINGS AND TO HOLD THEM IF RESIDUAL IS GREATER THAN 100. SHE IS CURRENTLY RECEIVING NS AT 60 ML/HR, A PROTONIX DRIP, IV FORTAZ, IV LEVAQUIN, IV DIFLUCAN, IV PEPCID, TPN, AND ALBUMIN 25% IV DAILY. TODAY, WE WILL TRANSFUSE TWO ADDITIONAL UNITS OF PRBC. OTHERWISE, WE WILL CONTINUE WITH CURRENT PLAN OF CARE. WE PLAN TO FOLLOW UP WITH AM LABS AND CONTINUE TO MONITOR. - Past Medical Family Social History Past Med/Fam/Surg Hx: No changes since H&P Allergies: Allergies No Known Drug Allergies Allergy (Verified 03/15/19 23:25) - Review of Systems ROS: No change since H&P - Vital Signs and I&O's Vital Signs: Temperature 97.9 F Pulse Rate [Apical] 97 Pulse Rate 77 Respiratory Rate 20 Blood Pressure [Right Arm] 138/63 Blood Pressure [Left Arm] 125/57 Blood Pressure 106/66 O2 Sat by Pulse Oximetry 100 Intake and Output: Intake & Output 06/26/19 06/27/19 06/28/19 06/29/19 11:59 11:59 11:59 11:59 Intake Total 700 / 700 3174 / 3174 3183 / 3183 Output Total 2099 / 2100 Balance 700 / 700 3174 / 3174 1083 / 1083 - Physical Exam Oriented: Not Oriented Eyes: Normal Ear: Normal Nose: Normal Throat: Normal Respiratory: Generalized, Diminished Cardiovascular: Normal : Normal Auscultation: Bowel Sounds: Increased Palpation: Normal Tenderness: Normal, Other (PEG TUBE ) Skin: Normal Musculoskeletal: Normal Psychiatric: Normal Mood Description: Calm Affect: Normal Speech Pattern: Clear - Laboratory and Diagnostics Result Diagrams: 06/29/19 10:16 06/29/19 03:11 Labs: 06/26/19 20:40 Urine,Catheterized Urine Culture - Final Laboratory WBC 14.8 X10^3/uL (3.6-10.0) H 06/29/19 03:11 RBC 4.28 X10^6/uL (3.5-5.4) 06/29/19 03:11 Hgb 12.6 g/dL (12.0-16.0) 06/29/19 10:16 Hct 37.3 % (36.0-47.0) 06/29/19 10:16 MCV 84.8 fL (80.0-100.0) 06/29/19 03:11 MCH 28.0 pg (27.0-34.0) 06/29/19 03:11 MCHC 33.0 g/dL (33.0-35.0) 06/29/19 03:11 RDW 16.6 % (11.6-16.5) H 06/29/19 03:11 Plt Count 531 X10^3/uL (150.0-450.0) H 06/29/19 03:11 Plt Count Comment Adequate (ADEQUATE) 06/29/19 03:11 MPV 6.5 fL (7.4-11.0) L 06/29/19 03:11 Neut % (Auto) 87.6 % (42.0-75.0) H 06/29/19 03:11 Lymph % (Auto) 7.1 % (21.0-51.0) L 06/29/19 03:11 [place] % (Auto) 4.6 % (0.0-13.0) 06/29/19 03:11 Eos % (Auto) 0.3 % (0.9-2.9) L 06/29/19 03:11 Baso % (Auto) 0.4 % (0.2-1.0) 06/29/19 03:11 Neut # (Auto) 13.0 x10^3/uL (2.2-4.8) H 06/29/19 03:11 Lymph # (Auto) 1.1 X10^3/uL (1.3-2.9) L 06/29/19 03:11 [place] # (Auto) 0.7 x10^3/uL (0.3-0.8) 06/29/19 03:11 Eos # (Auto) 0.0 x10^3/uL (0.0-0.2) 06/29/19 03:11 Baso # (Auto) 0.1 X10^3/uL (0.0-0.1) 06/29/19 03:11 Absolute Nucleated RBC 0.0 /100WBC 06/29/19 03:11 Total Counted 100 06/29/19 03:11 Neutrophils % (Manual) 84 % (39-76) H 06/29/19 03:11 Band Neutrophils % 4 % (0-10) 06/29/19 03:11 Lymphocytes % (Manual) 7 % (13-43) L 06/29/19 03:11 Monocytes % (Manual) 5 % (4-9) 06/29/19 03:11 Plt Morphology Comment Normal (NORMAL) 06/29/19 03:11 RBC Morphology Abnormal (NORMAL) A 06/29/19 03:11 Hypochromasia Slight A 06/29/19 03:11 Poikilocytosis 1+ A 06/26/19 19:14 Basophilic Stippling 2+ A 06/26/19 19:14 Anisocytosis Slight A 06/29/19 03:11 Sodium 137 mmol/L (136-145) 06/29/19 03:11 Corrected Sodium TNP 06/29/19 03:11 Potassium 2.4 mmol/L (3.5-5.1) L* 06/29/19 03:11 Chloride 96 mmol/L (98-107) L 06/29/19 03:11 Carbon Dioxide 34.1 mmol/L (21-32) H 06/29/19 03:11 BUN 11 mg/dL (7-18) 06/29/19 03:11 Creatinine 0.37 mg/dL (0.55-1.02) L 06/29/19 03:11 Est GFR (MDRD) Af Amer > 60 (>60) 06/29/19 03:11 Est GFR (MDRD) Non-Af > 60 (>60) 06/29/19 03:11 Glucose 90 mg/dL (65-99) 06/29/19 03:11 POC Glucose (mg/dL) 93 mg/dL (65-99) 06/29/19 09:55 Lactic Acid 1.0 mmol/L (0.4-2.0) 06/28/19 04:05 Calcium 7.6 mg/dL (8.5-10.1) L 06/29/19 03:11 Corrected Calcium 8.6 mg/dL (8.5-10.1) 06/29/19 03:11 Phosphorus 1.6 mg/dL (2.6-4.7) L 06/29/19 03:11 Magnesium 1.6 mg/dL (1.7-2.9) L 06/29/19 03:11 Iron 12 ug/dL (50-175) L 06/26/19 21:40 Transferrin 267 mg/dL (202-364) 06/26/19 21:40 Ferritin 19 ng/mL (8-252) 06/26/19 21:40 Total Bilirubin 0.70 mg/dL (0.2-1.0) 06/29/19 03:11 AST 16 Units/L (15-37) 06/29/19 03:11 ALT 22 Units/L (12-78) 06/29/19 03:11 Alkaline Phosphatase 53 Units/L (46-116) 06/29/19 03:11 Total Protein 6.2 g/dL (6.4-8.2) L 06/29/19 03:11 Albumin 2.8 g/dL (3.4-5.0) L 06/29/19 03:11 Globulin 3.4 g/dL (2.5-4.5) 06/29/19 03:11 Albumin/Globulin Ratio 0.8 Ratio (1.1-2.1) L 06/29/19 03:11 Prealbumin 13.4 mg/dL (18-35.7) L 06/29/19 03:11 Triglycerides 59 mg/dL (0-150) 06/29/19 03:11 Vitamin B12 621 pg/mL (193-986) 06/26/19 21:40 Folate > 20.0 ng/mL (>8.6) 06/26/19 21:40 Specimen Type Catherized urine 06/26/19 20:40 Urine Color Yellow (YELLOW) 06/26/19 20:40 Urine Appearance Turbid (CLEAR) 06/26/19 20:40 Urine pH 6.0 (5.0 - 8.0) 06/26/19 20:40 Ur Specific [place] 1.015 (1.000-1.030) 06/26/19 20:40 Urine Protein 4+ (NEGATIVE) 06/26/19 20:40 Urine Glucose (UA) Negative (NEGATIVE) 06/26/19 20:40 Urine Ketones Negative (NEGATIVE) 06/26/19 20:40 Urine Occult Blood 4+ (NEGATIVE) 06/26/19 20:40 Urine Nitrite Negative (NEGATIVE) 06/26/19 20:40 Urine Bilirubin Negative (NEGATIVE) 06/26/19 20:40 Urine Urobilinogen Normal (NORMAL) 06/26/19 20:40 Ur Leukocyte Esterase 3+ (NEGATIVE) 06/26/19 20:40 Urine RBC Tntc /HPF (0-3) A 06/26/19 20:40 Urine WBC Tntc /HPF (0-5) A 06/26/19 20:40 Ur Squamous Epith Cells Rare /HPF (NEGATIVE) 06/26/19 20:40 Amorphous Sediment 2+ /HPF (NEGATIVE) 06/26/19 20:40 Urine Bacteria 2+ /HPF (NEGATIVE) 06/26/19 20:40 Urine Yeast Many /HPF (NEGATIVE) 06/26/19 20:40 Ur Culture Indicated? Yes/culture set up 06/26/19 20:40 Gastric Fluid pH 4 06/28/19 08:10 Gastric Occult Blood Positive (NEGATIVE) A 06/28/19 08:10 Stool Description Fob tube 06/26/19 20:38 Stl Occult Blood (IFOB) Negative (NEGATIVE) 06/26/19 20:38 Urine Opiates Screen Negative (NEG=<300) 06/26/19 20:40 Urine Methadone Screen Negative (NEG=<300) 06/26/19 20:40 Ur Barbiturates Screen Negative (NEG=<200) 06/26/19 20:40 Ur Phencyclidine Scrn Negative (NEG=<25) 06/26/19 20:40 Ur Amphetamines Screen Negative (NEG=<1000) 06/26/19 20:40 U Benzodiazepines Scrn Negative (NEG=<200) 06/26/19 20:40 Urine Cocaine Screen Negative (NEG=<300) 06/26/19 20:40 U Marijuana (THC) Screen Negative (NEG=<50) 06/26/19 20:40 Tissue Pathology To follow 06/27/19 12:02 Blood Type B POSITIVE 06/26/19 21:40 Antibody Screen Negative 06/26/19 21:40 Crossmatch See Detail 06/26/19 21:40 - Plan (1) Anemia Status: Acute Qualifiers: Anemia type: iron deficiency Iron deficiency anemia type: chronic blood loss Qualified Code(s): D50.0 - Iron deficiency anemia secondary to blood loss (chronic) Plan: TRANSFUSE 2 UNITS PRBC, MONITOR H&H, PEPCID IV, PROTONIX IV, CONTINUE TO MONITOR (2) GI bleed Status: Acute Qualifiers: GI bleed type/associated pathology: unspecified gastrointestinal hemorrhage type Qualified Code(s): K92.2 - Gastrointestinal hemorrhage, unspecified Plan: CONSULT GI, PEPCID IV, PROTONIX IV (3) Urinary tract infection Status: Acute Qualifiers: Urinary tract infection type: acute cystitis Hematuria presence: with hematuria Qualified Code(s): N30.01 - Acute cystitis with hematuria Plan: IV LEVAQUIN, IV FORTAZ
[2019-06-29] MEDS: NS 1000 ML 1,000 ML IV SCH ×2 (13:57→23:30)
[2019-06-29 16:20] LABS: HEMATOCRIT 34.5 % (36.0-47.0); HEMOGLOBIN 11.5 g/dL (12.0-16.0)
[2019-06-29 22:23] LABS: HEMATOCRIT 37.3 % (36.0-47.0); HEMOGLOBIN 12.5 g/dL (12.0-16.0)
[2019-06-30] MEDS: FORTAZ or TAZICEF VIAL INJ 1 G in NS 100 ML IV + SPIKE MINIBAG* 100 ML IV SCH ×3 (05:32→22:00)
[2019-06-30 06:47] LABS: BASOPHILS # (AUTO) 0.1 X10^3/uL (0.0-0.1); BASOPHILS % (AUTO) 0.4 % (0.2-1.0); EOSINOPHILS % (AUTO) 0.1 % (0.9-2.9); HEMATOCRIT 39.7 % (36.0-47.0); HEMOGLOBIN 13.3 g/dL (12.0-16.0); LYMPHOCYTES # (AUTO) 0.9 X10^3/uL (1.3-2.9); LYMPHOCYTES % (AUTO) 7.7 % (21.0-51.0); MEAN CORPUSCULAR HEMOGLOBIN 28.5 pg (27.0-34.0); MEAN CORPUSCULAR HGB CONC 33.5 g/dL (33.0-35.0); MEAN CORPUSCULAR VOLUME 85.1 fL (80.0-100.0); MEAN PLATELET VOLUME 6.7 fL (7.4-11.0); MONOCYTES # (AUTO) 0.8 x10^3/uL (0.3-0.8); NEUTROPHILS # (AUTO) 10.1 x10^3/uL (2.2-4.8); NEUTROPHILS % (AUTO) 84.8 % (42.0-75.0); PLATELET COUNT 607 X10^3/uL (150.0-450.0); RED BLOOD COUNT 4.67 X10^6/uL (3.5-5.4); RED CELL DISTRIBUTION WIDTH 16.6 % (11.6-16.5); WHITE BLOOD COUNT 11.9 X10^3/uL (3.6-10.0)
[2019-06-30 06:50] LABS: PREALBUMIN 15.4 mg/dL (18-35.7)
[2019-06-30 07:02] LABS: ALANINE AMINOTRANSFERASE 18 Units/L (12-78); ALKALINE PHOSPHATASE 52 Units/L (46-116); ASPARTATE AMINO TRANSFERASE 12 Units/L (15-37); BLOOD UREA NITROGEN 12 mg/dL (7-18); CARBON DIOXIDE 32.4 mmol/L (21-32); CHLORIDE 99 mmol/L (98-107); COR CA(FOR HYPOALB) 8.8 mg/dL (8.5-10.1); CREATININE 0.39 mg/dL (0.55-1.02); MAGNESIUM 2.1 mg/dL (1.7-2.9); PHOSPHORUS 2.1 mg/dL (2.6-4.7); SODIUM 137 mmol/L (136-145); TOTAL PROTEIN 6.5 g/dL (6.4-8.2); TRIGLYCERIDES 81 mg/dL (0-150); eGFR NON BLACK RACES > 60 (>60)
[2019-06-30 07:28] LABS: PLATELET MORPHOLOGY COMMENT NORMAL (NORMAL)
[2019-06-30] MEDS ORDERED: ZESTRIL TAB 20 MG ONE (08:48)
[2019-06-30] MEDS: LEVAQUIN PREMIX IV 500 MG 500 MG/100 ML BAG IV SCH (08:52)
[2019-06-30] MEDS: DIFLUCAN 200 MG IV PREMIX* 200 MG/100 ML BAG IV SCH (08:52)
[2019-06-30] MEDS: ALBUMIN HUMAN 25%- 100 ML 100 ML IV SCH (08:52)
[2019-06-30] MEDS: MEGACE PO SCH ×2 (08:53→20:45)
[2019-06-30] MEDS: SYNTHROID 100 mcg TAB PEG SCH (08:53)
[2019-06-30] MEDS: ZINC SULFATE PEG SCH (08:53)
[2019-06-30] MEDS: POTASSIUM CHLORIDE LIQ 20 MEQ UDC PEG SCH (08:53)
[2019-06-30] MEDS: ZESTRIL TAB 20 MG PEG SCH (08:54)
[2019-06-30] MEDS: MIRALAX POWDER (1 DOSE 17 G) PEG SCH (08:54)
[2019-06-30] MEDS: PROTONIX INJ 40 MG VIAL 80 MG in NS 100 ML IV 80 ML IV SCH (08:57)
[2019-06-30] MEDS: PEPCID 20 MG IV PREMIX* 20 MG/50 ML BAG IV SCH ×2 (09:12→20:45)
[2019-06-30] MEDS ORDERED: KLOR-CON PO PRN (09:53)
[2019-06-30] MEDS ORDERED: POTASSIUM CHL 40 MEQ/NS 0.45% 500 ML IV PRN (09:53)
[2019-06-30] MEDS ORDERED: MICRO K EXTEN CAP 10 MEQ PO PRN (09:53)
[2019-06-30] MEDS ORDERED: POTASSIUM CHL 60 MEQ/NS 0.45% 500 ML IV PRN (09:53)
[2019-06-30] MEDS ORDERED: K-DUR TAB 20 MEQ PO PRN (09:53)
[2019-06-30] MEDS ORDERED: POTASSIUM CHLORIDE LIQ 20 MEQ UDC PO PRN (09:53)
[2019-06-30] MEDS: K-RIDER 10 MEQ/NS 100 ML 10 MEQ/100 ML BAG IV PRN ×4 (14:00→17:50)
[2019-06-30] MEDS ORDERED: DRUG FILTER EXTENSION SET ONE (18:23)
[2019-06-30] MEDS: TPN ELECTROLYTES IV SCH ×5 (18:29)
[2019-06-30] MEDS: MVI IV SCH ×5 (18:29)
[2019-06-30] MEDS: [UNRECOGNIZED DRUG - OTHER] IV SCH ×5 (18:29)
[2019-06-30] MEDS: CLINIMIX IV SCH ×5 (18:29)
[2019-06-30] MEDS: NS 1000 ML 1,000 ML IV SCH (18:50)
--- NOTE | 2019-06-30 22:13 | PCM.PROG ---
Progress Note - Progress Note for Day of Date of Exam: 06/29/19 - Subjective Subjective: WAS ADMITTED FOR GI BLEED, ANEMIA, AND A URINARY TRACT INFECTION. STAFF REPORTS THAT PATIENT CONTINUES TO HAVE RESIDUAL WHEN ASPIRATED FROM PEG TUBE. TODAY, SHE IS LYING IN BED WITH EYES CLOSED ON MORNING ROUNDS. SHE AWAKENS AND RESPONDS TO VERBAL STIMULI. ON EXAMINATION, HEART IS REGULAR IN RATE AND RHYTHM. BILATERAL LUNGS ARE NOTED WITH DIMINISHED LUNG SOUNDS THROUGHOUT. ABDOMEN IS DISTENDED. HYPERACTIVE BOWEL SOUNDS NOTED. HER VITALS THIS MORNING ARE: 97.9-89-20-99%-101/66. LABS WERE OBTAINED. ABNORMAL LAB VALUES INCLUDE THE FOLLOWING: WBC 14.8, PLT COUNT 531, POTASSIUM 2.4, CHLORIDE 96, CARBON DIOXIDE 34.1, CREATININE 0.37, CALCIUM 7.6, PHOSPHORUS 1.6, MAGNESIUM 1.6, TOTAL PROTEIN 6.2, ALBUMIN 2.8. SHE IS CURRENTLY RECEIVING NS AT 60 ML/HR, A PROTONIX DRIP, IV FORTAZ, IV LEVAQUIN, IV DIFLUCAN, IV PEPCID, TPN, AND ALBUMIN 25% IV DAILY. WE WILL CONTINUE TO HOLD HER FEEDINGS TODAY. OTHERWISE, WE WILL CONTINUE WITH CURRENT PLAN OF CARE. WE PLAN TO FOLLOW UP WITH AM LABS AND CONTINUE TO MONITOR. - Past Medical Family Social History Past Med/Fam/Surg Hx: No changes since H&P Allergies: Allergies No Known Drug Allergies Allergy (Verified 03/15/19 23:25) - Review of Systems ROS: No change since H&P - Vital Signs and I&O's Vital Signs: Temperature 98.9 F Pulse Rate [Apical] 97 Pulse Rate 95 Respiratory Rate 17 Blood Pressure [Right Arm] 138/63 Blood Pressure [Left Arm] 125/57 Blood Pressure 120/83 O2 Sat by Pulse Oximetry 100 Intake and Output: Intake & Output 06/28/19 06/29/19 06/30/19 07/01/19 11:59 11:59 11:59 11:59 Intake Total 3174 / 3174 3183 / 3183 2917 / 2917 1280 / 1280 Output Total 2099 / 2099 2600 / 2600 500 / 500 Balance 3174 / 3174 1083 / 1083 317 / 317 780 / 780 - Physical Exam Oriented: Not Oriented Eyes: Normal Ear: Normal Nose: Normal Throat: Normal Respiratory: Generalized, Diminished Cardiovascular: Normal : Normal Auscultation: Bowel Sounds: Increased Tenderness: Normal, Other (PEG TUBE ) Skin: Normal Musculoskeletal: Normal Psychiatric: Normal Mood Description: Calm Affect: Normal Speech Pattern: Clear - Laboratory and Diagnostics Result Diagrams: 06/30/19 06:26 06/30/19 20:43 Labs: 06/26/19 20:40 Urine,Catheterized Urine Culture - Final Laboratory WBC 11.9 X10^3/uL (3.6-10.0) H 06/30/19 06:26 RBC 4.67 X10^6/uL (3.5-5.4) 06/30/19 06:26 Hgb 13.3 g/dL (12.0-16.0) 06/30/19 06:26 Hct 39.7 % (36.0-47.0) 06/30/19 06:26 MCV 85.1 fL (80.0-100.0) 06/30/19 06:26 MCH 28.5 pg (27.0-34.0) 06/30/19 06:26 MCHC 33.5 g/dL (33.0-35.0) 06/30/19 06:26 RDW 16.6 % (11.6-16.5) H 06/30/19 06:26 Plt Count 607 X10^3/uL (150.0-450.0) H 06/30/19 06:26 Plt Count Comment Increased (ADEQUATE) A 06/30/19 06:26 MPV 6.7 fL (7.4-11.0) L 06/30/19 06:26 Neut % (Auto) 84.8 % (42.0-75.0) H 06/30/19 06:26 Lymph % (Auto) 7.7 % (21.0-51.0) L 06/30/19 06:26 [place] % (Auto) 7.0 % (0.0-13.0) 06/30/19 06:26 Eos % (Auto) 0.1 % (0.9-2.9) L 06/30/19 06:26 Baso % (Auto) 0.4 % (0.2-1.0) 06/30/19 06:26 Neut # (Auto) 10.1 x10^3/uL (2.2-4.8) H 06/30/19 06:26 Lymph # (Auto) 0.9 X10^3/uL (1.3-2.9) L 06/30/19 06:26 [place] # (Auto) 0.8 x10^3/uL (0.3-0.8) 06/30/19 06:26 Eos # (Auto) 0.0 x10^3/uL (0.0-0.2) 06/30/19 06:26 Baso # (Auto) 0.1 X10^3/uL (0.0-0.1) 06/30/19 06:26 Absolute Nucleated RBC 0.1 /100WBC 06/30/19 06:26 Total Counted 100 06/29/19 03:11 Neutrophils % (Manual) 84 % (39-76) H 06/29/19 03:11 Band Neutrophils % 4 % (0-10) 06/29/19 03:11 Lymphocytes % (Manual) 7 % (13-43) L 06/29/19 03:11 Monocytes % (Manual) 5 % (4-9) 06/29/19 03:11 Plt Morphology Comment Normal (NORMAL) 06/30/19 06:26 RBC Morphology Normal (NORMAL) 06/30/19 06:26 Hypochromasia Slight A 06/29/19 03:11 Poikilocytosis 1+ A 06/26/19 19:14 Basophilic Stippling 2+ A 06/26/19 19:14 Anisocytosis Slight A 06/29/19 03:11 Sodium 137 mmol/L (136-145) 06/30/19 06:26 Corrected Sodium TNP 06/30/19 06:26 Potassium 4.2 mmol/L (3.5-5.1) 06/30/19 20:43 Chloride 99 mmol/L (98-107) 06/30/19 06:26 Carbon Dioxide 32.4 mmol/L (21-32) H 06/30/19 06:26 BUN 12 mg/dL (7-18) 06/30/19 06:26 Creatinine 0.39 mg/dL (0.55-1.02) L 06/30/19 06:26 Est GFR (MDRD) Af Amer > 60 (>60) 06/30/19 06:26 Est GFR (MDRD) Non-Af > 60 (>60) 06/30/19 06:26 Glucose 87 mg/dL (65-99) 06/30/19 06:26 POC Glucose (mg/dL) 80 mg/dL (65-99) 06/30/19 18:28 Lactic Acid 1.0 mmol/L (0.4-2.0) 06/28/19 04:05 Calcium 8.0 mg/dL (8.5-10.1) L 06/30/19 06:26 Corrected Calcium 8.8 mg/dL (8.5-10.1) 06/30/19 06:26 Phosphorus 2.1 mg/dL (2.6-4.7) L 06/30/19 06:26 Magnesium 2.1 mg/dL (1.7-2.9) 06/30/19 06:26 Iron 12 ug/dL (50-175) L 06/26/19 21:40 Transferrin 267 mg/dL (202-364) 06/26/19 21:40 Ferritin 19 ng/mL (8-252) 06/26/19 21:40 Total Bilirubin 0.70 mg/dL (0.2-1.0) 06/30/19 06:26 AST 12 Units/L (15-37) L 06/30/19 06:26 ALT 18 Units/L (12-78) 06/30/19 06:26 Alkaline Phosphatase 52 Units/L (46-116) 06/30/19 06:26 Total Protein 6.5 g/dL (6.4-8.2) 06/30/19 06:26 Albumin 3.0 g/dL (3.4-5.0) L 06/30/19 06:26 Globulin 3.5 g/dL (2.5-4.5) 06/30/19 06:26 Albumin/Globulin Ratio 0.9 Ratio (1.1-2.1) L 06/30/19 06:26 Prealbumin 15.4 mg/dL (18-35.7) L 06/30/19 06:26 Triglycerides 81 mg/dL (0-150) 06/30/19 06:26 Vitamin B12 621 pg/mL (193-986) 06/26/19 21:40 Folate > 20.0 ng/mL (>8.6) 06/26/19 21:40 Specimen Type Catherized urine 06/26/19 20:40 Urine Color Yellow (YELLOW) 06/26/19 20:40 Urine Appearance Turbid (CLEAR) 06/26/19 20:40 Urine pH 6.0 (5.0 - 8.0) 06/26/19 20:40 Ur Specific Fe [employer] 1.015 (1.000-1.030) 06/26/19 20:40 Urine Protein 4+ (NEGATIVE) 06/26/19 20:40 Urine Glucose (UA) Negative (NEGATIVE) 06/26/19 20:40 Urine Ketones Negative (NEGATIVE) 06/26/19 20:40 Urine Occult Blood 4+ (NEGATIVE) 06/26/19 20:40 Urine Nitrite Negative (NEGATIVE) 06/26/19 20:40 Urine Bilirubin Negative (NEGATIVE) 06/26/19 20:40 Urine Urobilinogen Normal (NORMAL) 06/26/19 20:40 Ur Leukocyte Esterase 3+ (NEGATIVE) 06/26/19 20:40 Urine RBC Tntc /HPF (0-3) A 06/26/19 20:40 Urine WBC Tntc /HPF (0-5) A 06/26/19 20:40 Ur Squamous Epith Cells Rare /HPF (NEGATIVE) 06/26/19 20:40 Amorphous Sediment 2+ /HPF (NEGATIVE) 06/26/19 20:40 Urine Bacteria 2+ /HPF (NEGATIVE) 06/26/19 20:40 Urine Yeast Many /HPF (NEGATIVE) 06/26/19 20:40 Ur Culture Indicated? Yes/culture set up 06/26/19 20:40 Gastric Fluid pH 4 06/28/19 08:10 Gastric Occult Blood Positive (NEGATIVE) A 06/28/19 08:10 Stool Description Fob tube 06/26/19 20:38 Stl Occult Blood (IFOB) Negative (NEGATIVE) 06/26/19 20:38 Urine Opiates Screen Negative (NEG=<300) 06/26/19 20:40 Urine Methadone Screen Negative (NEG=<300) 06/26/19 20:40 Ur Barbiturates Screen Negative (NEG=<200) 06/26/19 20:40 Ur Phencyclidine Scrn Negative (NEG=<25) 06/26/19 20:40 Ur Amphetamines Screen Negative (NEG=<1000) 06/26/19 20:40 U Benzodiazepines Scrn Negative (NEG=<200) 06/26/19 20:40 Urine Cocaine Screen Negative (NEG=<300) 06/26/19 20:40 U Marijuana (THC) Screen Negative (NEG=<50) 06/26/19 20:40 Tissue Pathology To follow 06/27/19 12:02 Blood Type B POSITIVE 06/26/19 21:40 Antibody Screen Negative 06/26/19 21:40 Crossmatch See Detail 06/26/19 21:40 - Plan (1) Anemia Status: Acute Qualifiers: Anemia type: iron deficiency Iron deficiency anemia type: chronic blood loss Qualified Code(s): D50.0 - Iron deficiency anemia secondary to blood loss (chronic) Plan: MONITOR H&H, PEPCID IV, PROTONIX IV, CONTINUE TO MONITOR (2) GI bleed Status: Acute Qualifiers: GI bleed type/associated pathology: unspecified gastrointestinal hemorrhage type Qualified Code(s): K92.2 - Gastrointestinal hemorrhage, unspecified Plan: PEPCID IV, PROTONIX IV (3) Urinary tract infection Status: Acute Qualifiers: Urinary tract infection type: acute cystitis Hematuria presence: with hematuria Qualified Code(s): N30.01 - Acute cystitis with hematuria Plan: IV LEVAQUIN, IV FORTAZ
--- NOTE | 2019-06-30 22:26 | PCM.PROG ---
Progress Note - Progress Note for Day of Date of Exam: 06/30/19 - Subjective Subjective: WAS ADMITTED FOR GI BLEED, ANEMIA, AND A URINARY TRACT INFECTION. STAFF REPORTS THAT PATIENT CONTINUES TO HAVE RESIDUAL WHEN ASPIRATED FROM PEG TUBE, HOWEVER, IT HAS DECREASED SINCE YESTERDAY. TODAY, SHE IS LYING IN BED WITH EYES CLOSED ON MORNING ROUNDS. SHE AWAKENS AND RESPONDS TO VERBAL STIMULI. ON EXAMINATION, HEART IS REGULAR IN RATE AND RHYTHM. BILATERAL LUNGS ARE NOTED WITH DIMINISHED LUNG SOUNDS THROUGHOUT. ABDOMEN IS DISTENDED. HYPERACTIVE BOWEL SOUNDS NOTED. HER VITALS THIS MORNING ARE: 99.4-83-20-100%-91/63. LABS WERE OBTAINED. ABNORMAL LAB VALUES INCLUDE THE FOLLOWING: WBC 11.9, PLT COUNT 607, POTASSIUM 3.1, CARBON DIOXIDE 32.4, CREATININE 0.39, CALCIUM 8.0, PHOSPHORUS 2.1, AST 12, ALBUMIN 3.0. SHE IS CURRENTLY RECEIVING NS AT 60 ML/HR, A PROTONIX DRIP, IV FORTAZ, IV LEVAQUIN, IV DIFLUCAN, IV PEPCID, TPN, AND ALBUMIN 25% IV DAILY. WE WILL CONTINUE TO HOLD HER FEEDINGS TODAY. OTHERWISE, WE WILL CONTINUE WITH CURRENT PLAN OF CARE. WE PLAN TO FOLLOW UP WITH AM LABS AND CONTINUE TO MONITOR. - Past Medical Family Social History Past Med/Fam/Surg Hx: No changes since H&P Allergies: Allergies No Known Drug Allergies Allergy (Verified 03/15/19 23:25) - Review of Systems ROS: No change since H&P - Vital Signs and I&O's Vital Signs: Temperature 98.9 F Pulse Rate [Apical] 97 Pulse Rate 95 Respiratory Rate 17 Blood Pressure [Right Arm] 138/63 Blood Pressure [Left Arm] 125/57 Blood Pressure 120/83 O2 Sat by Pulse Oximetry 100 Intake and Output: Intake & Output 06/28/19 06/29/19 06/30/19 07/01/19 11:59 11:59 11:59 11:59 Intake Total 3174 / 3174 3183 / 3183 2917 / 2917 1280 / 1280 Output Total 2099 / 2099 2600 / 2600 500 / 500 Balance 3174 / 3174 1083 / 1083 317 / 317 780 / 780 - Physical Exam Oriented: Not Oriented Eyes: Normal Ear: Normal Nose: Normal Throat: Normal Respiratory: Generalized, Diminished Cardiovascular: Normal : Normal Auscultation: Bowel Sounds: Increased Tenderness: Normal, Other (PEG TUBE ) Skin: Normal Musculoskeletal: Normal Psychiatric: Normal Mood Description: Calm Affect: Normal Speech Pattern: Clear - Laboratory and Diagnostics Result Diagrams: 06/30/19 06:26 06/30/19 20:43 Labs: 06/26/19 20:40 Urine,Catheterized Urine Culture - Final Laboratory WBC 11.9 X10^3/uL (3.6-10.0) H 06/30/19 06:26 RBC 4.67 X10^6/uL (3.5-5.4) 06/30/19 06:26 Hgb 13.3 g/dL (12.0-16.0) 06/30/19 06:26 Hct 39.7 % (36.0-47.0) 06/30/19 06:26 MCV 85.1 fL (80.0-100.0) 06/30/19 06:26 MCH 28.5 pg (27.0-34.0) 06/30/19 06:26 MCHC 33.5 g/dL (33.0-35.0) 06/30/19 06:26 RDW 16.6 % (11.6-16.5) H 06/30/19 06:26 Plt Count 607 X10^3/uL (150.0-450.0) H 06/30/19 06:26 Plt Count Comment Increased (ADEQUATE) A 06/30/19 06:26 MPV 6.7 fL (7.4-11.0) L 06/30/19 06:26 Neut % (Auto) 84.8 % (42.0-75.0) H 06/30/19 06:26 Lymph % (Auto) 7.7 % (21.0-51.0) L 06/30/19 06:26 [place] % (Auto) 7.0 % (0.0-13.0) 06/30/19 06:26 Eos % (Auto) 0.1 % (0.9-2.9) L 06/30/19 06:26 Baso % (Auto) 0.4 % (0.2-1.0) 06/30/19 06:26 Neut # (Auto) 10.1 x10^3/uL (2.2-4.8) H 06/30/19 06:26 Lymph # (Auto) 0.9 X10^3/uL (1.3-2.9) L 06/30/19 06:26 [place] # (Auto) 0.8 x10^3/uL (0.3-0.8) 06/30/19 06:26 Eos # (Auto) 0.0 x10^3/uL (0.0-0.2) 06/30/19 06:26 Baso # (Auto) 0.1 X10^3/uL (0.0-0.1) 06/30/19 06:26 Absolute Nucleated RBC 0.1 /100WBC 06/30/19 06:26 Total Counted 100 06/29/19 03:11 Neutrophils % (Manual) 84 % (39-76) H 06/29/19 03:11 Band Neutrophils % 4 % (0-10) 06/29/19 03:11 Lymphocytes % (Manual) 7 % (13-43) L 06/29/19 03:11 Monocytes % (Manual) 5 % (4-9) 06/29/19 03:11 Plt Morphology Comment Normal (NORMAL) 06/30/19 06:26 RBC Morphology Normal (NORMAL) 06/30/19 06:26 Hypochromasia Slight A 06/29/19 03:11 Poikilocytosis 1+ A 06/26/19 19:14 Basophilic Stippling 2+ A 06/26/19 19:14 Anisocytosis Slight A 06/29/19 03:11 Sodium 137 mmol/L (136-145) 06/30/19 06:26 Corrected Sodium TNP 06/30/19 06:26 Potassium 4.2 mmol/L (3.5-5.1) 06/30/19 20:43 Chloride 99 mmol/L (98-107) 06/30/19 06:26 Carbon Dioxide 32.4 mmol/L (21-32) H 06/30/19 06:26 BUN 12 mg/dL (7-18) 06/30/19 06:26 Creatinine 0.39 mg/dL (0.55-1.02) L 06/30/19 06:26 Est GFR (MDRD) Af Amer > 60 (>60) 06/30/19 06:26 Est GFR (MDRD) Non-Af > 60 (>60) 06/30/19 06:26 Glucose 87 mg/dL (65-99) 06/30/19 06:26 POC Glucose (mg/dL) 80 mg/dL (65-99) 06/30/19 18:28 Lactic Acid 1.0 mmol/L (0.4-2.0) 06/28/19 04:05 Calcium 8.0 mg/dL (8.5-10.1) L 06/30/19 06:26 Corrected Calcium 8.8 mg/dL (8.5-10.1) 06/30/19 06:26 Phosphorus 2.1 mg/dL (2.6-4.7) L 06/30/19 06:26 Magnesium 2.1 mg/dL (1.7-2.9) 06/30/19 06:26 Iron 12 ug/dL (50-175) L 06/26/19 21:40 Transferrin 267 mg/dL (202-364) 06/26/19 21:40 Ferritin 19 ng/mL (8-252) 06/26/19 21:40 Total Bilirubin 0.70 mg/dL (0.2-1.0) 06/30/19 06:26 AST 12 Units/L (15-37) L 06/30/19 06:26 ALT 18 Units/L (12-78) 06/30/19 06:26 Alkaline Phosphatase 52 Units/L (46-116) 06/30/19 06:26 Total Protein 6.5 g/dL (6.4-8.2) 06/30/19 06:26 Albumin 3.0 g/dL (3.4-5.0) L 06/30/19 06:26 Globulin 3.5 g/dL (2.5-4.5) 06/30/19 06:26 Albumin/Globulin Ratio 0.9 Ratio (1.1-2.1) L 06/30/19 06:26 Prealbumin 15.4 mg/dL (18-35.7) L 06/30/19 06:26 Triglycerides 81 mg/dL (0-150) 06/30/19 06:26 Vitamin B12 621 pg/mL (193-986) 06/26/19 21:40 Folate > 20.0 ng/mL (>8.6) 06/26/19 21:40 Specimen Type Catherized urine 06/26/19 20:40 Urine Color Yellow (YELLOW) 06/26/19 20:40 Urine Appearance Turbid (CLEAR) 06/26/19 20:40 Urine pH 6.0 (5.0 - 8.0) 06/26/19 20:40 Ur Specific [place] 1.015 (1.000-1.030) 06/26/19 20:40 Urine Protein 4+ (NEGATIVE) 06/26/19 20:40 Urine Glucose (UA) Negative (NEGATIVE) 06/26/19 20:40 Urine Ketones Negative (NEGATIVE) 06/26/19 20:40 Urine Occult Blood 4+ (NEGATIVE) 06/26/19 20:40 Urine Nitrite Negative (NEGATIVE) 06/26/19 20:40 Urine Bilirubin Negative (NEGATIVE) 06/26/19 20:40 Urine Urobilinogen Normal (NORMAL) 06/26/19 20:40 Ur Leukocyte Esterase 3+ (NEGATIVE) 06/26/19 20:40 Urine RBC Tntc /HPF (0-3) A 06/26/19 20:40 Urine WBC Tntc /HPF (0-5) A 06/26/19 20:40 Ur Squamous Epith Cells Rare /HPF (NEGATIVE) 06/26/19 20:40 Amorphous Sediment 2+ /HPF (NEGATIVE) 06/26/19 20:40 Urine Bacteria 2+ /HPF (NEGATIVE) 06/26/19 20:40 Urine Yeast Many /HPF (NEGATIVE) 06/26/19 20:40 Ur Culture Indicated? Yes/culture set up 06/26/19 20:40 Gastric Fluid pH 4 06/28/19 08:10 Gastric Occult Blood Positive (NEGATIVE) A 06/28/19 08:10 Stool Description Fob tube 06/26/19 20:38 Stl Occult Blood (IFOB) Negative (NEGATIVE) 06/26/19 20:38 Urine Opiates Screen Negative (NEG=<300) 06/26/19 20:40 Urine Methadone Screen Negative (NEG=<300) 06/26/19 20:40 Ur Barbiturates Screen Negative (NEG=<200) 06/26/19 20:40 Ur Phencyclidine Scrn Negative (NEG=<25) 06/26/19 20:40 Ur Amphetamines Screen Negative (NEG=<1000) 06/26/19 20:40 U Benzodiazepines Scrn Negative (NEG=<200) 06/26/19 20:40 Urine Cocaine Screen Negative (NEG=<300) 06/26/19 20:40 U Marijuana (THC) Screen Negative (NEG=<50) 06/26/19 20:40 Tissue Pathology To follow 06/27/19 12:02 Blood Type B POSITIVE 06/26/19 21:40 Antibody Screen Negative 06/26/19 21:40 Crossmatch See Detail 06/26/19 21:40 - Plan (1) Anemia Status: Acute Qualifiers: Anemia type: iron deficiency Iron deficiency anemia type: chronic blood loss Qualified Code(s): D50.0 - Iron deficiency anemia secondary to blood loss (chronic) Plan: MONITOR H&H, PEPCID IV, PROTONIX IV, CONTINUE TO MONITOR (2) GI bleed Status: Acute Qualifiers: GI bleed type/associated pathology: unspecified gastrointestinal hemorrhage type Qualified Code(s): K92.2 - Gastrointestinal hemorrhage, unspecified Plan: PEPCID IV, PROTONIX IV (3) Urinary tract infection Status: Acute Qualifiers: Urinary tract infection type: acute cystitis Hematuria presence: with hematuria Qualified Code(s): N30.01 - Acute cystitis with hematuria Plan: IV LEVAQUIN, IV FORTAZ
[2019-07-01 05:23] LABS: BASOPHILS # (AUTO) 0.1 X10^3/uL (0.0-0.1); BASOPHILS % (AUTO) 0.6 % (0.2-1.0); EOSINOPHILS % (AUTO) 0.1 % (0.9-2.9); HEMATOCRIT 38.6 % (36.0-47.0); HEMOGLOBIN 12.9 g/dL (12.0-16.0); LYMPHOCYTES # (AUTO) 1.3 X10^3/uL (1.3-2.9); LYMPHOCYTES % (AUTO) 12.5 % (21.0-51.0); MEAN CORPUSCULAR HEMOGLOBIN 28.5 pg (27.0-34.0); MEAN CORPUSCULAR HGB CONC 33.3 g/dL (33.0-35.0); MEAN CORPUSCULAR VOLUME 85.5 fL (80.0-100.0); MEAN PLATELET VOLUME 6.9 fL (7.4-11.0); MONOCYTES % (AUTO) 9.6 % (0.0-13.0); NEUTROPHILS # (AUTO) 8.1 x10^3/uL (2.2-4.8); NEUTROPHILS % (AUTO) 77.2 % (42.0-75.0); PLATELET COUNT 564 X10^3/uL (150.0-450.0); RED BLOOD COUNT 4.51 X10^6/uL (3.5-5.4); RED CELL DISTRIBUTION WIDTH 17.1 % (11.6-16.5); WHITE BLOOD COUNT 10.5 X10^3/uL (3.6-10.0)
[2019-07-01 05:28] LABS: PREALBUMIN 16.1 mg/dL (18-35.7)
[2019-07-01 05:50] LABS: ALANINE AMINOTRANSFERASE 15 Units/L (12-78); ALBUMIN 3.2 g/dL (3.4-5.0); ALKALINE PHOSPHATASE 48 Units/L (46-116); ASPARTATE AMINO TRANSFERASE 16 Units/L (15-37); BLOOD UREA NITROGEN 11 mg/dL (7-18); CALCIUM 8.1 mg/dL (8.5-10.1); CARBON DIOXIDE 28.7 mmol/L (21-32); CHLORIDE 98 mmol/L (98-107); COR CA(FOR HYPOALB) 8.7 mg/dL (8.5-10.1); CREATININE 0.33 mg/dL (0.55-1.02); SODIUM 134 mmol/L (136-145); TOTAL PROTEIN 6.2 g/dL (6.4-8.2); eGFR NON BLACK RACES > 60 (>60)
[2019-07-01] MEDS: FORTAZ or TAZICEF VIAL INJ 1 G in NS 100 ML IV + SPIKE MINIBAG* 100 ML IV SCH ×3 (07:15→21:37)
[2019-07-01] MEDS ORDERED: ZESTRIL TAB 20 MG ONE ×2 (08:16→09:46)
[2019-07-01] MEDS: PROTONIX INJ 40 MG VIAL 80 MG in NS 100 ML IV 80 ML IV SCH ×2 (08:24→18:15)
[2019-07-01] MEDS: SYNTHROID 100 mcg TAB PEG SCH (08:25)
[2019-07-01] MEDS: ZINC SULFATE PEG SCH (08:25)
[2019-07-01] MEDS: ZESTRIL TAB 20 MG PEG SCH (08:25)
[2019-07-01] MEDS: POTASSIUM CHLORIDE LIQ 20 MEQ UDC PEG SCH (08:25)
[2019-07-01] MEDS: MEGACE PO SCH ×2 (08:25→20:36)
[2019-07-01] MEDS: DIFLUCAN 200 MG IV PREMIX* 200 MG/100 ML BAG IV SCH (08:26)
[2019-07-01] MEDS: PEPCID 20 MG IV PREMIX* 20 MG/50 ML BAG IV SCH ×2 (08:26→20:36)
[2019-07-01] MEDS: MIRALAX POWDER (1 DOSE 17 G) PEG SCH (08:26)
[2019-07-01] MEDS: ALBUMIN HUMAN 25%- 100 ML 100 ML IV SCH (08:26)
[2019-07-01] MEDS: LEVAQUIN PREMIX IV 500 MG 500 MG/100 ML BAG IV SCH (08:27)
[2019-07-01] MEDS: NS 1000 ML 1,000 ML IV SCH (17:30)
[2019-07-01] MEDS: MILK OF MAGNESIA PO SCH (20:36)
[2019-07-01] MEDS ORDERED: NS 250 ML IV 250 ML IV ONE (20:51)
[2019-07-02] MEDS: FORTAZ or TAZICEF VIAL INJ 1 G in NS 100 ML IV + SPIKE MINIBAG* 100 ML IV SCH ×3 (05:07→21:56)
[2019-07-02] MEDS: CLINIMIX IV SCH ×5 (05:17)
[2019-07-02] MEDS: MVI IV SCH ×5 (05:17)
[2019-07-02] MEDS: TPN ELECTROLYTES IV SCH ×5 (05:17)
[2019-07-02] MEDS: [UNRECOGNIZED DRUG - OTHER] IV SCH ×5 (05:17)
[2019-07-02 06:19] LABS: BASOPHILS # (AUTO) 0.1 X10^3/uL (0.0-0.1); BASOPHILS % (AUTO) 0.4 % (0.2-1.0); EOSINOPHILS % (AUTO) 0.1 % (0.9-2.9); HEMATOCRIT 39.5 % (36.0-47.0); LYMPHOCYTES # (AUTO) 1.4 X10^3/uL (1.3-2.9); LYMPHOCYTES % (AUTO) 11.3 % (21.0-51.0); MEAN CORPUSCULAR HEMOGLOBIN 28.5 pg (27.0-34.0); MEAN CORPUSCULAR VOLUME 86.4 fL (80.0-100.0); MEAN PLATELET VOLUME 6.9 fL (7.4-11.0); MONOCYTES # (AUTO) 1.4 x10^3/uL (0.3-0.8); MONOCYTES % (AUTO) 11.1 % (0.0-13.0); NEUTROPHILS # (AUTO) 9.4 x10^3/uL (2.2-4.8); NEUTROPHILS % (AUTO) 77.1 % (42.0-75.0); PLATELET COUNT 574 X10^3/uL (150.0-450.0); RED BLOOD COUNT 4.57 X10^6/uL (3.5-5.4); RED CELL DISTRIBUTION WIDTH 17.5 % (11.6-16.5); WHITE BLOOD COUNT 12.2 X10^3/uL (3.6-10.0)
[2019-07-02 06:35] LABS: ALANINE AMINOTRANSFERASE 17 Units/L (12-78); ALBUMIN 3.5 g/dL (3.4-5.0); ALKALINE PHOSPHATASE 47 Units/L (46-116); ASPARTATE AMINO TRANSFERASE 13 Units/L (15-37); BLOOD UREA NITROGEN 10 mg/dL (7-18); CALCIUM 8.5 mg/dL (8.5-10.1); CARBON DIOXIDE 29.9 mmol/L (21-32); CHLORIDE 100 mmol/L (98-107); CREATININE 0.33 mg/dL (0.55-1.02); SODIUM 135 mmol/L (136-145); TOTAL PROTEIN 6.6 g/dL (6.4-8.2); eGFR NON BLACK RACES > 60 (>60)
[2019-07-02] MEDS ORDERED: ZESTRIL TAB 20 MG ONE (07:56)
[2019-07-02] MEDS: LEVAQUIN PREMIX IV 500 MG 500 MG/100 ML BAG IV SCH (08:47)
[2019-07-02] MEDS: POTASSIUM CHLORIDE LIQ 20 MEQ UDC PEG SCH (08:51)
[2019-07-02] MEDS: ZINC SULFATE PEG SCH (08:51)
[2019-07-02] MEDS: MEGACE PO SCH ×2 (08:52→21:55)
[2019-07-02] MEDS: ZESTRIL TAB 20 MG PEG SCH (08:52)
[2019-07-02] MEDS: SYNTHROID 100 mcg TAB PEG SCH (08:52)
[2019-07-02] MEDS: DIFLUCAN 200 MG IV PREMIX* 200 MG/100 ML BAG IV SCH (08:54)
[2019-07-02] MEDS: PEPCID 20 MG IV PREMIX* 20 MG/50 ML BAG IV SCH ×2 (10:00→21:56)
[2019-07-02] MEDS ORDERED: NS IRRIGATION 500 ML IR ONE (10:02)
[2019-07-02] MEDS: ALBUMIN HUMAN 25%- 100 ML 100 ML IV SCH (11:00)
--- NOTE | 2019-07-02 11:32 | PCM.PROG ---
Progress Note Progress Note for Day of Date of Exam: 07/02/19 Subjective Subjective: Patient seen at bedside, patient pulled out PEG tube overnight. Dr. Justice at bedside to replace the tube. She denies any other complaints. She is being treated for anemia, GI bleed and UTI. She had an EGD done which showed reflux esophagitis, hiatal hernia and gastroparesis. She has been having high residuals so TF were held for the past couple days. She is currently on Fortaz, Levaquin and Diflucan. Urine Cx negative. Continue Protonix and Pepcid. Continue abx. Dr. Justice to replace PEG tube and resume feeds. Past Medical Family Social History Past Med/Fam/Surg Hx: No changes since H&P Allergies: Allergies No Known Drug Allergies Allergy (Verified 03/15/19 23:25) Review of Systems ROS: No change since H&P Vital Signs and I&O's Vital Signs: Temperature 98.4 F Pulse Rate [Apical] 97 Pulse Rate 91 Respiratory Rate 18 Blood Pressure [Right Arm] 138/63 Blood Pressure [Left Arm] 125/57 Blood Pressure 131/70 O2 Sat by Pulse Oximetry 100 Intake and Output: Intake & Output 06/29/19 06/30/19 07/01/19 07/02/19 23:59 23:59 23:59 23:59 Intake Total 2886 / 2886 2839 / 2839 3803 / 3803 0 / 0 Output Total 2400 / 2400 1200 / 1200 1100 / 1100 500 / 500 Balance 486 / 486 1639 / 1639 2703 / 2703 -500 / -500 Physical Exam Oriented: Unable to test Eyes: Normal Ear: Normal Nose: Normal Respiratory: Generalized and Diminished Cardiovascular: Normal Auscultation: Bowel Sounds: Normal Tenderness: Normal Skin: Normal Musculoskeletal: Normal Psychiatric: Normal Mood Description: Calm Affect: Normal Speech Pattern: Clear Laboratory and Diagnostics Result Diagrams: 07/02/19 04:57 07/02/19 04:57 Labs: 06/26/19 20:40 Urine,Catheterized Urine Culture - Final Laboratory WBC 12.2 X10^3/uL (3.6-10.0) H 07/02/19 04:57 RBC 4.57 X10^6/uL (3.5-5.4) 07/02/19 04:57 Hgb 13.0 g/dL (12.0-16.0) 07/02/19 04:57 Hct 39.5 % (36.0-47.0) 07/02/19 04:57 MCV 86.4 fL (80.0-100.0) 07/02/19 04:57 MCH 28.5 pg (27.0-34.0) 07/02/19 04:57 MCHC 33.0 g/dL (33.0-35.0) 07/02/19 04:57 RDW 17.5 % (11.6-16.5) H 07/02/19 04:57 Plt Count 574 X10^3/uL (150.0-450.0) H 07/02/19 04:57 Plt Count Comment Increased (ADEQUATE) A 06/30/19 06:26 MPV 6.9 fL (7.4-11.0) L 07/02/19 04:57 Neut % (Auto) 77.1 % (42.0-75.0) H 07/02/19 04:57 Lymph % (Auto) 11.3 % (21.0-51.0) L 07/02/19 04:57 [place] % (Auto) 11.1 % (0.0-13.0) 07/02/19 04:57 Eos % (Auto) 0.1 % (0.9-2.9) L 07/02/19 04:57 Baso % (Auto) 0.4 % (0.2-1.0) 07/02/19 04:57 Neut # (Auto) 9.4 x10^3/uL (2.2-4.8) H 07/02/19 04:57 Lymph # (Auto) 1.4 X10^3/uL (1.3-2.9) 07/02/19 04:57 [place] # (Auto) 1.4 x10^3/uL (0.3-0.8) H 07/02/19 04:57 Eos # (Auto) 0.0 x10^3/uL (0.0-0.2) 07/02/19 04:57 Baso # (Auto) 0.1 X10^3/uL (0.0-0.1) 07/02/19 04:57 Absolute Nucleated RBC 0.0 /100WBC 07/02/19 04:57 Total Counted 100 06/29/19 03:11 Neutrophils % (Manual) 84 % (39-76) H 06/29/19 03:11 Band Neutrophils % 4 % (0-10) 06/29/19 03:11 Lymphocytes % (Manual) 7 % (13-43) L 06/29/19 03:11 Monocytes % (Manual) 5 % (4-9) 06/29/19 03:11 Plt Morphology Comment Normal (NORMAL) 06/30/19 06:26 RBC Morphology Normal (NORMAL) 06/30/19 06:26 Hypochromasia Slight A 06/29/19 03:11 Poikilocytosis 1+ A 06/26/19 19:14 Basophilic Stippling 2+ A 06/26/19 19:14 Anisocytosis Slight A 06/29/19 03:11 Sodium 135 mmol/L (136-145) L 07/02/19 04:57 Corrected Sodium TNP 07/02/19 04:57 Potassium 3.8 mmol/L (3.5-5.1) 07/02/19 04:57 Chloride 100 mmol/L (98-107) 07/02/19 04:57 Carbon Dioxide 29.9 mmol/L (21-32) 07/02/19 04:57 BUN 10 mg/dL (7-18) 07/02/19 04:57 Creatinine 0.33 mg/dL (0.55-1.02) L 07/02/19 04:57 Est GFR (MDRD) Af Amer > 60 (>60) 07/02/19 04:57 Est GFR (MDRD) Non-Af > 60 (>60) 07/02/19 04:57 Glucose 87 mg/dL (65-99) 07/02/19 04:57 POC Glucose (mg/dL) 79 mg/dL (65-99) 07/02/19 08:58 Lactic Acid 1.0 mmol/L (0.4-2.0) 06/28/19 04:05 Calcium 8.5 mg/dL (8.5-10.1) 07/02/19 04:57 Corrected Calcium TNP 07/02/19 04:57 Phosphorus 2.1 mg/dL (2.6-4.7) L 06/30/19 06:26 Magnesium 2.1 mg/dL (1.7-2.9) 06/30/19 06:26 Iron 12 ug/dL (50-175) L 06/26/19 21:40 Transferrin 267 mg/dL (202-364) 06/26/19 21:40 Ferritin 19 ng/mL (8-252) 06/26/19 21:40 Total Bilirubin 0.50 mg/dL (0.2-1.0) 07/02/19 04:57 AST 13 Units/L (15-37) L 07/02/19 04:57 ALT 17 Units/L (12-78) 07/02/19 04:57 Alkaline Phosphatase 47 Units/L (46-116) 07/02/19 04:57 Total Protein 6.6 g/dL (6.4-8.2) 07/02/19 04:57 Albumin 3.5 g/dL (3.4-5.0) 07/02/19 04:57 Globulin 3.1 g/dL (2.5-4.5) 07/02/19 04:57 Albumin/Globulin Ratio 1.1 Ratio (1.1-2.1) 07/02/19 04:57 Prealbumin 16.1 mg/dL (18-35.7) L 07/01/19 04:17 Triglycerides 81 mg/dL (0-150) 06/30/19 06:26 Vitamin B12 621 pg/mL (193-986) 06/26/19 21:40 Folate > 20.0 ng/mL (>8.6) 06/26/19 21:40 Specimen Type Catherized urine 06/26/19 20:40 Urine Color Yellow (YELLOW) 06/26/19 20:40 Urine Appearance Turbid (CLEAR) 06/26/19 20:40 Urine pH 6.0 (5.0 - 8.0) 06/26/19 20:40 Ur Specific [place] 1.015 (1.000-1.030) 06/26/19 20:40 Urine Protein 4+ (NEGATIVE) 06/26/19 20:40 Urine Glucose (UA) Negative (NEGATIVE) 06/26/19 20:40 Urine Ketones Negative (NEGATIVE) 06/26/19 20:40 Urine Occult Blood 4+ (NEGATIVE) 06/26/19 20:40 Urine Nitrite Negative (NEGATIVE) 06/26/19 20:40 Urine Bilirubin Negative (NEGATIVE) 06/26/19 20:40 Urine Urobilinogen Normal (NORMAL) 06/26/19 20:40 Ur Leukocyte Esterase 3+ (NEGATIVE) 06/26/19 20:40 Urine RBC Tntc /HPF (0-3) A 06/26/19 20:40 Urine WBC Tntc /HPF (0-5) A 06/26/19 20:40 Ur Squamous Epith Cells Rare /HPF (NEGATIVE) 06/26/19 20:40 Amorphous Sediment 2+ /HPF (NEGATIVE) 06/26/19 20:40 Urine Bacteria 2+ /HPF (NEGATIVE) 06/26/19 20:40 Urine Yeast Many /HPF (NEGATIVE) 06/26/19 20:40 Ur Culture Indicated? Yes/culture set up 06/26/19 20:40 Gastric Fluid pH 4 06/28/19 08:10 Gastric Occult Blood Positive (NEGATIVE) A 06/28/19 08:10 Stool Description Fob tube 06/26/19 20:38 Stl Occult Blood (IFOB) Negative (NEGATIVE) 06/26/19 20:38 Urine Opiates Screen Negative (NEG=<300) 06/26/19 20:40 Urine Methadone Screen Negative (NEG=<300) 06/26/19 20:40 Ur Barbiturates Screen Negative (NEG=<200) 06/26/19 20:40 Ur Phencyclidine Scrn Negative (NEG=<25) 06/26/19 20:40 Ur Amphetamines Screen Negative (NEG=<1000) 06/26/19 20:40 U Benzodiazepines Scrn Negative (NEG=<200) 06/26/19 20:40 Urine Cocaine Screen Negative (NEG=<300) 06/26/19 20:40 U Marijuana (THC) Screen Negative (NEG=<50) 06/26/19 20:40 Tissue Pathology To follow 06/27/19 12:02 Blood Type B POSITIVE 06/26/19 21:40 Antibody Screen Negative 06/26/19 21:40 Crossmatch See Detail 06/26/19 21:40 Plan (1) Anemia: Status: Acute Qualifiers: Anemia type: iron deficiency Iron deficiency anemia type: chronic blood loss Qualified Code(s): D50.0 - Iron deficiency anemia secondary to blood loss (chronic) (2) GI bleed: Status: Acute Qualifiers: GI bleed type/associated pathology: unspecified gastrointestinal hemorrhage type Qualified Code(s): K92.2 - Gastrointestinal hemorrhage, unspecified (3) Urinary tract infection: Status: Acute Qualifiers: Hematuria presence: with hematuria Urinary tract infection type: acute cystitis Qualified Code(s): N30.01 - Acute cystitis with hematuria
[2019-07-02] MEDS: PROTONIX INJ 40 MG VIAL 80 MG in NS 100 ML IV 80 ML IV SCH (11:43)
[2019-07-02] MEDS: NS 1000 ML 1,000 ML IV SCH ×2 (13:40→19:00)
[2019-07-02] MEDS: MILK OF MAGNESIA PO SCH (21:55)
[2019-07-03] MEDS: PROTONIX INJ 40 MG VIAL 80 MG in NS 100 ML IV 80 ML IV SCH ×5 (01:35→23:32)
[2019-07-03 06:15] LABS: BASOPHILS % (AUTO) 0.4 % (0.2-1.0); EOSINOPHILS % (AUTO) 0.1 % (0.9-2.9); HEMATOCRIT 40.6 % (36.0-47.0); HEMOGLOBIN 13.5 g/dL (12.0-16.0); LYMPHOCYTES # (AUTO) 1.2 X10^3/uL (1.3-2.9); LYMPHOCYTES % (AUTO) 12.1 % (21.0-51.0); MEAN CORPUSCULAR HEMOGLOBIN 28.4 pg (27.0-34.0); MEAN CORPUSCULAR HGB CONC 33.1 g/dL (33.0-35.0); MEAN CORPUSCULAR VOLUME 85.8 fL (80.0-100.0); MEAN PLATELET VOLUME 6.6 fL (7.4-11.0); MONOCYTES # (AUTO) 0.9 x10^3/uL (0.3-0.8); MONOCYTES % (AUTO) 9.1 % (0.0-13.0); NEUTROPHILS # (AUTO) 7.5 x10^3/uL (2.2-4.8); NEUTROPHILS % (AUTO) 78.3 % (42.0-75.0); PLATELET COUNT 577 X10^3/uL (150.0-450.0); RED BLOOD COUNT 4.73 X10^6/uL (3.5-5.4); RED CELL DISTRIBUTION WIDTH 17.6 % (11.6-16.5); WHITE BLOOD COUNT 9.6 X10^3/uL (3.6-10.0)
[2019-07-03 06:18] LABS: BLOOD UREA NITROGEN 12 mg/dL (7-18); CALCIUM 8.7 mg/dL (8.5-10.1); CARBON DIOXIDE 29.5 mmol/L (21-32); CHLORIDE 99 mmol/L (98-107); CREATININE 0.34 mg/dL (0.55-1.02); SODIUM 137 mmol/L (136-145); eGFR NON BLACK RACES > 60 (>60)
[2019-07-03] MEDS: FORTAZ or TAZICEF VIAL INJ 1 G in NS 100 ML IV + SPIKE MINIBAG* 100 ML IV SCH (06:20)
[2019-07-03] MEDS: NS 1000 ML 1,000 ML IV SCH (06:20)
[2019-07-03] MEDS ORDERED: ZESTRIL TAB 20 MG ONE (08:34)
[2019-07-03] MEDS: DIFLUCAN 200 MG IV PREMIX* 200 MG/100 ML BAG IV SCH (08:40)
[2019-07-03] MEDS: ALBUMIN HUMAN 25%- 100 ML 100 ML IV SCH (08:41)
[2019-07-03] MEDS: ZESTRIL TAB 20 MG PEG SCH (08:42)
[2019-07-03] MEDS: SYNTHROID 100 mcg TAB PEG SCH (08:42)
[2019-07-03] MEDS: ZINC SULFATE PEG SCH (08:42)
[2019-07-03] MEDS: MEGACE PO SCH ×2 (08:42→21:06)
[2019-07-03] MEDS: POTASSIUM CHLORIDE LIQ 20 MEQ UDC PEG SCH (08:42)
[2019-07-03] MEDS: PEPCID 20 MG IV PREMIX* 20 MG/50 ML BAG IV SCH ×2 (10:30→21:06)
[2019-07-03] MEDS: LEVAQUIN PREMIX IV 500 MG 500 MG/100 ML BAG IV SCH (10:30)
[2019-07-03] MEDS: MVI IV SCH ×5 (12:10)
[2019-07-03] MEDS: CLINIMIX IV SCH ×5 (12:10)
[2019-07-03] MEDS: [UNRECOGNIZED DRUG - OTHER] IV SCH ×5 (12:10)
[2019-07-03] MEDS: TPN ELECTROLYTES IV SCH ×5 (12:10)
--- NOTE | 2019-07-03 12:13 | PCM.PROG ---
Progress Note Progress Note for Day of Date of Exam: 07/03/19 Subjective Subjective: Patient seen at bedside, PEG tube replaced yesterday as patient had pulled it out the prev night. She is being treated for anemia, GI bleed and UTI. She had an EGD done which showed reflux esophagitis, hiatal hernia and gastroparesis. She is currently on Fortaz, Levaquin and Diflucan. Urine Cx showing yeast. Continue Protonix and Pepcid. Will DC fortaz and levaquin. Past Medical Family Social History Past Med/Fam/Surg Hx: No changes since H&P Allergies: Allergies No Known Drug Allergies Allergy (Verified 03/15/19 23:25) Review of Systems ROS: No change since H&P Vital Signs and I&O's Vital Signs: Temperature 98.7 F Pulse Rate [Apical] 97 Pulse Rate 104 Respiratory Rate 18 Blood Pressure [Right Arm] 138/63 Blood Pressure [Left Arm] 125/57 Blood Pressure 174/84 O2 Sat by Pulse Oximetry 97 Intake and Output: Intake & Output 06/30/19 07/01/19 07/02/19 07/04/19 23:59 23:59 23:59 00:59 Intake Total 2839 / 2839 3803 / 3803 4382 / 4382 0 / 0 Output Total 1200 / 1200 1100 / 1100 2200 / 2200 350 / 350 Balance 1639 / 1639 2703 / 2703 2182 / 2182 -350 / -350 Physical Exam Oriented: Unable to test Eyes: Normal Ear: Normal Nose: Normal Throat: Normal Respiratory: Generalized and Diminished Cardiovascular: Normal Auscultation: Bowel Sounds: Normal and Other (PEG tube intact, no signs of infection ) Tenderness: Normal Skin: Normal Musculoskeletal: Normal Psychiatric: Normal Mood Description: Calm Affect: Normal Speech Pattern: Clear Laboratory and Diagnostics Result Diagrams: 07/03/19 05:21 07/03/19 05:21 Labs: 06/26/19 20:40 Urine,Catheterized Urine Culture - Final Laboratory WBC 9.6 X10^3/uL (3.6-10.0) 07/03/19 05:21 RBC 4.73 X10^6/uL (3.5-5.4) 07/03/19 05:21 Hgb 13.5 g/dL (12.0-16.0) 03/08/20 05:21 Hct 40.6 % (36.0-47.0) 07/03/19 05:21 MCV 85.8 fL (80.0-100.0) 07/03/19 05:21 MCH 28.4 pg (27.0-34.0) 07/03/19 05:21 MCHC 33.1 g/dL (33.0-35.0) 07/03/19 05:21 RDW 17.6 % (11.6-16.5) H 07/03/19 05:21 Plt Count 577 X10^3/uL (150.0-450.0) H 07/03/19 05:21 Plt Count Comment Increased (ADEQUATE) A 06/30/19 06:26 MPV 6.6 fL (7.4-11.0) L 07/03/19 05:21 Neut % (Auto) 78.3 % (42.0-75.0) H 07/03/19 05:21 Lymph % (Auto) 12.1 % (21.0-51.0) L 07/03/19 05:21 [place] % (Auto) 9.1 % (0.0-13.0) 07/03/19 05:21 Eos % (Auto) 0.1 % (0.9-2.9) L 07/03/19 05:21 Baso % (Auto) 0.4 % (0.2-1.0) 07/03/19 05:21 Neut # (Auto) 7.5 x10^3/uL (2.2-4.8) H 07/03/19 05:21 Lymph # (Auto) 1.2 X10^3/uL (1.3-2.9) L 07/03/19 05:21 [place] # (Auto) 0.9 x10^3/uL (0.3-0.8) H 07/03/19 05:21 Eos # (Auto) 0.0 x10^3/uL (0.0-0.2) 07/03/19 05:21 Baso # (Auto) 0.0 X10^3/uL (0.0-0.1) 07/03/19 05:21 Absolute Nucleated RBC 0.0 /100WBC 07/03/19 05:21 Total Counted 100 06/29/19 03:11 Neutrophils % (Manual) 84 % (39-76) H 06/29/19 03:11 Band Neutrophils % 4 % (0-10) 06/29/19 03:11 Lymphocytes % (Manual) 7 % (13-43) L 06/29/19 03:11 Monocytes % (Manual) 5 % (4-9) 06/29/19 03:11 Plt Morphology Comment Normal (NORMAL) 06/30/19 06:26 RBC Morphology Normal (NORMAL) 06/30/19 06:26 Hypochromasia Slight A 06/29/19 03:11 Poikilocytosis 1+ A 06/26/19 19:14 Basophilic Stippling 2+ A 06/26/19 19:14 Anisocytosis Slight A 06/29/19 03:11 Sodium 137 mmol/L (136-145) 07/03/19 05:21 Corrected Sodium TNP 07/03/19 05:21 Potassium 4.0 mmol/L (3.5-5.1) 07/03/19 05:21 Chloride 99 mmol/L (98-107) 07/03/19 05:21 Carbon Dioxide 29.5 mmol/L (21-32) 07/03/19 05:21 BUN 12 mg/dL (7-18) 07/03/19 05:21 Creatinine 0.34 mg/dL (0.55-1.02) L 07/03/19 05:21 Est GFR (MDRD) Af Amer > 60 (>60) 07/03/19 05:21 Est GFR (MDRD) Non-Af > 60 (>60) 07/03/19 05:21 Glucose 92 mg/dL (65-99) 07/03/19 05:21 POC Glucose (mg/dL) 76 mg/dL (65-99) 07/03/19 10:04 Lactic Acid 1.0 mmol/L (0.4-2.0) 06/28/19 04:05 Calcium 8.7 mg/dL (8.5-10.1) 07/03/19 05:21 Corrected Calcium TNP 07/02/19 04:57 Phosphorus 2.1 mg/dL (2.6-4.7) L 06/30/19 06:26 Magnesium 2.1 mg/dL (1.7-2.9) 06/30/19 06:26 Iron 12 ug/dL (50-175) L 06/26/19 21:40 Transferrin 267 mg/dL (202-364) 06/26/19 21:40 Ferritin 19 ng/mL (8-252) 06/26/19 21:40 Total Bilirubin 0.50 mg/dL (0.2-1.0) 07/02/19 04:57 AST 13 Units/L (15-37) L 07/02/19 04:57 ALT 17 Units/L (12-78) 07/02/19 04:57 Alkaline Phosphatase 47 Units/L (46-116) 07/02/19 04:57 Total Protein 6.6 g/dL (6.4-8.2) 07/02/19 04:57 Albumin 3.5 g/dL (3.4-5.0) 07/02/19 04:57 Globulin 3.1 g/dL (2.5-4.5) 07/02/19 04:57 Albumin/Globulin Ratio 1.1 Ratio (1.1-2.1) 07/02/19 04:57 Prealbumin 16.1 mg/dL (18-35.7) L 07/01/19 04:17 Triglycerides 81 mg/dL (0-150) 06/30/19 06:26 Vitamin B12 621 pg/mL (193-986) 06/26/19 21:40 Folate > 20.0 ng/mL (>8.6) 06/26/19 21:40 Specimen Type Catherized urine 06/26/19 20:40 Urine Color Yellow (YELLOW) 06/26/19 20:40 Urine Appearance Turbid (CLEAR) 06/26/19 20:40 Urine pH 6.0 (5.0 - 8.0) 06/26/19 20:40 Ur Specific [place] 1.015 (1.000-1.030) 06/26/19 20:40 Urine Protein 4+ (NEGATIVE) 06/26/19 20:40 Urine Glucose (UA) Negative (NEGATIVE) 06/26/19 20:40 Urine Ketones Negative (NEGATIVE) 06/26/19 20:40 Urine Occult Blood 4+ (NEGATIVE) 06/26/19 20:40 Urine Nitrite Negative (NEGATIVE) 06/26/19 20:40 Urine Bilirubin Negative (NEGATIVE) 06/26/19 20:40 Urine Urobilinogen Normal (NORMAL) 06/26/19 20:40 Ur Leukocyte Esterase 3+ (NEGATIVE) 06/26/19 20:40 Urine RBC Tntc /HPF (0-3) A 06/26/19 20:40 Urine WBC Tntc /HPF (0-5) A 06/26/19 20:40 Ur Squamous Epith Cells Rare /HPF (NEGATIVE) 06/26/19 20:40 Amorphous Sediment 2+ /HPF (NEGATIVE) 06/26/19 20:40 Urine Bacteria 2+ /HPF (NEGATIVE) 06/26/19 20:40 Urine Yeast Many /HPF (NEGATIVE) 06/26/19 20:40 Ur Culture Indicated? Yes/culture set up 06/26/19 20:40 Gastric Fluid pH 4 06/28/19 08:10 Gastric Occult Blood Positive (NEGATIVE) A 06/28/19 08:10 Stool Description Fob tube 06/26/19 20:38 Stl Occult Blood (IFOB) Negative (NEGATIVE) 06/26/19 20:38 Urine Opiates Screen Negative (NEG=<300) 06/26/19 20:40 Urine Methadone Screen Negative (NEG=<300) 06/26/19 20:40 Ur Barbiturates Screen Negative (NEG=<200) 06/26/19 20:40 Ur Phencyclidine Scrn Negative (NEG=<25) 06/26/19 20:40 Ur Amphetamines Screen Negative (NEG=<1000) 06/26/19 20:40 U Benzodiazepines Scrn Negative (NEG=<200) 06/26/19 20:40 Urine Cocaine Screen Negative (NEG=<300) 06/26/19 20:40 U Marijuana (THC) Screen Negative (NEG=<50) 06/26/19 20:40 Tissue Pathology To follow 06/27/19 12:02 Blood Type B POSITIVE 06/26/19 21:40 Antibody Screen Negative 06/26/19 21:40 Crossmatch See Detail 06/26/19 21:40 Plan (1) Anemia: Status: Acute Qualifiers: Anemia type: iron deficiency Iron deficiency anemia type: chronic blood loss Qualified Code(s): D50.0 - Iron deficiency anemia secondary to blood loss (chronic) (2) GI bleed: Status: Acute Qualifiers: GI bleed type/associated pathology: unspecified gastrointestinal hemorrhage type Qualified Code(s): K92.2 - Gastrointestinal hemorrhage, unspecified (3) Urinary tract infection: Status: Acute Qualifiers: Hematuria presence: with hematuria Urinary tract infection type: acute cystitis Qualified Code(s): N30.01 - Acute cystitis with hematuria
[2019-07-03] MEDS: MILK OF MAGNESIA PO SCH (21:06)
--- NOTE | 2019-07-03 23:29 | PCM.PROG ---
Progress Note - Progress Note for Day of Date of Exam: 07/01/19 - Subjective Subjective: WAS ADMITTED FOR GI BLEED, ANEMIA, AND A URINARY TRACT INFECTION. THERE HAS BEEN MINIMAL RESIDUAL IN PEG TUBE WHEN CHECKED. TODAY, SHE IS LYING IN BED WITH EYES CLOSED ON MORNING ROUNDS. SHE AWAKENS AND RESPONDS TO VERBAL STIMULI. ON EXAMINATION, HEART IS REGULAR IN RATE AND RHYTHM. BILATERAL LUNGS ARE NOTED WITH DIMINISHED LUNG SOUNDS THROUGHOUT. ABDOMEN IS DISTENDED. HYPERACTIVE BOWEL SOUNDS NOTED. HER VITALS THIS MORNING ARE: 98.2-89-20-98%-113/74. LABS WERE OBTAINED. ABNORMAL LAB VALUES INCLUDE THE FOLLOWING: WBC 10.5, PLT COUNT 564, SODIUM 134, CREATININE 0.33, GLUCOSE 106, CALCIUM 8.1, TOTAL PROTEIN 6.2, ALBUMIN 3.2. SHE IS CURRENTLY RECEIVING NS AT 60 ML/HR, A PROTONIX DRIP, IV FORTAZ, IV LEVAQUIN, IV DIFLUCAN, IV PEPCID, TPN, AND ALBUMIN 25% IV DAILY. WE WILL RESUME FEEDINGS TODAY. WE WILL GIVE A CAN TWICE A DAY AND FLUSH WITH 50CC FREE WATER. OTHERWISE, WE WILL CONTINUE WITH CURRENT PLAN OF CARE. WE PLAN TO FOLLOW UP WITH AM LABS AND CONTINUE TO MONITOR. - Past Medical Family Social History Past Med/Fam/Surg Hx: No changes since H&P Allergies: Allergies No Known Drug Allergies Allergy (Verified 03/15/19 23:25) - Review of Systems ROS: No change since H&P - Vital Signs and I&O's Vital Signs: Temperature 98.8 F Pulse Rate [Apical] 97 Pulse Rate 87 Respiratory Rate 18 Blood Pressure [Right Arm] 138/63 Blood Pressure [Left Arm] 125/57 Blood Pressure 166/92 O2 Sat by Pulse Oximetry 97 Intake and Output: Intake & Output 07/01/19 07/02/19 07/03/19 07/04/19 10:59 10:59 11:59 11:59 Intake Total 3112 / 3112 Output Total 1300 / 1300 Balance 1811 / 181 - Physical Exam Oriented: Unable to test Eyes: Normal Ear: Normal Nose: Normal Throat: Normal Respiratory: Generalized, Diminished Cardiovascular: Normal : Normal Auscultation: Bowel Sounds: Normal, Other (PEG tube intact, no signs of infection) Palpation: Normal Tenderness: Normal Skin: Normal Musculoskeletal: Normal Psychiatric: Normal Mood Description: Calm Affect: Normal Speech Pattern: Clear - Laboratory and Diagnostics Result Diagrams: 07/03/19 05:21 07/03/19 05:21 Labs: 06/26/19 20:40 Urine,Catheterized Urine Culture - Final Laboratory WBC 9.6 X10^3/uL (3.6-10.0) 07/03/19 05:21 RBC 4.73 X10^6/uL (3.5-5.4) 07/03/19 05:21 Hgb 13.5 g/dL (12.0-16.0) 07/03/19 05:21 Hct 40.6 % (36.0-47.0) 07/03/19 05:21 MCV 85.8 fL (80.0-100.0) 07/03/19 05:21 MCH 28.4 pg (27.0-34.0) 07/03/19 05:21 MCHC 33.1 g/dL (33.0-35.0) 07/03/19 05:21 RDW 17.6 % (11.6-16.5) H 07/03/19 05:21 Plt Count 577 X10^3/uL (150.0-450.0) H 07/03/19 05:21 Plt Count Comment Increased (ADEQUATE) A 06/30/19 06:26 MPV 6.6 fL (7.4-11.0) L 07/03/19 05:21 Neut % (Auto) 78.3 % (42.0-75.0) H 07/03/19 05:21 Lymph % (Auto) 12.1 % (21.0-51.0) L 07/03/19 05:21 [place] % (Auto) 9.1 % (0.0-13.0) 07/03/19 05:21 Eos % (Auto) 0.1 % (0.9-2.9) L 07/03/19 05:21 Baso % (Auto) 0.4 % (0.2-1.0) 07/03/19 05:21 Neut # (Auto) 7.5 x10^3/uL (2.2-4.8) H 07/03/19 05:21 Lymph # (Auto) 1.2 X10^3/uL (1.3-2.9) L 07/03/19 05:21 [place] # (Auto) 0.9 x10^3/uL (0.3-0.8) H 07/03/19 05:21 Eos # (Auto) 0.0 x10^3/uL (0.0-0.2) 07/03/19 05:21 Baso # (Auto) 0.0 X10^3/uL (0.0-0.1) 07/03/19 05:21 Absolute Nucleated RBC 0.0 /100WBC 07/03/19 05:21 Total Counted 100 06/29/19 03:11 Neutrophils % (Manual) 84 % (39-76) H 06/29/19 03:11 Band Neutrophils % 4 % (0-10) 06/29/19 03:11 Lymphocytes % (Manual) 7 % (13-43) L 06/29/19 03:11 Monocytes % (Manual) 5 % (4-9) 06/29/19 03:11 Plt Morphology Comment Normal (NORMAL) 06/30/19 06:26 RBC Morphology Normal (NORMAL) 06/30/19 06:26 Hypochromasia Slight A 06/29/19 03:11 Poikilocytosis 1+ A 06/26/19 19:14 Basophilic Stippling 2+ A 06/26/19 19:14 Anisocytosis Slight A 06/29/19 03:11 Sodium 137 mmol/L (136-145) 07/03/19 05:21 Corrected Sodium TNP 07/03/19 05:21 Potassium 4.0 mmol/L (3.5-5.1) 07/03/19 05:21 Chloride 99 mmol/L (98-107) 07/03/19 05:21 Carbon Dioxide 29.5 mmol/L (21-32) 07/03/19 05:21 BUN 12 mg/dL (7-18) 07/03/19 05:21 Creatinine 0.34 mg/dL (0.55-1.02) L 07/03/19 05:21 Est GFR (MDRD) Af Amer > 60 (>60) 07/03/19 05:21 Est GFR (MDRD) Non-Af > 60 (>60) 07/03/19 05:21 Glucose 92 mg/dL (65-99) 07/03/19 05:21 POC Glucose (mg/dL) 89 mg/dL (65-99) 07/03/19 17:18 Lactic Acid 1.0 mmol/L (0.4-2.0) 06/28/19 04:05 Calcium 8.7 mg/dL (8.5-10.1) 07/03/19 05:21 Corrected Calcium TNP 07/02/19 04:57 Phosphorus 2.1 mg/dL (2.6-4.7) L 06/30/19 06:26 Magnesium 2.1 mg/dL (1.7-2.9) 06/30/19 06:26 Iron 12 ug/dL (50-175) L 06/26/19 21:40 Transferrin 267 mg/dL (202-364) 06/26/19 21:40 Ferritin 19 ng/mL (8-252) 06/26/19 21:40 Total Bilirubin 0.50 mg/dL (0.2-1.0) 07/02/19 04:57 AST 13 Units/L (15-37) L 07/02/19 04:57 ALT 17 Units/L (12-78) 07/02/19 04:57 Alkaline Phosphatase 47 Units/L (46-116) 07/02/19 04:57 Total Protein 6.6 g/dL (6.4-8.2) 07/02/19 04:57 Albumin 3.5 g/dL (3.4-5.0) 07/02/19 04:57 Globulin 3.1 g/dL (2.5-4.5) 07/02/19 04:57 Albumin/Globulin Ratio 1.1 Ratio (1.1-2.1) 07/02/19 04:57 Prealbumin 16.1 mg/dL (18-35.7) L 07/01/19 04:17 Triglycerides 81 mg/dL (0-150) 06/30/19 06:26 Vitamin B12 621 pg/mL (193-986) 06/26/19 21:40 Folate > 20.0 ng/mL (>8.6) 06/26/19 21:40 Specimen Type Catherized urine 06/26/19 20:40 Urine Color Yellow (YELLOW) 06/26/19 20:40 Urine Appearance Turbid (CLEAR) 06/26/19 20:40 Urine pH 6.0 (5.0 - 8.0) 06/26/19 20:40 Ur Specific [place] 1.015 (1.000-1.030) 06/26/19 20:40 Urine Protein 4+ (NEGATIVE) 06/26/19 20:40 Urine Glucose (UA) Negative (NEGATIVE) 06/26/19 20:40 Urine Ketones Negative (NEGATIVE) 06/26/19 20:40 Urine Occult Blood 4+ (NEGATIVE) 06/26/19 20:40 Urine Nitrite Negative (NEGATIVE) 06/26/19 20:40 Urine Bilirubin Negative (NEGATIVE) 06/26/19 20:40 Urine Urobilinogen Normal (NORMAL) 06/26/19 20:40 Ur Leukocyte Esterase 3+ (NEGATIVE) 06/26/19 20:40 Urine RBC Tntc /HPF (0-3) A 06/26/19 20:40 Urine WBC Tntc /HPF (0-5) A 06/26/19 20:40 Ur Squamous Epith Cells Rare /HPF (NEGATIVE) 06/26/19 20:40 Amorphous Sediment 2+ /HPF (NEGATIVE) 06/26/19 20:40 Urine Bacteria 2+ /HPF (NEGATIVE) 06/26/19 20:40 Urine Yeast Many /HPF (NEGATIVE) 06/26/19 20:40 Ur Culture Indicated? Yes/culture set up 06/26/19 20:40 Gastric Fluid pH 4 06/28/19 08:10 Gastric Occult Blood Positive (NEGATIVE) A 06/28/19 08:10 Stool Description Fob tube 06/26/19 20:38 Stl Occult Blood (IFOB) Negative (NEGATIVE) 06/26/19 20:38 Urine Opiates Screen Negative (NEG=<300) 06/26/19 20:40 Urine Methadone Screen Negative (NEG=<300) 06/26/19 20:40 Ur Barbiturates Screen Negative (NEG=<200) 06/26/19 20:40 Ur Phencyclidine Scrn Negative (NEG=<25) 06/26/19 20:40 Ur Amphetamines Screen Negative (NEG=<1000) 06/26/19 20:40 U Benzodiazepines Scrn Negative (NEG=<200) 06/26/19 20:40 Urine Cocaine Screen Negative (NEG=<300) 06/26/19 20:40 U Marijuana (THC) Screen Negative (NEG=<50) 06/26/19 20:40 Tissue Pathology To follow 06/27/19 12:02 Blood Type B POSITIVE 06/26/19 21:40 Antibody Screen Negative 06/26/19 21:40 Crossmatch See Detail 06/26/19 21:40 - Plan (1) Anemia Status: Acute Qualifiers: Anemia type: iron deficiency Iron deficiency anemia type: chronic blood loss Qualified Code(s): D50.0 - Iron deficiency anemia secondary to blood loss (chronic) Plan: MONITOR H&H, PEPCID IV, PROTONIX IV, CONTINUE TO MONITOR (2) GI bleed Status: Acute Qualifiers: GI bleed type/associated pathology: unspecified gastrointestinal hemorrhage type Qualified Code(s): K92.2 - Gastrointestinal hemorrhage, unspecified Plan: PEPCID IV, PROTONIX IV (3) Urinary tract infection Status: Acute Qualifiers: Urinary tract infection type: acute cystitis Hematuria presence: with hematuria Qualified Code(s): N30.01 - Acute cystitis with hematuria Plan: IV LEVAQUIN, IV FORTAZ
[2019-07-04] MEDS: PROTONIX INJ 40 MG VIAL 80 MG in NS 100 ML IV 80 ML IV SCH (01:43)
[2019-07-04 05:54] LABS: BLOOD UREA NITROGEN 10 mg/dL (7-18); CARBON DIOXIDE 28.7 mmol/L (21-32); CHLORIDE 100 mmol/L (98-107); CREATININE 0.33 mg/dL (0.55-1.02); MAGNESIUM 2.4 mg/dL (1.7-2.9); SODIUM 136 mmol/L (136-145); eGFR NON BLACK RACES > 60 (>60)
[2019-07-04 05:59] LABS: BASOPHILS % (AUTO) 0.5 % (0.2-1.0); EOSINOPHILS % (AUTO) 0.1 % (0.9-2.9); HEMATOCRIT 39.3 % (36.0-47.0); HEMOGLOBIN 12.9 g/dL (12.0-16.0); LYMPHOCYTES # (AUTO) 1.2 X10^3/uL (1.3-2.9); LYMPHOCYTES % (AUTO) 13.3 % (21.0-51.0); MEAN CORPUSCULAR HEMOGLOBIN 28.1 pg (27.0-34.0); MEAN CORPUSCULAR HGB CONC 32.8 g/dL (33.0-35.0); MEAN CORPUSCULAR VOLUME 85.6 fL (80.0-100.0); MEAN PLATELET VOLUME 6.7 fL (7.4-11.0); MONOCYTES # (AUTO) 0.9 x10^3/uL (0.3-0.8); MONOCYTES % (AUTO) 10.3 % (0.0-13.0); NEUTROPHILS # (AUTO) 6.8 x10^3/uL (2.2-4.8); NEUTROPHILS % (AUTO) 75.8 % (42.0-75.0); PLATELET COUNT 533 X10^3/uL (150.0-450.0); RED BLOOD COUNT 4.59 X10^6/uL (3.5-5.4); RED CELL DISTRIBUTION WIDTH 18.3 % (11.6-16.5); WHITE BLOOD COUNT 8.9 X10^3/uL (3.6-10.0)
[2019-07-04] MEDS: NS 1000 ML 1,000 ML IV SCH (06:14)
[2019-07-04] MEDS ORDERED: ZESTRIL TAB 20 MG ONE (09:01)
[2019-07-04] MEDS: ALBUMIN HUMAN 25%- 100 ML 100 ML IV SCH (09:06)
[2019-07-04] MEDS: POTASSIUM CHLORIDE LIQ 20 MEQ UDC PEG SCH (09:07)
[2019-07-04] MEDS: ZINC SULFATE PEG SCH (09:08)
[2019-07-04] MEDS: MEGACE PO SCH (09:08)
[2019-07-04] MEDS: SYNTHROID 100 mcg TAB PEG SCH (09:08)
[2019-07-04] MEDS: ZESTRIL TAB 20 MG PEG SCH (09:09)
[2019-07-04] MEDS: PEPCID 20 MG IV PREMIX* 20 MG/50 ML BAG IV SCH (11:00)
[2019-07-04] MEDS: DIFLUCAN 200 MG IV PREMIX* 200 MG/100 ML BAG IV SCH (11:46)
[2019-07-04 15:25] VITALS: BP 172/72
== END 2019-07-04 12:30 | DRG 812 ==
LOC: ER 18:37 → ICU 21:51 → MED/SURG 07-01 18:16
PROVIDERS: ADMIT Obstetrics & Gynecology Obstetrics; ATTEND Internal Medicine
DX: N30.01 Acute cystitis with hematuria; K94.23 Gastrostomy malfunction; E78.2 Mixed hyperlipidemia; D50.0 Iron deficiency anemia secondary to blood loss (chronic); K31.84 Gastroparesis; K31.3 Pylorospasm, not elsewhere classified; K92.2 Gastrointestinal hemorrhage, unspecified; K20.8 Other esophagitis; I10 Essential (primary) hypertension; Z74.01 Bed confinement status; I25.10 Atherosclerotic heart disease of native coronary artery without angina pectoris; E03.8 Other specified hypothyroidism; K44.9 Diaphragmatic hernia without obstruction or gangrene
CPT/HCPCS: 36415; 51701; 71010; 71045; 80048; 80053; 80307; 81001; 82270; 82271; 82607; 82728; 82746; 83540; 83605; 83735; 84100; 84132; 84134; 84466; 84478; 85014; 85018; 85025; 86850; 86900; 86901; 86922; 87086; 88305; 93005; 96365; 96367; 96374; 99100; 99284; A4217; A4222; B4189; C9113; J0696; J0713; J1450; J1940; J1956; J2704; J3475; J3480; J7030; J7050; P9016; P9047; S0028; S0179